=== PATIENT | male | born 1950 | race Caucasian/White ===

== ENCOUNTER → 2017-05-24 15:28 | Outpatient (CLI) | payer MEDICARE, SELFPAY ==
[2017-05-24 17:54] LABS: Hematocrit 35.4 % (40-54); Hemoglobin 11.9 g/dl (13.0-16.5); Red Blood Count 3.72 M/mm3 (4.6-6.2); White Blood Count 4.5 K/mm3 (4.4-11.0)
[2017-05-24 17:55] LABS: Basophil% 0.7 % (0-1); Eosinophils% 3.5 % (0-5); Lymphocyte % 28.7 % (19-41); Mean Corp Hgb Conc 33.6 g/gl (32-36); Mean Corpuscular Volume 95.2 fL (80-94); Monocyte% 12.4 % (0-10); Neutrophil % 54.5 % (47-70); POSITIVE COUNT NO; POSITIVE DIFFERENTIAL NO; POSITIVE MORPHOLOGY NO; Platelet Count 279 K/mm3 (150-450); RBC Distribution Width CV 12.7 % (11.6-14.6); RBC Distribution Width SD 42.6 fl (35.1-43.9)
[2017-05-24 17:56] LABS: Absolute Neutrophil Count 2.5 X10^3/uL (2.0-7.7); Basophil# 0.03 X10^3/uL; Eosinophil# 0.16 X10^3/uL; Monocyte# 0.56 X10^3/uL; Neutrophil # 2.47 X10^3/uL (2.7-7.7)
[2017-05-24 18:42] LABS: ALB/GLOB Ratio 0.9 RATIO (0.9-2.4); AST(SGOT) 16 U/L (15-37); Alanine Aminotransfer ALT/SGPT 24 U/L (16-61); Albumin, Serum 3.6 g/dL (3.2-5.0); Alkaline Phosphatase 107 U/L (45-117); Anion Gap 9 (5-15); BUN 34 mg/dL (7-18); BUN/Creat Ratio 23.4 RATIO (10-20); Calcium,Total 8.5 mg/dL (8.5-10.1); Chloride 106 mmol/L (98-107); Creatinine, Serum 1.45 mg/dL (0.70-1.30); EST Glomerular Filtration Rate 51 mL/min (>60); Est Glom Filt Rate - Afr Amer 62 mL/min (>60); Globulin 3.8 g/dL (2.2-4.2); Glucose 91 mg/dL (74-106); Magnesium 2.5 mg/dL (1.6-2.6); Potassium 4.4 mmol/L (3.5-5.1); Protein, Total 7.4 g/dL (6.4-8.2); Sodium Level 140 mmol/L (136-145); T4 Free Direct 1.12 ng/dL (0.76-1.46)
[2017-05-25 09:35] LABS: Vitamin B12 351 pg/mL (211-911)
[2017-05-29 14:07] LABS: Testosterone, Free 5.44 (5.00-21.00)
[2017-05-29 15:32] LABS: Testosterone, % Free 2.03 % (1.50-4.20); Testosterone, Total 268 ng/dL (264-916)
== END ==
PROVIDERS: Family Medicine; Family Provider Family Medicine; PCP Family Medicine; Visit Provider Family Medicine
DX: D64.9 Anemia, unspecified (principal); I48.91 Unspecified atrial fibrillation; E03.9 Hypothyroidism, unspecified; E34.9 Endocrine disorder, unspecified; E55.9 Vitamin D deficiency, unspecified
CPT/HCPCS: 36415; 80053; 82306; 82607; 83735; 84402; 84403; 84439; 84443; 85025

== ENCOUNTER → 2017-06-01 10:36 | Outpatient (CLI) | payer MEDICARE, SELFPAY ==
[2017-06-01 12:50] LABS: Anion Gap 8 (5-15); BUN 30 mg/dL (7-18); Calcium,Total 8.9 mg/dL (8.5-10.1); Chloride 104 mmol/L (98-107); Creatinine, Serum 1.25 mg/dL (0.70-1.30); EST Glomerular Filtration Rate 61 mL/min (>60); Est Glom Filt Rate - Afr Amer 74 mL/min (>60); Glucose 93 mg/dL (74-106); Potassium 4.6 mmol/L (3.5-5.1); Sodium Level 138 mmol/L (136-145)
== END ==
PROVIDERS: Family Provider Family Medicine; PCP Family Medicine; Visit Provider Family Medicine
DX: N17.9 Acute kidney failure, unspecified (principal)
CPT/HCPCS: 36415; 80048

== ENCOUNTER 2017-10-03 05:47 | Day surgery (SDC) | payer MEDICARE, SELFPAY ==
[2017-10-03] VITALS (7 sets, daily range): BP systolic 107–118; BP diastolic 64–70; PULSE 50–56; RESP 14–16; TEMP 35.9–36.4; O2SAT 97–99; BMI 25.8
--- NOTE | 2017-10-03 06:22 | SUR.PREOP ---
500c ns enema given. pt. states results clear.
--- NOTE | 2017-10-03 06:48 | PCM.OPRPT ---
Problem List (1) Personal history of colonic polyps Status: Acute Report of Operation Date of Procedure: 10/03/17 Pre-Operative Diagnosis: Personal history of colon polyps Post-Operative Diagnosis: Extensive sigmoid and descending diverticulosis Surgery/Procedure Performed:: Colonoscopy Description of Surgical Findings:: Timeout and informed consent was obtained. 67-year-old gent was taken to the endoscopy suite. He was placed in the left lateral decubitus position. He received 100 mg Demerol and 3 mg of Versed is intravenous sedation. Digital rectal exam demonstrated mild hemorrhoidal changes. 3+ enlarged smooth prostate. Flexible colonoscope inserted in the rectum advanced with tortuous sigmoid colon. The scope was then readily advanced to the transverse colon and nicely to the cecum. Bowel prep was good there was still some liquidy stool but he could be aspirated. The cecum and ileocecal valve was nicely inspected. The scope was carefully withdrawn from the ascending and transverse descending and sigmoid colon. The descending and sigmoid colon had extensive severe diverticulosis. I did not see any changes of acute inflammatory change. Rectal vault was rather small. Some moderate grade 2 internal hemorrhoidal changes noted. No active bleeding. Excess fluid and air was aspirated free the procedure was completed with the patient tolerating it well. Impression Extensive descending and sigmoid diverticulosis. No evidence for recurrent polyps Recommendations will be for next colonoscopy in 5 years. Previous colonoscopy was 2012. Cc: Dr. Gutierrez Butler Medications were given at 0632. Scope was inserted 0636. Cecum was reached at 0640.31. The procedure was completed at [address] M.D., F.A.C.S. Type of Anesthesia:: IV Sedation
== END 2017-10-03 07:45 | disposition home or self-care (01) ==
LOC: EN 05:48 → AC 05:49
PROVIDERS: Family Provider Family Medicine; PCP Family Medicine; Visit Provider Surgery
PROC: 0DJD8ZZ Inspection of Lower Intestinal Tract, Via Natural or Artificial Opening Endoscopic (ICD-10-PCS; CPT 45378; principal; 2017-10-03 06:25)
DX: Z12.11 Encounter for screening for malignant neoplasm of colon (principal); K57.30 Diverticulosis of large intestine without perforation or abscess without bleeding; Z86.010 Personal history of colon polyps
CPT/HCPCS: 99152; G0121; 99153; J7120

== ENCOUNTER → 2017-12-20 15:03 | Outpatient (CLI) | payer MEDICARE, SELFPAY ==
[2017-12-20 17:47] LABS: Absolute Lymphocyte Count 1.26 X10^3/ul (0.83-4.51); Absolute Neutrophil Count 3.3 X10^3/uL (2.0-7.7); Basophil# 0.02 X10^3/uL; Basophil% 0.4 % (0-1); Eosinophil# 0.15 X10^3/uL; Eosinophils% 2.9 % (0-5); Hematocrit 34.2 % (40-54); Hemoglobin 11.3 g/dl (13.0-16.5); Lymphocyte # 1.26 X10^3/ul (4.0); Mean Corpuscular Hgb 31.5 pg (27.0-32.0); Mean Corpuscular Volume 95.3 fL (80-94); Mean Platelet Vol. 9.7 fl (6.2-12.0); Monocyte# 0.56 X10^3/uL; Monocyte% 10.7 % (0-10); Neutrophil # 3.25 X10^3/uL (2.7-7.7); Platelet Count 275 K/mm3 (150-450); RBC Distribution Width CV 12.6 % (11.6-14.6); RBC Distribution Width SD 43.3 fl (35.1-43.9); Red Blood Count 3.59 M/mm3 (4.6-6.2); White Blood Count 5.2 K/mm3 (4.4-11.0)
[2017-12-20 17:50] LABS: POSITIVE COUNT NO; POSITIVE DIFFERENTIAL NO; POSITIVE MORPHOLOGY NO
[2017-12-20 18:17] LABS: AST(SGOT) 14 U/L (15-37); Alanine Aminotransfer ALT/SGPT 24 U/L (16-61); Albumin, Serum 3.6 g/dL (3.2-5.0); Alkaline Phosphatase 89 U/L (45-117); Anion Gap 6 (5-15); BUN 30 mg/dL (7-18); BUN/Creat Ratio 18.4 RATIO (10-20); Calcium,Total 8.8 mg/dL (8.5-10.1); Chloride 108 mmol/L (98-107); Creatinine, Serum 1.63 mg/dL (0.70-1.30); EST Glomerular Filtration Rate 45 mL/min (>60); Est Glom Filt Rate - Afr Amer 54 mL/min (>60); Ferritin 119 ng/mL (26-388); Globulin 3.7 g/dL (2.2-4.2); Glucose 85 mg/dL (74-106); Iron 68 ug/dL (65-175); Iron Binding Capacity,Total 270 ug/dL (250-450); Magnesium 2.3 mg/dL (1.6-2.6); PERCENT IRON SATURATION 25.2 % (15.0-55.0); Potassium 4.5 mmol/L (3.5-5.1); Protein, Total 7.3 g/dL (6.4-8.2); Sodium Level 143 mmol/L (136-145); T4 Free Direct 1.14 ng/dL (0.76-1.46); Thyroid Stim Hormone (TSH) 1.09 uIU/mL (0.358-3.74)
[2017-12-21 08:29] LABS: Vitamin B12 691 pg/mL (211-911); Vitamin D,25 Hydroxy 29.3 ng/mL (29.95-100.01)
[2017-12-25 12:55] LABS: Anti-Thyroglobulin AB < 1.0 IU/mL (0.0-0.9); Thyroid Peroxidase AB 31 IU/mL (0-34)
== END ==
PROVIDERS: Family Provider Family Medicine; PCP Family Medicine; Visit Provider Family Medicine
DX: E55.9 Vitamin D deficiency, unspecified (principal); E03.9 Hypothyroidism, unspecified; D64.9 Anemia, unspecified; R53.83 Other fatigue; I48.91 Unspecified atrial fibrillation
CPT/HCPCS: 36415; 80053; 82306; 82607; 82728; 82746; 83540; 83550; 83735; 84432; 84439; 84443; 85025; 86376; 86800

== ENCOUNTER 2018-04-01 13:14 | Emergency (ER) | payer MEDICARE, SELFPAY ==
[2018-04-01 13:14] VITALS: BP 118/67; PULSE 83; RESP 16; TEMP 36.2; O2SAT 98; BMI 26.6
[2018-04-01] MEDS: 0.9% Normal Saline 1,000 ML 1000 ML IV ×2 (13:56→14:54)
[2018-04-01] MEDS: Ondansetron 4 MG/2 ML Vial IV (13:57)
[2018-04-01 14:04] LABS: Absolute Neutrophil Count 7.5 X10^3/uL (2.0-7.7); Basophil# 0.01 X10^3/uL; Basophil% 0.1 % (0-1); Eosinophil# 0.25 X10^3/uL; Eosinophils% 2.7 % (0-5); Hemoglobin 13.5 g/dl (13.0-16.5); Lymphocyte % 8.8 % (19-41); Mean Corp Hgb Conc 33.8 g/gl (32-36); Mean Corpuscular Hgb 31.5 pg (27.0-32.0); Mean Corpuscular Volume 93.5 fL (80-94); Mean Platelet Vol. 9.4 fl (6.2-12.0); Monocyte# 0.58 X10^3/uL; Monocyte% 6.4 % (0-10); Neutrophil # 7.48 X10^3/uL (2.7-7.7); Neutrophil % 81.9 % (47-70); POSITIVE COUNT NO; POSITIVE DIFFERENTIAL NO; POSITIVE MORPHOLOGY NO; Platelet Count 255 K/mm3 (150-450); RBC Distribution Width CV 12.4 % (11.6-14.6); RBC Distribution Width SD 42.4 fl (35.1-43.9); Red Blood Count 4.28 M/mm3 (4.6-6.2); White Blood Count 9.1 K/mm3 (4.4-11.0)
[2018-04-01 14:08] LABS: Anion Gap 10 (5-15); BUN 30 mg/dL (7-18); Calcium,Total 8.3 mg/dL (8.5-10.1); Chloride 103 mmol/L (98-107); Creatinine, Serum 1.11 mg/dL (0.70-1.30); EST Glomerular Filtration Rate 70 mL/min (>60); Est Glom Filt Rate - Afr Amer 84 mL/min (>60); Estimated Creatinine Clearance 56.68 ml/min; Glucose 111 mg/dL (74-106); Potassium 4.2 mmol/L (3.5-5.1); Sodium Level 137 mmol/L (136-145)
--- NOTE | 2018-04-01 14:50 | ED.VISSUMM ---
- ER Visit Summary Date of Service: 04/01/18 Chief Complaint: Nausea vomiting diarrhea History of Present Illness: The patient is a 67 M presenting for evaluation secondary nausea vomiting diarrhea. Patient reports that at about 3 AM he woke up with a very sudden onset of nausea vomiting diarrhea. Patient reports that he has had multiple episodes of nonbloody nonbilious emesis as well as loose watery nonmucous nonbloody diarrhea. Patient states that it is associated with generalized feelings of weakness and some myalgias. He denies any presence of abdominal pain. Review of systems otherwise negative. Physical Examination: Vital signs are within normal limits, patient is afebrile. General: Patient is well-nourished well-developed and in no acute distress. Head: Normocephalic, atraumatic Eyes: Pupils equal round and reactive bilaterally, extra occular motion intact bialterally, no evidence of conjunctival pallor ENT: Moist mucous membranes Neck: Supple, no lymphadenopathy, no JVD, no meningismus CVS: Heart regular rate and rhythm, no murmurs, rubs or gallops, radial pulses 2+ bilaterally Resp: Respirations nondistressed, lung sounds clear bilaterally Abdomen: Soft, nontender, nondistended, no palpable masses, normal bowel sounds Back: Nontender Extremities: Nontender, atraumatic, active full range of motion, no peripheral edema Skin: warm, no rashes, no petechia, mildly pale Neuro: Alert and oriented x 4, CN 2-12 intact, no lateralizing neurological defecits Psyc: Normal affect Test Results: CBC and chemistry unremarkable Emergency Department Course and Treatment: Patient presented for evaluation secondary to vomiting and diarrhea. He has benign abdominal exam I do not see any indication for imaging. Lab work was unremarkable, patient was given 2 L normal saline and Zofran repeat evaluation demonstrates benign abdomen, improvement of patient's coloration, and improvement of his symptoms. I believe that he is safe for discharge with symptomatic treatment. He will be sent home with a course of Zofran. Disposition: Discharge Impression: 1. Gastroenteritis This note was generated with [employer] dictation software. It may contain incorrect words, spelling, and punctuation that were not noted in review of the chart prior to signing ED Disposition - Plan for ED Patient: Disposition: Home or Assisted Living Chief Complaint: Cold Sx Diagnosis: Gastroenteritis Instructions: ED Gastroenteritis Viral Prescriptions: Ondansetron [Zofran Odt] 4 mg PO Q8H PRN PRN #10 tab PRN Reason: Nausea Referrals: Raffi Vaca MD [Primary Care Provider] - 1-2 Days if not improving
[2018-04-01 15:35] VITALS: BP 115/78; PULSE 82; RESP 16; O2SAT 98
== END 2018-04-01 15:36 | disposition home or self-care (01) ==
PROVIDERS: Emergency Provider Emergency Medicine; Family Provider Family Medicine; PCP Family Medicine
DX: K52.9 Noninfective gastroenteritis and colitis, unspecified (principal); G47.33 Obstructive sleep apnea (adult) (pediatric); I48.91 Unspecified atrial fibrillation
CPT/HCPCS: 80048; 85025; 96361; 96374; 99283; J7030; J2405

== ENCOUNTER → 2018-06-06 08:29 | Outpatient (CLI) | payer MEDICARE, SELFPAY ==
[2018-06-06 10:07] LABS: Absolute Lymphocyte Count 1.24 X10^3/ul (0.83-4.51); Absolute Neutrophil Count 2.9 X10^3/uL (2.0-7.7); Basophil# 0.02 X10^3/uL; Basophil% 0.4 % (0-1); Eosinophil# 0.16 X10^3/uL; Eosinophils% 3.4 % (0-5); Hematocrit 34.3 % (40-54); Hemoglobin 11.3 g/dl (13.0-16.5); Lymphocyte # 1.24 X10^3/ul (4.0); Lymphocyte % 26.1 % (19-41); Mean Corp Hgb Conc 32.9 g/gl (32-36); Mean Corpuscular Hgb 31.5 pg (27.0-32.0); Mean Corpuscular Volume 95.5 fL (80-94); Mean Platelet Vol. 9.9 fl (6.2-12.0); Monocyte# 0.42 X10^3/uL; Monocyte% 8.8 % (0-10); Neutrophil % 61.1 % (47-70); Platelet Count 236 K/mm3 (150-450); RBC Distribution Width CV 12.7 % (11.6-14.6); RBC Distribution Width SD 44.4 fl (35.1-43.9); Red Blood Count 3.59 M/mm3 (4.6-6.2); White Blood Count 4.8 K/mm3 (4.4-11.0)
[2018-06-06 10:10] LABS: POSITIVE COUNT NO; POSITIVE DIFFERENTIAL NO; POSITIVE MORPHOLOGY NO
[2018-06-06 10:31] LABS: ALB/GLOB Ratio 1.2 RATIO (0.9-2.4); AST(SGOT) 17 U/L (15-37); Alanine Aminotransfer ALT/SGPT 24 U/L (16-61); Albumin, Serum 3.8 g/dL (3.2-5.0); Alkaline Phosphatase 102 U/L (45-117); Anion Gap 8 (5-15); BUN 30 mg/dL (7-18); BUN/Creat Ratio 26.3 RATIO (10-20); Calcium,Total 8.7 mg/dL (8.5-10.1); Chloride 108 mmol/L (98-107); Cholesterol 163 mg/dL (200); Creatinine, Serum 1.14 mg/dL (0.70-1.30); EST Glomerular Filtration Rate 68 mL/min (>60); Est Glom Filt Rate - Afr Amer 82 mL/min (>60); Globulin 3.1 g/dL (2.2-4.2); Glucose 94 mg/dL (74-106); High Density Lipoprotein 59 mg/dL; Magnesium 2.3 mg/dL (1.6-2.6); Potassium 4.7 mmol/L (3.5-5.1); Protein, Total 6.9 g/dL (6.4-8.2); Sodium Level 142 mmol/L (136-145); Thyroid Stim Hormone (TSH) 0.96 uIU/mL (0.358-3.74); Triglycerides 57 mg/dL; Very Low Density Lipoprotein 11 mg/dL (5-40)
[2018-06-06 11:58] LABS: Vitamin D,25 Hydroxy 28.8 ng/mL (29.95-100.01)
== END ==
PROVIDERS: Family Provider Family Medicine; PCP Family Medicine; Referring Provider Family Medicine; Visit Provider Family Medicine
DX: E55.9 Vitamin D deficiency, unspecified (principal); E03.9 Hypothyroidism, unspecified; I48.91 Unspecified atrial fibrillation
CPT/HCPCS: 36415; 80053; 80061; 82306; 83735; 84443; 85025

== ENCOUNTER → 2018-06-12 10:11 | Outpatient (CLI) | payer MEDICARE, SELFPAY ==
[2018-06-12 12:22] LABS: Absolute Lymphocyte Count 1.19 X10^3/ul (0.83-4.51); Absolute Neutrophil Count 2.6 X10^3/uL (2.0-7.7); Basophil# 0.01 X10^3/uL; Basophil% 0.2 % (0-1); Eosinophils% 6.4 % (0-5); Hematocrit 36.6 % (40-54); Lymphocyte # 1.19 X10^3/ul (4.0); Lymphocyte % 25.2 % (19-41); Mean Corp Hgb Conc 32.8 g/gl (32-36); Mean Corpuscular Hgb 31.7 pg (27.0-32.0); Mean Corpuscular Volume 96.8 fL (80-94); Mean Platelet Vol. 9.7 fl (6.2-12.0); Monocyte# 0.61 X10^3/uL; Monocyte% 12.9 % (0-10); Neutrophil # 2.61 X10^3/uL (2.7-7.7); Neutrophil % 55.3 % (47-70); Platelet Count 257 K/mm3 (150-450); RBC Distribution Width CV 12.8 % (11.6-14.6); RBC Distribution Width SD 44.4 fl (35.1-43.9); Red Blood Count 3.78 M/mm3 (4.6-6.2); White Blood Count 4.7 K/mm3 (4.4-11.0)
[2018-06-12 12:30] LABS: POSITIVE COUNT NO; POSITIVE DIFFERENTIAL NO; POSITIVE MORPHOLOGY NO
[2018-06-12 12:47] LABS: Ferritin 88 ng/mL (26-388); Iron 69 ug/dL (65-175); Iron Binding Capacity,Total 274 ug/dL (250-450); Vitamin B12 620 pg/mL (211-911)
== END ==
PROVIDERS: Family Provider Family Medicine; PCP Family Medicine; Referring Provider Family Medicine; Visit Provider Family Medicine
DX: D64.9 Anemia, unspecified (principal)
CPT/HCPCS: 36415; 82607; 82728; 82746; 83540; 83550; 85025

== ENCOUNTER → 2018-07-01 08:22 | Outpatient (CLI) | payer MEDICARE, SELFPAY ==
[2018-07-01 10:43] LABS: Hematocrit 36.1 % (40-54); Hemoglobin 11.7 g/dl (13.0-16.5); Mean Corp Hgb Conc 32.4 g/gl (32-36); Mean Corpuscular Hgb 31.5 pg (27.0-32.0); Mean Corpuscular Volume 97.3 fL (80-94); Mean Platelet Vol. 9.9 fl (6.2-12.0); Platelet Count 247 K/mm3 (150-450); RBC Distribution Width CV 12.2 % (11.6-14.6); RBC Distribution Width SD 42.2 fl (35.1-43.9); Red Blood Count 3.71 M/mm3 (4.6-6.2); White Blood Count 5.7 K/mm3 (4.4-11.0)
[2018-07-01 10:54] LABS: Scan Indicated on CBC? Y/N NO
== END ==
PROVIDERS: Family Provider Family Medicine; PCP Family Medicine; Referring Provider Family Medicine; Visit Provider Family Medicine
DX: D64.9 Anemia, unspecified (principal)
CPT/HCPCS: 36415; 85027

== ENCOUNTER → 2018-07-18 07:37 | Outpatient (CLI) | payer MEDICARE, SELFPAY ==
--- NOTE | 2018-07-18 07:44 | CT_ITS ---
STUDY: CT CHEST WITHOUT CONTRAST REASON FOR EXAM: Male, 68 years old. Follow-up lung nodule RADIATION DOSAGE (If Supplied By Facility): CTDIvol = ( 14.12 ) mGy, DLP = ( 481.14 ) mGycm TECHNIQUE: Transaxial imaging was performed without the administration of intravenous contrast material. Individualized dose optimization techniques were used for this CT. COMPARISON: CT chest 06/28/2016. FINDINGS: There are stable, scattered 3-4 mm bilateral perifissural nodules, for example 3 mm nodule along the right major fissure on series 2 image 128 and 4 mm nodule on the left on image 122 139. There is a stable region of focal thickening along the right minor fissure on series 2 image 116 which appears groundglass on axial imaging. Stable 4 mm right middle lobe subpleural nodular density anteriorly on image 142. Stable 4 mm right lower lobe nodule on image 158. No new or enlarging pulmonary nodule. No focal pulmonary consolidation. There is no demonstrated pleural abnormality. Normal heart and pericardium. There mild aortic arch and valve calcifications. Normal mediastinum. Normal hilar regions. Normal unenhanced pulmonary arteries. Normal aorta arch and descending thoracic aorta. There are mild degenerative changes of the spine. There are nonobstructing stones in the visualized left renal upper pole. CT/Chest without Contrast IMPRESSION: Stable 3-4 mm pulmonary nodules. No new or enlarging pulmonary nodule. Continued annual chest CT is recommended if high risk for developing pulmonary malignancy. Electronically Signed: Mouna Hensley, at 9:33 EDT Tel , Service support ,
== END ==
PROVIDERS: Family Provider Family Medicine; PCP Family Medicine; Referring Provider Internal Medicine Pulmonary Disease; Visit Provider Internal Medicine Pulmonary Disease
DX: R91.1 Solitary pulmonary nodule (principal)
CPT/HCPCS: 71250

== ENCOUNTER → 2018-10-18 11:00 | Outpatient (CLI) | payer MEDICARE, SELFPAY ==
[2018-10-18 12:50] LABS: Absolute Lymphocyte Count 1.33 X10^3/ul (0.83-4.51); Absolute Neutrophil Count 3.8 X10^3/uL (2.0-7.7); Basophil# 0.02 X10^3/uL; Basophil% 0.4 % (0-1); Eosinophil# 0.09 X10^3/uL; Eosinophils% 1.6 % (0-5); Hematocrit 34.5 % (40-54); Hemoglobin 11.5 g/dl (13.0-16.5); Lymphocyte # 1.33 X10^3/ul (4.0); Lymphocyte % 23.6 % (19-41); Mean Corp Hgb Conc 33.3 g/gl (32-36); Mean Corpuscular Hgb 31.3 pg (27.0-32.0); Mean Platelet Vol. 10.1 fl (6.2-12.0); Monocyte# 0.42 X10^3/uL; Monocyte% 7.4 % (0-10); Neutrophil # 3.77 X10^3/uL (2.7-7.7); Neutrophil % 66.8 % (47-70); Platelet Count 255 K/mm3 (150-450); RBC Distribution Width CV 12.6 % (11.6-14.6); RBC Distribution Width SD 41.6 fl (35.1-43.9); Red Blood Count 3.67 M/mm3 (4.6-6.2); White Blood Count 5.6 K/mm3 (4.4-11.0)
[2018-10-18 12:53] LABS: POSITIVE COUNT NO; POSITIVE DIFFERENTIAL NO; POSITIVE MORPHOLOGY NO
[2018-10-18 13:04] LABS: Vitamin D,25 Hydroxy 38.8 ng/mL (29.95-100.01)
[2018-10-18 13:31] LABS: ALB/GLOB Ratio 1.1 RATIO (0.9-2.4); AST(SGOT) 18 U/L (15-37); Alanine Aminotransfer ALT/SGPT 22 U/L (16-61); Albumin, Serum 3.7 g/dL (3.2-5.0); Alkaline Phosphatase 88 U/L (45-117); Anion Gap 8 (5-15); BUN 28 mg/dL (7-18); BUN/Creat Ratio 21.4 RATIO (10-20); Calcium,Total 8.7 mg/dL (8.5-10.1); Chloride 108 mmol/L (98-107); Creatinine, Serum 1.31 mg/dL (0.70-1.30); EST Glomerular Filtration Rate 57 mL/min (>60); Est Glom Filt Rate - Afr Amer 70 mL/min (>60); Globulin 3.5 g/dL (2.2-4.2); Glucose 81 mg/dL (74-106); Magnesium 2.2 mg/dL (1.6-2.6); PSA,Total - Annual Screen 4.05 ng/mL (0.00-4.00); Potassium 4.2 mmol/L (3.5-5.1); Protein, Total 7.2 g/dL (6.4-8.2); Sodium Level 139 mmol/L (136-145); Thyroid Stim Hormone (TSH) 2.52 uIU/mL (0.358-3.74)
== END ==
PROVIDERS: Family Provider Family Medicine; PCP Family Medicine; Visit Provider Family Medicine
DX: I48.91 Unspecified atrial fibrillation (principal); E55.9 Vitamin D deficiency, unspecified; E03.9 Hypothyroidism, unspecified; Z12.5 Encounter for screening for malignant neoplasm of prostate
CPT/HCPCS: 36415; 80053; 82306; 83735; 84153; 84443; 85025; G0103

== ENCOUNTER → 2018-11-01 14:16 | Outpatient (CLI) | payer MEDICARE, SELFPAY ==
[2018-11-01 16:14] LABS: Vitamin B12 663 pg/mL (211-911)
[2018-11-01 16:38] LABS: Anion Gap 8 (5-15); BUN 29 mg/dL (7-18); BUN/Creat Ratio 26.1 RATIO (10-20); Calcium,Total 8.9 mg/dL (8.5-10.1); Chloride 109 mmol/L (98-107); Creatinine, Serum 1.11 mg/dL (0.70-1.30); EST Glomerular Filtration Rate 70 mL/min (>60); Est Glom Filt Rate - Afr Amer 84 mL/min (>60); Ferritin 76 ng/mL (26-388); Glucose 85 mg/dL (74-106); Iron 65 ug/dL (65-175); Iron Binding Capacity,Total 257 ug/dL (250-450); LDH 179 U/L (87-241); Potassium 4.1 mmol/L (3.5-5.1); Sodium Level 142 mmol/L (136-145)
[2018-11-03 17:16] LABS: Haptoglobin 174 mg/dL (34-200); PSA, Free % 28.6 % (.); PSA, Total Ultrasensitive 3.5 ng/mL (0.0-4.0)
== END ==
PROVIDERS: Family Provider Family Medicine; PCP Family Medicine; Referring Provider Family Medicine; Visit Provider Family Medicine
DX: D64.9 Anemia, unspecified (principal); R97.20 Elevated prostate specific antigen [PSA]; R94.4 Abnormal results of kidney function studies
CPT/HCPCS: 36415; 80048; 82607; 82728; 82746; 83010; 83540; 83550; 83615; 84153; 84154

== ENCOUNTER → 2018-11-22 12:49 | Outpatient (CLI) | payer MEDICARE, SELFPAY ==
[2018-11-22 15:44] LABS: AST(SGOT) 20 U/L (15-37); Alanine Aminotransfer ALT/SGPT 25 U/L (16-61); Albumin, Serum 3.6 g/dL (3.2-5.0); Alkaline Phosphatase 92 U/L (45-117); Anion Gap 4 (5-15); BUN 29 mg/dL (7-18); BUN/Creat Ratio 22.8 RATIO (10-20); Calcium,Total 8.7 mg/dL (8.5-10.1); Chloride 109 mmol/L (98-107); Creatinine, Serum 1.27 mg/dL (0.70-1.30); EST Glomerular Filtration Rate 60 mL/min (>60); Est Glom Filt Rate - Afr Amer 72 mL/min (>60); Globulin 3.5 g/dL (2.2-4.2); Glucose 85 mg/dL (74-106); Potassium 4.2 mmol/L (3.5-5.1); Protein, Total 7.1 g/dL (6.4-8.2); Sodium Level 141 mmol/L (136-145)
== END ==
PROVIDERS: Family Provider Family Medicine; PCP Family Medicine; Referring Provider Family Medicine; Visit Provider Family Medicine
DX: B35.1 Tinea unguium (principal)
CPT/HCPCS: 36415; 80053

== ENCOUNTER → 2019-04-29 08:07 | Outpatient (CLI) | payer MEDICARE, SELFPAY ==
[2019-04-28 17:42] VITALS: BMI 27.4
[2019-04-29 08:46] LABS: Absolute Lymphocyte Count 1.39 X10^3/uL (0.83-4.51); Absolute Neutrophil Count 3.5 X10^3/uL (2.0-7.7); Basophil# 0.03 X10^3/uL; Basophil% 0.5 % (0-1); Eosinophil# 0.12 X10^3/uL; Eosinophils% 2.1 % (0-5); Hematocrit 36.2 % (40-54); Hemoglobin 11.9 g/dL (13.0-16.5); Lymphocyte # 1.39 X10^3/ul (4.0); Lymphocyte % 24.4 % (19-41); Mean Corp Hgb Conc 32.9 g/dL (32-36); Mean Corpuscular Hgb 31.6 pg (27.0-32.0); Mean Platelet Vol. 9.6 fl (6.2-12.0); Monocyte# 0.62 X10^3/uL; Monocyte% 10.9 % (0-10); NRBC Flagged by Analyzer 0 % (0-5); Neutrophil # 3.52 X10^3/uL (2.7-7.7); Neutrophil % 61.7 % (47-70); Platelet Count 256 K/mm3 (150-450); RBC Distribution Width CV 12.1 % (11.6-14.6); RBC Distribution Width SD 42.2 fl (35.1-43.9); Red Blood Count 3.77 M/mm3 (4.6-6.2); White Blood Count 5.7 K/mm3 (4.4-11.0)
[2019-04-29 09:55] LABS: ALB/GLOB Ratio 0.9 RATIO (0.9-2.4); AST(SGOT) 16 U/L (15-37); Alanine Aminotransfer ALT/SGPT 28 U/L (16-61); Albumin, Serum 3.6 g/dL (3.2-5.0); Alkaline Phosphatase 99 U/L (45-117); Anion Gap 4 (5-15); BUN 31 mg/dL (7-18); Calcium,Total 8.9 mg/dL (8.5-10.1); Chloride 106 mmol/L (98-107); Creatinine, Serum 1.29 mg/dL (0.70-1.30); EST Glomerular Filtration Rate 58 mL/min (>60); Est Glom Filt Rate - Afr Amer 71 mL/min (>60); Globulin 3.8 g/dL (2.2-4.2); Glucose 98 mg/dL (74-106); Magnesium 2.1 mg/dL (1.6-2.6); Potassium 4.2 mmol/L (3.5-5.1); Protein, Total 7.4 g/dL (6.4-8.2); Sodium Level 138 mmol/L (136-145); Thyroid Stim Hormone (TSH) 5.15 uIU/mL (0.358-3.74)
[2019-04-29 10:00] LABS: Vitamin B12 665 pg/mL (211-911); Vitamin D,25 Hydroxy 29.8 ng/mL (29.95-100.01)
[2019-04-30 20:24] LABS: PSA, Total Ultrasensitive 4.4 ng/mL (0.0-4.0)
== END ==
PROVIDERS: PCP Family Medicine; Referring Provider Family Medicine; Visit Provider Family Medicine
DX: E55.9 Vitamin D deficiency, unspecified (principal); E03.9 Hypothyroidism, unspecified; R97.20 Elevated prostate specific antigen [PSA]; I48.91 Unspecified atrial fibrillation; E53.8 Deficiency of other specified B group vitamins
CPT/HCPCS: 36415; 80053; 82306; 82607; 82746; 83735; 84153; 84154; 84443; 85025

== ENCOUNTER → 2019-08-29 09:29 | Outpatient (CLI) | payer MEDICARE, SELFPAY ==
[2019-05-05 09:41] VITALS: BMI 27.4
[2019-08-29 12:54] LABS: Vitamin B12 699 pg/mL (211-911)
[2019-08-29 12:59] LABS: Magnesium 2.1 mg/dL (1.6-2.6); T4 Free Direct 1.01 ng/dL (0.76-1.46)
[2019-08-29 13:06] LABS: Hemoglobin A1c 5.3 % (3.8-5.6)
== END ==
PROVIDERS: PCP Family Medicine; Referring Provider Family Medicine; Visit Provider Family Medicine
DX: E03.9 Hypothyroidism, unspecified (principal); E53.8 Deficiency of other specified B group vitamins; N18.3 Chronic kidney disease, stage 3 (moderate)
CPT/HCPCS: 36415; 82607; 83036; 83735; 84439; 84443

== ENCOUNTER → 2019-11-03 09:49 | Outpatient (CLI) | payer MEDICARE, SELFPAY ==
[2019-05-05 09:41] VITALS: BMI 27.4
--- NOTE | 2019-11-03 09:50 | ECHOD_ITS ---
Reason For Study: MURMUR Procedure This was a 2D Doppler, Color Flow transthoracic echocardiogram. The exam was of adequate technical quality. Exam performed in department. Left Ventricle Normal LV size. Left ventricular systolic function is normal. The estimated ejection fraction is 60 %. No regional wall motion abnormalities noted. Right Ventricle Normal RV size. Normal systolic function. Atria The left atrium is mildly enlarged. Normal right atrium. No doppler evidence for ASD. Mitral Valve There is no mitral annular calcification. Mild diffuse mitral valve thickening. Trivial mitral valve insufficiency. Tricuspid Valve Normal tricuspid valve. Trivial tricuspid valve insufficiency. Right ventricular systolic pressure estimated to be 32 mmHg. Aortic Valve Trisinus/trileaflet aortic valve. Mild diffuse aortic valve thickening. Moderate focal aortic valve calcification. Mild aortic stenosis. Trivial aortic valve insufficiency. Pulmonic Valve Normal pulmonic valve. Trivial pulmonic valve insufficiency. Great Vessels Normal sized aortic root. Calcified aortic root. Pericardium/Pleural No pericardial effusion. MMode/2D Measurements & Calculations LVIDd: 4.1 cm IVSd: 0.89 cm LVOT diam: 2.0 cm LVIDs: 2.6 cm LVPWd: 0.95 cm LVOT area: 3.1 cm2 RVDd: 5.3 cm FS: 36.2 % Ao root diam: 3.4 cm LAV(MOD-bp): 75.8 ml LA A4 area: 23.5 cm2 LAV(MOD-bp) Indexed: 40.6 ml/m2 LAV(MOD-sp2): 69.0 ml LAV(MOD-sp4): 73.3 ml LA dimension(2D): 4.6 cm RA A4 area: 14.7 cm2 Time Measurements MV dec time: 0.18 sec Doppler Measurements & Calculations MV E max arley: 96.7 cm/sec Lat Peak E' Arley: 10.6 cm/sec Med Peak E' Arley: 6.3 cm/sec MV A max arley: 74.4 cm/sec E/E' lat: 9.1 E/E' med: 15.4 MV E/A: 1.3 Ao V2 max: 216.9 cm/sec AI max arley: 371.3 cm/sec LV V1 max: 118.7 cm/sec Ao max P.8 mmHg AI max P.2 mmHg LV V1 max P.6 mmHg Ao V2 mean: 149.1 cm/sec AI dec slope: 182.5 cm/sec2 LV V1 mean P.9 mmHg Ao mean P.1 mmHg AI P1/2t: 595.8 msec LV V1 mean: 79.9 cm/sec Ao V2 VTI: 49.2 cm LV V1 VTI: 26.7 cm KELVIN(I,D): 1.7 cm2 KELVIN(V,D): 1.7 cm2 SV(LVOT): 82.5 ml PA V2 max: 105.8 cm/sec PI end-d arley: 80.1 cm/sec TR max arley: 269.5 cm/sec TR max P.2 mmHg Interpretation Summary Left ventricular systolic function is normal. The estimated ejection fraction is 60 %. The left atrium is mildly enlarged. Mild diffuse mitral valve thickening. Trivial mitral valve insufficiency. Trivial tricuspid valve insufficiency. Mild aortic stenosis. Trivial aortic valve insufficiency. Trivial pulmonic valve insufficiency. Calcified aortic root. Right ventricular systolic pressure estimated to be 32 mmHg. Transmitral diastolic flow velocities suggest diastolic dysfunction (pseudonormal pattern). Ordering Physician: Frankie Chang Referring Physician: MANUEL HARDY Performed By: Polly Hewitt, RDCS, RVT
== END ==
PROVIDERS: PCP Family Medicine; Referring Provider Internal Medicine Cardiovascular Disease; Visit Provider Internal Medicine Cardiovascular Disease
DX: G47.33 Obstructive sleep apnea (adult) (pediatric) (principal); I38 Endocarditis, valve unspecified; Z99.89 Dependence on other enabling machines and devices
CPT/HCPCS: 93306

== ENCOUNTER → 2019-12-09 10:04 | Outpatient (CLI) | payer MEDICARE, SELFPAY ==
[2019-11-10 11:16] VITALS: BMI 28.3
== END ==
PROVIDERS: PCP Family Medicine; Referring Provider Internal Medicine Cardiovascular Disease; Visit Provider Internal Medicine Cardiovascular Disease
DX: R06.00 Dyspnea, unspecified (principal); R06.02 Shortness of breath; I48.0 Paroxysmal atrial fibrillation
CPT/HCPCS: 93017; 93350; Q9957; A4216; C8928

== ENCOUNTER → 2020-03-09 08:15 | Outpatient (CLI) | payer MEDICARE, SELFPAY ==
[2019-11-10 11:16] VITALS: BMI 28.3
[2020-03-09 10:00] LABS: Hematocrit 36.6 % (40-54); Hemoglobin 12.2 g/dL (13.0-16.5); Mean Corp Hgb Conc 33.3 g/dL (32-36); Mean Corpuscular Hgb 32.4 pg (27.0-32.0); Mean Corpuscular Volume 97.3 fL (80-94); Mean Platelet Vol. 9.9 fl (6.2-12.0); Platelet Count 243 K/mm3 (150-450); RBC Distribution Width CV 11.9 % (11.6-14.6); RBC Distribution Width SD 42.9 fl (35.1-43.9); Red Blood Count 3.76 M/mm3 (4.6-6.2); White Blood Count 5.7 K/mm3 (4.4-11.0)
[2020-03-09 10:21] LABS: Thyroid Stim Hormone (TSH) 3.09 uIU/mL (0.358-3.74)
[2020-03-09 11:18] LABS: Vitamin B12 669 pg/mL (211-911); Vitamin D,25 Hydroxy 48.7 ng/mL
[2020-03-09 14:04] LABS: Bacteria 0 SEEN /hpf (None Seen); Mucous, Urine 0 SEEN /hpf (<or=2+); Red Blood Cells-Urine 0 SEEN /hpf (0-5); Squamous Epithelial Cells - UA 0 SEEN /hpf (0-5); White Blood Cells 0 SEEN /hpf (0-5)
[2020-03-09 15:28] LABS: Color, Urine Yellow (Yellow); Glucose, Dipstick Normal (Normal); Ketone-Dipstick Negative (Negative); Leukocyte Esterase-Dipstick Negative /ul (Negative); Nitrite-Dipstick Negative (Negative); Occult Blood-Urine Negative /ul (Negative); Protein-Dipstick Negative (Negative); Specific Gravity, Urine 1.015 (1.002-1.030); Urine Bilirubin Dipstick Negative (Negative); Urine Clarity Clear (Clear); Urine Urobilinogen Normal (Normal)
[2020-03-09 15:40] LABS: Protein, Urine (Random) 11.4 mg/dL (<11.9); Protein:Creat Ratio 97 mg/g CRE (0-200)
== END ==
PROVIDERS: PCP Family Medicine; Visit Provider Family Medicine
DX: E53.8 Deficiency of other specified B group vitamins (principal); E03.9 Hypothyroidism, unspecified; E55.9 Vitamin D deficiency, unspecified; N18.30 Chronic kidney disease, stage 3 unspecified
CPT/HCPCS: 36415; 81001; 82306; 82570; 82607; 84156; 84443; 85027

== ENCOUNTER → 2020-03-17 08:43 | Outpatient (CLI) | payer MEDICARE, SELFPAY ==
[2019-11-10 11:16] VITALS: BMI 28.3
[2020-03-17 10:22] LABS: PTHIN 41.1 pg/mL (18.4-80.1)
[2020-03-17 10:28] LABS: ALB/GLOB Ratio 0.9 RATIO (0.9-2.4); AST(SGOT) 15 U/L (15-37); Alanine Aminotransfer ALT/SGPT 24 U/L (16-61); Albumin, Serum 3.3 g/dL (3.2-5.0); Alkaline Phosphatase 134 U/L (45-117); Anion Gap 4 (5-15); BUN 30 mg/dL (7-18); BUN/Creat Ratio 25.9 RATIO (10-20); Calcium,Total 8.7 mg/dL (8.5-10.1); Chloride 107 mmol/L (98-107); Creatinine, Serum 1.16 mg/dL (0.70-1.30); EST Glomerular Filtration Rate 66 mL/min (>60); Est Glom Filt Rate - Afr Amer 80 mL/min (>60); Ferritin 138 ng/mL (26-388); Globulin 3.6 g/dL (2.2-4.2); Glucose 109 mg/dL (74-106); Iron 52 ug/dL (65-175); Iron Binding Capacity,Total 279 ug/dL (250-450); Potassium 4.2 mmol/L (3.5-5.1); Protein, Total 6.9 g/dL (6.4-8.2); Sodium Level 138 mmol/L (136-145)
[2020-03-18 15:44] LABS: PSA, Free 0.99 ng/mL; PSA, Free % 24.1 % (.); PSA, Total Ultrasensitive 4.1 ng/mL (0.0-4.0)
== END ==
PROVIDERS: PCP Family Medicine; Referring Provider Family Medicine; Visit Provider Family Medicine
DX: N18.30 Chronic kidney disease, stage 3 unspecified (principal); R97.20 Elevated prostate specific antigen [PSA]; D64.9 Anemia, unspecified
CPT/HCPCS: 36415; 80053; 82728; 82746; 83540; 83550; 83970; 84100; 84153; 84154

== ENCOUNTER → 2020-03-25 15:16 | Outpatient (CLI) | payer MEDICARE, SELFPAY ==
[2019-11-10 11:16] VITALS: BMI 28.3
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
== END ==
PROVIDERS: PCP Family Medicine; Referring Provider Family Medicine; Visit Provider Family Medicine
DX: M79.674 Pain in right toe(s) (principal); V89.2XXA Person injured in unspecified motor-vehicle accident, traffic, initial encounter
CPT/HCPCS: 73564; 73620

== ENCOUNTER → 2020-04-07 15:29 | Outpatient (CLI) | payer MEDICARE, SELFPAY ==
[2020-03-29 13:11] VITALS: BMI 27.4
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
== END ==
PROVIDERS: PCP Family Medicine; Referring Provider Family Medicine; Visit Provider Family Medicine
DX: M54.9 Dorsalgia, unspecified (principal)
CPT/HCPCS: 72110; 72202

== ENCOUNTER → 2020-04-12 15:22 | Outpatient (CLI) | payer MEDICARE, SELFPAY ==
[2020-04-12 13:48] VITALS: BMI 27.4
[2020-04-12 17:18] LABS: Hemoglobin 10.7 g/dL (13.0-16.5); Mean Corp Hgb Conc 33.4 g/dL (32-36); Mean Corpuscular Hgb 33.2 pg (27.0-32.0); Mean Corpuscular Volume 99.4 fL (80-94); Platelet Count 249 K/mm3 (150-450); RBC Distribution Width CV 12.8 % (11.6-14.6); RBC Distribution Width SD 45.4 fl (35.1-43.9); Red Blood Count 3.22 M/mm3 (4.6-6.2); White Blood Count 5.9 K/mm3 (4.4-11.0)
== END ==
PROVIDERS: PCP Family Medicine; Referring Provider Surgery; Visit Provider Surgery
DX: D64.9 Anemia, unspecified (principal)
CPT/HCPCS: 36415; 85027

== ENCOUNTER → 2020-04-14 15:29 | Outpatient (CLI) | payer MEDICARE, SELFPAY ==
[2020-03-29 13:11] VITALS: BMI 27.4
[2020-04-12 13:48] VITALS: BMI 27.4
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
== END ==
PROVIDERS: PCP Family Medicine; Referring Provider Family Medicine; Visit Provider Family Medicine
DX: M48.50XA Collapsed vertebra, not elsewhere classified, site unspecified, initial encounter for fracture (principal)
CPT/HCPCS: 72148

== ENCOUNTER 2020-04-16 05:19 | Day surgery (SDC) | payer MEDICARE, SELFPAY ==
[2020-04-12 13:48] VITALS: BMI 27.4
[2020-04-16 05:52] VITALS: BP 133/61; PULSE 57; RESP 16; TEMP 36.3; O2SAT 100; BMI 27.8
--- NOTE | 2020-04-16 06:01 | PCM.HP.STD ---
Problem List (1) Iron deficiency anemia Status: Acute Qualifiers: History of Present Illness Date of Admission: 04/16/20 The patient is a 69 year old M who presents for planned upper and lower endoscopy secondary to a diagnosis of iron deficiency anemia Intake Vital Signs 04/12/20 Height 5 ft 6 in 04/12/20 Weight: 170 lb 04/12/20 BMI 27.4 Intake Visit Reasons: Telephone Call/Upper/Lower Scope anemia Chief Complaint: discuss scopes It Service Delivery Manager Required: No Is patient in pain?: No Allergies No Known Allergies Allergy (Verified 04/12/20 13:49) Medications Aspirin [Aspirin, Baby] 81 mg PO DAILY@0800 04/21/15 [History Confirmed 04/12/20] Multivitamin [Daily Multiple Vitamin] 1 tab PO DAILY 04/21/15 [History Confirmed 04/12/20] tamsulosin 0.4 mg capsule 0.4 mg PO DAILY #90 cap 08/07/17 [Rx Confirmed 04/12/20] apixaban 5 mg tablet 5 mg PO BID #180 tab 05/13/19 [Rx Confirmed 04/12/20] flecainide 100 mg tablet 100 mg PO Q12H #180 tab 12/17/19 [Rx Confirmed 04/12/20] ferrous sulfate 324 mg (65 mg iron) tablet,delayed release mg PO 03/29/20 [History Confirmed 04/12/20] ascorbate calcium (vitamin C) 500 mg tablet 500 mg PO DAILY 04/12/20 [History Confirmed 04/12/20] calcium carbonate 500 mg calcium (1,250 mg) tablet 500 mg PO DAILY 04/12/20 [History Confirmed 04/12/20] cholecalciferol (vitamin D3) 50 mcg (2,000 unit) capsule 50 mcg PO BID cap 04/12/20 [History Confirmed 04/12/20] diltiazem HCl 120 mg capsule,extended release 24 hr 120 mg PO DAILY #90 cap 04/12/20 [Rx Confirmed 04/12/20] levothyroxine 125 mcg tablet 137 mcg PO QDAY tab 04/12/20 [History] COUNTS INCLUDE 234 BEDS AT THE [facility] Medical History Encounter for monitoring anti-arrhythmic therapy (Resolved) Vitamin D deficiency (Chronic) BPH (benign prostatic hyperplasia) (Chronic) Anemia (Chronic) Hypothyroidism (Acute) Laceration of right eyebrow without complication (Acute) JOSE on CPAP (Chronic) Valvular heart disease (Chronic) Peripheral vascular disease (Chronic) Cardiac murmur (Chronic) Paroxysmal atrial fibrillation (Chronic) Personal history of colonic polyps (Chronic) Surgical History History of carpal tunnel release (Resolved) History of cardiac cath (Resolved) History of colonoscopy (Acute ~09/2017) Family History Mother Thyroid disorder Father Thyroid disorder Social History (Updated 04/12/20 @ 14:[address] Washington Liang MD) Smoking Status: Never smoker alcohol intake: never substance use type: does not use caffeine: No what type of physical activity do you participate in: weight training frequency: 3-4 times per week HPI HPI Chief Complaint: discuss scopes Details: Patient was informed that this visit will be billed to patient. This visit was conducted during - pandemic. KARL ODOM, is a 69 M who was contacted with a telephone call interview. He was at home on his phone and noticed that the office on my phone. The patient is referred by his primary care physician Dr Raffi Vaca. Patient is noted to be mildly anemic with a hemoglobin by report of 12. As of March 17, 2020 BUN is 30 and creatinine 1.16 with an estimated GFR of 66. Albumin was 3.3. Alkaline phosphatase slightly elevated 134. Folate was 19.8 which was within normal range. He is being referred for consideration of an upper and lower endoscopy. His iron level was 52 with normal being 65-1 75. He has not noticed any bright red blood per rectum or melena. I did assist him on October 03 with a colonoscopy. He had extensive sigmoid and descending colon diverticulosis. He also had had a personal previous history of colon polyps. He has not had an upper endoscopy by my record. For 5 years at least he has had atrial fibrillation. He is on aspirin and Eliquis therapy. He is cared for by Dr. Washington Choudhury for COPD and he is on CPAP. He does take supplemental iron as well. He denies any abdominal pain. No bright red blood per rectum or melena. No unexpected weight loss. No history of DVT. As of March 09, 2020 white blood cell count was 5.7 with a hemoglobin 12.2 and hematocrit 36.6 platelet count 243,000. Iron was 52 with a ferritin of 138 and a folate of 19.8. TIBC was 279 ROS Const Constitutional: No anorexia, body ache, chills, excessive sweating, fatigue, fever(s), frequent falls, headache(s), decreased energy, malaise, night sweats, snoring, weakness, weight change, sleep problems, abnormal sleep pattern, change in appetite or other Eyes Eyes: No blurry vision, change in vision, double vision, discharge, dry eyes, bulging eyes, floaters, visual disturbances, eye pain, light sensitivity, spots in vision, tunnel vision or other ENT ENT: No abnormal hearing, ear pain, ear discharge, ear pressure, hearing loss, tinnitus, dizziness/vertigo, balance problems, nosebleed/epistaxis, nasal congestion, nasal obstruction, nose pain, sinus pressure, sinus pain, nasal discharge, post nasal drip, headache(s), facial pain, dental pain, dry mouth, difficulty swallowing, bad breath, hoarseness, lip swelling, mouth lesions, mouth pain, neck pain, sore throat, tongue swelling, throat swelling or other Resp Respiratory: No cough, change in phlegm color, chest congestion, excessive phlegm production, hemoptysis, pain on inspiration, shortness of breath, pain with cough, snoring, stridor, wheezing or other Cardio Cardiology: Positive for palpitations; no chest pain at rest, chest pain with exertion, leg pain with exertion, excessive sweating, shortness of breath, dyspnea on exertion, generalized swelling, irregular heart rhythm, lightheadedness, orthopnea, radiating jaw, neck or arm pain, fast heart rate, slow heart rate or other Gastro GI: No abdominal pain, belching, bloating, change in bowel habits, change in stool character, coffee ground emesis, constipation, cramping, diarrhea, heartburn, difficulty swallowing, feeling full early, excessive flatus, incontinent of stools, Vomiting blood/hematemesis, blood in stool, loose stools, Black,tarry stools, nausea/dyspepsia, pain with swallowing, vomiting or other Genitourinary Male: Positive for difficulty urinating; no burning urination, painful urination, urinary incontinence, urinary frequency, urinary urgency, urinary hesitancy, urinary retention, blood in urine, Frequent nighttime urination/ nocturia, post void dribbling, suprapubic fullness, side pain, sexual problems, genital lesions, genital itching, erectile dysfunction, penile discharge, difficulty with ejaculations, blood in semen, scrotal swelling, testicle lump, testicle pain or other Musc Musculoskeletal: No abnormal walking, joint pain, back pain, deformity, joint swelling, limited range of motion, loss of height, muscle cramps, muscle weakness, decreased muscle mass, body aches, neck pain, numbness, radiating pain into limb, stiffness, tingling or other Skin Skin: No acne, hair loss, change in hair, nail changes, boil, change in skin color, dry skin, redness, excessive hair growth, yellowing of the skin, lesions, itching, rash, skin pain, skin ulcer, sores, skin swelling, wounds or other Breast Breast: No change in breast shape, breast lump, breast pain, breast skin changes, breast swelling, nipple discharge or other Neuro Neurology: No abnormal walking, abnormal hearing, abnormal movements, abnormal speech, behavioral changes, confusion, unsteady gait/balance, dizziness, weakness, frequent falls, headache(s), lack of coordination, loss of vision, memory loss, numbness, tingling, visual disturbances, restless legs, fainting, tremor(s) or other Psych Psychiatric: No abnormal sleep pattern, No lack of enjoyment, No anxiety, No behavioral changes, No change in appetite, No confusion, No depression, No difficulty concentrating, No hopelessness, No irritability, No memory loss, No mood swings, No panic attacks, No paranoia, No Thoughts of harming yourself/Others, No hallucinations, No other Endo Endocrine: No change in body appearance, cold intolerance, excessive sweating, fatigue, flushing, heat intolerance, increased thirst/drinking, increased hunger, increased urination or other Aller/Imm Allergy/Immunologic: No food intolerance, itchy eyes, lip swelling, seasonal allergy symptoms, throat swelling, tongue swelling, hives, wheezing or other Edwin/Lymp Hematologic/Lymphatic: Positive for easy bleeding; no easy bruising, enlarged lymph nodes or other Exam Musc Musculoskeletal: No muscle weakness Details: Details:: Exam was limited due to phone visit with no video. Quality Reporting Medication Reconciliation ([facility] 68) apixaban 5 mg PO BID ascorbate calcium (vitamin C) 500 mg PO DAILY aspirin 81 mg PO DAILY@0800 calcium carbonate (Calcium 500) 500 mg PO DAILY cholecalciferol (vitamin D3) 50 mcg PO BID diltiazem HCl 120 mg PO DAILY ferrous sulfate PO flecainide 100 mg PO Q12H levothyroxine 137 mcg PO QDAY multivitamin 1 tab PO DAILY tamsulosin 0.4 mg PO DAILY Tobacco Screening ([facility] 138) Smoking Status: Never smoker Assessment & Plan Problems 1. Iron deficiency anemia, unspecified iron deficiency anemia type D50.9 Plan Iron deficiency anemia of undetermined etiology. I recommended the patient a combined esophagogastroduodenoscopy with possible biopsy or polypectomy and colonoscopy with possible biopsy or polypectomy as indicated. Very careful inspection for potential source of blood loss would be pursued. He has had an opportunity to ask and have questions answered. We will schedule procedure at his discretion. We will have him hold his Eliquis for 24 hours preintervention. Because of the combined approach I anticipate using monitored anesthesia care. I very much appreciate the kind opportunity of assisting with her surgical care Recent hemoglobin 10.7. Copy: Dr Raffi Liang M.D., F.A.C.S. Orders Orders: Colonoscopy Today EGD Today CBC-Complete Blood Cnt No Diff Today D64.9 Coding Level of Care Code Level 2 Telephone Diagnoses Iron deficiency anemia, unspecified iron deficiency anemia type D50.9 ??Iron deficiency anemia type: unspecified iron deficiency Past Medical History Past Medical History (Chronic Problems): Chronic Problems (Last Reviewed 04/12/20 @ 13:48 by Claudette Patterson) Vitamin D deficiency (Chronic) BPH (benign prostatic hyperplasia) (Chronic) Anemia (Chronic) JOSE on CPAP (Chronic) Valvular heart disease (Chronic) Peripheral vascular disease (Chronic) Cardiac murmur (Chronic) Paroxysmal atrial fibrillation (Chronic) Personal history of colonic polyps (Chronic) Medical History: Medical History (Last Reviewed 04/12/20 @ 13:48 by Claudette Patterson) Iron deficiency anemia (Acute) D50.9 Encounter for monitoring anti-arrhythmic therapy (Resolved) Z51.81, Z79.899 Vitamin D deficiency (Chronic) E55.9 BPH (benign prostatic hyperplasia) (Chronic) N40.0 Anemia (Chronic) D64.9 Hypothyroidism (Acute) E03.9 Laceration of right eyebrow without complication (Acute) S01.111A JOSE on CPAP (Chronic) G47.33, Z99.89 Valvular heart disease (Chronic) I38 Peripheral vascular disease (Chronic) I73.9 Cardiac murmur (Chronic) R01.1 Paroxysmal atrial fibrillation (Chronic) I48.0 Personal history of colonic polyps (Chronic) Z86.010 Allergies No Known Allergies Allergy (Verified 04/16/20 05:51) Home Medications: Ambulatory Orders Medication Instructions Recorded Aspirin [Aspirin, Baby] 81 mg PO DAILY@0800 04/21/15 Multivitamin [Daily Multiple 1 tab PO DAILY 04/21/15 Vitamin] tamsulosin 0.4 mg capsule 0.4 mg PO DAILY #90 cap 08/07/17 apixaban 5 mg tablet 5 mg PO BID #180 tab 05/13/19 flecainide 100 mg tablet 100 mg PO Q12H #180 tab 12/17/19 ferrous sulfate 324 mg (65 mg 1 tab PO DAILY 03/29/20 iron) tablet,delayed release ascorbate calcium (vitamin C) 500 500 mg PO DAILY 04/12/20 mg tablet calcium carbonate 500 mg calcium 500 mg PO DAILY 04/12/20 (1,250 mg) tablet cholecalciferol (vitamin D3) 50 50 mcg PO BID cap 04/12/20 mcg (2,000 unit) capsule diltiazem HCl 120 mg 120 mg PO DAILY #90 cap 04/12/20 capsule,extended release 24 hr levothyroxine 125 mcg tablet 137 mcg PO QDAY tab 04/12/20 Surgical History: Surgical History (Last Reviewed 04/12/20 @ 13:48 by Claudette Patterson) History of carpal tunnel release (Resolved) Z98.890 History of cardiac cath (Resolved) Z98.890 History of colonoscopy Onset Date: ~09/2017 Z98.890 Smoking Status: Never smoker Tobacco Use: Non-smoker Review of Systems Constitutional: Denies: Chills, Fever HEENT: Denies: Dysphasia Cardiovascular: Denies: Chest Pain Respiratory: Denies: Cough Gastrointestinal: Denies: Abdominal Pain Endocrine: Denies: Change in Body Habitus VTE Information - Inpt Only VTE Present on Admission: No Patient Problems: Active and Suspected Problems (Last Reviewed 04/12/20 @ 13:48 by Claudette Patterson) Iron deficiency anemia (Acute) - Physical Exam Vitals/I&O's: Vital Signs Temp Pulse Resp BP Pulse Ox 97.3 F L 57 L 16 133/61 H 100 04/16/20 05:52 04/16/20 05:52 04/16/20 05:52 04/16/20 05:52 04/16/20 05:52 Oxygen Delivery Method Room Air Weight: 172 lb 2.896 oz Body Mass Index (BMI) 27.8 General: Alert, Oriented x3, Cooperative, No apparent distress HEENT: Atraumatic Oral: Moist Mucosa Neck: Supple Lungs: Clear to auscultation, Normal air movement Cardiovascular: Regular rate, Regular Rhythm Abdomen: Soft, Non Tender Extremities: No Calf Tenderness Psych/Mental Status: Normal Affect Microbiology Past 72 Hours 04/15/20 10:00 Interface Orders SARS-CoV-2 Antigen (Rapid) - Final Assessment/Plan All Active Problems (Last Reviewed 04/12/20 @ 13:48 by Claudette Patterson) Iron deficiency anemia (Acute) Encounter for monitoring anti-arrhythmic therapy (Resolved) History of carpal tunnel release (Resolved) History of cardiac cath (Resolved) BPH (benign prostatic hyperplasia) (Acute) Hypothyroidism (Acute) Laceration of right eyebrow without complication (Acute) In evaluation of this iron deficiency anemia I plan to proceed with a esophagogastroduodenoscopy with possible biopsy and colonoscopy with possible biopsy or polypectomy is indicated. He is aware of the technique, benefit, risk, alternatives. He has had an opportunity to ask and have questions answered. We discussed issues via a virtual appointment and have reevaluated findings today. Washington Liang M.D., F.A.C.S. Procedure Criteria Procedure Type: Elective COVID Risk Discussion: The surgeon/proceduralist and patient have discussed in detail the risk of exposure to and/or potential harm posed by the COVID-19 virus with having a surgery/procedure at this time versus the risk of delaying the surgery/procedure. It is not possible to know either the risk of delaying the surgery or procedure or chance of getting an infection with perfect accuracy, but a joint decision was made between the patient and the surgeon/proceduralist to proceed at this time with the scheduled surgery/procedure as indicated on the consent form.
[2020-04-16] MEDS: Lactated Ringers 1,000 ML 100 ML IV (06:13)
--- NOTE | 2020-04-16 06:30 | EGD_PTH ---
PATIENT: KARL ODOM LOC: EN U#:[id number] AGE/SX: 69/M ROOM: RE04/16/[address]: Dr. Washington Liang MD : 1950 BED: DIS: 04/16/2020 SPEC #: [id number] RECD: 04/16/20 11:34 STATUS: NIURKA BETINA #: [id number] FLAVIA: 04/16/20 06:[address]: Washington Liang DEPT: SURGICAL PATHOLOGY RECD BY: Libia Whipple ENTERED: 04/16/20 12:24 SP TYPE: EGD BIOPSY OT DR: Dr. Raffi Vaca MD Tissues: A - Duodenum, NOS B - Gastric mucous membrane C - Gastric mucous membrane Procedures: Special Stain Group II Surgery Specimen Level IV Alcian Blue/PAS (control) HEADER OPERATION: Colonoscopy, EGD ([facility]) PRE-OP DIAGNOSIS: Iron deficiency anemia TISSUE SUBMITTED: A - Duodenal biopsy, B - Antral biopsy for H. pylori and pathology, C - GE junction biopsy MICROSCOPIC DIAGNOSIS A. Duodenal biopsy: A fragment of duodenal mucosa, no pathologic diagnosis. B. Antral biopsy: Mild gastritis. See microscopic description and comment. C. GE junction, biopsy: Fragments of gastroesophageal mucosa with mild chronic inflammation. Intestinal metaplasia (goblet cell metaplasia) is not identified. See comment. SJ:rg 04/19/2020 COMMENT B. The results of immunohistochemistry for Helicobacter pylori will be reported separately ([id number]). C. The specimen predominantly consists of squamous epithelium. Alcian blue/PAS stain with matched control is used in the evaluation of the specimen. MICROSCOPIC DESCRIPTION Slides are reviewed. B. The specimen shows fragments of gastric mucosa with chronic inflammatory cell infiltrates in the lamina propria consisting of lymphocytes and plasma cells, consistent with mild chronic gastritis. GROSS DESCRIPTION A - Received in fixative is one container labeled with the patient's name and designated duodenum biopsy. The specimen consists of one irregular fragment of light harden soft tissue that measures 0.3 x 0.2 x 0.1 cm. The specimen is totally submitted in one cassette. B - Received in fixative is one container labeled with the patient's name and designated antral biopsy. The specimen consists of one irregular fragment of light harden soft tissue that measures 0.6 x 0.5 x 0.1 cm. The specimen is totally submitted in one cassette. C - Received in fixative is one container labeled with the patient's name and designated GE junction biopsy. The specimen consists of multiple irregular fragments of light harden soft tissue that in aggregate measure 0.8 x 0.7 x 0.1 cm. The specimen is totally submitted in one cassette. / AM:marlo 04/16/2020 TC:3 CPT: 27352 x3, 85439
--- NOTE | 2020-04-16 06:30 | IMM_PTH ---
PATIENT: KARL ODOM LOC: EN U#:[id number] AGE/SX: 69/M ROOM: RE04/16/[address]: Dr. Washington Liang MD : 1950 BED: DIS: 04/16/2020 SPEC #: [id number] RECD: 04/16/20 12:43 STATUS: NIURKA REQ #: [id number] FLAVIA: 04/16/20 06:[address]: Washington Liang DEPT: IMMUNOHISTOCHEMISTRY RECD BY: Mari Dyer ENTERED: 04/16/20 12:44 SP TYPE: IMMUNO OTHR DR: Dr. Raffi Vaca MD Tissues: B - Stomach, NOS Procedures: H Pylori (initial) PHYSICIAN & INSTITUTION [place] [id number] SPECIMEN INFORMATION: Tissue Source: B - Antral biopsy Clinical Info: Iron deficiency anemia Specimen Number: [id number] CPT code: 23765 METHODOLOGY: Deparaffinized sections of prefer/formalin-fixed tissue or PAP/DQ stained slides are incubated with monoclonal/polyclonal antibodies/oligonucleotide probes. Localization is made via biotin free immunoperoxidase method. Appropriate controls are performed and reacted as expected. Results on target cell population are indicated in the following table: RESULTS: ANTIBODY / CLONE RESULT Block B H Pylori (polyclonal) negative These tests were developed and their performance characteristics determined by [facility]. They may not have been cleared or approved by the U.S. Food and Drug Administration. The FDA has determined that such clearance or approval is not necessary. INTERPRETATION: B. Antral biopsy: Negative for Helicobacter pylori organisms. SJ:marlo 04/19/2020
[2020-04-16 07:00] VITALS: BP 133/61; BP 99/67; PULSE 66; RESP 16; TEMP 36; O2SAT 100
--- NOTE | 2020-04-16 07:04 | OP.CCLET_ITS ---
04/16/2020 Raffi Vaca [address] [place] [address] Re : Upper GI endoscopy procedure for Lexx Rivera Dear Dr. Vaca This procedure was performed on Thursday, April 16, 2020. My impressions and recommendations are as follows: Impressions : - LA Grade A reflux esophagitis. Biopsied. - Small hiatal hernia. - Erythematous mucosa in the antrum. Biopsied. - Hematin (altered blood/ceadou-phazuj-pffo material) in the greater curvature of the stomach. Very minimal but suggestive of a possible UGI source for blood loss, possibly from hiatal hernia/minimal esophagitis - Normal examined duodenum. Biopsied. Recommendations : - Discharge patient to home. - Resume previous diet. - Continue present medications. - Use Prilosec (omeprazole) 40 mg PO daily. My findings are described in the full procedure note, which is enclosed. If I can be of further assistance, please feel free to contact me at Doctor phone number(s): Work: . Sincerely, Washington Liang MD 04/16/2020 7:03:55 AM This report has been signed electronically.
--- NOTE | 2020-04-16 07:04 | OP.EGD_ITS ---
Patient Name: Lexx Rivera Procedure Date: 04/16/2020 6:14 AM Date of : 1950 Age: 69 Procedure: Upper GI endoscopy Indications: Iron deficiency anemia Providers: Washington Liang MD Referring MD: Raffi Vaca Medicines: See the Anesthesia note for documentation of the administered medications Complications: No immediate complications. Procedure: Pre-Anesthesia Assessment: - Prior to the procedure, a History and Physical was performed, and patient medications and allergies were reviewed. The patient's tolerance of previous anesthesia was also reviewed. The risks and benefits of the procedure and the sedation options and risks were discussed with the patient. All questions were answered, and informed consent was obtained. Prior Anticoagulants: The patient has taken Eliquis (apixaban), last dose was 2 days prior to procedure. ASA Grade Assessment: III - A patient with severe systemic disease. After reviewing the risks and benefits, the patient was deemed in satisfactory condition to undergo the procedure. After obtaining informed consent, the endoscope was passed under direct vision. Throughout the procedure, the patient's blood pressure, pulse, and oxygen saturations were monitored continuously. The gastroscope was introduced through the mouth, and advanced to the second part of duodenum. The upper GI endoscopy was accomplished without difficulty. The patient tolerated the procedure well. Scope In: 6:36:33 AM Scope Out: 6:41:55 AM Total Procedure Duration Time 0 hours 5 minutes 22 seconds Findings: LA Grade A (one or more mucosal breaks less than 5 mm, not extending between tops of 2 mucosal folds) esophagitis with no bleeding was found 39 cm from the incisors. Biopsies were taken with a cold forceps for histology. A small hiatal hernia was present. Diffuse mildly erythematous mucosa without bleeding was found in the gastric antrum. Biopsies were taken with a cold forceps for histology. Hematin (altered blood/gzzxxl-kxujdb-oklz material) was found on the greater curvature of the stomach. The examined duodenum was normal. Biopsies were taken with a cold forceps for histology. Impression: - LA Grade A reflux esophagitis. Biopsied. - Small hiatal hernia. - Erythematous mucosa in the antrum. Biopsied. - Hematin (altered blood/hgfsoc-qoxypi-tvvz material) in the greater curvature of the stomach. Very minimal but suggestive of a possible UGI source for blood loss, possibly from hiatal hernia/minimal esophagitis - Normal examined duodenum. Biopsied. Recommendation: - Discharge patient to home. - Resume previous diet. - Continue present medications. - Use Prilosec (omeprazole) 40 mg PO daily. Procedure Code(s): --- Professional --- 72592, LT, Esophagogastroduodenoscopy, flexible, transoral; with biopsy, single or multiple Diagnosis Code(s): --- Professional --- K21.0, Gastro-esophageal reflux disease with esophagitis K44.9, Diaphragmatic hernia without obstruction or gangrene K31.89, Other diseases of stomach and duodenum K92.2, Gastrointestinal hemorrhage, unspecified D50.9, Iron deficiency anemia, unspecified CPT copyright 2017 [employer]. All rights reserved. The codes documented in this report are preliminary and upon balancing machine set up worker review may be revised to meet current compliance requirements. Washington Liang MD 04/16/2020 7:03:55 AM This report has been signed electronically. Number of Addenda: 0 Note Initiated On: 04/16/2020 6:14 AM
[2020-04-16 07:05] VITALS: BP 114/68; BP 133/61; PULSE 65; RESP 16; O2SAT 100
--- NOTE | 2020-04-16 07:08 | OP.CCLET_ITS ---
04/16/2020 Raffi Vaca [address] [place] [address] Re : Colonoscopy procedure for Lexx Rivera Dear Dr. Vaca This procedure was performed on Thursday, April 16, 2020. My impressions and recommendations are as follows: Impressions : - Hemorrhoids found on perianal exam. - Diverticulosis in the sigmoid colon and in the descending colon. - Mucosa vascular pattern in the distal transverse colon. - The examination was otherwise normal. - No specimens collected. No obvious colonic source of blood loss Recommendations : - Discharge patient to home. - Resume previous diet. - Continue present medications. - Repeat colonoscopy in 10 years for screening purposes. My findings are described in the full procedure note, which is enclosed. If I can be of further assistance, please feel free to contact me at Doctor phone number(s): Work: . Sincerely, Washington Liang MD 04/16/2020 7:07:45 AM This report has been signed electronically.
--- NOTE | 2020-04-16 07:08 | OP.COLON_ITS ---
Patient Name: Lexx Rivera Procedure Date: 04/16/2020 6:42 AM Date of : 1950 Age: 69 Procedure: Colonoscopy Indications: Iron deficiency anemia Providers: Washington Liang MD Referring MD: Raffi Vaca Medicines: See the Anesthesia note for documentation of the administered medications Patient Profile: Last Colonoscopy: 2017. Complications: No immediate complications. Procedure: Pre-Anesthesia Assessment: - Prior to the procedure, a History and Physical was performed, and patient medications and allergies were reviewed. The patient's tolerance of previous anesthesia was also reviewed. The risks and benefits of the procedure and the sedation options and risks were discussed with the patient. All questions were answered, and informed consent was obtained. Prior Anticoagulants: The patient has taken Eliquis (apixaban), last dose was 2 days prior to procedure. ASA Grade Assessment: III - A patient with severe systemic disease. After reviewing the risks and benefits, the patient was deemed in satisfactory condition to undergo the procedure. After I obtained informed consent, the scope was passed under direct vision. Throughout the procedure, the patient's blood pressure, pulse, and oxygen saturations were monitored continuously. The colonoscope was introduced through the anus and advanced to the cecum, identified by appendiceal orifice and ileocecal valve. The colonoscopy was performed without difficulty. The patient tolerated the procedure well. The quality of the bowel preparation was good. The ileocecal valve and the appendiceal orifice were photographed. Scope In: 6:44:09 AM Scope Withdrawal Time 0 hours 6 minutes 23 seconds Scope Out: 6:54:22 AM Total Procedure Duration Time 0 hours 10 minutes 13 seconds Findings: Hemorrhoids were found on perianal exam. Very lax anal tone. Multiple diverticula were found in the sigmoid colon and descending colon. The mucosa vascular pattern in the distal transverse colon was notable for slight venous ectasia, non-bleeding The exam was otherwise without abnormality. Impression: - Hemorrhoids found on perianal exam. - Diverticulosis in the sigmoid colon and in the descending colon. - Mucosa vascular pattern in the distal transverse colon. - The examination was otherwise normal. - No specimens collected. No obvious colonic source of blood loss Recommendation: - Discharge patient to home. - Resume previous diet. - Continue present medications. - Repeat colonoscopy in 10 years for screening purposes. Procedure Code(s): --- Professional --- 95648, Colonoscopy, flexible; diagnostic, including collection of specimen(s) by brushing or washing, when performed (separate procedure) Diagnosis Code(s): --- Professional --- K64.9, Unspecified hemorrhoids D50.9, Iron deficiency anemia, unspecified K57.30, Diverticulosis of large intestine without perforation or abscess without bleeding CPT copyright 2017 [employer]. All rights reserved. The codes documented in this report are preliminary and upon real estate agent review may be revised to meet current compliance requirements. Washington Liang MD 04/16/2020 7:07:45 AM This report has been signed electronically. Number of Addenda: 0 Note Initiated On: 04/16/2020 6:42 AM
[2020-04-16 07:10] VITALS: BP 118/73; BP 133/61; PULSE 64; RESP 16; O2SAT 100
[2020-04-16 07:15] VITALS: BP 121/70; BP 133/61; PULSE 64; RESP 16; TEMP 36; O2SAT 100
[2020-04-16 07:38] VITALS: BP 133/61
== END 2020-04-16 07:39 | disposition home or self-care (01) ==
LOC: EN 05:19 → AC 05:20
PROVIDERS: PCP Family Medicine; Referring Provider Family Medicine; Visit Provider Surgery
PROC: 0DJD8ZZ Inspection of Lower Intestinal Tract, Via Natural or Artificial Opening Endoscopic (ICD-10-PCS; CPT 45378; principal; 2020-04-16 06:25)
DX: D50.9 Iron deficiency anemia, unspecified (principal); K29.50 Unspecified chronic gastritis without bleeding; K21.00 Gastro-esophageal reflux disease with esophagitis, without bleeding; K44.9 Diaphragmatic hernia without obstruction or gangrene; K31.89 Other diseases of stomach and duodenum; K64.9 Unspecified hemorrhoids; K57.30 Diverticulosis of large intestine without perforation or abscess without bleeding; E55.9 Vitamin D deficiency, unspecified; N40.0 Benign prostatic hyperplasia without lower urinary tract symptoms; E03.9 Hypothyroidism, unspecified; I73.9 Peripheral vascular disease, unspecified; J44.9 Chronic obstructive pulmonary disease, unspecified; G47.33 Obstructive sleep apnea (adult) (pediatric); I48.0 Paroxysmal atrial fibrillation; Z79.01 Long term (current) use of anticoagulants; Z87.19 Personal history of other diseases of the digestive system; Z79.82 Long term (current) use of aspirin
CPT/HCPCS: 43239; 45378; 87426; 88305; 88313; 88342; C9803; J7120; J2405

== ENCOUNTER → 2020-04-29 09:31 | Outpatient (CLI) | payer MEDICARE, SELFPAY ==
[2020-04-19 15:24] VITALS: BMI 27.8
[2020-04-29 10:05] LABS: Hematocrit 35.8 % (40-54); Hemoglobin 11.6 g/dL (13.0-16.5); Mean Corp Hgb Conc 32.4 g/dL (32-36); Mean Corpuscular Hgb 31.3 pg (27.0-32.0); Mean Corpuscular Volume 96.5 fL (80-94); Mean Platelet Vol. 9.4 fl (6.2-12.0); Platelet Count 257 K/mm3 (150-450); RBC Distribution Width CV 12.5 % (11.6-14.6); RBC Distribution Width SD 44.5 fl (35.1-43.9); Red Blood Count 3.71 M/mm3 (4.6-6.2)
== END ==
PROVIDERS: PCP Family Medicine; Visit Provider Surgery
DX: D64.9 Anemia, unspecified (principal)
CPT/HCPCS: 36415; 85027

== ENCOUNTER → 2020-06-17 11:46 | Outpatient (CLI) | payer MEDICARE, SELFPAY ==
[2020-06-17 11:46] VITALS: BMI 27.8
[2020-06-17 15:12] LABS: Absolute Lymphocyte Count 1.16 X10^3/uL (0.83-4.51); Absolute Neutrophil Count 3.4 X10^3/uL (2.0-7.7); Basophil# 0.03 X10^3/uL; Basophil% 0.6 % (0-1); Eosinophil# 0.15 X10^3/uL; Eosinophils% 2.8 % (0-5); Hematocrit 35.9 % (40-54); Hemoglobin 11.8 g/dL (13.0-16.5); Lymphocyte # 1.16 X10^3/ul (4.0); Mean Corp Hgb Conc 32.9 g/dL (32-36); Mean Corpuscular Hgb 31.1 pg (27.0-32.0); Mean Corpuscular Volume 94.7 fL (80-94); Mean Platelet Vol. 9.8 fl (6.2-12.0); Monocyte# 0.57 X10^3/uL; Monocyte% 10.8 % (0-10); NRBC Flagged by Analyzer 0 % (0-5); Neutrophil # 3.35 X10^3/uL (2.7-7.7); Neutrophil % 63.4 % (47-70); Platelet Count 295 K/mm3 (150-450); RBC Distribution Width CV 12.2 % (11.6-14.6); RBC Distribution Width SD 42.4 fl (35.1-43.9); Red Blood Count 3.79 M/mm3 (4.6-6.2); White Blood Count 5.3 K/mm3 (4.4-11.0)
[2020-06-17 15:34] LABS: Vitamin B12 730 pg/mL (211-911); Vitamin D,25 Hydroxy 51.3 ng/mL
[2020-06-17 16:02] LABS: ALB/GLOB Ratio 1.1 RATIO (0.9-2.4); AST(SGOT) 17 U/L (15-37); Alanine Aminotransfer ALT/SGPT 25 U/L (16-61); Albumin, Serum 3.7 g/dL (3.2-5.0); Alkaline Phosphatase 105 U/L (45-117); Anion Gap 9 (5-15); BUN 26 mg/dL (7-18); BUN/Creat Ratio 21.8 RATIO (10-20); Calcium,Total 9.2 mg/dL (8.5-10.1); Chloride 106 mmol/L (98-107); Creatinine, Serum 1.19 mg/dL (0.70-1.30); EST Glomerular Filtration Rate 64 mL/min (>60); Est Glom Filt Rate - Afr Amer 77 mL/min (>60); Ferritin 125 ng/mL (26-388); Globulin 3.5 g/dL (2.2-4.2); Glucose 87 mg/dL (74-106); Iron 81 ug/dL (65-175); Iron Binding Capacity,Total 258 ug/dL (250-450); Potassium 4.2 mmol/L (3.5-5.1); Protein, Total 7.2 g/dL (6.4-8.2); Sodium Level 140 mmol/L (136-145); T4 Free Direct 1.18 ng/dL (0.76-1.46); Thyroid Stim Hormone (TSH) 2.05 uIU/mL (0.358-3.74)
[2020-06-17 19:15] LABS: Erythrocyte Sedimentation Rate 23 mm/hr (0-20)
[2020-06-21 07:31] LABS: ANTINUCLEAR ANTIBODIES DIRECT Negative (Negative)
== END ==
PROVIDERS: PCP Family Medicine; Referring Provider Family Medicine; Visit Provider Family Medicine
DX: R53.83 Other fatigue (principal); D64.9 Anemia, unspecified; E55.9 Vitamin D deficiency, unspecified
CPT/HCPCS: 36415; 80053; 82306; 82607; 82728; 83540; 83550; 84439; 84443; 85025; 85652; 86038

== ENCOUNTER → 2020-08-04 15:02 | Outpatient (CLI) | payer MEDICARE, SELFPAY ==
--- NOTE | 2020-08-04 12:00 | CYST_PTH ---
PATIENT: KARL ODOM LOC: [facility] U#:[id number] AGE/SX: 74/M ROOM: RE08/04/[address]: Dr. Raffi Vaca MD : 1950 BED: DIS: SPEC #: [id number] RECD: 08/04/20 14:59 STATUS: NIURKA BETINA #: [id number] FLAVIA: 08/04/20 12:[address]: Raffi Vaca DEPT: SURGICAL PATHOLOGY RECD BY: Libia Whipple Tissues: CYST Procedures: Surgery Specimen Level IV HEADER OPERATION: Excision inclusion cyst PRE-OP DIAGNOSIS: Right upper back subcutaneous mass TISSUE SUBMITTED: Inclusion cyst/subcutaneous mass MICROSCOPIC DIAGNOSIS Subcutaneous skin excision: Fibrous walled cyst with acute and chronic inflammation and benign histiocytic reaction. See comment. AM:marlo 08/06/2020 COMMENT The lesion may represent a ruptured cyst with associated inflammation and reactive change. Clinical correlation is suggested. MICROSCOPIC DESCRIPTION Slides are reviewed. GROSS DESCRIPTION Received is one container labeled with the patient's name and not further designated. The specimen consists of a piece of harden soft tissue measuring 2 x 1 x 0.6 cm. A piece of skin is noted at one edge measuring 1 x 0.3 cm. The specimen is bisected and submitted entirely in one cassette. / SJ:rg 08/05/20 TC:2 [facility]: [id number]
== END ==
PROVIDERS: PCP Family Medicine; Referring Provider Family Medicine; Visit Provider Family Medicine
DX: R22.2 Localized swelling, mass and lump, trunk (principal)
CPT/HCPCS: 88304; 88305

== ENCOUNTER → 2020-08-13 12:05 | Outpatient (CLI) | payer MEDICARE, SELFPAY ==
--- NOTE | 2020-08-13 12:08 | CT_ITS ---
STUDY: CT BRAIN WITHOUT CONTRAST REASON FOR EXAM: Male, 70 years old. VERTIGO RADIATION DOSAGE (If Supplied By Facility): CTDIvol = ( 44.99 ) mGy, DLP = ( 779.24 ) mGycm TECHNIQUE: Transaxial CT imaging of the brain was performed without administration of intravenous contrast material. Individualized dose optimization techniques were used for this CT. COMPARISON: No relevant priors. FINDINGS: Normal soft tissue structures. Normal calvarium. There is mild cerebral atrophy with widening of the extra-axial spaces and ventricular dilatation. Normal white matter tracts of the cerebral hemispheres. Questionable 5.4 mm hypodensity in the right basal ganglion suggestive of a small lacunar Normal brainstem. Normal cerebellum. There is no intracranial hemorrhage. There are no findings of an acute ischemic infarction. Atherosclerotic calcification of the cavernous portions of the internal carotid arteries bilaterally. There is a 7.4 mm well-defined nodule in the anterior aspect of the right maxillary sinus. This may represent either a polyp or retention cyst. CT/Brain/Head without Contrast IMPRESSION: Chronic involutional changes of the brain. Questionable small lacuna in the right basal ganglion. Age is indeterminate. Electronically Signed: Kana Azevedo MD at 12:37 EDT , Service support ,
== END ==
PROVIDERS: PCP Family Medicine; Visit Provider Family Medicine
DX: R42 Dizziness and giddiness (principal)
CPT/HCPCS: 70450

== ENCOUNTER 2020-08-13 14:00 | Observation (INO) | payer MEDICARE, SELFPAY ==
[2020-08-13] VITALS (12 sets, daily range): BP systolic 93–138; BP diastolic 40–66; PULSE 50–63; RESP 15–20; TEMP 36.1–36.9; O2SAT 97–98; BMI 27.6; BMI 25.7
--- NOTE | 2020-08-13 14:03 | ED.RN ---
PT STARTED FEELING OFF BALANCE YESTERDAY
--- NOTE | 2020-08-13 14:11 | CT_ITS ---
STUDY: CTA HEAD AND NECK WITH CONTRAST REASON FOR EXAM: Male, 70 years old. Neuro deficit, acute, stroke suspected RADIATION DOSAGE (If Supplied By Facility): CTDIvol = ( 21.95 ) mGy, DLP = ( 779.55 ) mGycm TECHNIQUE: CT angiography was performed with a multi-detector CT scanner. Data acquisition was obtained from the skull base through the vertex following intravenous administration of IV 100mL Isovue-370. MIP images were reconstructed from the axial data set. Post-processing of the angiographic images was performed, with multiplanar reformation and 3D reconstruction. Individualized dose optimization techniques were used for this CT. COMPARISON: No relevant priors. FINDINGS: Normal bilateral petrous carotid arteries. There is calcified plaque formation of the right cavernous carotid artery, without a cross-sectional luminal stenosis. There is calcified plaque formation of the left cavernous carotid artery, without a cross-sectional luminal stenosis. There is hypoplastic development of the right A1 segment of the anterior cerebral arteries with an atretic but intact artery. Normal left A1 segments of the anterior cerebral artery. Normal intact anterior communicating artery (ACOM). Normal bilateral A2 segments of the anterior cerebral arteries. Normal right M1 and M2 segments of the middle cerebral arteries, with a normal M1 bifurcation. Normal left M1 and M2 segments of the middle cerebral arteries, with a normal M1 bifurcation. Normal right posterior communicating artery (PCOM). Normal left posterior communicating artery (PCOM). Normal bilateral vertebral arteries. Normal basilar artery with a normal basilar bifurcation. The visualized bilateral superior cerebellar (SCA) arteries are normal. Normal bilateral P1, P2 and visualized P3 segments of the posterior cerebral arteries. There is no demonstrated aneurysm of the pok[place] of [place]. There is no demonstrated abnormality of the visualized brain. AORTIC ARCH: Normal visualized aortic arch. Normal origins of the brachiocephalic, left common carotid, and left subclavian arteries. RIGHT CAROTID ARTERIES: Normal right common carotid artery (CCA). Normal right common carotid bulb. Normal origin of the right internal carotid (ICA) artery without a hemodynamically significant stenosis. Normal visualized cervical portion of the right internal carotid artery. Normal origin of the right external carotid artery (ECA). LEFT CAROTID ARTERIES: Normal left common carotid artery (CCA). Normal left common carotid bulb. Normal origin of the left internal carotid (ICA) artery without a hemodynamically significant stenosis. Normal visualized cervical portion of the left internal carotid artery. Normal origin of the left external carotid artery (ECA). VERTEBRAL ARTERIES: Normal bilateral vertebral arteries. CT/STROKE CTA Head AND Neck W/Con IMPRESSION: There is decreased caliber of the right A1 segment of the anterior cerebral artery. 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 N.B. : The above information has been verbally conveyed by Kana Azevedo MD to Iglesia Weinerne on 08/13/2020 14:29:42 (ET). Electronically Signed: Kana Azevedo MD at 14:30 EDT , Service support ,
--- NOTE | 2020-08-13 14:11 | EKG12_ITS ---
Test Reason : STROKE TEAM Blood Pressure : / mmHG Vent. Rate : 056 BPM Atrial Rate : 056 BPM P-R Int : 206 ms QRS Dur : 092 ms QT Int : 442 ms P-R-T Axes : 062 000 016 degrees QTc Int : 426 ms Sinus bradycardia Otherwise normal ECG Confirmed by KELY BOOKER, JEREMIAH ([id number]), editor publications JOHNNY KEEN ([id number]) on 08/16/2020 12:54:05 PM Referred By: NEIL Confirmed By:JEREMIAH EDGE MD
--- NOTE | 2020-08-13 14:15 | CM.ED ---
SOCIAL WORK Responded to Stroke Alert. present in department. Support provided. Will remain available for needs. Tiffanie Manrique, CONSULTING IT ARCHITECT, BACK UP WORKER
--- NOTE | 2020-08-13 14:17 | NURSING ---
STROKE ALERT [id number]
[2020-08-13 14:30] LABS: Absolute Neutrophil Count 5.1 X10^3/uL (2.0-7.7); Basophil# 0.02 X10^3/uL; Basophil% 0.3 % (0-1); Eosinophil# 0.05 X10^3/uL; Eosinophils% 0.7 % (0-5); Hematocrit 35.7 % (40-54); Hemoglobin 11.9 g/dL (13.0-16.5); Lymphocyte % 16.1 % (19-41); Mean Corp Hgb Conc 33.3 g/dL (32-36); Mean Corpuscular Hgb 31.8 pg (27.0-32.0); Mean Corpuscular Volume 95.5 fL (80-94); Mean Platelet Vol. 9.5 fl (6.2-12.0); Monocyte# 0.49 X10^3/uL; Monocyte% 7.2 % (0-10); NRBC Flagged by Analyzer 0 % (0-5); Neutrophil # 5.14 X10^3/uL (2.7-7.7); Neutrophil % 75.4 % (47-70); Platelet Count 268 K/mm3 (150-450); RBC Distribution Width CV 12.2 % (11.6-14.6); RBC Distribution Width SD 42.2 fl (35.1-43.9); Red Blood Count 3.74 M/mm3 (4.6-6.2); White Blood Count 6.8 K/mm3 (4.4-11.0)
[2020-08-13 14:39] LABS: International Normalized Ratio 1.3
[2020-08-13 14:40] LABS: Partial Thromboplast Time 32.5 Seconds (24.1-36.2)
[2020-08-13 14:47] LABS: Anion Gap 4 (5-15); BUN 26 mg/dL (7-18); BUN/Creat Ratio 23.6 RATIO (10-20); Calcium,Total 8.7 mg/dL (8.5-10.1); Chloride 106 mmol/L (98-107); EST Glomerular Filtration Rate 70 mL/min (>60); Est Glom Filt Rate - Afr Amer 85 mL/min (>60); Estimated Creatinine Clearance 54.78 ml/min; Glucose 120 mg/dL (74-106); Potassium 3.8 mmol/L (3.5-5.1); Sodium Level 137 mmol/L (136-145)
--- NOTE | 2020-08-13 14:50 | RAD_ITS ---
STUDY: X-RAY CHEST REASON FOR EXAM: Male, 70 years old. Neuro deficit, acute, stroke suspected TECHNIQUE: Single AP portable view of the chest. COMPARISON: Comparison is made with prior study dated 06/22/2016. FINDINGS: EKG electrodes are seen. The lungs are clear and expanded. There is no demonstrated pleural abnormality. Normal size heart. Normal mediastinum and jesus manuel. Normal visualized pulmonary arteries. Normal visualized aortic arch and descending thoracic aorta. Normal visualized thoracic spine. Normal visualized ribs, clavicles, and shoulders. There is no demonstrated abnormality of the visualized soft tissue structures of the upper abdomen. RAD/Chest 1 View IMPRESSION: No acute abnormality is seen. Electronically Signed: Kana Azevedo MD at 15:02 EDT , Service support ,
--- NOTE | 2020-08-13 14:51 | EDS_ITS ---
HPI History of Present Illness Chief Complaint: Neuro S/Sx Informant: patient Narrative Narrative: 70-year-old male states he went to bed last night at 2130 hrs. He woke this morning admittedly felt dizzy. When asked what he means by dizzy he means unable to move without feeling off balance. No sensation of the room is spinning. Tells me yesterday had a couple brief episodes but felt that it was more related to his age. He states that he went to see his primary care doctor today and they did an outpatient head CT that was concerning for hypodensity in the right basal ganglion. Upon arrival here he was a stroke team as this is a wake-up stroke. Patient notes he is anticoagulated with apixaban for paroxysmal atrial fibrillation. He does note that he may have missed a dose of his Eliquis last week. [facility] Medical History (Updated 08/13/20 @ 15:[address] Iglesia Ocampo, DO) Anemia BPH (benign prostatic hyperplasia) Cardiac murmur Encounter for monitoring anti-arrhythmic therapy Hypothyroidism Iron deficiency anemia Laceration of right eyebrow without complication JSOE on CPAP Paroxysmal atrial fibrillation Peripheral vascular disease Personal history of colonic polyps Valvular heart disease Vitamin D deficiency Home Medications aspirin 81 mg PO DAILY@0800 04/21/15 [History Last Taken 10/01/17] multivitamin 1 tab PO DAILY 04/21/15 [History Last Taken 11/03/16] tamsulosin 0.4 mg capsule 0.4 mg PO DAILY #90 cap 08/07/17 [Rx Last Taken Unknown] flecainide 100 mg tablet 100 mg PO Q12H #180 tab 12/17/19 [Rx Last Taken 04/16/20 03:00 100 MG] ferrous sulfate 324 mg (65 mg iron) tablet,delayed release 1 tab PO DAILY 03/29/20 [History Last Taken Unknown] ascorbate calcium (vitamin C) 500 mg tablet 500 mg PO DAILY 04/12/20 [History Last Taken Unknown] calcium carbonate 500 mg calcium (1,250 mg) tablet 500 mg PO DAILY 04/12/20 [History Last Taken Unknown] cholecalciferol (vitamin D3) 50 mcg (2,000 unit) capsule 50 mcg PO BID cap 04/12/20 [History Last Taken Unknown] levothyroxine 125 mcg tablet 137 mcg PO QDAY tab 04/12/20 [History Last Taken 04/16/20 03:00 137 MCG] diltiazem HCl 120 mg capsule,extended release 24 hr 120 mg PO DAILY #90 cap 04/26/20 [Rx Last Taken Unknown] apixaban 5 mg tablet 5 mg PO BID #180 tab 06/16/20 [Rx Last Taken Unknown] omeprazole 40 mg capsule,delayed release 40 mg PO DAILY #90 capsule. 07/21/20 [Rx Last Taken Unknown] Allergy/AdvReac Type Severity Reaction Status Date / Time No Known Allergies Allergy Verified 06/30/20 09:03 Family History Mother Thyroid disorder Father Thyroid disorder Surgical History History of cardiac cath History of carpal tunnel release History of colonoscopy (~09/2017) Social History Smoking Status: Never smoker alcohol intake: never substance use type: does not use caffeine: No what type of physical activity do you participate in: weight training frequency: 3-4 times per week ROS ROS ED Constitutional Constitutional ED: Denies chills or weight loss Eyes Eyes: Denies change in vision or diplopia ENT ENT ED: Denies ear pain, rhinorrhea or sore throat Cardiovascular Cardiovascular: Denies chest pain, orthopnea, palpitations or racing heartbeat Respiratory/Chest Respiratory/Chest: Denies cough, dyspnea or orthopnea Gastrointestinal Gastrointestinal: Denies abdominal pain, diarrhea, nausea or vomiting Genitourinary Genitourinary ED: Denies dysuria, hematuria or urinary frequency Musculoskeletal Musculoskeletal: Denies arthralgias or myalgias Integumentary Denies abscess or rash Neurologic Neurologic: Reports other Details: Ataxia ; Denies headache(s) or weakness Psychiatric Psychiatric: Denies anxiety, depression, suicidal ideation or suicidal thoughts Endocrine Endocrinology: Denies polydipsia, polyphagia or polyuria Allergic/Immunologic Allergic/Immunologic ED: Denies mouth swelling, tongue swelling or urticaria EXAM Physical Exam Const Vital Signs: 08/13/20 14:01 08/13/20 14:04 08/13/20 14:21 Temperature 97.7 F L 97.7 F L Temperature Source Oral Oral Pulse Rate 56 L 56 L Respiratory Rate 20 H 20 H Blood Pressure 138/66 H 131/62 H Blood Pressure Mean 90 85 Pulse Ox 98 98 Oxygen Delivery Method Room Air Room Air Room Air 08/13/20 14:34 Temperature Temperature Source Pulse Rate 54 L Respiratory Rate 15 Blood Pressure 93/40 L Blood Pressure Mean 57 Pulse Ox 98 Oxygen Delivery Method Room Air Positive well nourished and well developed General Appearance ED: well developed HEENT Reports normocephalic, head/scalp atraumatic and moist mucous membranes Eyes PERRL and EOMs intact bilaterally Neck no lymphadenopathy, supple and no JVD Resp normal respiratory effort and clear to auscultation bilaterally Cardio regular rate, regular rhythm and no murmurs GI normal to inspection, nondistended, normoactive bowel sounds and non-tender Palpation: soft Back/Spine no CVA tenderness and normal ROM Extremity normal to inspection General Extremety ED: Negative for edema General Extremity: Negative for edema Neuro oriented x3 and CN's II-XII intact bilaterally Neuro Narrative: NIH 0 Sensorium / Orientation: alert Motor Exam: strength 5/5 throughout Psych mental status grossly normal Mood & Affect: Negative for depressed or tearful Skin no rashes or lesions noted and no wounds MDM MDM MDM Narrative Medical decision making narrative: My impression of the single view portable chest x-ray is no acute process. Patient was discussed with [facility] teleneurology. They recommend admission. 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 Patient's NIH is still 0 at 1512 hrs. I will speak with our hospitalist. Lab Data Attestation: I reviewed the patient's lab results. Labs: Laboratory Results - last 24 hr 08/13/20 08/13/20 08/13/20 14:12 14:12 14:12 WBC 6.8 RBC 3.74 L Hgb 11.9 L Hct 35.7 L MCV 95.5 H MCH 31.8 MCHC 33.3 RDW Std Deviation 42.2 RDW Coeff of Carmita 12.2 Plt Count 268 MPV 9.5 Immature Gran % (Auto) 0.300 Neut % (Auto) 75.4 H Lymph % (Auto) 16.1 L [place] % (Auto) 7.2 Eos % (Auto) 0.7 Baso % (Auto) 0.3 Absolute Neuts (auto) 5.1 Absolute Lymphs (auto) 1.10 Nucleated RBC % 0 PT 15.0 H INR 1.3 APTT 32.5 Sodium 137 Potassium 3.8 Chloride 106 Carbon Dioxide 27.0 Anion Gap 4 L BUN 26 H Creatinine 1.10 Estim Creat Clear Calc 54.78 Est GFR (MDRD) Af Amer 85 Est GFR (MDRD) Non-Af 70 BUN/Creatinine Ratio 23.6 H Glucose 120 H Calcium 8.7 Troponin I < 0.015 Radiography Diagnostic Testing: Radiology Impression Head/Neck CTA 08/13/20 14:11 IMPRESSION: There is decreased caliber of the right A1 segment of the anterior cerebral artery. 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 N.B. : The above information has been verbally conveyed by Kana Azevedo MD to Iglesia Ocampo on 08/13/2020 14:29:42 (ET). Electronically Signed: Kana Azevedo MD at 14:30 EDT , Service support , ADDENDUM: 08/13/20 1437 IMPRESSION: There is decreased caliber of the right A1 segment of the anterior cerebral artery. 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 N.B. : The above information has been verbally conveyed by Kana Azevedo MD to Iglesia Ocampo on 08/13/2020 14:29:42 (ET). Electronically Signed: Kana Azevedo MD at 14:30 EDT , Service support , Chest X-Ray 08/13/20 14:50 IMPRESSION: No acute abnormality is seen. Electronically Signed: Kana Azevedo MD at 15:02 EDT , Service support , EKG Initial EKG: Attestation: I personally reviewed and interpreted this EKG as follows: Comments: EKG demonstrates a sinus bradycardia at a rate of 56. Discharge Plan Dx/Rx/DC Orders Clinical Impression: Ataxia, Paroxysmal atrial fibrillation Disposition Disposition: Acute Care Hospital [facility]
--- NOTE | 2020-08-13 15:29 | NURSING ---
DR TRIVEDI FOR DR TREJO
[2020-08-13 15:55] LABS: Bedside Glucose 134 mg/dL (70-110)
--- NOTE | 2020-08-13 15:59 | NURSING ---
126 DOCS OBS ATAXIA
--- NOTE | 2020-08-13 16:07 | MRI_ITS ---
HISTORY: CVA EXAMINATION: MR Brain W/O Contrast TECHNIQUE: Multiplanar and multisequence MR images of the brain were obtained without gadolinium. IV Contrast dosage and agent: COMPARISON: Noncontrast head CT 08/23/20 FINDINGS: BRAIN PARENCHYMA: No MRI evidence of hemorrhage. No evidence of acute infarct. Central and cortical involutional changes are noted. There is mild increased T2 and FLAIR signal abnormality in the periventricular white matter. No intracranial mass or mass effect. There is preservation of the norris/white matter interface. Normal sella turcica, pituitary gland, infundibular stalk, optic chiasm and hypothalamus. The internal auditory canals are patent. Posterior fossa structures are unremarkable. CSF SPACES: Appropriate for age. No hydrocephalus. Basal cisterns are patent. VASCULAR SYSTEM: Normal flow voids in the major intracranial circulation. CALVARIUM, SKULL BASE, PARANASAL SINUSES AND MASTOID AIR CELLS: Small mucous retention cyst right maxillary sinus. No discrete lytic or blastic abnormalities. ORBITS: Both globes, extraocular muscles, optic nerves and retrobulbar fat appear unremarkable. MRI/Brain without Contrast IMPRESSION: Chronic involutional and white matter changes. No acute intracranial process. at 1940 Reported and signed by: Joe Rausch MD Electronically Signed: Joe Rausch MD at 19:39 EDT Tel , Service support ,
--- NOTE | 2020-08-13 16:20 | HP.PCM.HOS_ITS ---
Documented by User: Irma Benitez NP, PHYSICIAN ASSISTANT PRIMARY CARE-C 08/13/20 16:29 HPI - General General Date of Admission: 08/13/20 HPI Narrative KARL ODOM, is a 70 M who presents to the emergency room due to ataxia. Patient states he woke up this morning feeling dizzy. Denies room spinning sensation. Does report nausea earlier today which has resolved. He was seen by his primary care provider and referred to the emergency room for further evaluation. Patient states he felt like he needed to hold onto something when walking due to unsteadiness. He denies vision or speech changes. Denies unilateral weakness or focal deficits. PCP did perform brain CT as outpatient state which showed hypodensity in the right basal ganglion. He has a past medical history of paroxysmal atrial fibrillation, JOSE on CPAP, hypothyroidism, BPH. [facility] Medical History Anemia BPH (benign prostatic hyperplasia) Cardiac murmur Encounter for monitoring anti-arrhythmic therapy Hypothyroidism Iron deficiency anemia Laceration of right eyebrow without complication JOSE on CPAP Paroxysmal atrial fibrillation Peripheral vascular disease Personal history of colonic polyps Valvular heart disease Vitamin D deficiency Home Medications aspirin 81 mg PO DAILY@0800 04/21/15 [History Last Taken 08/12/20] multivitamin 1 tab PO DAILY 04/21/15 [History Last Taken 08/12/20] tamsulosin 0.4 mg capsule 0.4 mg PO DAILY #90 cap 08/07/17 [Rx Last Taken 08/12/20] flecainide 100 mg tablet 100 mg PO Q12H #180 tab 12/17/19 [Rx Last Taken 08/13/20] ferrous sulfate 324 mg (65 mg iron) tablet,delayed release 1 tab PO DAILY 03/29/20 [History Last Taken 08/12/20] ascorbate calcium (vitamin C) 500 mg tablet 500 mg PO DAILY 04/12/20 [History Last Taken 08/12/20] calcium carbonate 500 mg calcium (1,250 mg) tablet 500 mg PO DAILY 04/12/20 [History Last Taken 08/12/20] cholecalciferol (vitamin D3) 50 mcg (2,000 unit) capsule 50 mcg PO BID cap 04/12/20 [History Last Taken 08/12/20] diltiazem HCl 120 mg capsule,extended release 24 hr 120 mg PO DAILY #90 cap 04/26/20 [Rx Last Taken 08/12/20] apixaban 5 mg tablet 5 mg PO BID #180 tab 06/16/20 [Rx Last Taken 08/13/20] omeprazole 40 mg capsule,delayed release 40 mg PO DAILY #90 capsule. 07/21/20 [Rx Last Taken 08/12/20] levothyroxine 137 mcg PO DAILY 08/13/20 [History Last Taken 08/13/20] Allergy/AdvReac Type Severity Reaction Status Date / Time No Known Allergies Allergy Verified 06/30/20 09:03 Family History Mother Thyroid disorder Father Thyroid disorder Surgical History History of cardiac cath History of carpal tunnel release History of colonoscopy (~09/2017) Social History Smoking Status: Never smoker alcohol intake: never substance use type: does not use caffeine: No what type of physical activity do you participate in: weight training frequency: 3-4 times per week ROS Constitutional Constitutional: Reports fatigue; Denies change in weight, chills, fever(s) or weakness Cardiovascular Cardiovascular: Denies chest pain, edema, lightheadedness, palpitations or syncope Respiratory/Chest Respiratory/Chest: Denies cough, dyspnea, productive cough, shortness of breath at rest, shortness of breath with exertion or wheezing Gastrointestinal Gastrointestinal: Denies abdominal pain, constipation, diarrhea, nausea or vomiting Genitourinary Genitourinary: Denies burning urination, difficulty urinating, dysuria, hematuria, urinary frequency, urinary incontinence or urinary urgency Musculoskeletal Musculoskeletal: Denies back pain or joint pain Neurologic Neurologic: Reports dizziness; Denies abnormal speech, confusion, focal weakness, numbness, paresthesias, seizure-like activity or syncope Psychiatric Psychiatric: Denies anxiety or depression Hematologic/Lymphatic Hematologic/Lymphatic: Denies anemia, easy bleeding or easy bruising Allergic/Immunologic Allergic/Immunologic: Denies hives or asthma Vital Signs Vital Signs Vital Signs: 08/13/20 14:01 08/13/20 14:04 08/13/20 14:21 Temperature 97.7 F L 97.7 F L Temperature Source Oral Oral Pulse Rate 56 L 56 L Respiratory Rate 20 H 20 H Blood Pressure 138/66 H 131/62 H Blood Pressure Mean 90 85 Pulse Ox 98 98 Oxygen Delivery Method Room Air Room Air Room Air 08/13/20 14:34 08/13/20 15:03 08/13/20 15:30 Temperature Temperature Source Pulse Rate 54 L 56 L 56 L Respiratory Rate 15 16 Blood Pressure 93/40 L 100/47 L 104/47 L Blood Pressure Mean 57 64 66 Pulse Ox 98 98 98 Oxygen Delivery Method Room Air Room Air Room Air 08/13/20 15:40 08/13/20 16:00 Temperature 97 F L Temperature Source Temporal Pulse Rate 57 L 50 L Respiratory Rate 16 18 Blood Pressure 104/47 L 137/63 H Blood Pressure Mean 66 87 Pulse Ox 98 98 Oxygen Delivery Method Room Air Room Air Physical Exam Const alert, oriented x3 and no apparent distress Orientation / Consciousness: awake, oriented to person, oriented to place and oriented to time HEENT normocephalic and moist oral mucous membranes Eyes PERRL, EOMs intact bilaterally and conjunctivae normal Neck no lymphadenopathy Resp normal respiratory effort and clear to auscultation bilaterally Cardio regular rate, regular rhythm and no murmurs Peripheral Pulses: pulses 2+ throughout GI normal to inspection, nondistended, normoactive bowel sounds, non-tender and non-distended Extremity normal to inspection Skin no rashes or lesions noted Lesions: no lesions Rashes: no rashes Trauma: no lacerations or abrasions Neuro oriented x3 Sensorium / Orientation: awake and alert Psych affect normal Lab / Micro Data Result Diagrams: 08/13/20 14:12 08/13/20 14:12 Labs: Laboratory Results - last 24 hr 08/13/20 08/13/20 08/13/20 14:07 14:12 14:12 WBC 6.8 RBC 3.74 L Hgb 11.9 L Hct 35.7 L MCV 95.5 H MCH 31.8 MCHC 33.3 RDW Std Deviation 42.2 RDW Coeff of Carmita 12.2 Plt Count 268 MPV 9.5 Immature Gran % (Auto) 0.300 Neut % (Auto) 75.4 H Lymph % (Auto) 16.1 L [place] % (Auto) 7.2 Eos % (Auto) 0.7 Baso % (Auto) 0.3 Absolute Neuts (auto) 5.1 Absolute Lymphs (auto) 1.10 Nucleated RBC % 0 PT 15.0 H INR 1.3 APTT 32.5 Sodium Potassium Chloride Carbon Dioxide Anion Gap BUN Creatinine Estim Creat Clear Calc Est GFR (MDRD) Af Amer Est GFR (MDRD) Non-Af BUN/Creatinine Ratio Glucose Calcium Troponin I POC Glucose 134 H 08/13/20 14:12 WBC RBC Hgb Hct MCV MCH MCHC RDW Std Deviation RDW Coeff of Carmita Plt Count MPV Immature Gran % (Auto) Neut % (Auto) Lymph % (Auto) [place] % (Auto) Eos % (Auto) Baso % (Auto) Absolute Neuts (auto) Absolute Lymphs (auto) Nucleated RBC % PT INR APTT Sodium 137 Potassium 3.8 Chloride 106 Carbon Dioxide 27.0 Anion Gap 4 L BUN 26 H Creatinine 1.10 Estim Creat Clear Calc 54.78 Est GFR (MDRD) Af Amer 85 Est GFR (MDRD) Non-Af 70 BUN/Creatinine Ratio 23.6 H Glucose 120 H Calcium 8.7 Troponin I < 0.015 POC Glucose Radiology Impression Head/Neck CTA 08/13/20 14:11 IMPRESSION: There is decreased caliber of the right A1 segment of the anterior cerebral artery. 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 N.B. : The above information has been verbally conveyed by Kana Azevedo MD to Iglesia Ocampo on 08/13/2020 14:29:42 (ET). Electronically Signed: Kana Azevedo MD at 14:30 EDT , Service support , ADDENDUM: 08/13/20 1437 IMPRESSION: There is decreased caliber of the right A1 segment of the anterior cerebral artery. 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 N.B. : The above information has been verbally conveyed by Kana Azevedo MD to Iglesia Ocampo on 08/13/2020 14:29:42 (ET). Electronically Signed: Kana Azevedo MD at 14:30 EDT , Service support , Chest X-Ray 08/13/20 14:50 IMPRESSION: No acute abnormality is seen. Electronically Signed: Kana Azevedo MD at 15:02 EDT , Service support , Assessment & Plan Assessment/Plan (1) Ataxia: PLAN: 1. Ataxia- rule out TIA/CVA. Obtain MRI of brain. MRA of head and neck. Obtain echocardiogram. PT/OT/ST. Lipid panel in the a.m. Aspirin, statin. 2. Paroxysmal atrial fibrillation-on Eliquis, flecainide, Cardizem. 3. JOSE on CPAP 4. Hypothyroidism-continue Synthroid. Check TSH. 5. BPH-continue Flomax. DVT prophylaxis-on Eliquis CODE STATUS: Discussed with patient in length including differences between full code, DNR CCA DNR CC. Patient elects full code. This patient was seen by EVARISTO Viera under the supervision of Dr. Garner. Documented by User: Dr. Michael Garner MD 08/13/20 18:36 HPI - General General Date of Admission: 08/13/20 [facility] Medical History Anemia BPH (benign prostatic hyperplasia) Cardiac murmur Encounter for monitoring anti-arrhythmic therapy Hypothyroidism Iron deficiency anemia Laceration of right eyebrow without complication JOSE on CPAP Paroxysmal atrial fibrillation Peripheral vascular disease Personal history of colonic polyps Valvular heart disease Vitamin D deficiency Home Medications aspirin 81 mg PO DAILY@0800 04/21/15 [History Last Taken 08/12/20] multivitamin 1 tab PO DAILY 04/21/15 [History Last Taken 08/12/20] tamsulosin 0.4 mg capsule 0.4 mg PO DAILY #90 cap 05/01/18 [Rx Last Taken 08/12/20] flecainide 100 mg tablet 100 mg PO Q12H #180 tab 12/17/19 [Rx Last Taken 08/13/20] ferrous sulfate 324 mg (65 mg iron) tablet,delayed release 1 tab PO DAILY 03/29/20 [History Last Taken 08/12/20] ascorbate calcium (vitamin C) 500 mg tablet 500 mg PO DAILY 04/12/20 [History Last Taken 08/12/20] calcium carbonate 500 mg calcium (1,250 mg) tablet 500 mg PO DAILY 04/12/20 [History Last Taken 08/12/20] cholecalciferol (vitamin D3) 50 mcg (2,000 unit) capsule 50 mcg PO BID cap 04/12/20 [History Last Taken 08/12/20] diltiazem HCl 120 mg capsule,extended release 24 hr 120 mg PO DAILY #90 cap 04/26/20 [Rx Last Taken 08/12/20] apixaban 5 mg tablet 5 mg PO BID #180 tab 06/16/20 [Rx Last Taken 08/13/20] omeprazole 40 mg capsule,delayed release 40 mg PO DAILY #90 capsule. 07/21/20 [Rx Last Taken 08/12/20] levothyroxine 137 mcg PO DAILY 08/13/20 [History Last Taken 08/13/20] Allergy/AdvReac Type Severity Reaction Status Date / Time No Known Allergies Allergy Verified 06/30/20 09:03 Family History Mother Thyroid disorder Father Thyroid disorder Surgical History History of cardiac cath History of carpal tunnel release History of colonoscopy (~09/2017) Social History Smoking Status: Never smoker alcohol intake: never substance use type: does not use caffeine: No what type of physical activity do you participate in: weight training frequency: 3-4 times per week Lab / Micro Data Result Diagrams: 08/13/20 14:12 08/13/20 14:12 Addendum Addendum: Dr. Garner: I personally reviewed the chart and examined the patient, and agree with the above findings. 70-year-old male with a history of iron deficiency anemia, A. fib, hypertension, hyperlipidemia presents to the hospital with dizziness and ataxia. Symptoms started when he woke up this morning and was a stroke alert here in the hospital. He did have a CT scan as an outpatient and there is some question as to a small hypodensity in the right basal ganglion CTA of the head and neck was unremarkable for large vessel occlusion. We will proceed with an MRI as well as an echo. His most recent echo was in October 2019. He states that his symptoms have essentially resolved at this point and he is able to walk without falling and does not have any significant ataxia on exam. Continue with aspirin and Eliquis which she states he takes religiously as well as the addition of a statin. Visit Charges Inpatient E&M: 36954 Init Hosp L3
--- NOTE | 2020-08-13 16:33 | ECHOD_ITS ---
Reason For Study: TIA/CVA Procedure This was a 2D Doppler, Color Flow transthoracic echocardiogram. Exam performed portable in patient room. Left Ventricle Normal LV size. Mild concentric left ventricular hypertrophy. Left ventricular systolic function is normal. The estimated ejection fraction is 65 %. Stage 1 diastolic dysfunction. No regional wall motion abnormalities noted. Right Ventricle Normal RV size. Normal systolic function. Atria Normal left atrium. Normal right atrium. Bubble contrast study negative for right to left interatrial shunt. Mitral Valve Normal mitral valve. Tricuspid Valve Normal tricuspid valve. Mild (1+) tricuspid valve insufficiency. Pulmonary artery systolic pressure is 24 mmHg. Aortic Valve Trisinus/trileaflet aortic valve. Mild focal aortic valve calcification. Pulmonic Valve Normal pulmonic valve. Great Vessels Normal aortic root. The pulmonary artery is normal size. Normal inferior vena cava. Pericardium/Pleural No pericardial effusion. Medication Performed a rapid injection of agitated mix of 9 cc saline and 1cc air to assess for atrial septal defect. MMode/2D Measurements & Calculations LVIDd: 4.2 cm IVSd: 1.3 cm LVOT diam: 2.1 cm LVIDs: 2.1 cm LVPWd: 1.4 cm RVDd: 4.3 cm FS: 49.6 % LVOT area: 3.5 cm2 Ao root diam: 3.4 cm LAV(MOD-bp): 52.0 ml LVAd ap4: 30.0 cm2 LAV(MOD-bp) Indexed: 28.8 ml/m2 LVLd ap4: 7.7 cm LAV(MOD-sp2): 55.3 ml EDV(MOD-sp4): 95.4 ml LAV(MOD-sp4): 47.6 ml EDV(sp4-el): 99.5 ml LVAs ap4: 16.2 cm2 LVLs ap4: 6.4 cm ESV(MOD-sp4): 35.9 ml ESV(sp4-el): 35.0 ml EF(MOD-sp4): 62.3 % EF(sp4-el): 64.9 % SV(MOD-sp4): 59.5 ml SV(sp4-el): 64.6 ml LA A4 area: 17.0 cm2 LA dimension(2D): 4.3 cm RA A4 area: 14.3 cm2 Doppler Measurements & Calculations MV E max arley: 55.3 cm/sec Lat Peak E' Arley: 8.3 cm/sec Med Peak E' Arley: 5.9 cm/sec MV A max arley: 62.6 cm/sec E/E' lat: 6.6 E/E' med: 9.4 MV E/A: 0.88 Ao V2 max: 219.7 cm/sec LV V1 max: 116.2 cm/sec SV(LVOT): 96.2 ml Ao max P.3 mmHg LV V1 max P.4 mmHg Ao V2 mean: 149.9 cm/sec LV V1 mean P.4 mmHg Ao mean P.0 mmHg LV V1 mean: 89.8 cm/sec Ao V2 VTI: 40.4 cm LV V1 VTI: 27.5 cm KELVIN(I,D): 2.4 cm2 KELVIN(V,D): 1.9 cm2 PA V2 max: 122.3 cm/sec TR max arley: 229.0 cm/sec TR max P.0 mmHg ECHO/Echo Complete Interpretation Summary Normal LV size. Left ventricular systolic function is normal. The estimated ejection fraction is 65 %. Stage 1 diastolic dysfunction. Mild concentric left ventricular hypertrophy. Structurally normal valves. Ordering Physician: Irma Benitez Referring Physician: Raffi Vaca Performed By: Penelope Weiss RDCS, RVT
[2020-08-13 17:24] LABS: Thyroid Stim Hormone (TSH) 0.95 uIU/mL (0.358-3.74)
[2020-08-13] MEDS: Atorvastatin Calcium 80 MG Tablet PO (20:45)
[2020-08-13] MEDS: Flecainide 100 MG Tablet PO (20:45)
[2020-08-13] MEDS: APIXABAN 5 MG TABLET PO (20:45)
[2020-08-13] MEDS: Aspirin 81 MG TAB.CHEW PO (20:45)
[2020-08-14 02:30] VITALS: BP 126/55; PULSE 56; RESP 12; TEMP 36.6; O2SAT 98
[2020-08-14 02:59] VITALS: PULSE 51
[2020-08-14] MEDS: Levothyroxine 137 MCG Tablet PO (06:31)
[2020-08-14 06:54] VITALS: PULSE 50
[2020-08-14 07:34] VITALS: O2SAT 96
[2020-08-14 08:03] LABS: Absolute Lymphocyte Count 1.38 X10^3/uL (0.83-4.51); Absolute Neutrophil Count 4.7 X10^3/uL (2.0-7.7); Basophil# 0.03 X10^3/uL; Basophil% 0.4 % (0-1); Eosinophil# 0.14 X10^3/uL; Hematocrit 37.4 % (40-54); Hemoglobin 12.4 g/dL (13.0-16.5); Lymphocyte # 1.38 X10^3/ul (0.83-4.51); Lymphocyte % 19.9 % (19-41); Mean Corp Hgb Conc 33.2 g/dL (32-36); Mean Corpuscular Hgb 31.8 pg (27.0-32.0); Mean Corpuscular Volume 95.9 fL (80-94); Mean Platelet Vol. 9.7 fl (6.2-12.0); Monocyte# 0.72 X10^3/uL; Monocyte% 10.4 % (0-10); NRBC Flagged by Analyzer 0 % (0-5); Neutrophil # 4.65 X10^3/uL (2.7-7.7); Neutrophil % 66.9 % (47-70); Platelet Count 283 K/mm3 (150-450); RBC Distribution Width CV 12.3 % (11.6-14.6); RBC Distribution Width SD 42.5 fl (35.1-43.9)
[2020-08-14 08:04] VITALS: BP 108/70; PULSE 56; RESP 16; TEMP 36.7; O2SAT 98
[2020-08-14] MEDS: Aspirin 81 MG TAB.CHEW PO (08:14)
[2020-08-14] MEDS: dilTIAZem CD 120 MG Capsule PO (08:14)
[2020-08-14] MEDS: Flecainide 100 MG Tablet PO (08:15)
[2020-08-14] MEDS: Pantoprazole Sodium 40 MG Tablet PO (08:15)
[2020-08-14] MEDS: Tamsulosin HCl 0.4 MG Capsule PO (08:15)
[2020-08-14] MEDS: APIXABAN 5 MG TABLET PO (08:15)
[2020-08-14] MEDS: Ascorbic Acid 500 MG Tablet PO (08:16)
[2020-08-14] MEDS: Cholecalciferol (VIT D3) 25 MCG TABLET (1,000 UNITS) 50 MCG PO (08:16)
[2020-08-14 08:26] LABS: Anion Gap 6 (5-15); BUN 20 mg/dL (7-18); BUN/Creat Ratio 16.9 RATIO (10-20); Calcium,Total 8.9 mg/dL (8.5-10.1); Chloride 107 mmol/L (98-107); Cholesterol 161 mg/dL (200); Creatinine, Serum 1.18 mg/dL (0.70-1.30); EST Glomerular Filtration Rate 64 mL/min (>60); Est Glom Filt Rate - Afr Amer 78 mL/min (>60); Estimated Creatinine Clearance 51.06 ml/min; Glucose 114 mg/dL (74-106); High Density Lipoprotein 56 mg/dL; Potassium 4.1 mmol/L (3.5-5.1); Sodium Level 140 mmol/L (136-145); Triglycerides 87 mg/dL; Very Low Density Lipoprotein 17 mg/dL (5-40)
--- NOTE | 2020-08-14 09:08 | TELEMED_ITS ---
[facility] has confirmed receipt of a request for visit. This document confirms receipt of the order initiating the consult. To find the results of the consultation, please view the patient's reports for the scanned Telemed Consult.
--- NOTE | 2020-08-14 11:36 | PCM.DC ---
Discharge Instructions Diet Discharge Diet: No restrictions Activity Discharge Activity: Return to Normal Activity Dressing / Incision Call your doctor if you observe: Numbness or Tingling and Shortness of breath Follow Up Care Test Results: Test results from this visit will be discussed in further detail at your follow-up appointment, if applicable. Discharge Plan Admission Admit Date/Time: 08/13/20 15:46 Attending Provider: Louie Araya Primary Care Provider: Raffi Vaca Discharge Orders/Prescriptions Prescriptions: New atorvastatin 10 mg tablet 10 mg PO QHS Qty: 30 RF: 0 Continued cholecalciferol (vitamin D3) 50 mcg (2,000 unit) capsule 50 mcg PO BID RF: 0 ascorbate calcium (vitamin C) 500 mg tablet 500 mg PO DAILY RF: 0 calcium carbonate [Calcium 500] 500 mg calcium (1,250 mg) tablet 500 mg PO DAILY RF: 0 ferrous sulfate 324 mg (65 mg iron) tablet,delayed release (DR/EC) 1 tab PO DAILY RF: 0 multivitamin 1 EACH tablet 1 tab PO DAILY RF: 0 aspirin 81 MG tablet,chewable 81 mg PO DAILY@0800 RF: 0 levothyroxine 137 mcg tablet 137 mcg PO DAILY RF: 0 tamsulosin 0.4 mg capsule,extended release 24hr 0.4 mg PO DAILY Qty: 90 RF: 3 flecainide 100 mg tablet 100 mg PO Q12H Qty: 180 RF: 3 diltiazem HCl 120 mg capsule,extended release 24hr 120 mg PO DAILY Qty: 90 RF: 3 apixaban 5 mg tablet 5 mg PO BID Qty: 180 RF: 4 omeprazole 40 mg capsule,delayed release(DR/EC) 40 mg PO DAILY Qty: 90 RF: 0 Referrals / Follow Up: Raffi Vaca MD [Primary Care Provider] - In 1 Week Disposition Disposition (needs filled in before D/C Order can be placed): Home, self care
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
[2020-08-14 13:30] VITALS: BP 138/64; PULSE 68; RESP 15; TEMP 36.8; O2SAT 98
== END 2020-08-14 11:39 | disposition home or self-care (01) ==
LOC: ED 15:12 → PCU 08-14 07:30
PROVIDERS: Nurse Practitioner Family; Admitting Provider Family Medicine; Emergency Provider Emergency Medicine; PCP Family Medicine; Visit Provider Internal Medicine
DX: R27.0 Ataxia, unspecified (principal); I48.0 Paroxysmal atrial fibrillation; N40.0 Benign prostatic hyperplasia without lower urinary tract symptoms; D50.9 Iron deficiency anemia, unspecified; E03.9 Hypothyroidism, unspecified; G47.33 Obstructive sleep apnea (adult) (pediatric); I73.9 Peripheral vascular disease, unspecified; E55.9 Vitamin D deficiency, unspecified; Z79.01 Long term (current) use of anticoagulants; Z79.899 Other long term (current) drug therapy; Z79.82 Long term (current) use of aspirin; R29.700 NIHSS score 0; E78.5 Hyperlipidemia, unspecified; I10 Essential (primary) hypertension
CPT/HCPCS: 36415; 70450; 70496; 70498; 70551; 71045; 80048; 80061; 82962; 84443; 84484; 85025; 85610; 85730; 93005; 93306; 99218; 99283; Q9967; A4216; G0378

== ENCOUNTER → 2020-09-15 10:45 | Outpatient (CLI) | payer MEDICARE, SELFPAY ==
[2020-08-13 16:27] VITALS: BMI 25.7
[2020-09-15 12:16] LABS: Absolute Lymphocyte Count 1.13 X10^3/uL (0.83-4.51); Basophil# 0.02 X10^3/uL; Basophil% 0.5 % (0-1); Eosinophil# 0.12 X10^3/uL; Eosinophils% 3.2 % (0-5); Hemoglobin 11.4 g/dL (13.0-16.5); Lymphocyte # 1.13 X10^3/ul (0.83-4.51); Lymphocyte % 29.8 % (19-41); Mean Corp Hgb Conc 33.5 g/dL (32-36); Mean Corpuscular Hgb 31.8 pg (27.0-32.0); Mean Corpuscular Volume 94.7 fL (80-94); Mean Platelet Vol. 9.9 fl (6.2-12.0); Monocyte# 0.54 X10^3/uL; Monocyte% 14.2 % (0-10); NRBC Flagged by Analyzer 0 % (0-5); Neutrophil # 1.97 X10^3/uL (2.7-7.7); Platelet Count 252 K/mm3 (150-450); RBC Distribution Width CV 12.1 % (11.6-14.6); RBC Distribution Width SD 42.1 fl (35.1-43.9); Red Blood Count 3.59 M/mm3 (4.6-6.2); White Blood Count 3.8 K/mm3 (4.4-11.0)
[2020-09-15 12:49] LABS: Ferritin 112 ng/mL (26-388); Iron 51 ug/dL (65-175); Iron Binding Capacity,Total 290 ug/dL (250-450)
[2020-09-16 12:15] LABS: PSA, Free 0.93 ng/mL; PSA, Free % 23.8 % (.); PSA, Total Ultrasensitive 3.9 ng/mL (0.0-4.0)
== END ==
PROVIDERS: PCP Family Medicine; Referring Provider Family Medicine; Visit Provider Family Medicine
DX: D64.9 Anemia, unspecified (principal); R97.20 Elevated prostate specific antigen [PSA]
CPT/HCPCS: 36415; 82728; 83540; 83550; 84153; 84154; 85025

== ENCOUNTER 2020-11-24 16:26 | Emergency (ER) | payer MEDICARE, SELFPAY ==
[2020-11-24 16:27] VITALS: BP 141/78; PULSE 63; RESP 18; TEMP 36.4; O2SAT 99; BMI 27.4
--- NOTE | 2020-11-24 16:40 | CT_ITS ---
HISTORY: trauma, hematuria EXAMINATION: CT Abdomen And Pelvis W/ Contrast Injection TECHNIQUE: Helically acquired images were obtained of the abdomen and pelvis following IV contrast. A radiation dose optimization technique was used for this scan. IV Contrast dosage and agent: 100mL [id number]-370 Oral contrast: None. COMPARISON: Chest CT 07/18/18, CT abdomen and pelvis 06/28/16 FINDINGS: LOWER CHEST: Lung bases are clear. No cardiomegaly or pericardial effusion. LIVER: Homogeneous. No focal mass. GALLBLADDER AND BILIARY TREE: No calcified gallstones. Gallbladder contracted. No intra- or extrahepatic biliary ductal dilation. PANCREAS: No focal cystic or solid mass. SPLEEN: Normal size without focal cystic or solid mass. ADRENAL GLANDS: No nodules. KIDNEYS AND URETERS: Nonobstructing left renal calculi. No hydronephrosis. PERITONEUM: No ascites or free air. BOWEL: Normal appendix. No stomach or bowel distension. No focal inflammatory bowel wall changes. LYMPH NODES: No enlarged mesenteric or retroperitoneal lymph nodes. VESSELS: Aorta is non-dilated. URINARY BLADDER: Unremarkable. REPRODUCTIVE ORGANS: Prostatic hypertrophy. ABDOMINAL WALL: No discrete abdominal or pelvic wall hernia. BONES: Mild L1 compression fracture, new from prior studies, but of uncertain acuity. CT/Abdomen/Pelvis W IV Cont ONLY IMPRESSION: No acute findings in the abdomen or pelvis. L1 compression fracture of uncertain chronicity, new from the most recent comparison study. Individualized dose optimization techniques were used for this CT. at 1835 Reported and signed by: Joe Rausch MD Electronically Signed: Joe Rausch MD at 18:34 EDT Tel , Service support ,
--- NOTE | 2020-11-24 16:41 | EX.ED.DYSGE1 ---
HPI History of Present Illness Chief Complaint: Complaint Informant: patient Onset/Context/Timing Onset: Yesterday Context: - (accidentally fell off ladder; only couple feet up) Timing: Continuous Quality: sore Location: R flank/low back Current Severity: Mild Maximum Severity: Mild Worsened by: nothing Relieved by: nothing Associated Symptoms Associated Symptoms: hematuria today Narrative Narrative: Patient was in his garage on a ladder a few feet up, he fell when the bottom of the ladder accidentally kicked out, falling against a metal lathe below, injuring his right flank and his right forearm mildly. He had no issues other than some soreness yesterday, urinating without any difficulty. Today a couple hours ago he urinated and it was blood. He is in no significant discomfort or pain. At one point during urination it briefly stopped, and then he urinated some more with a small clot coming out. He is on Eliquis for atrial fibrillation and his last dose was around 4 hours ago. He denies any other injuries. He has a history of a lacerated right kidney for which he did not require surgery. [facility] Medical History (Updated 11/24/20 @ 23:[address] Alvino Sawyer MD) BPH (benign prostatic hyperplasia) Cardiac murmur Encounter for monitoring anti-arrhythmic therapy Hypothyroidism Iron deficiency anemia Laceration of right eyebrow without complication JOSE on CPAP Paroxysmal atrial fibrillation Peripheral vascular disease Personal history of colonic polyps Valvular heart disease Vitamin D deficiency Home Medications aspirin 81 mg PO DAILY@0800 04/21/15 [History Last Taken 08/12/20] multivitamin 1 tab PO DAILY 04/21/15 [History Last Taken 08/12/20] flecainide 100 mg tablet 100 mg PO Q12H #180 tab 12/17/19 [Rx Last Taken 08/13/20] ferrous sulfate 324 mg (65 mg iron) tablet,delayed release 1 tab PO DAILY 03/29/20 [History Last Taken 08/12/20] ascorbate calcium (vitamin C) 500 mg tablet 500 mg PO DAILY 04/12/20 [History Last Taken 08/12/20] calcium carbonate 500 mg calcium (1,250 mg) tablet 500 mg PO DAILY 04/12/20 [History Last Taken 08/12/20] cholecalciferol (vitamin D3) 50 mcg (2,000 unit) capsule 50 mcg PO BID cap 04/12/20 [History Last Taken 08/12/20] apixaban 5 mg tablet 5 mg PO BID #180 tab 06/16/20 [Rx Last Taken 08/13/20] levothyroxine 137 mcg PO DAILY 08/13/20 [History Last Taken 08/13/20] omeprazole 40 mg capsule,delayed release See Rx Instructions .ROUTE .COMPLEX #90 capsule 09/20/20 [Rx Last Taken Unknown] diltiazem HCl 120 mg PO DAILY #90 cap 11/24/20 [Rx Last Taken 08/12/20] Allergy/AdvReac Type Severity Reaction Status Date / Time No Known Allergies Allergy Verified 11/24/20 16:31 Family History Mother Thyroid disorder Father Thyroid disorder Surgical History History of cardiac cath History of carpal tunnel release History of colonoscopy (~09/2017) Social History Smoking Status: Never smoker alcohol intake: never substance use type: does not use caffeine: No what type of physical activity do you participate in: weight training frequency: 3-4 times per week ROS ROS ED Constitutional Constitutional ED: Denies chills or fever(s) Eyes Eyes: Denies change in vision or diplopia ENT ENT ED: Denies rhinorrhea or sore throat Cardiovascular Cardiovascular: Denies chest pain or palpitations Respiratory/Chest Respiratory/Chest: Denies cough or dyspnea Gastrointestinal Gastrointestinal: Denies abdominal pain, diarrhea, nausea or vomiting Genitourinary Genitourinary ED: Reports as per HPI and hematuria; Denies dysuria Musculoskeletal Musculoskeletal: Reports as per HPI and back pain; Denies neck pain Integumentary Denies abscess or rash Neurologic Neurologic: Denies headache(s), paresthesias or weakness Psychiatric Psychiatric: Denies anxiety or suicidal thoughts EXAM Physical Exam Const Vital Signs: 11/24/20 16:27 11/24/20 16:51 11/24/20 20:09 Temperature 97.6 F L Temperature Source Temporal Pulse Rate 63 61 54 L Respiratory Rate 18 15 16 Blood Pressure 141/78 H 130/68 H 142/69 H Blood Pressure Mean 99 88 93 Pulse Ox 99 97 98 Oxygen Delivery Method Room Air Room Air 11/24/20 22:36 Temperature Temperature Source Pulse Rate Respiratory Rate 16 Blood Pressure Blood Pressure Mean Pulse Ox Oxygen Delivery Method Positive well nourished and well developed General Appearance ED: well developed and NAD HEENT Reports moist mucous membranes normocephalic and atraumatic Eyes PERRL and EOMs intact bilaterally Neck full ROM and supple Resp normal respiratory effort and clear to auscultation bilaterally Cardio regular rate and regular rhythm Heart Sounds: murmur systolic III/ decrescendo GI non-tender and non-distended Auscultation: normoactive bowel sounds Palpation: soft no CVA tenderness, external exam normal and testes normal Narrative: No genitourinary trauma or tenderness including testicles and penis. Blood at the urethral meatus without active bleeding or tenderness; patient had just urinated prior to exam. Back/Spine no CVA tenderness Back/Spine Narrative: No signs of trauma externally, no [place] sign or [place] sign, no reproducible tenderness in the paraspinal musculature, spine, ribs. General Back: other FROM Extremity normal to inspection General Extremety ED: Negative for edema, pulses abnormal or tenderness General Extremity: Negative for edema or pulses abnormal Neuro oriented x3, CN's II-XII intact bilaterally, no focal motor deficits, no sensory deficits noted and gait normal Sensorium / Orientation: awake and alert Motor Exam: strength 5/5 throughout Skin no rashes or lesions noted and no wounds MDM MDM MDM Narrative Medical decision making narrative: CT with IV contrast shows no acute injury to the kidneys or other parts of the abdomen/pelvis. But does show an L1 compression fracture, this must not be new he is not having pain with it. He continued to have hematuria in the ER although was improved. Given that he is on twice daily Eliquis, I thought it would be vitale to place a catheter and irrigate which I recommended and the patient was amenable to that. He was pretreated with Urojet, and we did this with a 24 [place] triple-lumen catheter. He irrigated to clear we remove the catheter after he continued to make urine without hematuria. I discussed with Dr. Garcia, he agrees with having the patient follow-up as an outpatient next 1 to 2 weeks, stopping the Eliquis for 1 week. Discussed with patient he is comfortable with that plan we discussed reasons to return. Lab Data Attestation: I reviewed the patient's lab results. Labs: Laboratory Results - last 24 hr 11/24/20 11/24/20 16:40 16:40 WBC 7.5 RBC 3.71 L Hgb 11.8 L Hct 34.4 L MCV 92.7 MCH 31.8 MCHC 34.3 RDW Std Deviation 41.7 RDW Coeff of Carmita 12.3 Plt Count 294 MPV 9.6 Immature Gran % (Auto) 0.300 Neut % (Auto) 60.5 Lymph % (Auto) 26.1 Foster % (Auto) 10.3 H Eos % (Auto) 2.4 Baso % (Auto) 0.4 Absolute Neuts (auto) 4.5 Absolute Lymphs (auto) 1.96 Nucleated RBC % 0 Sodium 141 Potassium 4.2 Chloride 107 Carbon Dioxide 32.0 Anion Gap 2 L BUN 30 H Creatinine 1.20 Estim Creat Clear Calc 50.21 Est GFR (MDRD) Af Amer 76 Est GFR (MDRD) Non-Af 63 BUN/Creatinine Ratio 25.0 H Glucose 92 Calcium 9.5 Radiography Diagnostic Testing: Radiology Impression Abdomen/Pelvis CT 11/24/20 16:40 IMPRESSION: No acute findings in the abdomen or pelvis. L1 compression fracture of uncertain chronicity, new from the most recent comparison study. Individualized dose optimization techniques were used for this CT. at 1835 Reported and signed by: Joe Rausch MD Electronically Signed: Joe Rausch MD at 18:34 EDT Tel , Service support , Discharge Plan Triage Chief Complaint: Complaint ED Provider: Alvino Sawyer Dx/Rx/DC Orders Clinical Impression: Contusion of right side of back, Hematuria, Fall from ladder Instructions: ED Hematuria Prescriptions: Continued cholecalciferol (vitamin D3) 50 mcg (2,000 unit) capsule 50 mcg PO BID RF: 0 ascorbate calcium (vitamin C) 500 mg tablet 500 mg PO DAILY RF: 0 calcium carbonate [Calcium 500] 500 mg calcium (1,250 mg) tablet 500 mg PO DAILY RF: 0 ferrous sulfate 324 mg (65 mg iron) tablet,delayed release (DR/EC) 1 tab PO DAILY RF: 0 multivitamin 1 EACH tablet 1 tab PO DAILY RF: 0 aspirin 81 MG tablet,chewable 81 mg PO DAILY@0800 RF: 0 levothyroxine 137 mcg tablet 137 mcg PO DAILY RF: 0 diltiazem HCl 120 mg capsule,extended release 24hr 120 mg PO DAILY Qty: 90 RF: 3 flecainide 100 mg tablet 100 mg PO Q12H Qty: 180 RF: 3 omeprazole 40 mg capsule,delayed release(DR/EC) See Rx Instructions .ROUTE .COMPLEX Qty: 90 RF: 0 Held apixaban 5 mg tablet 5 mg PO BID Qty: 180 RF: 4 Hold Instructions: Resume on 12/01/20. Primary Care Provider: Raffi Vaca Referrals: Chris Garcia MD [STAFF PHYSICIAN] - 1-2 Weeks Raffi Vaca MD [Primary Care Provider] - Disposition Disposition: Home, Self Care
[2020-11-24 16:51] VITALS: BP 130/68; PULSE 61; RESP 15; O2SAT 97
[2020-11-24 17:27] LABS: Absolute Lymphocyte Count 1.96 X10^3/uL (0.83-4.51); Absolute Neutrophil Count 4.5 X10^3/uL (2.0-7.7); Basophil# 0.03 X10^3/uL; Basophil% 0.4 % (0-1); Eosinophil# 0.18 X10^3/uL; Eosinophils% 2.4 % (0-5); Hematocrit 34.4 % (40-54); Hemoglobin 11.8 g/dL (13.0-16.5); Lymphocyte # 1.96 X10^3/ul (0.83-4.51); Lymphocyte % 26.1 % (19-41); Mean Corp Hgb Conc 34.3 g/dL (32-36); Mean Corpuscular Hgb 31.8 pg (27.0-32.0); Mean Corpuscular Volume 92.7 fL (80-94); Mean Platelet Vol. 9.6 fl (6.2-12.0); Monocyte# 0.77 X10^3/uL; Monocyte% 10.3 % (0-10); NRBC Flagged by Analyzer 0 % (0-5); Neutrophil # 4.54 X10^3/uL (2.7-7.7); Neutrophil % 60.5 % (47-70); Platelet Count 294 K/mm3 (150-450); RBC Distribution Width CV 12.3 % (11.6-14.6); RBC Distribution Width SD 41.7 fl (35.1-43.9); Red Blood Count 3.71 M/mm3 (4.6-6.2); White Blood Count 7.5 K/mm3 (4.4-11.0)
[2020-11-24 17:35] LABS: Anion Gap 2 (5-15); BUN 30 mg/dL (7-18); Calcium,Total 9.5 mg/dL (8.5-10.1); Chloride 107 mmol/L (98-107); EST Glomerular Filtration Rate 63 mL/min (>60); Est Glom Filt Rate - Afr Amer 76 mL/min (>60); Estimated Creatinine Clearance 50.21 ml/min; Glucose 92 mg/dL (74-106); Potassium 4.2 mmol/L (3.5-5.1); Sodium Level 141 mmol/L (136-145)
[2020-11-24 20:09] VITALS: BP 142/69; PULSE 54; RESP 16; O2SAT 98
[2020-11-24] MEDS: Lidocaine Jelly 2% 20 ML Syringe (URO-JET) 20 APPLIC TOPICAL (20:20)
[2020-11-24 22:36] VITALS: RESP 16
[2020-11-24 23:33] VITALS: BP 138/81; PULSE 78; RESP 16; O2SAT 97
== END 2020-11-24 23:34 | disposition home or self-care (01) ==
PROVIDERS: Emergency Provider Emergency Medicine; PCP Family Medicine
DX: R31.9 Hematuria, unspecified (principal); S01.111A Laceration without foreign body of right eyelid and periocular area, initial encounter; S20.221A Contusion of right back wall of thorax, initial encounter; W11.XXXA Fall on and from ladder, initial encounter; D50.9 Iron deficiency anemia, unspecified; E03.9 Hypothyroidism, unspecified; E55.9 Vitamin D deficiency, unspecified; G47.33 Obstructive sleep apnea (adult) (pediatric); I48.0 Paroxysmal atrial fibrillation; N40.0 Benign prostatic hyperplasia without lower urinary tract symptoms; Z79.01 Long term (current) use of anticoagulants; Z79.82 Long term (current) use of aspirin; Z87.19 Personal history of other diseases of the digestive system
CPT/HCPCS: 51702; 74177; 80048; 85025; 99284; J7040; Q9967; A4216

== ENCOUNTER 2020-12-27 04:28 | Emergency (ER) | payer MEDICARE, SELFPAY ==
[2020-12-27 04:28] VITALS: BP 160/64; PULSE 54; RESP 16; TEMP 36.7; O2SAT 98; BMI 27.3
--- NOTE | 2020-12-27 04:34 | CT_ITS ---
STUDY: CT ABDOMEN AND PELVIS WITHOUT CONTRAST REASON FOR EXAM: Male, 70 years old. left flank pain. History of kidney stone, atrial fibrillation, renal disease. RADIATION DOSAGE (If Supplied By Facility): CTDIvol = ( 7.39 ) mGy, DLP = ( 476.45 ) mGycm TECHNIQUE: Transaxial images were obtained from the dome of the diaphragm to the symphysis pubis without oral contrast, and without intravenous contrast. Sagittal and coronal images were reconstructed. This examination is limited for the evaluation of gastrointestinal, solid organs and vascular structures due to the lack of intravenous and oral contrast. Individualized dose optimization techniques were used for this CT. COMPARISON: CT abdomen pelvis 11/24/2020. 06/28/2016. . FINDINGS: Small area of hazy airspace disease in the lingula, not seen on previous examination. There is cardiac enlargement. Normal liver. Contracted gallbladder and normal extrahepatic biliary system. Normal spleen. Normal pancreas. Normal bilateral adrenal glands. Significant bilateral perirenal stranding and perirenal fluid. Punctate superior and inferior right renal calculi 2 small to measure. Mild left hydronephrosis with an obstructing calculus at the just inferior to the left UPJ measuring 0.56 x 0.68 x 0.56 Centimeters. The remainder of the left ureter is decompressed. This calculus was previously noted in the left upper pole. Stable left upper pole 0.38 cm calculus, additional numerous 1 to 2 mm nonobstructing calculi. Stable left inferior pole exophytic cyst. Normal visualized stomach. Normal small intestine. There are predominantly sigmoid and descending colonic diverticula consistent with diverticulosis. Proximal sigmoid wall is thickened. Minimal fat stranding along the adjacent pelvic wall. The appendix is visualized and appears normal. There is stable mild atherosclerotic calcification of the abdominal aorta and pelvic arteries, without a demonstrated aneurysm. Normal inferior vena cava. Normal retroperitoneum. Decompressed thick-walled minimally indistinct urinary bladder. There is enlargement of the prostate gland. Prostate measures approximately 5.3 x 6 x 4 cm. There are small calculi CT medications. Normal abdominal wall. There are diffuse degenerative changes of the visualized lumbar spine, hip, sacroiliac and facet joints, osteopenia, stable compression deformity superior endplate L1 without retropulsion of cortex. CT/Abdomen/Pelvis without Cont IMPRESSION: Obstructing left UPJ calculus. Bilateral nonobstructing calculi. Significant bilateral perirenal stranding and perirenal fluid. This may be due to kidney disease or previous pathology. Colonic diverticulosis. Mild acute focal diverticulitis on the proximal sigmoid colon not excluded. Small hazy airspace disease in the lingula, this could be due to an inflammatory/infectious process. Stable prostate enlargement, compression injury involving L1, contraction of gallbladder and mild inferior sclerosis. Electronically Signed: Liz Saleem MD at 5:30 EDT , Service support ,
--- NOTE | 2020-12-27 04:35 | EX.ED.DYSGE1 ---
HPI History of Present Illness Chief Complaint: Flank Pain Detail of Chief Complaint: Left flank pain that started around 2:30 AM Informant: patient Onset/Context/Timing Current Severity: 09/16 Narrative Narrative: Patient presents to the emergency department complaint of left flank pain that started suddenly around 2:30 AM. Patient states that he thinks he is passing a kidney stone. Patient states that he has had 3 kidney stones in the last 30 years. Patient is always been able to pass them on his own. He denies any fevers. He denies urinary symptoms. He is got some mild nausea but no vomiting. Patient currently rates his pain a 6 out [address] [facility] Medical History (Updated 12/27/20 @ 05:[address] Logan Lee, DO) BPH (benign prostatic hyperplasia) Cardiac murmur Encounter for monitoring anti-arrhythmic therapy Hypothyroidism Iron deficiency anemia Laceration of right eyebrow without complication JOSE on CPAP Paroxysmal atrial fibrillation Peripheral vascular disease Personal history of colonic polyps Valvular heart disease Vitamin D deficiency Home Medications aspirin 81 mg PO DAILY@0800 04/21/15 [History Last Taken 08/12/20] multivitamin 1 tab PO DAILY 04/21/15 [History Last Taken 08/12/20] ferrous sulfate 324 mg (65 mg iron) tablet,delayed release 1 tab PO DAILY 03/29/20 [History Last Taken 08/12/20] ascorbate calcium (vitamin C) 500 mg tablet 500 mg PO DAILY 04/12/20 [History Last Taken 08/12/20] calcium carbonate 500 mg calcium (1,250 mg) tablet 500 mg PO DAILY 04/12/20 [History Last Taken 08/12/20] cholecalciferol (vitamin D3) 50 mcg (2,000 unit) capsule 50 mcg PO BID cap 04/12/20 [History Last Taken 08/12/20] apixaban 5 mg tablet 5 mg PO BID #180 tab 06/16/20 [Rx Last Taken 08/13/20] levothyroxine 137 mcg PO DAILY 08/13/20 [History Last Taken 08/13/20] omeprazole 40 mg capsule,delayed release See Rx Instructions .ROUTE .COMPLEX #90 capsule 09/20/20 [Rx Last Taken Unknown] diltiazem HCl 120 mg PO DAILY #90 cap 11/24/20 [Rx Last Taken 08/12/20] flecainide 100 mg tablet 100 mg PO Q12H #180 tab 11/25/20 [Rx Last Taken Unknown] hydrocodone-acetaminophen 1 tab PO Q4H PRN PRN 2 Days #15 tablet 12/27/20 [Rx Last Taken Unknown] ondansetron 4 mg PO Q8H PRN PRN #10 tab 12/27/20 [Rx Last Taken Unknown] Allergy/AdvReac Type Severity Reaction Status Date / Time No Known Allergies Allergy Verified 12/27/20 04:30 Family History Mother Thyroid disorder Father Thyroid disorder Surgical History History of cardiac cath History of carpal tunnel release History of colonoscopy (~09/2017) Social History Smoking Status: Never smoker alcohol intake: never substance use type: does not use caffeine: No what type of physical activity do you participate in: weight training frequency: 3-4 times per week ROS ROS ED Constitutional Constitutional ED: Reports systems reviewed and no addt'l complaints, except as documented; Denies body ache(s), change in weight or chills Eyes Eyes: Denies acute decrease in peripheral vision, change in vision, double vision or loss of vision ENT ENT ED: Reports none; Denies ear pain, lip swelling, loss taste/smell, neck pain, otalgia or sore throat Cardiovascular Cardiovascular: Reports none; Denies abdominal pain, chest pain with activity, leg edema, lightheadedness, palpitations, rapid heart rate or syncope Respiratory/Chest Respiratory/Chest: Reports none; Denies change in mental status, dry cough, dyspnea, hemoptysis, shortness of breath at rest or shortness of breath with exertion Gastrointestinal Gastrointestinal: Reports none and nausea; Denies abdominal pain, change in stool character, diarrhea, hematemesis, hematochezia, melena, rectal bleeding or vomiting Genitourinary Genitourinary ED: Reports none; Denies abdominal discomfort, anuria, dysuria, genital pain or polyuria Musculoskeletal Musculoskeletal: Reports none and other Details: Left flank pain ; Denies arthralgias, back pain, difficulty walking, extremity pain, muscle weakness or myalgias Integumentary Reports none; Denies abscess or rash Neurologic Neurologic: Reports none; Denies abnormal gait, confusion, focal weakness, frequent falls, headache(s), loss of vision, numbness, paresthesias, radicular pain, vertigo or weakness Psychiatric Psychiatric: Reports systems reviewed and no addt'l complaints, except as documented and none; Denies behavioral changes, confusion, difficulty concentrating, hallucinations, suicidal ideation, tactile hallucinations or visual hallucinations Endocrine Endocrinology: Denies none, cold intolerance, excessive sweating, fatigue or heat intolerance Hematologic/Lymphatic Hematologic/Lymphatic: Reports none; Denies anemia, easy bleeding or easy bruising Allergic/Immunologic Allergic/Immunologic ED: Denies as per HPI, none, lip swelling, mouth swelling, throat swelling, tongue swelling or hives EXAM Physical Exam Const Vital Signs: 12/27/20 04:28 Temperature 98.1 F Temperature Source Temporal Pulse Rate 54 L Respiratory Rate 16 Blood Pressure 160/64 H Blood Pressure Mean 96 Pulse Ox 98 Oxygen Delivery Method Room Air Positive well nourished and well developed General Appearance ED: well developed and NAD HEENT Reports TM's clear and moist mucous membranes normocephalic and atraumatic; Negative for trauma or tenderness Tympanic Membrane ED: Yes TM's clear Eyes PERRL and EOMs intact bilaterally General Eye ED: Negative for pale conjunctiva or scleral icterus Neck no lymphadenopathy, supple and no JVD General: Negative for tenderness Chest Wall inspection of chest normal and palpation of chest normal Chest: Negative for tenderness Resp normal respiratory effort and clear to auscultation bilaterally Effort and Inspection: Negative for respiratory distress or pain with movement Auscultation: Negative for rhonchi, wheezes or diminished lung sounds Cardio regular rate, regular rhythm, S1 normal heart sound, S2 normal heart sound and no murmurs Peripheral Pulses: pulses 2+ throughout GI normal to inspection, nondistended, normoactive bowel sounds, soft to palpation, non-tender, non-distended and no masses Back/Spine no thoracic nor lumbar tenderness Back/Spine Narrative: Patient has CVA tenderness on the left. General Back: CVA tenderness Extremity normal to inspection General Extremety ED: Negative for edema General Extremity: Negative for edema Neuro oriented x3, CN's II-XII intact bilaterally, no sensory deficits noted and gait normal Sensorium / Orientation: awake, alert, oriented to person, oriented to place and oriented to time Motor Exam: strength 5/5 throughout and strength abnormal Psych mental status grossly normal Skin no rashes or lesions noted and no wounds MDM MDM MDM Narrative Medical decision making narrative: Patient was medicated with morphine and Toradol as well as Zofran on arrival and had good pain relief with that. CT shows a almost 7 mm left UPJ stone. Case discussed with urologist who recommended discharge to home and follow-up with our office. Patient advised to return if worsening pain, fever, vomiting, or condition worsen anyway. There was some haziness on CT that radiology thought could be inflammatory or infectious process however patient has had no respiratory infectious symptoms. Lab Data Attestation: I reviewed the patient's lab results. Labs: Laboratory Results - last 24 hr 12/27/20 12/27/20 12/27/20 04:34 04:34 04:44 WBC 3.6 L RBC 3.87 L Hgb 12.4 L Hct 37.0 L MCV 95.6 H MCH 32.0 MCHC 33.5 RDW Std Deviation 42.4 RDW Coeff of Carmita 12.2 Plt Count 189 MPV 9.1 Immature Gran % (Auto) 0.300 Neut % (Auto) 51.8 Lymph % (Auto) 36.0 [place] % (Auto) 9.6 Eos % (Auto) 2.0 Baso % (Auto) 0.3 Absolute Neuts (auto) 1.9 L Absolute Lymphs (auto) 1.28 Nucleated RBC % 0 Sodium 136 Potassium 4.2 Chloride 104 Carbon Dioxide 29.0 Anion Gap 3 L BUN 28 H Creatinine 1.44 H Estim Creat Clear Calc 41.84 Est GFR (MDRD) Af Amer 62 Est GFR (MDRD) Non-Af 51 L BUN/Creatinine Ratio 19.4 Glucose 126 H Calcium 8.6 Urine Color Yellow Urine Clarity Clear Urine pH 6.0 Ur Specific [place] 1.020 Urine Protein 15 H Urine Glucose (UA) Normal Urine Ketones Negative Urine Occult Blood 50 H Urine Nitrite Negative Urine Bilirubin Negative Urine Urobilinogen Normal Ur Leukocyte Esterase Negative Urine RBC 0-5 SEEN Urine WBC 0-5 SEEN Ur Squamous Epith Cells 0 SEEN Urine Bacteria 1+ Urine Mucus 1+ Radiography Diagnostic Testing: Radiology Impression Abdomen/Pelvis CT 12/27/20 04:34 IMPRESSION: Obstructing left UPJ calculus. Bilateral nonobstructing calculi. Significant bilateral perirenal stranding and perirenal fluid. This may be due to kidney disease or previous pathology. Colonic diverticulosis. Mild acute focal diverticulitis on the proximal sigmoid colon not excluded. Small hazy airspace disease in the lingula, this could be due to an inflammatory/infectious process. Stable prostate enlargement, compression injury involving L1, contraction of gallbladder and mild inferior sclerosis. Electronically Signed: Liz Saleem MD at 5:30 EDT , Service support , Discharge Plan Triage Chief Complaint: Flank Pain ED Provider: Logan Lee Dx/Rx/DC Orders Clinical Impression: Urolithiasis Instructions: ED Kidney Stone w/ Colic Prescriptions: New hydrocodone-acetaminophen [hydrocodone-acetaminophen] 1 TABLET tablet 1 tab PO Q4H PRN PRN (Reason: Pain) 2 Days Qty: 15 RF: 0 ondansetron [ondansetron] 4 MG tablet 4 mg PO Q8H PRN PRN (Reason: Nausea) Qty: 10 RF: 0 No Action cholecalciferol (vitamin D3) 50 mcg (2,000 unit) capsule 50 mcg PO BID RF: 0 ascorbate calcium (vitamin C) 500 mg tablet 500 mg PO DAILY RF: 0 calcium carbonate [Calcium 500] 500 mg calcium (1,250 mg) tablet 500 mg PO DAILY RF: 0 ferrous sulfate 324 mg (65 mg iron) tablet,delayed release (DR/EC) 1 tab PO DAILY RF: 0 multivitamin 1 EACH tablet 1 tab PO DAILY RF: 0 aspirin 81 MG tablet,chewable 81 mg PO DAILY@0800 RF: 0 levothyroxine 137 mcg tablet 137 mcg PO DAILY RF: 0 diltiazem HCl 120 mg capsule,extended release 24hr 120 mg PO DAILY Qty: 90 RF: 3 apixaban 5 mg tablet 5 mg PO BID Qty: 180 RF: 4 Hold Instructions: Resume on 12/01/20. omeprazole 40 mg capsule,delayed release(DR/EC) See Rx Instructions .ROUTE .COMPLEX Qty: 90 RF: 0 flecainide 100 mg tablet 100 mg PO Q12H Qty: 180 RF: 3 Primary Care Provider: Raffi Vaca Referrals: Chris Garcia MD [STAFF PHYSICIAN] - 3-5 Days Raffi Vaca MD [Primary Care Provider] - Disposition Disposition: Home, Self Care
[2020-12-27] MEDS: Ondansetron 4 MG/2 ML Vial IV (04:40)
[2020-12-27] MEDS: 0.9% Normal Saline 1,000 ML 150 ML IV (04:40)
[2020-12-27 04:42] LABS: Absolute Lymphocyte Count 1.28 X10^3/uL (0.83-4.51); Absolute Neutrophil Count 1.9 X10^3/uL (2.0-7.7); Basophil# 0.01 X10^3/uL; Basophil% 0.3 % (0-1); Eosinophil# 0.07 X10^3/uL; Hemoglobin 12.4 g/dL (13.0-16.5); Lymphocyte # 1.28 X10^3/ul (0.83-4.51); Mean Corp Hgb Conc 33.5 g/dL (32-36); Mean Corpuscular Volume 95.6 fL (80-94); Mean Platelet Vol. 9.1 fl (6.2-12.0); Monocyte# 0.34 X10^3/uL; Monocyte% 9.6 % (0-10); NRBC Flagged by Analyzer 0 % (0-5); Neutrophil # 1.85 X10^3/uL (2.7-7.7); Neutrophil % 51.8 % (47-70); Platelet Count 189 K/mm3 (150-450); RBC Distribution Width CV 12.2 % (11.6-14.6); RBC Distribution Width SD 42.4 fl (35.1-43.9); Red Blood Count 3.87 M/mm3 (4.6-6.2); White Blood Count 3.6 K/mm3 (4.4-11.0)
[2020-12-27] MEDS: Ketorolac 15 MG/ML Vial IV (04:42)
[2020-12-27 04:49] LABS: Squamous Epithelial Cells - UA 0 SEEN /hpf (0-5)
[2020-12-27 04:57] LABS: Color, Urine Yellow (Yellow); Glucose, Dipstick Normal (Normal); Ketone-Dipstick Negative (Negative); Leukocyte Esterase-Dipstick Negative /ul (Negative); Nitrite-Dipstick Negative (Negative); Occult Blood-Urine 50 /ul (Negative); Protein-Dipstick 15 mg/dl (Negative); Urine Bilirubin Dipstick Negative (Negative); Urine Clarity Clear (Clear); Urine Urobilinogen Normal (Normal)
[2020-12-27 05:02] LABS: Anion Gap 3 (5-15); BUN 28 mg/dL (7-18); BUN/Creat Ratio 19.4 RATIO (10-20); Calcium,Total 8.6 mg/dL (8.5-10.1); Chloride 104 mmol/L (98-107); Creatinine, Serum 1.44 mg/dL (0.70-1.30); EST Glomerular Filtration Rate 51 mL/min (>60); Est Glom Filt Rate - Afr Amer 62 mL/min (>60); Estimated Creatinine Clearance 41.84 ml/min; Glucose 126 mg/dL (74-106); Potassium 4.2 mmol/L (3.5-5.1); Sodium Level 136 mmol/L (136-145)
[2020-12-27 05:27] LABS: Bacteria 1+ /hpf (None Seen); Mucous, Urine 1+ /hpf (<or=2+); Red Blood Cells-Urine 0-5 SEEN /hpf (0-5); White Blood Cells 0-5 SEEN /hpf (0-5)
[2020-12-27 06:07] VITALS: BP 154/63; PULSE 56; RESP 16; O2SAT 97
== END 2020-12-27 06:09 | disposition home or self-care (01) ==
PROVIDERS: Emergency Provider Emergency Medicine; PCP Family Medicine
DX: N20.1 Calculus of ureter (principal); D50.9 Iron deficiency anemia, unspecified; E03.9 Hypothyroidism, unspecified; G47.33 Obstructive sleep apnea (adult) (pediatric); I48.0 Paroxysmal atrial fibrillation; K57.30 Diverticulosis of large intestine without perforation or abscess without bleeding; N40.0 Benign prostatic hyperplasia without lower urinary tract symptoms; Z79.01 Long term (current) use of anticoagulants; Z79.82 Long term (current) use of aspirin; Z87.19 Personal history of other diseases of the digestive system; Z87.442 Personal history of urinary calculi
CPT/HCPCS: 74176; 80048; 81001; 85025; 96361; 96374; 96375; 99283; J7030; A4216; J2405

== ENCOUNTER 2020-12-29 08:19 | Day surgery (SDC) | payer MEDICARE, SELFPAY ==
[2020-12-29 08:20] VITALS: BP 135/68; PULSE 60; RESP 6; TEMP 36; O2SAT 100; BMI 27.4
--- NOTE | 2020-12-29 08:32 | EX.ED.DYSGE1 ---
HPI History of Present Illness Chief Complaint: Flank Pain Informant: patient and spouse/S.O. Narrative Narrative: 70-year-old male presents to the emergency room with nausea vomiting and flank pain. Patient states that on Sunday he was diagnosed with a left-sided 7 mm ureteral stone. He sent off urology that day and is scheduled for surgery today at 1400 hrs. He reports that the hydrocodone that he has been taking for pain makes him nauseated and he vomits. It is also been constipating for him. He states that he is not having a lot of pain and cannot get his symptoms under control. No reported fevers. He held his Eliquis last night in preparation for surgery [facility] Medical History BPH (benign prostatic hyperplasia) Cardiac murmur Cardiology follow-up encounter CPAP (continuous positive airway pressure) dependence Encounter for monitoring anti-arrhythmic therapy Gastric reflux History of atrial fibrillation History of echocardiogram History of stress test Hx of transesophageal echocardiography (KUMAR) for monitoring Hypothyroidism Iron deficiency anemia Kidney stones Laceration of right eyebrow without complication Non-smoker JOSE on CPAP Paroxysmal atrial fibrillation Peripheral vascular disease Personal history of colonic polyps Sleep apnea Thyroid disease Valvular heart disease Vitamin D deficiency Wears glasses Home Medications aspirin 81 mg PO DAILY@0800 04/21/15 [History Last Taken 12/27/20] multivitamin 1 tab PO DAILY 04/21/15 [History Last Taken 08/12/20] ferrous sulfate 324 mg (65 mg iron) tablet,delayed release 1 tab PO DAILY 03/29/20 [History Last Taken 08/12/20] ascorbate calcium (vitamin C) 500 mg tablet 500 mg PO DAILY 04/12/20 [History Last Taken 08/12/20] calcium carbonate 500 mg calcium (1,250 mg) tablet 1,000 mg PO DAILY 04/12/20 [History Last Taken 08/12/20] cholecalciferol (vitamin D3) 50 mcg (2,000 unit) capsule 50 mcg PO BID cap 04/12/20 [History Last Taken 08/12/20] apixaban 5 mg tablet 5 mg PO BID #180 tab 06/16/20 [Rx Last Taken 12/27/20] levothyroxine 137 mcg PO DAILY 08/13/20 [History Last Taken 08/13/20] diltiazem HCl 120 mg PO DAILY #90 cap 11/24/20 [Rx Last Taken 08/12/20] hydrocodone-acetaminophen 1 tab PO Q4H PRN PRN 2 Days #15 tablet 12/27/20 [Rx Last Taken Unknown] ondansetron 4 mg PO Q8H PRN PRN #10 tab 12/27/20 [Rx Last Taken Unknown] flecainide 100 mg PO BID 12/28/20 [History Last Taken Unknown] omeprazole 40 mg PO DAILY 12/29/20 [History Last Taken Unknown] Allergy/AdvReac Type Severity Reaction Status Date / Time No Known Allergies Allergy Verified 12/29/20 08:22 Family History Mother Thyroid disorder Father Thyroid disorder Surgical History History of cardiac cath History of carpal tunnel release History of colonoscopy (~09/2017) Social History Smoking Status: Never smoker alcohol intake: never substance use type: does not use caffeine: No what type of physical activity do you participate in: weight training frequency: 3-4 times per week ROS ROS ED Constitutional Constitutional ED: Denies chills or weight loss Eyes Eyes: Denies change in vision or diplopia ENT ENT ED: Denies ear pain, rhinorrhea or sore throat Cardiovascular Cardiovascular: Denies chest pain, orthopnea, palpitations or racing heartbeat Respiratory/Chest Respiratory/Chest: Denies cough, dyspnea or orthopnea Gastrointestinal Gastrointestinal: Reports abdominal pain, nausea and vomiting; Denies diarrhea Genitourinary Genitourinary ED: Denies dysuria, hematuria or urinary frequency Musculoskeletal Musculoskeletal: Denies arthralgias or myalgias Integumentary Denies abscess or rash Neurologic Neurologic: Denies headache(s) or weakness Psychiatric Psychiatric: Denies anxiety, depression, suicidal ideation or suicidal thoughts Endocrine Endocrinology: Denies polydipsia, polyphagia or polyuria Allergic/Immunologic Allergic/Immunologic ED: Denies mouth swelling, tongue swelling or urticaria EXAM Physical Exam Narrative Exam Narrative: Patient appears uncomfortable and is vomiting. Const Vital Signs: 12/29/20 08:20 Temperature 96.8 F L Temperature Source Temporal Pulse Rate 60 Respiratory Rate 6 L Blood Pressure 135/68 H Blood Pressure Mean 90 Pulse Ox 100 Oxygen Delivery Method Room Air Positive well nourished and well developed General Appearance ED: well developed HEENT Reports normocephalic, head/scalp atraumatic and moist mucous membranes Eyes PERRL and EOMs intact bilaterally Neck no lymphadenopathy, supple and no JVD Resp normal respiratory effort and clear to auscultation bilaterally Cardio regular rate, regular rhythm and no murmurs GI normal to inspection, nondistended, normoactive bowel sounds and non-tender Palpation: soft Back/Spine no CVA tenderness and normal ROM Extremity normal to inspection General Extremety ED: Negative for edema General Extremity: Negative for edema Neuro oriented x3 and CN's II-XII intact bilaterally Sensorium / Orientation: alert Motor Exam: strength 5/5 throughout Psych mental status grossly normal Mood & Affect: Negative for depressed or tearful Skin no rashes or lesions noted and no wounds MDM MDM MDM Narrative Medical decision making narrative: Patient's white count is 9.2. Creatinine is now elevated 2.25. Urinalysis is negative. Patient received IV fluids Zofran Toradol and morphine. I spoke with Dr. Garcia will keep him here and treat his symptoms until they are ready for him in surgery. Surgery requested the patient have a Covid swab. This was obtained and is surprisingly positive. He has required additional morphine Zofran and Dilaudid. Lab Data Attestation: I reviewed the patient's lab results. Labs: Laboratory Results - last 24 hr 12/29/20 12/29/20 12/29/20 08:40 08:40 09:25 WBC 9.2 RBC 3.79 L Hgb 12.0 L Hct 35.9 L MCV 94.7 H MCH 31.7 MCHC 33.4 RDW Std Deviation 42.9 RDW Coeff of [place]ita 12.3 Plt Count 214 MPV 9.4 Immature Gran % (Auto) 0.800 Neut % (Auto) 81.1 H Lymph % (Auto) 10.3 L [place] % (Auto) 7.5 Eos % (Auto) 0.2 Baso % (Auto) 0.1 Absolute Neuts (auto) 7.5 Absolute Lymphs (auto) 0.95 Nucleated RBC % 0 Sodium 135 L Potassium 4.6 Chloride 105 Carbon Dioxide 25.0 Anion Gap 5 BUN 39 H Creatinine 2.25 H Estim Creat Clear Calc 26.78 Est GFR (MDRD) Af Amer 37 L Est GFR (MDRD) Non-Af 31 L BUN/Creatinine Ratio 17.3 Glucose 144 H Calcium 8.8 Urine Color Yellow Urine Clarity Clear Urine pH 5.0 Ur Specific [place] 1.020 Urine Protein 15 H Urine Glucose (UA) Normal Urine Ketones Negative Urine Occult Blood 10 H Urine Nitrite Negative Urine Bilirubin Negative Urine Urobilinogen Normal Ur Leukocyte Esterase 25 H Urine RBC 0-5 SEEN Urine WBC 0-5 SEEN Ur Squamous Epith Cells 0-5 SEEN Urine Bacteria 0 SEEN Urine Mucus 0 SEEN Discharge Plan Triage Chief Complaint: Flank Pain ED Provider: Iglesia Ocampo Dx/Rx/DC Orders Clinical Impression: Urolithiasis, TABATHA (acute kidney injury), Abdominal pain, Vomiting, COVID-19 Prescriptions: No Action cholecalciferol (vitamin D3) 50 mcg (2,000 unit) capsule 50 mcg PO BID RF: 0 ascorbate calcium (vitamin C) 500 mg tablet 500 mg PO DAILY RF: 0 calcium carbonate [Calcium 500] 500 mg calcium (1,250 mg) tablet 1,000 mg PO DAILY RF: 0 ferrous sulfate 324 mg (65 mg iron) tablet,delayed release (DR/EC) 1 tab PO DAILY RF: 0 multivitamin 1 EACH tablet 1 tab PO DAILY RF: 0 aspirin 81 MG tablet,chewable 81 mg PO DAILY@0800 RF: 0 levothyroxine 137 mcg tablet 137 mcg PO DAILY RF: 0 diltiazem HCl 120 mg capsule,extended release 24hr 120 mg PO DAILY Qty: 90 RF: 3 hydrocodone-acetaminophen [hydrocodone-acetaminophen] 1 TABLET tablet 1 tab PO Q4H PRN PRN (Reason: Pain) 2 Days Qty: 15 RF: 0 ondansetron [ondansetron] 4 MG tablet 4 mg PO Q8H PRN PRN (Reason: Nausea) Qty: 10 RF: 0 flecainide 100 mg tablet 100 mg PO BID RF: 0 omeprazole 40 mg capsule,delayed release(DR/EC) 40 mg PO DAILY RF: 0 apixaban 5 mg tablet 5 mg PO BID Qty: 180 RF: 4 Hold Instructions: Resume on 12/01/20. Primary Care Provider: Raffi Vaca Referrals: Chris Garcia MD [STAFF PHYSICIAN] - Keep Shelia appointment Raffi Vaca MD [Primary Care Provider] - Disposition Disposition: Home, Self Care
[2020-12-29 08:52] LABS: Absolute Lymphocyte Count 0.95 X10^3/uL (0.83-4.51); Absolute Neutrophil Count 7.5 X10^3/uL (2.0-7.7); Basophil# 0.01 X10^3/uL; Basophil% 0.1 % (0-1); Eosinophil# 0.02 X10^3/uL; Eosinophils% 0.2 % (0-5); Hematocrit 35.9 % (40-54); Lymphocyte # 0.95 X10^3/ul (0.83-4.51); Lymphocyte % 10.3 % (19-41); Mean Corp Hgb Conc 33.4 g/dL (32-36); Mean Corpuscular Hgb 31.7 pg (27.0-32.0); Mean Corpuscular Volume 94.7 fL (80-94); Mean Platelet Vol. 9.4 fl (6.2-12.0); Monocyte# 0.69 X10^3/uL; Monocyte% 7.5 % (0-10); NRBC Flagged by Analyzer 0 % (0-5); Neutrophil # 7.47 X10^3/uL (2.7-7.7); Neutrophil % 81.1 % (47-70); Platelet Count 214 K/mm3 (150-450); RBC Distribution Width CV 12.3 % (11.6-14.6); RBC Distribution Width SD 42.9 fl (35.1-43.9); Red Blood Count 3.79 M/mm3 (4.6-6.2); White Blood Count 9.2 K/mm3 (4.4-11.0)
[2020-12-29] MEDS: Morphine 4 MG/ML Syringe IV (08:55)
[2020-12-29] MEDS: Ketorolac 15 MG/ML Vial IV (08:55)
[2020-12-29] MEDS: Ondansetron 4 MG/2 ML Vial IV ×2 (08:55→11:54)
[2020-12-29 09:03] LABS: Anion Gap 5 (5-15); BUN 39 mg/dL (7-18); BUN/Creat Ratio 17.3 RATIO (10-20); Calcium,Total 8.8 mg/dL (8.5-10.1); Chloride 105 mmol/L (98-107); Creatinine, Serum 2.25 mg/dL (0.70-1.30); EST Glomerular Filtration Rate 31 mL/min (>60); Est Glom Filt Rate - Afr Amer 37 mL/min (>60); Estimated Creatinine Clearance 26.78 ml/min; Glucose 144 mg/dL (74-106); Potassium 4.6 mmol/L (3.5-5.1); Sodium Level 135 mmol/L (136-145)
[2020-12-29] MEDS: 0.9% Normal Saline 1,000 ML 250 ML IV (09:07)
[2020-12-29 09:31] LABS: Bacteria 0 SEEN /hpf (None Seen); Mucous, Urine 0 SEEN /hpf (<or=2+)
[2020-12-29 09:34] LABS: Color, Urine Yellow (Yellow); Glucose, Dipstick Normal (Normal); Ketone-Dipstick Negative (Negative); Leukocyte Esterase-Dipstick 25 /ul (Negative); Nitrite-Dipstick Negative (Negative); Occult Blood-Urine 10 /ul (Negative); Protein-Dipstick 15 mg/dl (Negative); Urine Bilirubin Dipstick Negative (Negative); Urine Clarity Clear (Clear); Urine Urobilinogen Normal (Normal)
[2020-12-29 09:48] LABS: Red Blood Cells-Urine 0-5 SEEN /hpf (0-5); Squamous Epithelial Cells - UA 0-5 SEEN /hpf (0-5); White Blood Cells 0-5 SEEN /hpf (0-5)
[2020-12-29] MEDS: HYDROmorphone 1 MG/ML Syringe IV (10:05)
--- NOTE | 2020-12-29 10:43 | NURSING ---
MED SURG OBS ANKUR INTRACCTABLE PAIN, KIDNEY STONE
[2020-12-29] MEDS: LORazepam 2 MG/ML Syringe 0.5 MG IV (11:54)
[2020-12-29 12:13] VITALS: BP 130/65; PULSE 59; RESP 17; TEMP 36.7; O2SAT 93
--- NOTE | 2020-12-29 15:54 | PCM.DC ---
Discharge Instructions Diet Discharge Diet: No restrictions Activity Discharge Activity: Return to Normal Activity and May Not Drive (while taking narcotic pain medications.) Dressing / Incision Call your doctor if you observe: Fever of 101 or Higher Follow Up Care Please Follow Up With: Chris Garcia MD When: Call [phone] for an appointment Test Results: Test results from this visit will be discussed in further detail at your follow-up appointment, if applicable. Discharge Plan Admission Admit Date/Time: 12/29/20 13:35 Primary Reason for Your Visit: left stent for obstructing stone Attending Provider: Chris Garcia Primary Care Provider: Raffi Vaca Discharge Orders/Prescriptions Prescriptions: New ciprofloxacin HCl [Cipro] 500 mg tablet 500 mg PO BID Qty: 10 RF: 0 oxycodone-acetaminophen 5-325 mg tablet 1 tab PO Q6H PRN (Reason: pain) 7 Days Qty: 14 RF: 0 Continued cholecalciferol (vitamin D3) 50 mcg (2,000 unit) capsule 50 mcg PO BID RF: 0 ascorbate calcium (vitamin C) 500 mg tablet 500 mg PO DAILY RF: 0 calcium carbonate [Calcium 500] 500 mg calcium (1,250 mg) tablet 1,000 mg PO DAILY RF: 0 ferrous sulfate 324 mg (65 mg iron) tablet,delayed release (DR/EC) 1 tab PO DAILY RF: 0 multivitamin 1 EACH tablet 1 tab PO DAILY RF: 0 aspirin 81 MG tablet,chewable 81 mg PO DAILY@0800 RF: 0 levothyroxine 137 mcg tablet 137 mcg PO DAILY RF: 0 diltiazem HCl 120 mg capsule,extended release 24hr 120 mg PO DAILY Qty: 90 RF: 3 hydrocodone-acetaminophen 1 TABLET tablet 1 tab PO Q4H PRN PRN (Reason: Pain) 2 Days Qty: 15 RF: 0 ondansetron 4 MG tablet 4 mg PO Q8H PRN PRN (Reason: Nausea) Qty: 10 RF: 0 flecainide 100 mg tablet 100 mg PO BID RF: 0 omeprazole 40 mg capsule,delayed release(DR/EC) 40 mg PO DAILY RF: 0 apixaban 5 mg tablet 5 mg PO BID Qty: 180 RF: 4 Hold Instructions: Resume on 12/01/20. Referrals / Follow Up: Chris Garcia MD [STAFF PHYSICIAN] - Keep Shelia appointment Schinner,Raffi E, MD [Primary Care Provider] - Disposition Discharge Orders: Discharge Patient (Routine); Ordered 12/29/20 Ordered By: Dr. Chris Garcia
--- NOTE | 2020-12-29 15:55 | OP.PCM_ITS ---
Problems Associated Problem List Diagnoses (1) Urolithiasis: Report of Operation Date of Procedure: 12/29/20 Pre-Operative Diagnosis: left obstruction kidney stone. Post-Operative Diagnosis: same Surgery/Procedure Performed:: cystoscopy, left retrograde pyelogram and left stent Description of Surgical Findings:: Patient was taken back to the operating room after induction of general anesthesia, the patient was placed in dorsolithotomy position. The urethra and genitals were prepped and draped in usual sterile fashion. Using a 21 Portuguese rigid cystourethroscope the entire length of the urethra was normal then went into the bladder. Identified the trigone the left and right ureteral orifice. I then cannulated the left orifice and advanced a wire up into the kidney. I then backloaded a 5 Portuguese open ended catheter over the wire and injected contrast to delineate the anatomy. After the retrograde was performed I then used fluoroscopic images and guidance to advanced a wire up into the kidney and over the 0.038 glidewire I advanced a 6 Portuguese by 26 cm double pigtail stent. I then pulled the 0.038 Glidewire off and the stent coiled in the kidney bladder good position. The bladder was then drained. We confirmed the position of the stent by fluoroscopy. Patient anesthetic was reversed and was taken back to the PACU in good condition. Surgeon: nika Type of Anesthesia: General Drains: stent left side Admit VTE Documentation VTE Present on Admission: No VTE Mechan Device Prophylaxis: SCD's VTE Pharm Prophylaxis ordered?: No
== END 2020-12-29 15:54 | disposition home or self-care (01) ==
LOC: ED 09:12 → SDC 12-30 08:56 → ACINP 12-30 08:57
PROVIDERS: Emergency Provider Emergency Medicine; PCP Family Medicine; Visit Provider Urology
DX: N20.1 Calculus of ureter (principal); E03.9 Hypothyroidism, unspecified; I48.91 Unspecified atrial fibrillation; G47.33 Obstructive sleep apnea (adult) (pediatric); I73.9 Peripheral vascular disease, unspecified; I48.0 Paroxysmal atrial fibrillation; D50.9 Iron deficiency anemia, unspecified; Z87.442 Personal history of urinary calculi; Z86.010 Personal history of colon polyps
CPT/HCPCS: 52005; 52332; 76000; 80048; 81001; 85025; 87426; 99283; J7030; J7120; A4216; C1769; C2617; J2405

== ENCOUNTER → 2020-12-29 09:14 | Day surgery (SDC) | payer MEDICARE, SELFPAY ==
[2020-12-29] VITALS (7 sets, daily range): BP systolic 118–146; BP diastolic 56–69; PULSE 55–64; RESP 16; TEMP 36.6–37.3; O2SAT 96–100; BMI 27.4
[2020-12-29] MEDS: Lactated Ringers 1,000 ML 100 ML IV ×2 (14:39→17:36)
[2020-12-29] MEDS: Cefazolin 2 GM in 0.9% Normal Saline 100 ML IV (16:03)
== END | disposition home or self-care (01) ==
PROVIDERS: PCP Family Medicine; Visit Provider Urology
DX: Z00.00 Encounter for general adult medical examination without abnormal findings (principal); Z53.9 Procedure and treatment not carried out, unspecified reason
CPT/HCPCS: 76000; C1769; C2617

== ENCOUNTER 2021-01-13 16:43 | Inpatient (IN) | payer MEDICARE, SELFPAY ==
[2021-01-12] VITALS (11 sets, daily range): BP systolic 102–143; BP diastolic 57–74; PULSE 57–87; RESP 14–18; TEMP 35.6–37.1; O2SAT 94–100; BMI 26.1; BMI 26.2; BMI 25.9
--- NOTE | 2021-01-12 11:31 | RAD_ITS ---
STUDY: X-RAY - ABDOMEN/PELVIS REASON FOR EXAM: Male, 70 years old. Flank pain TECHNIQUE: Single AP view of the abdomen / pelvis. COMPARISON: None. FINDINGS: Left-sided JJ stent noted. There are punctate calcifications overlying the left renal shadow and a 5.7 mm stone overlying the lower pole. There is a moderate amount of colonic fecal material. There is no demonstrated free abdominal air. The visualized liver, spleen and kidneys are grossly normal in size and morphology. Normal soft tissue structures. There are diffuse degenerative changes of the visualized lumbar spine. RAD/Abdomen Single View IMPRESSION: Satisfactory appearance of a left-sided JJ stent Left nephrolithiasis Degenerative bony changes Electronically Signed: Erwin Beck MD at 12:07 EDT , Service support ,
[2021-01-12] MEDS: Lactated Ringers 1,000 ML 100 ML IV ×3 (11:50→17:02)
--- NOTE | 2021-01-12 11:59 | PCM.DC ---
Discharge Instructions Diet Discharge Diet: No restrictions Activity Discharge Activity: Return to Normal Activity and May Not Drive (while taking narcotic pain medications.) Dressing / Incision Call your doctor if you observe: Fever of 101 or Higher Follow Up Care Please Follow Up With: Chris Garcia MD When: Call [phone] for an appointment Test Results: Test results from this visit will be discussed in further detail at your follow-up appointment, if applicable. Discharge Plan Admission Primary Reason for Your Visit: left ESWL and stent removal Attending Provider: Chris Garcia Primary Care Provider: Raffi Vaca Discharge Orders/Prescriptions Prescriptions: Continued cholecalciferol (vitamin D3) 50 mcg (2,000 unit) capsule 50 mcg PO BID RF: 0 ascorbate calcium (vitamin C) 500 mg tablet 500 mg PO DAILY RF: 0 calcium carbonate [Calcium 500] 500 mg calcium (1,250 mg) tablet 1,000 mg PO DAILY RF: 0 ferrous sulfate 324 mg (65 mg iron) tablet,delayed release (DR/EC) 1 tab PO DAILY RF: 0 multivitamin 1 EACH tablet 1 tab PO DAILY RF: 0 levothyroxine 137 mcg tablet 137 mcg PO DAILY RF: 0 diltiazem HCl 120 mg capsule,extended release 24hr 120 mg PO DAILY Qty: 90 RF: 3 hydrocodone-acetaminophen 1 TABLET tablet 1 tab PO Q4H PRN PRN (Reason: Pain) 2 Days Qty: 15 RF: 0 flecainide 100 mg tablet 100 mg PO BID RF: 0 omeprazole 40 mg capsule,delayed release(DR/EC) 40 mg PO DAILY RF: 0 Held aspirin 81 MG tablet,chewable 81 mg PO DAILY@0800 RF: 0 Hold Instructions: Resume on 01/15/21. apixaban 5 mg tablet 5 mg PO BID Qty: 180 RF: 4 Hold Instructions: Resume on 01/15/21. Other Ambulatory Orders: Abdomen Single View (Routine) Timeframe: 20210112 Facility: [facility] - Location: [facility] Ordered By: Dr. Chris Garcia Referrals / Follow Up: Chris Garcia MD [STAFF PHYSICIAN] - Raffi Vaca MD [Primary Care Provider] - Disposition Disposition (needs filled in before D/C Order can be placed): Home, Self Care
--- NOTE | 2021-01-12 12:00 | PCM.OPRPT ---
Report of Operation Date of Procedure: 01/12/21 Pre-Operative Diagnosis: left kidney stone Post-Operative Diagnosis: same Surgery/Procedure Performed:: cystoscopy and stent removal and left ESWL Description of Surgical Findings:: Patient presents to the hospital for treatment of a kidney stone with shockwave lithotripsy. In the preoperative area and x-ray was done to confirm the location of the stone. The x-ray was reviewed and the stone location was reviewed. In the preoperative setting I spoke with the patient regarding the treatment of the stone how the treatment would be conducted and the expectations after surgery. The patient understands there is a risk of bleeding and infection. Also discussed the very rare risk of hematoma or damage to the kidney. We also discussed the risk that the shockwave machine will fail to break the stone adequately and that the patient may need other surgical procedures. We also discussed the possibility that the patient may need a stent after the procedure. After reviewing the procedure with the patient, the patient is signed the consent form all the patient's questions were addressed and was taken back to the operating room for treatment of a kidney stone. Patient was taken back to the operating room, patient was identified by the nursing staff, we identified the side of the treatment and the patient side of treatment had been marked by my initials. The patient underwent general anesthetic and was placed supine on the lithotripter table. We then used fluoroscopy to identify the stone on the Left side. We then positioned the patient under the lithotripter and we used triangulation technique to identify the location of the stone and then we made sure that the stone was engaged in the F2 focal point of F2 Donier lithoprior machine. Once the patient was positioned appropriately and the stone was identified and placed in the F2 focal point of the lithotripter machine we then proceeded with shockwave lithotripsy. In the beginning the shockwave was delivered at a rate of 90 shocks per minute, we monitor the EKG for any ectopy. The power was slowly increased to 5 kV and subsequently at the 7 kV. We then proceeded with the treatment we move the therapy had around during the treatment to make sure the stone stayed in the F2 focal point during the entire treatment and after 3000 shockwaves were delivered to the stone under fluoroscopic guidance the treatment was completed. The patient's urethra and genitals were prepped and draped in usual sterile fashion. I went into the bladder with a 21 Jamaican rigid cystourethroscope. I grabbed the stent emanating from the left ureteral orifice and then gently remove the stent from the bladder. I then drained the patient's bladder. The patient was given instructions to call the office to make an a follow-up appointment with an xray to evaluate the success of the treatment, pateint understands that its possible the stones may need another procedure.At this point the patient's anesthetic was reversed patient was extubated and taken back to the PACU in stable condition. Surgeon: nika Type of Anesthesia: General Admit VTE Documentation VTE Present on Admission: No VTE Mechan Device Prophylaxis: SCD's
[2021-01-12] MEDS: Cefazolin 2 GM in 0.9% Normal Saline 100 ML IV (12:10)
[2021-01-12] MEDS: Ketorolac 15 MG/ML Vial IV ×2 (13:35→19:28)
[2021-01-12] MEDS: oxyCODONE 5 MG Tablet PO (14:05)
--- NOTE | 2021-01-12 15:12 | PN_ITS ---
Progress Note Patient having severe pain in the postoperative setting after shockwave lithotripsy by passing some stone fragments we did remove the stent per his r equest this point I did admit the patient to the hospital for pain control I think he will be able to pass a fragment small fragments overnight and probably discharge in the morning.
[2021-01-12] MEDS: Ondansetron 4 MG/2 ML Vial IV (16:19)
[2021-01-12] MEDS: Acetaminophen 325 MG Tablet 650 MG PO (17:02)
[2021-01-12] MEDS: Metoclopramide 10 MG/2 ML Vial IV (17:47)
--- NOTE | 2021-01-12 17:48 | SUR.PHASEII ---
pt painful , informed dr maher around 1600, dr maher spoke to him and decided to admit him overnight for pain control and fluid. pt aware, have been waiting on an avail bed.
--- NOTE | 2021-01-12 19:00 | PCS.PANDOC ---
PANDEMIC DOCUMENTATION INITIATED: Date: 11/22/2020 Time: 1899 Emergency documentation initiated 01/12/211899
[2021-01-12] MEDS: Morphine 2 MG/ML Syringe IV (19:28)
[2021-01-12] MEDS: 0.9% Normal Saline 1,000 ML 150 ML IV (23:42)
[2021-01-13] VITALS (10 sets, daily range): BP systolic 86–126; BP diastolic 47–70; PULSE 73–104; RESP 16–18; TEMP 36.6–36.8; O2SAT 94–97; BMI 26.2
--- NOTE | 2021-01-13 09:31 | NURSING ---
Patient was getting up to get into wheelchair to be discharged and he fell dizzy and about fell backwards. He was assisted to lay in bed. Ortho VS taken and were positive (see intervention). Dr. Garcia paged and will be notified of same.
--- NOTE | 2021-01-13 12:15 | CASEMGMT ---
OLIVIA STANTON NOTE: Pt met w/pt @ bedside. Introduced self and role of OLIVIA STANTON. Pt states he lives w/his , Jennifer, who just recently got home from the hospital and is recovering from COVID. Pt states he is independent and denies having any discharge planning needs. He states his neighbor will be taking him home. Edmund KWON RN, CM
[2021-01-13 15:26] LABS: Hematocrit 20.5 % (40-54); Hemoglobin 6.9 g/dL (13.0-16.5); Mean Corp Hgb Conc 33.7 g/dL (32-36); Mean Corpuscular Hgb 31.9 pg (27.0-32.0); Mean Corpuscular Volume 94.9 fL (80-94); Mean Platelet Vol. 8.9 fl (6.2-12.0); Platelet Count 285 K/mm3 (150-450); RBC Distribution Width CV 12.4 % (11.6-14.6); RBC Distribution Width SD 42.9 fl (35.1-43.9); Red Blood Count 2.16 M/mm3 (4.6-6.2)
[2021-01-13 15:49] LABS: Anion Gap 8 (5-15); BUN 46 mg/dL (7-18); BUN/Creat Ratio 18.9 RATIO (10-20); Calcium,Total 8.2 mg/dL (8.5-10.1); Chloride 105 mmol/L (98-107); Creatinine, Serum 2.44 mg/dL (0.70-1.30); EST Glomerular Filtration Rate 28 mL/min (>60); Est Glom Filt Rate - Afr Amer 34 mL/min (>60); Estimated Creatinine Clearance 24.69 ml/min; Glucose 127 mg/dL (74-106); Potassium 4.5 mmol/L (3.5-5.1); Sodium Level 137 mmol/L (136-145)
--- NOTE | 2021-01-13 16:41 | US_ITS ---
INDICATION: elevated bun/creat. poss hematoma EXAMINATION: Ultrasound US Kidney(s) complete (eg, kidneys and bladder) TECHNIQUE: Parmar scale and color doppler images were obtained of the kidneys. COMPARISON: Abdominal x-ray dated 01/12/[address] abdomen and pelvis 12/27/2020 and 11/24/2020. FINDINGS: Left kidney measures 10.8 x 5.7 x 5.0 cm. Along the posterior, lateral periphery of the kidney there is a heterogeneous hypoechoic structure measuring roughly 2.7 cm in thickness and roughly 8 cm in length. Hypoechoic areas suggesting fat between a portion of the lesion and the normal appearing kidney suggesting perirenal hematoma. This is only seen on a couple of images and subcapsular hematoma could also have this appearance. Given normal contrast-enhanced appearance of the kidney on recent CT, hematomas favored over mass which cannot be completely excluded. Some color flow seen in the left renal hilum. No hydronephrosis. No visible stone. Right kidney measures 11.3 x 5.5 x 4.9 cm. There is no cortical thinning. No solid or cystic mass lesion. No hydronephrosis or visible stone. Some color flow visible in the right renal hilum. No perinephric fluid. Urinary bladder volume of 127.5 mL is notable for mass effect on the bladder from the prostate gland. No bladder wall mass lesion suggest. The bladder wall thickening. No internal debris. US/Kidney and Bladder IMPRESSION: Heterogeneous hypoechoic mass lateral periphery of the left kidney most likely representing perirenal or subcapsular hematoma. No appreciable mass effect on the kidney and perirenal hematoma is favored with one image suggesting perirenal fat between hematoma in the kidney. Short-term follow-up is recommended. Electronically Signed: Lexx Martínez DO at 20:22 EDT Tel , Service support ,
[2021-01-13] MEDS: 0.9% Normal Saline 1,000 ML 75 ML IV (18:57)
--- NOTE | 2021-01-13 22:05 | PCM.PN.GU ---
Subjective Subjective pt admitted for pain after eswl today was hypotensive snd cbc had low hct us of kidney with subcapsular hematoma after treatment of kidney stone pt needed trsnfusion of blood if bp stable then home with bedrest in am Objective Data Objective Data Vital Signs: Vital Signs Temp Pulse Resp BP Pulse Ox 98.3 F 83 18 119/65 97 01/13/21 21:25 01/13/21 21:25 01/13/21 21:25 01/13/21 21:25 01/13/21 21:25 Oxygen Delivery Method Room Air Weight: 73.1 kg Body Mass Index (BMI) 25.9 Intake & Output: Intake and Output for Last 24 Hours 01/11/21 01/12/21 01/13/21 23:59 23:59 23:59 Intake Total 2756.67 / 2956.67 3500 / 3500 Output Total 200 / 200 Balance 2756.67 / 2956.67 3300 / 3300 Lab / Micro Data Result Diagrams: 01/13/21 15:13 01/13/21 15:13 Labs: Laboratory Results - last 24 hr 01/13/21 15:13: WBC 11.0, RBC 2.16 L, Hgb 6.9 L, Hct 20.5 L, MCV 94.9 H, MCH 31.9, MCHC 33.7, RDW Std Deviation 42.9, RDW Coeff of Carmita 12.4, Plt Count 285, MPV 8.9 01/13/21 15:13: Sodium 137, Potassium 4.5, Chloride 105, Carbon Dioxide 24.0, Anion Gap 8, BUN 46 H, Creatinine 2.44 H, Estim Creat Clear Calc 24.69, Est GFR (MDRD) Af Amer 34 L, Est GFR (MDRD) Non-Af 28 L, BUN/Creatinine Ratio 18.9, Glucose 127 H, Calcium 8.2 L 01/13/21 17:30: Blood Type O POSITIVE, Antibody Screen NEGATIVE, Crossmatch See Detail Radiography Diagnostic Testing: Radiology Impression Renal Ultrasound 01/13/21 16:41 IMPRESSION: Heterogeneous hypoechoic mass lateral periphery of the left kidney most likely representing perirenal or subcapsular hematoma. No appreciable mass effect on the kidney and perirenal hematoma is favored with one image suggesting perirenal fat between hematoma in the kidney. Short-term follow-up is recommended. Electronically Signed: Lexx Martínez DO at 20:22 EDT Tel , Service support ,
[2021-01-14 00:29] VITALS: BP 113/64; PULSE 80; RESP 18; TEMP 36.7; O2SAT 96
[2021-01-14 01:27] VITALS: BP 114/62; PULSE 75; RESP 18; TEMP 36.6; O2SAT 94
[2021-01-14 01:45] VITALS: BP 120/69; PULSE 72; RESP 18; TEMP 36.6; O2SAT 95
[2021-01-14 02:44] VITALS: BP 121/70; PULSE 71; RESP 18; TEMP 36.7; O2SAT 96
[2021-01-14 03:51] VITALS: BP 127/73; PULSE 68; RESP 18; TEMP 36.5; O2SAT 93
[2021-01-14] MEDS: 0.9% Saline Lock 10 ML Syringe IV (03:58)
--- NOTE | 2021-01-14 08:01 | DS.PCM_ITS ---
Providers Primary Care Physician: Dr. Raffi Vaca MD Reason For Visit: ESWL LEFT Medications at Discharge Home Medications aspirin 81 mg PO DAILY@0800 04/21/15 multivitamin 1 tab PO DAILY 04/21/15 ferrous sulfate 324 mg (65 mg iron) tablet,delayed release 1 tab PO DAILY 03/29/20 ascorbate calcium (vitamin C) 500 mg tablet 500 mg PO DAILY 04/12/20 calcium carbonate 500 mg calcium (1,250 mg) tablet 1,000 mg PO DAILY 04/12/20 cholecalciferol (vitamin D3) 50 mcg (2,000 unit) capsule 50 mcg PO BID cap 04/12/20 apixaban 5 mg tablet 5 mg PO BID #180 tab 06/16/20 levothyroxine 137 mcg PO DAILY 08/13/20 diltiazem HCl 120 mg PO DAILY #90 cap 11/24/20 hydrocodone-acetaminophen 1 tab PO Q4H PRN PRN 2 Days #15 tablet 12/27/20 flecainide 100 mg PO BID 12/28/20 omeprazole 40 mg PO DAILY 12/29/20 Hospital Course Summary of Care Provided Hospital Course: Patient was treated with shockwave lithotripsy for stone in the left kidney afterwards had severe pain was admitted to the hospital he was then found to be hypotensive with orthostatic hypotension and blood count was low he was given 2 units of blood now his blood pressure stable he is feeling better tolerating regular diet today plan to send the patient home he had postop complication with bleeding in the kidney after shockwave lithotripsy. Told the patient this to be self-limited and should recover fully. Physical Exam Const alert and oriented x3 General Appearance: cooperative HEENT normocephalic, head/scalp atraumatic, EAC's normal and TM's normal bilaterally Eyes PERRL and EOMs intact bilaterally Pupil: sluggish Neck no lymphadenopathy, supple and no JVD General: trachea midline Lymph Lymphatic: no lymphadenopathy noted, lymphedema and lymphadenopathy Resp normal respiratory effort, normal air movement and clear to auscultation bilaterally Cardio regular rate, regular rhythm and peripheral pulses 2+ throughout GI soft to palpation, non-tender and non-distended Extremity normal capillary refill and no clubbing, cyanosis or edema General Extremity: no tenderness to palpation of joints or extremities Skin no rashes or lesions noted General Skin Exam: turgor normal Lesions: no lesions Rashes: no rashes Neuro CN's II-XII intact bilaterally Speech: speech normal Motor Exam: strength 5/5 throughout; Negative for general weakness Psych thought process normal, cooperative and affect normal Appearance: appropriate Weight / BMI Weight Weight: 73.1 kg Body Mass Index (BMI) 25.9 ABG / Lab / Microbiology Data Result Diagrams: 01/13/21 15:13 01/13/21 15:13 Laboratory: Laboratory Results - last 24 hr 01/13/21 15:13: WBC 11.0, RBC 2.16 L, Hgb 6.9 L, Hct 20.5 L, MCV 94.9 H, MCH 31.9, MCHC 33.7, RDW Std Deviation 42.9, RDW Coeff of Carmita 12.4, Plt Count 285, MPV 8.9 01/13/21 15:13: Sodium 137, Potassium 4.5, Chloride 105, Carbon Dioxide 24.0, Anion Gap 8, BUN 46 H, Creatinine 2.44 H, Estim Creat Clear Calc 24.69, Est GFR (MDRD) Af Amer 34 L, Est GFR (MDRD) Non-Af 28 L, BUN/Creatinine Ratio 18.9, Glucose 127 H, Calcium 8.2 L 01/13/21 17:30: Blood Type O POSITIVE, Antibody Screen NEGATIVE, Crossmatch See Detail Radiography Diagnostic Testing: Radiology Impression Renal Ultrasound 01/13/21 16:41 IMPRESSION: Heterogeneous hypoechoic mass lateral periphery of the left kidney most likely representing perirenal or subcapsular hematoma. No appreciable mass effect on the kidney and perirenal hematoma is favored with one image suggesting perirenal fat between hematoma in the kidney. Short-term follow-up is recommended. Electronically Signed: Lexx Martínez DO at 20:22 EDT Tel , Service support , D/C Instructions Discharge Diet: No restrictions Call your doctor if you observe: Fever of 101 or Higher Please Follow Up With: Chris Garcia MD When: Call [phone] for an appointment Meaningful Use Info Meaningful Use Diagnoses (Choose all that apply): None applicable Discharge Plan Admission Primary Reason for Your Visit: left ESWL and stent removal Attending Provider: Chris Garcia Primary Care Provider: Raffi Vaca Discharge Orders/Prescriptions Prescriptions: Continued cholecalciferol (vitamin D3) 50 mcg (2,000 unit) capsule 50 mcg PO BID RF: 0 ascorbate calcium (vitamin C) 500 mg tablet 500 mg PO DAILY RF: 0 calcium carbonate [Calcium 500] 500 mg calcium (1,250 mg) tablet 1,000 mg PO DAILY RF: 0 ferrous sulfate 324 mg (65 mg iron) tablet,delayed release (DR/EC) 1 tab PO DAILY RF: 0 multivitamin 1 EACH tablet 1 tab PO DAILY RF: 0 levothyroxine 137 mcg tablet 137 mcg PO DAILY RF: 0 diltiazem HCl 120 mg capsule,extended release 24hr 120 mg PO DAILY Qty: 90 RF: 3 hydrocodone-acetaminophen 1 TABLET tablet 1 tab PO Q4H PRN PRN (Reason: Pain) 2 Days Qty: 15 RF: 0 flecainide 100 mg tablet 100 mg PO BID RF: 0 omeprazole 40 mg capsule,delayed release(DR/EC) 40 mg PO DAILY RF: 0 Held aspirin 81 MG tablet,chewable 81 mg PO DAILY@0800 RF: 0 Hold Instructions: Resume on 01/15/21. apixaban 5 mg tablet 5 mg PO BID Qty: 180 RF: 4 Hold Instructions: Resume on 01/15/21. Other Ambulatory Orders: Abdomen Single View (Routine) Timeframe: 20210112 Facility: [facility] - Location: [facility] Ordered By: Dr. Chris Garcia Referrals / Follow Up: Chris Garcia MD [STAFF PHYSICIAN] - Raffi Vaca MD [Primary Care Provider] - Disposition Disposition (needs filled in before D/C Order can be placed): Home, Self Care
[2021-01-14 08:45] VITALS: BP 137/71; PULSE 81; RESP 16; TEMP 37.2; O2SAT 99
--- NOTE | 2021-01-14 10:10 | CASEMGMT ---
RN [facility] CM to room to meet with patient for initial transition planning/care coordination assessment. OLIVIA STANTON introduced self and role at [facility]. Pt voices understanding and consents to assessment at this time. Pt resting in bed in no distress at this time. Pt is A/O at this time and answers all questions appropriately. Care providers, pharmacy, and demographics verified/updated at this time. PCP: Dr Vaca Specialists: Dr Garcia, urology. [facility] hematology Preferred Pharmacy: [facility] Retail Insurance: [employer] Prescription Benefit: Yes Living Will/HPOA: Pt does not currently have LW/HCPOA LNOK: , Jennifer. 3 sons Living Arrangements: Lives w/. Independent. Transportation: Pt, . Neighbor will take pt home @ dc DME: Pt has a pulse ox. Uses no DME to ambulate. Denies any needs. HHC/SNF: No history of either and no needs identified. Pt wishes to return home and states has no concerns with going home at time of discharge. CM to follow for any discharge planning/needs. Pt voices no concerns/needs at this time. Advised pt to ask for CM if any questions/concerns/needs arise. Voices understanding. PLAN: Home w/discharge plans in place. Edmund KWON RN, CM
== END 2021-01-14 10:35 | disposition home or self-care (01) | DRG 948 ==
LOC: SDC 01-14 08:33 → MS2 01-14 08:33
PROVIDERS: Admitting Provider Urology; PCP Family Medicine; Referring Provider Urology; Visit Provider Urology
PROC: 0TJB8ZZ Inspection of Bladder, Via Natural or Artificial Opening Endoscopic (ICD-10-PCS; CPT 50590; principal; 2021-01-12 12:40)
DX: G89.18 Other acute postprocedural pain (principal); N99.821 Postprocedural hemorrhage of a genitourinary system organ or structure following other procedure; N20.0 Calculus of kidney; I95.1 Orthostatic hypotension; Y83.8 Other surgical procedures as the cause of abnormal reaction of the patient, or of later complication, without mention of misadventure at the time of the procedure
CPT/HCPCS: 36415; 74018; 76770; 80048; 85027; 86850; 86900; 86901; 86920; 86922; J7030; J7040; J7120; P9016; A4216; J2405

== ENCOUNTER 2021-01-21 02:20 | Emergency (ER) | payer MEDICARE, SELFPAY ==
[2021-01-21] VITALS (10 sets, daily range): BP systolic 138–164; BP diastolic 70–87; PULSE 70–94; RESP 15–26; TEMP 36.6–36.8; O2SAT 96–100; BMI 26.6
--- NOTE | 2021-01-21 02:36 | CT_ITS ---
STUDY: CT ABDOMEN AND PELVIS WITHOUT CONTRAST REASON FOR EXAM: Male, 70 years old. flank pain RADIATION DOSAGE (If Supplied By Facility): CTDIvol = ( 8.78 ) mGy, DLP = ( 489.00 ) mGycm TECHNIQUE: Transaxial images were obtained from the dome of the diaphragm to the symphysis pubis without oral contrast, and without intravenous contrast. Sagittal and coronal images were reconstructed. Individualized dose optimization techniques were used for this CT. COMPARISON: None. FINDINGS: Small amount of left lower lobe airspace disease. The visualized portions of the heart are within normal limits. Normal liver. Normal gallbladder and extrahepatic biliary system. Normal spleen. Normal pancreas. Normal bilateral adrenal glands. Normal right kidney. Marked abnormal appearance of the left kidney. Large area of ill-defined hemorrhage from the posterior medial cortex of the kidney measuring 8.6 x 9 cm. Large perinephric hematoma measuring 11.6 x 4 cm. Retroperitoneal hematoma as well. Normal visualized stomach. Normal small intestine. There are multiple colonic diverticula consistent with diverticulosis. The appendix is visualized and appears normal. Normal abdominal aorta. Normal inferior vena cava. Normal retroperitoneum. Normal urinary bladder. There is enlargement of the prostate gland. Normal abdominal wall. Normal osseous structures. CT/Abdomen/Pelvis without Cont IMPRESSION: Marked abnormal appearance of the left kidney. Large area of hemorrhage in the cortex of the left kidney as above with left perinephric hematoma and retroperitoneal hemorrhage. Recommend clinical correlation. Marked enlargement of the prostate. Electronically Signed: Dragan Bañuelos DO at 4:34 EDT Tel , Service support ,
--- NOTE | 2021-01-21 02:36 | EX.ED.DYSGE1 ---
HPI History of Present Illness Chief Complaint: Complaint Informant: patient and EMS Narrative Narrative: 70-year-old male presenting to the emergency department with left flank pain. Patient states that he was asleep and woke with a pain which he describes as an intense dullness just underneath his lower left anterior rib cage. Patient recently was admitted and had surgery for a kidney stone. Reportedly he had shockwave lithotripsy. Postoperatively was complicated by orthostatic hypotension and anemia and was transfused 2 units and was noted on ultrasound to have perirenal hematoma. Patient states he has not urinated since the pain began. He notes some constipation recently. He denies any fever. No nausea or vomiting. The patient notes he took some Tylenol and ibuprofen and it helped some but not enough to get him to sleep. [facility] Medical History BPH (benign prostatic hyperplasia) Cardiac murmur Cardiology follow-up encounter CPAP (continuous positive airway pressure) dependence Encounter for monitoring anti-arrhythmic therapy Gastric reflux History of atrial fibrillation History of echocardiogram History of stress test Hx of transesophageal echocardiography (KUMAR) for monitoring Hypothyroidism Iron deficiency anemia Kidney stones Laceration of right eyebrow without complication Non-smoker JOSE on CPAP Paroxysmal atrial fibrillation Peripheral vascular disease Personal history of colonic polyps Sleep apnea Thyroid disease Valvular heart disease Vitamin D deficiency Wears glasses Home Medications aspirin 81 mg PO DAILY@0800 04/21/15 [History Last Taken 12/29/20] multivitamin 1 tab PO DAILY 04/21/15 [History Last Taken 08/12/20] ferrous sulfate 324 mg (65 mg iron) tablet,delayed release 1 tab PO DAILY 03/29/20 [History Last Taken 08/12/20] ascorbate calcium (vitamin C) 500 mg tablet 500 mg PO DAILY 04/12/20 [History Last Taken 08/12/20] calcium carbonate 500 mg calcium (1,250 mg) tablet 1,000 mg PO DAILY 04/12/20 [History Last Taken 08/12/20] cholecalciferol (vitamin D3) 50 mcg (2,000 unit) capsule 50 mcg PO BID cap 04/12/20 [History Last Taken 08/12/20] apixaban 5 mg tablet 5 mg PO BID #180 tab 06/16/20 [Rx Last Taken 12/29/20] levothyroxine 137 mcg PO DAILY 08/13/20 [History Last Taken 01/12/21 07:30] diltiazem HCl 120 mg PO DAILY #90 cap 11/24/20 [Rx Last Taken 01/12/21 07:30] hydrocodone-acetaminophen 1 tab PO Q4H PRN PRN 2 Days #15 tablet 12/27/20 [Rx Last Taken Unknown] flecainide 100 mg PO BID 12/28/20 [History Last Taken 01/12/21 07:30] omeprazole 40 mg capsule,delayed release See Rx Instructions .ROUTE .COMPLEX #90 capsule 01/17/21 [Rx Last Taken Unknown] Allergy/AdvReac Type Severity Reaction Status Date / Time No Known Allergies Allergy Verified 01/21/21 02:21 Family History Mother Thyroid disorder Father Thyroid disorder Surgical History History of cardiac cath History of carpal tunnel release History of colonoscopy (~09/2017) Hx of cystoscopy Social History Smoking Status: Never smoker alcohol intake: never substance use type: does not use caffeine: No what type of physical activity do you participate in: weight training frequency: 3-4 times per week ROS ROS ED Constitutional Constitutional ED: Denies chills or weight loss Eyes Eyes: Denies change in vision or diplopia ENT ENT ED: Denies ear pain, rhinorrhea or sore throat Cardiovascular Cardiovascular: Denies chest pain, orthopnea, palpitations or racing heartbeat Respiratory/Chest Respiratory/Chest: Denies cough, dyspnea or orthopnea Gastrointestinal Gastrointestinal: Reports abdominal pain; Denies diarrhea, nausea or vomiting Genitourinary Genitourinary ED: Denies dysuria, hematuria or urinary frequency Musculoskeletal Musculoskeletal: Denies arthralgias or myalgias Integumentary Denies abscess or rash Neurologic Neurologic: Denies headache(s) or weakness Psychiatric Psychiatric: Denies anxiety, depression, suicidal ideation or suicidal thoughts Endocrine Endocrinology: Denies polydipsia, polyphagia or polyuria Allergic/Immunologic Allergic/Immunologic ED: Denies mouth swelling, tongue swelling or urticaria EXAM Physical Exam Const Vital Signs: 01/21/21 02:24 01/21/21 04:14 01/21/21 06:48 Temperature 98.3 F Temperature Source Oral Pulse Rate 70 86 86 Respiratory Rate 16 26 H 16 Blood Pressure 164/72 H 164/85 H Blood Pressure Mean 102 111 Pulse Ox 98 100 96 Oxygen Delivery Method Room Air Room Air Room Air Positive well nourished and well developed General Appearance ED: well developed HEENT Reports normocephalic, head/scalp atraumatic and moist mucous membranes Eyes PERRL and EOMs intact bilaterally Neck no lymphadenopathy, supple and no JVD Resp normal respiratory effort and clear to auscultation bilaterally Cardio regular rate, regular rhythm and no murmurs GI normal to inspection, nondistended, normoactive bowel sounds and non-tender Palpation: soft Back/Spine no CVA tenderness and normal ROM Extremity normal to inspection General Extremety ED: Negative for edema General Extremity: Negative for edema Neuro oriented x3 and CN's II-XII intact bilaterally Sensorium / Orientation: alert Motor Exam: strength 5/5 throughout Psych mental status grossly normal Mood & Affect: Negative for depressed or tearful Skin no rashes or lesions noted and no wounds MDM MDM MDM Narrative Medical decision making narrative: Labs returned with a white count of 13.9 hemoglobin is 7.9. His creatinine is improved from last week. Lipase 91. Received Dilaudid x2 for pain. CT of the abdomen pelvis demonstrated marked abnormal appearance of the left kidney. Large area of ill-defined hemorrhage from the posterior medial cortex of the kidney measuring 8.6 x 9 cm large perinephric hematoma measuring 11.6 x 4 cm. There is a retroperitoneal hematoma as well. He is now complaining of nausea and vomiting only when somebody speaks to him. I gave him Ativan and Zofran and he has been sleeping. I spoke with Dr. Garcia regarding the findings. When the patient is more awake we will discuss with him and see how he is feeling. Lab Data Attestation: I reviewed the patient's lab results. Labs: Laboratory Results - last 24 hr 01/21/21 01/21/21 02:50 02:50 WBC 13.9 H RBC 2.43 L Hgb 7.9 L Hct 23.2 L MCV 95.5 H MCH 32.5 H MCHC 34.1 RDW Std Deviation 43.8 RDW Coeff of Carmita 12.5 Plt Count 387 MPV 9.4 Immature Gran % (Auto) 1.800 H Neut % (Auto) 73.6 H Lymph % (Auto) 12.9 L [place] % (Auto) 9.1 Eos % (Auto) 2.4 Baso % (Auto) 0.2 Absolute Neuts (auto) 10.2 H Absolute Lymphs (auto) 1.79 Nucleated RBC % 0 Sodium 136 Potassium 4.2 Chloride 106 Carbon Dioxide 24.0 Anion Gap 6 BUN 45 H Creatinine 2.00 H Estim Creat Clear Calc 30.13 Est GFR (MDRD) Af Amer 42 L Est GFR (MDRD) Non-Af 35 L BUN/Creatinine Ratio 22.5 H Glucose 131 H Calcium 9.0 Total Bilirubin 0.70 AST 39 H ALT 52 Alkaline Phosphatase 106 Total Protein 7.3 Albumin 2.9 L Globulin 4.4 H Albumin/Globulin Ratio 0.7 L Lipase 91 Radiography Diagnostic Testing: Clinical Impression(s) from Imaging Studies Abdomen/Pelvis CT 01/21/21 02:36 IMPRESSION: Marked abnormal appearance of the left kidney. Large area of hemorrhage in the cortex of the left kidney as above with left perinephric hematoma and retroperitoneal hemorrhage. Recommend clinical correlation. Marked enlargement of the prostate. Electronically Signed: Dragan Bañuelos DO at 4:34 EDT Tel , Service support , Discharge Plan Triage Chief Complaint: Complaint ED Provider: Iglesia Ocampo Dx/Rx/DC Orders Clinical Impression: Abdominal pain, Anemia, Retroperitoneal hematoma, Kidney hematoma Prescriptions: No Action cholecalciferol (vitamin D3) 50 mcg (2,000 unit) capsule 50 mcg PO BID RF: 0 ascorbate calcium (vitamin C) 500 mg tablet 500 mg PO DAILY RF: 0 calcium carbonate [Calcium 500] 500 mg calcium (1,250 mg) tablet 1,000 mg PO DAILY RF: 0 ferrous sulfate 324 mg (65 mg iron) tablet,delayed release (DR/EC) 1 tab PO DAILY RF: 0 multivitamin 1 EACH tablet 1 tab PO DAILY RF: 0 aspirin 81 MG tablet,chewable 81 mg PO DAILY@0800 RF: 0 Hold Instructions: Resume on 01/15/21. levothyroxine 137 mcg tablet 137 mcg PO DAILY RF: 0 diltiazem HCl 120 mg capsule,extended release 24hr 120 mg PO DAILY Qty: 90 RF: 3 hydrocodone-acetaminophen 1 TABLET tablet 1 tab PO Q4H PRN PRN (Reason: Pain) 2 Days Qty: 15 RF: 0 flecainide 100 mg tablet 100 mg PO BID RF: 0 apixaban 5 mg tablet 5 mg PO BID Qty: 180 RF: 4 Hold Instructions: Resume on 01/15/21. omeprazole 40 mg capsule,delayed release(DR/EC) See Rx Instructions .ROUTE .COMPLEX Qty: 90 RF: 0 Primary Care Provider: Raffi Vaca Referrals: Chris Garcia MD [STAFF PHYSICIAN] - Keep Shelia appointment Raffi Vaca MD [Primary Care Provider] - 1 Week
[2021-01-21] MEDS: Ondansetron 4 MG/2 ML Vial IV ×3 (02:52→12:40)
[2021-01-21] MEDS: Ketorolac 15 MG/ML Vial IV (02:53)
[2021-01-21] MEDS: HYDROmorphone 1 MG/ML Syringe IV ×2 (02:55→04:12)
[2021-01-21 03:06] LABS: Absolute Lymphocyte Count 1.79 X10^3/uL (0.83-4.51); Absolute Neutrophil Count 10.2 X10^3/uL (2.0-7.7); Basophil# 0.03 X10^3/uL; Basophil% 0.2 % (0-1); Eosinophil# 0.33 X10^3/uL; Eosinophils% 2.4 % (0-5); Hematocrit 23.2 % (40-54); Hemoglobin 7.9 g/dL (13.0-16.5); Lymphocyte # 1.79 X10^3/ul (0.83-4.51); Lymphocyte % 12.9 % (19-41); Mean Corp Hgb Conc 34.1 g/dL (32-36); Mean Corpuscular Hgb 32.5 pg (27.0-32.0); Mean Corpuscular Volume 95.5 fL (80-94); Mean Platelet Vol. 9.4 fl (6.2-12.0); Monocyte# 1.26 X10^3/uL; Monocyte% 9.1 % (0-10); NRBC Flagged by Analyzer 0 % (0-5); Neutrophil # 10.24 X10^3/uL (2.7-7.7); Neutrophil % 73.6 % (47-70); Platelet Count 387 K/mm3 (150-450); RBC Distribution Width CV 12.5 % (11.6-14.6); RBC Distribution Width SD 43.8 fl (35.1-43.9); Red Blood Count 2.43 M/mm3 (4.6-6.2); White Blood Count 13.9 K/mm3 (4.4-11.0)
[2021-01-21 03:56] LABS: ALB/GLOB Ratio 0.7 RATIO (0.9-2.4); AST(SGOT) 39 U/L (15-37); Alanine Aminotransfer ALT/SGPT 52 U/L (16-61); Albumin, Serum 2.9 g/dL (3.2-5.0); Alkaline Phosphatase 106 U/L (45-117); Anion Gap 6 (5-15); BUN 45 mg/dL (7-18); BUN/Creat Ratio 22.5 RATIO (10-20); Chloride 106 mmol/L (98-107); EST Glomerular Filtration Rate 35 mL/min (>60); Est Glom Filt Rate - Afr Amer 42 mL/min (>60); Estimated Creatinine Clearance 30.13 ml/min; Globulin 4.4 g/dL (2.2-4.2); Glucose 131 mg/dL (74-106); Lipase 91 U/L (73-393); Potassium 4.2 mmol/L (3.5-5.1); Protein, Total 7.3 g/dL (6.4-8.2); Sodium Level 136 mmol/L (136-145)
[2021-01-21] MEDS: LORazepam 2 MG/ML Syringe 1 MG IV (05:40)
[2021-01-21 08:03] LABS: Color, Urine Red (Yellow); Glucose, Dipstick Normal (Normal); Ketone-Dipstick 5 mg/dl (Negative); Leukocyte Esterase-Dipstick 25 /ul (Negative); Nitrite-Dipstick Negative (Negative); Occult Blood-Urine 250 /ul (Negative); Protein-Dipstick 500 mg/dl (Negative); Urine Bilirubin Dipstick Negative (Negative); Urine Clarity Cloudy (Clear); Urine Urobilinogen Normal (Normal); Urine pH 6.5 (5.0 - 8.0)
[2021-01-21 08:11] LABS: Red Blood Cells-Urine > 100 SEEN /hpf (0-5); Squamous Epithelial Cells - UA 0-5 SEEN /hpf (0-5)
[2021-01-21 08:12] LABS: Bacteria 3+ /hpf (None Seen); Mucous, Urine 1+ /hpf (<or=2+); White Blood Cells 0-5 SEEN /hpf (0-5)
--- NOTE | 2021-01-21 09:26 | ED.RN ---
THIS NURSE IN THE ROOM TO ASSIST THE PT STANDING UP. PRIOR TO THE PT STANDING BP 156/79 HR 84. I CALLED FOR ADDITIONAL ASSISTANCE PRIOR TO STANDING PT UP. WITH 2 STAFF ASSIST, PT STOOD TO URINATE. PT STATES I'M NOT DOING VERY GOOD. PT URINATED SMALL AMOUNT OF DARK BLOODY URINE. PT BECAME MORE PALE AND STARTED DRY HEAVING. WE GOT THE PT BACK IN BED AND HE BECAME UNRESPONSIVE WITH AGONAL RESPIRATIONS. STAFF ASSIST CALLED. PT CAROTID PULSE WEAK AND NO RADIAL PULSE. PT BOOSTED IN THE BED. AFTER APPROX 45 SECONDS PT BREATHING ON HIS OWN. PT AGAIN STATES I DON'T FEEL WELL. PT CAROTID STRONGER. RADIAL PULSE PALPABLE. BP 134/[address] RUDD NOTIFIED. ADDITIONAL ORDERS OBTAINED
[2021-01-21 09:39] LABS: Hematocrit 20.7 % (40-54); Hemoglobin 6.9 g/dL (13.0-16.5)
[2021-01-21] MEDS: fentaNYL 100 MCG/2 ML Ampul 25 MCG IV (10:08)
[2021-01-21] MEDS: HUMAN PROTHROMBIN COMPLX(PCC) 3,500 UNIT in Viaflex Bag 1 BAG 8.4 UNIT IV (10:36)
--- NOTE | 2021-01-21 11:50 | NURSING ---
CALLED [facility] TO CHECK ON PATIENT STATUS. THEY ARE WAITING FOR THE ATTENDING TO CALL BACK
[2021-01-21] MEDS: fentaNYL 100 MCG/2 ML Ampul 50 MCG IV (11:59)
[2021-01-21] MEDS: 0.9% Normal Saline 1,000 ML 500 ML IV (12:40)
[2021-01-21] MEDS: fentaNYL 100 MCG/2 ML Ampul 75 MCG IV (13:03)
--- NOTE | 2021-01-21 14:01 | EKG12_ITS ---
Test Reason : POSTOP COMPLICATION Blood Pressure : / mmHG Vent. Rate : 100 BPM Atrial Rate : 100 BPM P-R Int : 178 ms QRS Dur : 096 ms QT Int : 348 ms P-R-T Axes : 046 005 062 degrees QTc Int : 448 ms Normal sinus rhythm Normal ECG Confirmed by KELY BOOKER, JEREMIAH ([id number]), city editor JOHNNY KEEN ([id number]) on 01/25/2021 7:52:32 AM Referred By: BB Confirmed By:JEREMIAH EDGE MD
== END 2021-01-21 14:10 | disposition short-term general hospital (02) ==
LOC: ED 02:36
PROVIDERS: Emergency Medicine; Emergency Provider Emergency Medicine; PCP Family Medicine
DX: N99.820 Postprocedural hemorrhage of a genitourinary system organ or structure following a genitourinary system procedure (principal); Y83.8 Other surgical procedures as the cause of abnormal reaction of the patient, or of later complication, without mention of misadventure at the time of the procedure; N28.89 Other specified disorders of kidney and ureter; S37.012A Minor contusion of left kidney, initial encounter; I48.0 Paroxysmal atrial fibrillation; N40.0 Benign prostatic hyperplasia without lower urinary tract symptoms; D50.9 Iron deficiency anemia, unspecified; G47.33 Obstructive sleep apnea (adult) (pediatric); E03.9 Hypothyroidism, unspecified; K21.9 Gastro-esophageal reflux disease without esophagitis; Z79.01 Long term (current) use of anticoagulants; Z79.82 Long term (current) use of aspirin; Z87.19 Personal history of other diseases of the digestive system
CPT/HCPCS: 36430; 74176; 80053; 81001; 83690; 85014; 85018; 85025; 86850; 86900; 86901; 86920; 87426; 93005; 99285; J7030; J7050; J7168; P9040; A4216; J2405; J3490

== ENCOUNTER → 2021-02-08 12:13 | Outpatient (CLI) | payer MEDICARE, SELFPAY ==
[2021-02-08 15:46] LABS: Absolute Lymphocyte Count 1.12 X10^3/uL (0.83-4.51); Absolute Neutrophil Count 4.3 X10^3/uL (2.0-7.7); Basophil# 0.03 X10^3/uL; Basophil% 0.5 % (0-1); Eosinophil# 0.27 X10^3/uL; Eosinophils% 4.2 % (0-5); Hematocrit 25.2 % (40-54); Hemoglobin 7.7 g/dL (13.0-16.5); Lymphocyte # 1.12 X10^3/ul (0.83-4.51); Lymphocyte % 17.5 % (19-41); Mean Corp Hgb Conc 30.6 g/dL (32-36); Mean Corpuscular Hgb 30.6 pg (27.0-32.0); Mean Platelet Vol. 9.1 fl (6.2-12.0); Monocyte# 0.53 X10^3/uL; Monocyte% 8.3 % (0-10); NRBC Flagged by Analyzer 0 % (0-5); Neutrophil # 4.33 X10^3/uL (2.7-7.7); Neutrophil % 67.6 % (47-70); Platelet Count 605 K/mm3 (150-450); RBC Distribution Width CV 13.4 % (11.6-14.6); Red Blood Count 2.52 M/mm3 (4.6-6.2); White Blood Count 6.4 K/mm3 (4.4-11.0)
== END ==
PROVIDERS: PCP Family Medicine; Referring Provider Family Medicine; Visit Provider Family Medicine
DX: D62 Acute posthemorrhagic anemia (principal)
CPT/HCPCS: 36415; 85025

== ENCOUNTER → 2021-02-10 09:22 | Outpatient (CLI) | payer MEDICARE, SELFPAY ==
--- NOTE | 2021-02-10 09:27 | RAD_ITS ---
STUDY: X-RAY - ABDOMEN/PELVIS REASON FOR EXAM: Male, 70 years old. Pre-op, left kidney stone. TECHNIQUE: Single AP view of the abdomen / pelvis. COMPARISON: CT of the abdomen and pelvis, 01/21/2021. FINDINGS: Normal visualized lung bases. There is an unremarkable bowel gas pattern. There is no demonstrated free abdominal air. The visualized liver, spleen and kidney are grossly normal in size and morphology. No visualized left renal calculus. There is lack of distinction of the left psoas muscle. Normal soft tissue structures. Normal visualized osseous structures. RAD/Abdomen Single View IMPRESSION: 1. No visualized left renal calculus. 2. Questionable increased density in the left upper abdomen with poor delineation of the left psoas muscle. This is thought to be secondary to the retroperitoneal and left renal hemorrhage seen on the prior CT. Electronically Signed: Wally Lackey DO at 16:55 EDT Tel [phone], Service support ,
== END ==
PROVIDERS: PCP Family Medicine; Referring Provider Urology; Visit Provider Urology
DX: N20.1 Calculus of ureter (principal)
CPT/HCPCS: 74018

== ENCOUNTER → 2021-03-28 09:35 | Outpatient (CLI) | payer MEDICARE, SELFPAY ==
--- NOTE | 2021-03-28 09:53 | RAD_ITS ---
STUDY: AIR CONTRAST UPPER GI SERIES and esophagram. REASON FOR EXAM: Male, 70 years old. K21.9 - Gastro-esophageal reflux disease without esophagitis FLUOROSCOPY TIME (if supplied): (49 seconds) minutes/seconds. 18 images were obtained. TECHNIQUE: SINGLE CONTRAST AND AIR CONTRAST FLUOROSCOPIC IMAGES. COMPARISON: None. FINDINGS: The cervical esophagus demonstrates normal motility without aspiration. There is no stricture or extrinsic mass effect. No intraluminal polypoid mass is identified. The thoracic esophagus distends well without stricture or mucosal fold thickening. No mucosal ulcerations are identified. There is no extrinsic mass effect. There are no diverticula. There is evidence of a small sliding hiatal hernia with gastroesophageal reflux. The patient ingested a 12 mm tablet of barium without any difficulty. The stomach distends well without mucosal fold thickening or mucosal ulceration. There is no intraluminal mass. The duodenal bulb is freely distensible without deformity or ulceration. The duodenal sweep is normal in position and caliber. RAD/Upper GI w/BA Swallow IMPRESSION: Small sliding hiatal hernia with gastroesophageal reflux. Electronically Signed: Kana Azevedo MD at 12:51 EST , Service support ,
== END ==
PROVIDERS: PCP Family Medicine; Referring Provider Surgery; Visit Provider Surgery
DX: K21.9 Gastro-esophageal reflux disease without esophagitis (principal)
CPT/HCPCS: 74246

== ENCOUNTER 2021-03-31 08:07 | Day surgery (SDC) | payer MEDICARE, SELFPAY ==
[2021-03-31 09:18] VITALS: BP 130/75; PULSE 58; RESP 16; TEMP 36.2; O2SAT 100
== END 2021-03-31 09:18 ==
LOC: EN 08:12
PROVIDERS: PCP Family Medicine; Referring Provider Surgery; Visit Provider Surgery
PROC: F00ZJWZ Instrumental Swallowing and Oral Function Assessment using Swallowing Equipment (ICD-10-PCS; CPT 43235; principal; 2021-03-31 08:25)
DX: Z20.828 Contact with and (suspected) exposure to other viral communicable diseases (principal)
CPT/HCPCS: 87426; C9803

== ENCOUNTER 2021-06-17 08:16 | Outpatient (CLI) | payer MEDICARE, SELFPAY ==
[2021-06-17 09:22] LABS: Absolute Neutrophil Count 3.4 X10^3/uL (2.0-7.7); Basophil# 0.04 X10^3/uL; Basophil% 0.7 % (0-1); Eosinophil# 0.15 X10^3/uL; Eosinophils% 2.7 % (0-5); Hematocrit 35.2 % (40-54); Hemoglobin 11.9 g/dL (13.0-16.5); Lymphocyte % 23.8 % (19-41); Mean Corp Hgb Conc 33.8 g/dL (32-36); Mean Corpuscular Hgb 31.9 pg (27.0-32.0); Mean Corpuscular Volume 94.4 fL (80-94); Monocyte# 0.58 X10^3/uL; Monocyte% 10.6 % (0-10); NRBC Flagged by Analyzer 0 % (0-5); Neutrophil # 3.37 X10^3/uL (2.7-7.7); Neutrophil % 61.8 % (47-70); Platelet Count 267 K/mm3 (150-450); RBC Distribution Width CV 12.8 % (11.6-14.6); RBC Distribution Width SD 43.9 fl (35.1-43.9); Red Blood Count 3.73 M/mm3 (4.6-6.2); White Blood Count 5.5 K/mm3 (4.4-11.0)
[2021-06-17 09:38] LABS: Protein, Urine (Random) 15.3 mg/dL (<11.9); Protein:Creat Ratio 166 mg/g CRE (0-200)
[2021-06-17 09:44] LABS: PTHIN 48.1 pg/mL (18.4-80.1)
[2021-06-17 09:49] LABS: Vitamin D,25 Hydroxy 67.4 ng/mL
[2021-06-17 10:05] LABS: AST(SGOT) 16 U/L (15-37); Alanine Aminotransfer ALT/SGPT 22 U/L (16-61); Albumin, Serum 3.7 g/dL (3.2-5.0); Alkaline Phosphatase 106 U/L (45-117); Anion Gap 3 (5-15); BUN 32 mg/dL (7-18); BUN/Creat Ratio 25.4 RATIO (10-20); Calcium,Total 8.8 mg/dL (8.5-10.1); Chloride 106 mmol/L (98-107); Cholesterol 141 mg/dL (200); Creatinine, Serum 1.26 mg/dL (0.70-1.30); EST Glomerular Filtration Rate 60 mL/min (>60); Est Glom Filt Rate - Afr Amer 72 mL/min (>60); Ferritin 334 ng/mL (26-388); Globulin 3.6 g/dL (2.2-4.2); Glucose 102 mg/dL (74-106); High Density Lipoprotein 56 mg/dL; Iron 87 ug/dL (65-175); Iron Binding Capacity,Total 238 ug/dL (250-450); Magnesium 2.1 mg/dL (1.6-2.6); Phosphorus 2.4 mg/dL (2.5-4.9); Protein, Total 7.3 g/dL (6.4-8.2); Sodium Level 138 mmol/L (136-145); Triglycerides 76 mg/dL; Very Low Density Lipoprotein 15 mg/dL (5-40)
== END 2021-06-17 23:59 | disposition home or self-care (01) ==
LOC: LAB 08:17
PROVIDERS: PCP Family Medicine; Visit Provider Family Medicine
DX: E55.9 Vitamin D deficiency, unspecified (principal); I48.91 Unspecified atrial fibrillation; N18.30 Chronic kidney disease, stage 3 unspecified; E03.9 Hypothyroidism, unspecified; D64.9 Anemia, unspecified
CPT/HCPCS: 36415; 80053; 80061; 82306; 82570; 82728; 83540; 83550; 83735; 83970; 84100; 84156; 84443; 85025

== ENCOUNTER → 2021-12-02 | Outpatient (CLI) | payer MEDICARE, SELFPAY ==
[2021-12-02 10:01] LABS: Bacteria 0 SEEN /hpf (None Seen); Mucous, Urine 0 SEEN /hpf (<or=2+); Squamous Epithelial Cells - UA 0 SEEN /hpf (0-5); White Blood Cells 0 SEEN /hpf (0-5)
[2021-12-02 12:11] LABS: Color, Urine Yellow (Yellow); Glucose, Dipstick Normal (Normal); Ketone-Dipstick Negative (Negative); Leukocyte Esterase-Dipstick 25 /ul (Negative); Nitrite-Dipstick Negative (Negative); Occult Blood-Urine 250 /ul (Negative); Protein-Dipstick Negative (Negative); Urine Bilirubin Dipstick Negative (Negative); Urine Clarity Clear (Clear); Urine Urobilinogen Normal (Normal)
[2021-12-02 12:18] LABS: Absolute Lymphocyte Count 1.32 X10^3/uL (0.83-4.51); Absolute Neutrophil Count 3.3 X10^3/uL (2.0-7.7); Basophil# 0.02 X10^3/uL; Basophil% 0.4 % (0-1); Eosinophil# 0.18 X10^3/uL; Eosinophils% 3.3 % (0-5); Hematocrit 33.1 % (40-54); Hemoglobin 11.2 g/dL (13.0-16.5); Lymphocyte # 1.32 X10^3/ul (0.83-4.51); Mean Corp Hgb Conc 33.8 g/dL (32-36); Mean Corpuscular Hgb 32.7 pg (27.0-32.0); Mean Corpuscular Volume 96.5 fL (80-94); Mean Platelet Vol. 9.8 fl (6.2-12.0); Monocyte# 0.64 X10^3/uL; Monocyte% 11.7 % (0-10); NRBC Flagged by Analyzer 0 % (0-5); Neutrophil # 3.31 X10^3/uL (2.7-7.7); Neutrophil % 60.2 % (47-70); Platelet Count 254 K/mm3 (150-450); RBC Distribution Width CV 12.1 % (11.6-14.6); RBC Distribution Width SD 42.5 fl (35.1-43.9); Red Blood Count 3.43 M/mm3 (4.6-6.2); White Blood Count 5.5 K/mm3 (4.4-11.0)
[2021-12-02 12:20] LABS: Protein, Urine (Random) 13.7 mg/dL (<11.9); Protein:Creat Ratio 139 mg/g CRE (0-200); Vitamin D,25 Hydroxy 64.4 ng/mL
[2021-12-02 12:24] LABS: PTHIN 49.6 pg/mL (18.4-80.1)
[2021-12-02 12:31] LABS: Red Blood Cells-Urine 10-25 SEEN /hpf (0-5)
[2021-12-02 12:35] LABS: AST(SGOT) 17 U/L (15-37); Alanine Aminotransfer ALT/SGPT 24 U/L (16-61); Albumin, Serum 3.5 g/dL (3.2-5.0); Alkaline Phosphatase 106 U/L (45-117); Anion Gap 5 (5-15); BUN 32 mg/dL (7-18); Calcium,Total 8.9 mg/dL (8.5-10.1); Chloride 107 mmol/L (98-107); Cholesterol 137 mg/dL (200); Creatinine, Serum 1.28 mg/dL (0.70-1.30); EST Glomerular Filtration Rate 59 mL/min (>60); Est Glom Filt Rate - Afr Amer 71 mL/min (>60); Globulin 3.5 g/dL (2.2-4.2); Glucose 91 mg/dL (74-106); High Density Lipoprotein 54 mg/dL; Magnesium 2.2 mg/dL (1.6-2.6); PSA,Total - Annual Screen 5.56 ng/mL (0.00-4.00); Potassium 4.3 mmol/L (3.5-5.1); Sodium Level 139 mmol/L (136-145); Thyroid Stim Hormone (TSH) 0.88 uIU/mL (0.358-3.74); Triglycerides 60 mg/dL; Very Low Density Lipoprotein 12 mg/dL (5-40)
--- NOTE | 2021-12-02 13:53 | CYSPIN_PTH ---
PATIENT: KARL ODOM LOC: [facility] U#:[id number] AGE/SX: 71/M ROOM: RE12/02/[address]: Dr. Raffi Vaca MD : [id number] BED: DIS: 12/02/2021 SPEC #: [id number] RECD: 12/06/21 08:03 STATUS: NIURKA MOFFETT #: [id number] FLAVIA: 12/02/21 13:[address]: Raffi Vaca DEPT: CYTOLOGY RECD BY: Libia Whipple Tissues: Urine Procedures: Pap Stain (control) Special Stain Group II Cytospin Fluid HEADER OPERATION: Not noted PRE-OP DIAGNOSIS: Hematuria TISSUE SUBMITTED: Urine for cytology DIAGNOSIS CYTOLOGY Urine for cytology (cytospin): Negative for high-grade urothelial carcinoma ([facility] Cytology Category II). KALEY:marlo 12/06/2021 COMMENT Red blood cells are noted. The [facility] System for urine cytology diagnostic categorization was used in the evaluation of this case. CYTOLOGY STUDY Slides are reviewed. CYTOLOGY GROSS Received is 1 ml of yellow cloudy fluid labeled with the patient's name and and designated per the requisition as urine. Submitted for cytology preparation. / marlo 12/05/2021 TC:5 CPT: 43319
[2021-12-05 13:55] LABS: Cytology, Body Fluid / CSF SEE PATHOLOGY REPORT
[2021-12-07 16:38] LABS: Zinc, Plasma or Serum 83 ug/dL (44-115)
== END | disposition home or self-care (01) ==
LOC: MFPLAB 10:00
PROVIDERS: PCP Family Medicine; Referring Provider Family Medicine; Visit Provider Family Medicine
DX: R31.9 Hematuria, unspecified (principal); N18.30 Chronic kidney disease, stage 3 unspecified; E55.9 Vitamin D deficiency, unspecified; E03.9 Hypothyroidism, unspecified; D64.9 Anemia, unspecified; R97.20 Elevated prostate specific antigen [PSA]
CPT/HCPCS: 36415; 80053; 80061; 81001; 82306; 82570; 83735; 83970; 84153; 84156; 84439; 84443; 84630; 85025; 88108; 88313; G0103

== ENCOUNTER → 2022-04-06 | Outpatient (CLI) | payer MEDICARE, SELFPAY ==
[2022-04-06 10:15] LABS: Bacteria 0 SEEN /hpf (None Seen); Mucous, Urine 0 SEEN /hpf (<or=2+); Squamous Epithelial Cells - UA 0 SEEN /hpf (0-5)
[2022-04-06 15:36] LABS: Absolute Lymphocyte Count 1.21 X10^3/uL (0.83-4.51); Absolute Neutrophil Count 3.4 X10^3/uL (2.0-7.7); Basophil# 0.02 X10^3/uL; Basophil% 0.4 % (0-1); Eosinophil# 0.19 X10^3/uL; Eosinophils% 3.4 % (0-5); Hematocrit 34.4 % (40-54); Hemoglobin 11.1 g/dL (13.0-16.5); Lymphocyte # 1.21 X10^3/ul (0.83-4.51); Mean Corp Hgb Conc 32.3 g/dL (32-36); Mean Corpuscular Hgb 31.9 pg (27.0-32.0); Mean Corpuscular Volume 98.9 fL (80-94); Mean Platelet Vol. 10.2 fl (6.2-12.0); Monocyte# 0.67 X10^3/uL; Monocyte% 12.2 % (0-10); NRBC Flagged by Analyzer 0 % (0-5); Neutrophil # 3.39 X10^3/uL (2.7-7.7); Neutrophil % 61.5 % (47-70); Platelet Count 243 K/mm3 (150-450); RBC Distribution Width CV 12.3 % (11.6-14.6); RBC Distribution Width SD 44.6 fl (35.1-43.9); Red Blood Count 3.48 M/mm3 (4.6-6.2); White Blood Count 5.5 K/mm3 (4.4-11.0)
[2022-04-06 15:48] LABS: Vitamin B12 665 pg/mL (211-911); Vitamin D,25 Hydroxy 80.4 ng/mL
[2022-04-06 15:54] LABS: Color, Urine Straw (Yellow); Glucose, Dipstick Normal (Normal); Ketone-Dipstick Negative (Negative); Leukocyte Esterase-Dipstick 25 /ul (Negative); Nitrite-Dipstick Negative (Negative); Occult Blood-Urine 25 /ul (Negative); Protein-Dipstick Negative (Negative); Specific Gravity, Urine 1.015 (1.002-1.030); Urine Bilirubin Dipstick Negative (Negative); Urine Clarity Clear (Clear); Urine Urobilinogen Normal (Normal)
[2022-04-06 16:21] LABS: Protein, Urine (Random) < 6.0 mg/dL (<11.9); Protein:Creat Ratio 103 mg/g CRE (0-200)
[2022-04-06 16:35] LABS: ALB/GLOB Ratio 1.2 RATIO (0.9-2.4); AST(SGOT) 13 U/L (15-37); Alanine Aminotransfer ALT/SGPT 18 U/L (16-61); Albumin, Serum 3.5 g/dL (3.2-5.0); Alkaline Phosphatase 101 U/L (45-117); Anion Gap 7 (5-15); BUN 35 mg/dL (7-18); BUN/Creat Ratio 25.4 RATIO (10-20); Calcium,Total 8.8 mg/dL (8.5-10.1); Chloride 106 mmol/L (98-107); Creatinine, Serum 1.38 mg/dL (0.70-1.30); EST Glomerular Filtration Rate 54 mL/min (>60); Est Glom Filt Rate - Afr Amer 65 mL/min (>60); Ferritin 248 ng/mL (26-388); Globulin 2.9 g/dL (2.2-4.2); Glucose 113 mg/dL (74-106); Iron 77 ug/dL (65-175); Magnesium 2.1 mg/dL (1.6-2.6); Potassium 4.4 mmol/L (3.5-5.1); Protein, Total 6.4 g/dL (6.4-8.2); Sodium Level 138 mmol/L (136-145); T4 Free Direct 1.17 ng/dL (0.76-1.46)
[2022-04-06 17:01] LABS: Red Blood Cells-Urine 0-5 SEEN /hpf (0-5); White Blood Cells 0-5 SEEN /hpf (0-5)
== END | disposition home or self-care (01) ==
LOC: MFPLAB 10:11
PROVIDERS: PCP Family Medicine; Referring Provider Family Medicine; Visit Provider Family Medicine
DX: N18.30 Chronic kidney disease, stage 3 unspecified (principal); I48.91 Unspecified atrial fibrillation; D64.9 Anemia, unspecified; E03.9 Hypothyroidism, unspecified; E53.8 Deficiency of other specified B group vitamins; E55.9 Vitamin D deficiency, unspecified
CPT/HCPCS: 36415; 80053; 81001; 82306; 82570; 82607; 82728; 82746; 83540; 83735; 83970; 84100; 84156; 84439; 84443; 85025

== ENCOUNTER → 2022-07-06 | Outpatient (CLI) | payer MEDICARE, SELFPAY ==
--- NOTE | 2022-07-06 07:39 | CT_ITS ---
STUDY: CT ABDOMEN AND PELVIS WITH AND WITHOUT CONTRAST REASON FOR EXAM: Male, 72 years old. GROSS HEMATURIA 2 weeks ago. RADIATION DOSAGE (If Supplied By Facility): CTDIvol = ( 17.02 ) mGy, DLP = ( 2289.58 ) mGycm TECHNIQUE: Transaxial images were obtained from the dome of the diaphragm to the symphysis pubis without oral contrast. IV 100mL Isovue-300 was administered. Sagittal and coronal images were reconstructed. Individualized dose optimization techniques were used for this CT. COMPARISON: Comparison is made with prior study dated January 21, 2021. FINDINGS: The visualized lung bases are unremarkable. The visualized portions of the heart are within normal limits. Normal liver. Normal gallbladder and extrahepatic biliary system. Normal spleen. Normal pancreas. Normal bilateral adrenal glands. Tiny nonobstructive calculus in the upper pole cancer of the right kidney. Scattered tiny nonobstructive calculi in the left kidney. The previously seen left perinephric hematoma has markedly improved. There is evidence of a residual 4.6 x 4.5 cm rounded soft tissue density with fat attenuation posteriorly. This may represent continued resorption of the left perinephric hematoma. Normal visualized stomach. Normal small intestine. Normal colon. The appendix is visualized and appears normal. There is diffuse atherosclerotic calcification of the abdominal aorta, without a demonstrated aneurysm. Normal inferior vena cava. Normal retroperitoneum. Normal urinary bladder. There is enlargement of the prostate gland. The prostate measures 5.4 cm x 5.4 cm. There is evidence of prostatic calcification. There is indentation at the bladder base. Normal abdominal wall. There are degenerative changes of the visualized lumbar spine. Loss of height of the superior endplate of the L1 vertebrae. CT/CT Abd/Pelvis W/WO Contrast IMPRESSION: Stable small bilateral nonobstructive intrarenal calculi. Persistent heterogeneous appearance in the posterior aspect of the left kidney as compared to prior study. Prostatic enlargement with indentation at the bladder base. Electronically Signed: Kana Azevedo MD at 15:48 EDT ,
[2022-07-06 08:10] LABS: EGFR FINGERSTICK > 60.0000 mL/min (>60)
== END | disposition home or self-care (01) ==
LOC: CT 07:37
PROVIDERS: PCP Family Medicine; Referring Provider Urology; Visit Provider Urology
DX: R31.0 Gross hematuria (principal); Z87.442 Personal history of urinary calculi
CPT/HCPCS: 74178; Q9967

== ENCOUNTER → 2022-07-31 | Outpatient (CLI) | payer MEDICARE, SELFPAY ==
[2022-07-31 09:09] LABS: Absolute Neutrophil Count 3.4 X10^3/uL (2.0-7.7); Basophil# 0.03 X10^3/uL; Basophil% 0.6 % (0-1); Eosinophils% 3.7 % (0-5); Hemoglobin 11.7 g/dL (13.0-16.5); Lymphocyte % 23.9 % (19-41); Mean Corp Hgb Conc 32.5 g/dL (32-36); Mean Corpuscular Hgb 32.1 pg (27.0-32.0); Mean Corpuscular Volume 98.9 fL (80-94); Monocyte# 0.51 X10^3/uL; Monocyte% 9.4 % (0-10); NRBC Flagged by Analyzer 0 % (0-5); Neutrophil # 3.37 X10^3/uL (2.7-7.7); Platelet Count 248 K/mm3 (150-450); RBC Distribution Width CV 12.3 % (11.6-14.6); RBC Distribution Width SD 45.1 fl (35.1-43.9); Red Blood Count 3.64 M/mm3 (4.6-6.2); White Blood Count 5.4 K/mm3 (4.4-11.0)
[2022-07-31 09:42] LABS: AST(SGOT) 17 U/L (15-37); Alanine Aminotransfer ALT/SGPT 21 U/L (16-61); Albumin, Serum 3.6 g/dL (3.2-5.0); Alkaline Phosphatase 108 U/L (45-117); Anion Gap 4 (5-15); BUN 33 mg/dL (7-18); BUN/Creat Ratio 29.2 RATIO (10-20); Calcium,Total 9.3 mg/dL (8.5-10.1); Chloride 108 mmol/L (98-107); Creatinine, Serum 1.13 mg/dL (0.70-1.30); EST Glomerular Filtration Rate 67 mL/min (>60); Est Glom Filt Rate - Afr Amer 82 mL/min (>60); Globulin 3.5 g/dL (2.2-4.2); Glucose 108 mg/dL (74-106); Magnesium 2.2 mg/dL (1.6-2.6); Potassium 4.2 mmol/L (3.5-5.1); Protein, Total 7.1 g/dL (6.4-8.2); Sodium Level 138 mmol/L (136-145); T4 Free Direct 1.31 ng/dL (0.76-1.46); Thyroid Stim Hormone (TSH) 0.54 uIU/mL (0.358-3.74)
[2022-07-31 09:51] LABS: Vitamin B12 558 pg/mL (211-911); Vitamin D,25 Hydroxy 86.5 ng/mL
[2022-07-31 10:01] LABS: Hemoglobin A1c 5.1 % (3.8-5.6)
== END | disposition home or self-care (01) ==
LOC: LAB 07:54
PROVIDERS: PCP Family Medicine; Referring Provider Family Medicine; Visit Provider Family Medicine
DX: E55.9 Vitamin D deficiency, unspecified (principal); I48.91 Unspecified atrial fibrillation; E53.8 Deficiency of other specified B group vitamins; E03.9 Hypothyroidism, unspecified; R73.09 Other abnormal glucose
CPT/HCPCS: 36415; 80053; 82306; 82607; 83036; 83735; 84439; 84443; 85025

== ENCOUNTER 2022-09-14 09:39 | Outpatient (RCR) | payer MEDICARE, SELFPAY ==
--- NOTE | 2022-09-14 11:12 | HP.PTEVAL_ITS ---
Patient's Visit Information KARL ODOM is a 72 year old M referred to Physical Therapy by Dr. Frankie Arellano MD with a diagnosis of Vertigo. Date of Evaluation: 09/14/22 Physical Therapist: JULIAN Sanchez - Visit Plan Frequency: 1-2x /Week Duration: 4 Weeks Plan: Re check L Hallpike and treat positional vertigo accordingly. HEP: Carreno Darneena if sx persist - Subjective Pt started with dizziness a few weeks ago and was working on her granddaughter car and was under the dash and had his head twisted. He noticed that he was dizzy. He noticed that a few night of that he went to lay down and the room was spinning for about a minute. He laid down on his L side. Normally he does not lay down on the L side. It is not there all the time. Since he had a cold he start to use his c-pap again. He took some meds last night (bendryl) and he took that last night before bed. He feels a little dizzy. He had some drainage last night and that is why he took it. He reports that he feels a little unsteadiness when he gets up. - Objective + L Hallpike for questionable horizontal ageotropic with non stop nystagmus with possible torsional component. Treated with L EPLY. Re test L Hallpike and had torsional nystagmus downbeating that stopped. Turned head to the R to start the L Eply and he had torsional nystagmus that subsided after 30 seconds and completed the L Eply. Re test L hallpike and had slowed nystamus downbeating that lasted about 20 seconds. Put head at 30 degrees flexion and pt had no dizziness and no nystagmus and then went to the R in 30 degrees flexion and had some slight nystagmus that subsided and back to the L in 30 degrees flexion and had no nystagmus. Sat pt up. Issued Wai Resendez Exercises to start tomm if sx start. - Balance/Special Test Scores Dizziness Score: 12 - Goals Goal 1:: I HEP Goal Time Frame: 4-6 Weeks Goal 2:: Abolish Positional Nystagmus Goal Time Frame: 4-6 Weeks Goal 3:: Be able to roll onto L side and look up under a car and not get dizzy - Rehabilitation Potential Rehabilitation Potential: Excellent - Anticipated Interventions Patient/Client Instruction: Educate patient on: Condition, Plan of Care For the Purpose of:: To improve ability to perform ADL's, To increase tolerance to activity/condition/position, To improve performance and independence with ADL's, To improve ability of physical actions for home/community/work/leisure Therapeutic Exercise to Include: Balance training, Coordination, Body mechanics, Postural training, Neuromotor development, Passive ROM For the Purpose of:: To improve muscle performance and motor function, To improve ability to perform ADL's, To increase tolerance to act ivity/condition/position, To improve performance and independence with ADL's, To decrease level of supervision to perform tasks, To improve gait and locomotor functions, To improve health of tissue, To increase flexibility/ROM, To improve balance, To improve safety with gait Manual Therapy Techniques to Include: Passive ROM, Other Comment: Eply and other repositioning manuvers For the Purpose of:: To increase tolerance to activity/condition/position, To improve performance and independence with ADL's, To improve ability of physical actions for home/community/work/leisure, To improve health of tissue, To increase flexibility/ROM Thank you for the opportunity to evaluate your patient. For Medicare and Medicare HMO plans, please review the plan of care and approve it. It will need to be FAXED BACK to us at [phone] for Medicare purposes. For Medicare only, by signing this I certify the plan of care. Please let me know if there are questions or concerns regarding this plan of care. Physician Signature: Date:
== END 2022-09-14 19:00 | disposition home or self-care (01) ==
LOC: PT 09:39
PROVIDERS: PCP Family Medicine; Referring Provider Family Medicine; Visit Provider Family Medicine
DX: R42 Dizziness and giddiness (principal)
CPT/HCPCS: 97161

== ENCOUNTER → 2022-11-24 | Outpatient (CLI) | payer MEDICARE, SELFPAY ==
[2022-11-24 11:43] LABS: Bacteria 0 SEEN /hpf (None Seen); Mucous, Urine 0 SEEN /hpf (<or=2+)
[2022-11-24 15:16] LABS: Absolute Lymphocyte Count 1.18 X10^3/uL (0.83-4.51); Absolute Neutrophil Count 2.7 X10^3/uL (2.0-7.7); Basophil# 0.02 X10^3/uL; Basophil% 0.4 % (0-1); Eosinophil# 0.11 X10^3/uL; Eosinophils% 2.4 % (0-5); Hematocrit 32.7 % (40-54); Hemoglobin 10.5 g/dL (13.0-16.5); Lymphocyte # 1.18 X10^3/ul (0.83-4.51); Lymphocyte % 26.3 % (19-41); Mean Corp Hgb Conc 32.1 g/dL (32-36); Mean Corpuscular Hgb 31.6 pg (27.0-32.0); Mean Corpuscular Volume 98.5 fL (80-94); Monocyte# 0.47 X10^3/uL; Monocyte% 10.5 % (0-10); NRBC Flagged by Analyzer 0 % (0-5); Neutrophil % 60.2 % (47-70); Platelet Count 254 K/mm3 (150-450); RBC Distribution Width CV 12.4 % (11.6-14.6); Red Blood Count 3.32 M/mm3 (4.6-6.2); White Blood Count 4.5 K/mm3 (4.4-11.0)
[2022-11-24 15:18] LABS: Color, Urine Yellow (Yellow); Glucose, Dipstick Normal (Normal); Ketone-Dipstick Negative (Negative); Leukocyte Esterase-Dipstick 25 /ul (Negative); Nitrite-Dipstick Negative (Negative); Occult Blood-Urine 10 /ul (Negative); Protein-Dipstick Negative (Negative); Urine Bilirubin Dipstick Negative (Negative); Urine Clarity Clear (Clear); Urine Urobilinogen Normal (Normal)
[2022-11-24 15:26] LABS: Red Blood Cells-Urine 0-5 SEEN /hpf (0-5); Squamous Epithelial Cells - UA 0-5 SEEN /hpf (0-5); White Blood Cells 0-5 SEEN /hpf (0-5)
[2022-11-24 15:44] LABS: PTHIN 73.1 pg/mL (18.4-80.1)
[2022-11-24 15:51] LABS: Protein, Urine (Random) 19.2 mg/dL (<11.9); Protein:Creat Ratio 90 mg/g CRE (0-200)
[2022-11-24 15:54] LABS: Vitamin B12 486 pg/mL (211-911); Vitamin D,25 Hydroxy 80.6 ng/mL
[2022-11-24 16:27] LABS: ALB/GLOB Ratio 1.1 RATIO (0.9-2.4); AST(SGOT) 15 U/L (15-37); Alanine Aminotransfer ALT/SGPT 25 U/L (16-61); Albumin, Serum 3.6 g/dL (3.2-5.0); Alkaline Phosphatase 90 U/L (45-117); Anion Gap 5 (5-15); BUN 31 mg/dL (7-18); BUN/Creat Ratio 19.7 RATIO (10-20); Chloride 107 mmol/L (98-107); Creatinine, Serum 1.57 mg/dL (0.70-1.30); EST Glomerular Filtration Rate 46 mL/min (>60); Est Glom Filt Rate - Afr Amer 56 mL/min (>60); Globulin 3.3 g/dL (2.2-4.2); Glucose 82 mg/dL (74-106); Magnesium 2.4 mg/dL (1.6-2.6); Phosphorus 2.9 mg/dL (2.5-4.9); Potassium 4.5 mmol/L (3.5-5.1); Protein, Total 6.9 g/dL (6.4-8.2); Sodium Level 138 mmol/L (136-145); T4 Free Direct 1.06 ng/dL (0.76-1.46); Thyroid Stim Hormone (TSH) 1.58 uIU/mL (0.358-3.74)
== END | disposition home or self-care (01) ==
LOC: MFPLAB 11:38
PROVIDERS: PCP Family Medicine; Visit Provider Family Medicine
DX: I48.91 Unspecified atrial fibrillation (principal); N18.30 Chronic kidney disease, stage 3 unspecified; E03.9 Hypothyroidism, unspecified; E55.9 Vitamin D deficiency, unspecified; E53.8 Deficiency of other specified B group vitamins
CPT/HCPCS: 36415; 80053; 81001; 82306; 82570; 82607; 82746; 83735; 83970; 84100; 84156; 84439; 84443; 85025

== ENCOUNTER → 2022-11-29 | Outpatient (CLI) | payer MEDICARE, SELFPAY ==
[2022-11-29 12:29] LABS: Anion Gap 4 (5-15); BUN 30 mg/dL (7-18); BUN/Creat Ratio 22.7 RATIO (10-20); Calcium,Total 9.3 mg/dL (8.5-10.1); Chloride 107 mmol/L (98-107); Creatinine, Serum 1.32 mg/dL (0.70-1.30); EST Glomerular Filtration Rate 56 mL/min (>60); Est Glom Filt Rate - Afr Amer 68 mL/min (>60); Glucose 94 mg/dL (74-106); Potassium 4.7 mmol/L (3.5-5.1); Sodium Level 138 mmol/L (136-145)
== END | disposition home or self-care (01) ==
LOC: MFPLAB 10:41
PROVIDERS: PCP Family Medicine; Visit Provider Family Medicine
DX: N18.30 Chronic kidney disease, stage 3 unspecified (principal)
CPT/HCPCS: 36415; 80048

== ENCOUNTER → 2023-02-01 | Outpatient (CLI) | payer MEDICARE, SELFPAY ==
[2023-02-01 13:49] LABS: Anion Gap 5 (5-15); BUN 26 mg/dL (7-18); Chloride 107 mmol/L (98-107); Creatinine, Serum 1.37 mg/dL (0.70-1.30); EST Glomerular Filtration Rate 54 mL/min (>60); Est Glom Filt Rate - Afr Amer 65 mL/min (>60); Glucose 103 mg/dL (74-106); PSA,Total - Annual Screen 6.45 ng/mL (0.00-4.00); Potassium 4.4 mmol/L (3.5-5.1); Sodium Level 139 mmol/L (136-145)
== END | disposition home or self-care (01) ==
LOC: MFPLAB 10:30
PROVIDERS: PCP Family Medicine; Visit Provider Family Medicine
DX: Z12.5 Encounter for screening for malignant neoplasm of prostate (principal); R94.4 Abnormal results of kidney function studies
CPT/HCPCS: 36415; 80048; 84153; G0103

== ENCOUNTER 2023-06-01 09:58 | Outpatient (CLI) | payer MEDICARE, SELFPAY ==
--- OUTSIDE RECORDS SUMMARY | 2023-06-01 10:39 | XMS RPT_ITS | CCD ---
Author Name Unknown Address [address] [address] [place] [address] Organization [facility] Care Team Providers Care Supervisor Waterproofing Name Role Phone PROVIDER, UNKNOWN Admitting Unavailable PROVIDER, UNKNOWN Attending Unavailable PROVIDER, UNKNOWN Admitting Unavailable PROVIDER, UNKNOWN Attending Unavailable MARIFER DAWN Admitting Unavailable REQUEST, IP PHYSICAL THERAPY SERVICE Consulting Unavailable ABDULKADIR VILLALBA Attending Unavailable REQUEST, IP OCCUPATIONAL THERAPY SERVICE Consult ing Unavailable CONSULT, IP SURGERY UROLOGY Consulting Unav ailable PROVIDER, UNKNOWN Admitting Unavailable PROVIDER, UNKNOWN Attending Unavailable Manuel Hardy Primary Care Provider Manuel Hardy Primary Care Provider FRANKIE BEDOYA Referring Unavailable MANUEL HARDY Primary Care Unavailabl e FRANKIE BEDOYA Referring Unavailable FRANKIE BEDOYA Attending Unavailable MANUEL HARDY Primary Care Unavailabl e Medications Completed/Discontinued Medications Medication Drug Class(es) Dates Sig (Normalized) Sig (Original) ALIVE MEN'S GUMMY VITAMIN ORAL (4 sources) take 3 doses by mout h once daily ALIVE MEN'S GUMMY VITAMIN ORAL Take 3 Each by mouth once daily. 0 Active Problems Active Problems Problem Classification Problem Date Documented Da te Episodic/Chronic Hyperplasia of prostate (4 sources) Benign prostatic hyperplasia; Translations: [Benign prostatic hyperplasia with lower urinary tract symptoms] Onset: 05-06-2015 05-06-2015 Chronic Past or Other Problems Problem Classification Problem Date Documented Da te Episodic/Chronic Calculus of urinary tract (4 sources) History of calculus of kidney; Translations: [Personal history of urinary calculi] Onset: 05-06-2015 05-06-2015 Episodic Crushing injury or internal injury (4 sources) Contusion of kidney; Translations: [Minor contusion of unspecified kidney, initial encounter] Onset: 05-06-2015 05-06-2015 Episodic Deficiency and other anemia (5 sources) Anemia; Translations: [Anemia, unspecified] Onset: 08-13-2019 08-13-2019 Episodic Deficiency and other anemia (1 source) Anemia, unspecified; Translations: [Anemia, unspecified type] Onset: 08-13-2019 Episodic Other fractures (4 sources) Compression fracture of L2; Translations: [Wedge compression fracture of second lumbar vertebra, sequela] Onset: 07-19-2020 07-19-2020 Episodic Other fractures (4 sources) Fracture of third lumbar vertebra; Translations: [Wedge compression fracture of third lumbar vertebra, sequela] Onset: 07-19-2020 07-19-2020 Episodic Other screening for suspected conditions (not mental disorders or infectious disease) (4 sources) Raised prostate specific antigen; Translations: [Elevated prostate specific antigen [PSA]] Onset: 12-16-2015 12-16-2015 Episodic Results Test Name Value Interpretation Reference Range Facil ity Encounters Encounter Date Encounter Type Care Provider Facility Start: 11-03-2021 Telephone encounter Frankie peñaloza DO Work Phone: Hematology/Oncology Procedures Date Procedure Procedure Detail Performing Clinician Start: 04-16-2020 Colonoscopy Frankie Bedoya DO Work Phone: Plan of Treatment Date Care Activity Detail Author Start: 10-31-2024 DIABETES SCREEN DIABETES SCREEN [facility] Start: 01-28-2024 DIABETES SCREEN DIABETES SCREEN [facility] Start: 04-09-2022 ADVANCE DIRECTIVE DISCUSSION ADVANCE DIRECTIVE DISCUSSION [facility] Start: 04-09-2022 DEPRESSION ASSESSMENT DEPRESSION ASS ESSMENT [facility] Start: 12-08-2021 Influenza vaccination INFLUENZA (#1) [facility] Start: 10-31-2021 End: 12-31-2021 Basic metabolic 2000 panel - Serum or Plasma BASIC METABOLIC PNL Lab Routine Anemia, unspecified type Expected: 10/31/2021, Expires: 12/31/2021 [facility] Work Phone: Payers Date Payer Category Payer Unknown [id number] 2013 Medicare HUMANA MEDICARE HUMANA MEDICARE PPO [id number] 2013-Present [phone] [address] [address] [place] [id number] PPO [id number] 2013 Medicare HUMANA MEDICARE HUMANA MEDICARE PPO [id number] 2013-Present [phone] [address] [address] [place] [address] PPO [id number] 2013 Private Health Insurance [id number] 1950 Unknown [id number] 1950 Unknown [id number] 1950 Unknown [id number] 1950 Unknown [id number] Social History Date Type Detail Facility Start: 05-06-2015 Tobacco smoking stat [facility] Never smoked tobacco [facility] Work Phone: Start: 05-06-2015 Tobacco use and exposure Smokeless tobacco non-user [facility] Work Phone: Start: 02-09-2021 End: 10-31-2021 Alcohol intake Current non-drinker of alcohol (finding) [facility] Start: 1950 Sex Assigned At Not on file [facility] Start: 10-21-2021 End: 10-31-2021 Exposure to SARS-CoV-2 (event) Not sure [facility] Clinical Notes 01-22-2021 to 11-03-2021 Telephone Encounter - Emily Rausch LPN - 11/03/2021 8:33 AM EDTTelephone Encounter - Frankie Bedoya DO - 11/03/2021 8:20 AM EDTTelephone Encounter - Peyton Agee LPN - 11/03/2021 8:04 AM EDT Note Date & Type Note Facility 11-03-2021 Miscellaneous Notes Discussed with who voices understanding. Emily Rausch LPN Iron levels doing well. He can follow-up with his PCP as we discussed at the office visit. He still has mild anemia from chronic kidney disease but no treatment indicated unless hemoglobin goes below 10 g/dL. Frankie Bedoya DO Pt. Requesting results for iron studies. Peyton Agee LPN documented in this encounter [facility] 10-31-2021 Note HNO ID: [id number] Author: Frankie Bedoya DO Service: ? Author Type: Physician Type: Progress Notes Filed: 10/31/2021 10:36 AM Note Text: Diagnosis: 1) Anemia. HPI: The patient is a 71 yo male with a PMH significant for hypothyroidism, sleep apnea (uses CPAP consistently), BPH, atrial fibrillation and CKD (attributed to kidney laceration sustained after a fall from a ladder 04/2015). Long h/o anemia. Was seen by Dr. Dejesus ~30 years ago for this. No clear etiology. CBC with differential done on 10/18/2018 showed white count 5600. Differential normal. Hemoglobin 11.5 g/dL. Red cell indexes normal. Platelet count 255,000. Chemistries significant for serum creatinine 1.31 mg/dL serum total protein and albumin normal. Haptoglobin 174 mg/dL. Iron studies normal. LDH 179. B-12 663. CBC and chemistries from April 2015 reviewed. Fell from ladder . Developed gross hematuria. Went to ED. CT scan abdomen pelvis identified L1 compression fracture of uncertain chronicity. Nonobstructing left renal calculus was noted. Saw Dr. Garcia. Had Covid, so lithotripsy delayed until 01/12. Was inpatient 4 days. Received 2 unit RBC transfusion. When home, had onset recurrent gross hematuria. Went to ED at [facility]. Received transfusion. Life cgtfoc39/[address] [facility]. Hgb 6.7 g/dL. No further gross hematuria. He was advised to restart apixaban when discharged from [facility]. He is on oral iron supplementation and also has been taking folic acid. Presents for ongoing oncologic management. Interim history: No further gross hematuria. No pain to suggest kidney stones. He has generalized fatigue but is capable of ADLs and IADLs. -No unusual bleeding or unexplained bruising. He remains on anticoagulation for history of atrial fibrillation. He also takes low-dose aspirin every day. PMH, medications and allergies personally reviewed by me today. Any changes documented in appropriate section. ROS: Constitutional: Denies episodes of fever and night sweats. Neuro: Denies PALMA, vertigo, dizziness and imbalance. HEENT: No recent change in voice, vision or hearing. Resp: Denies cough, wheeze and hemoptysis. Denies shortness of breath at rest. Denies WHITAKER. CVS: Denies exertional chest pain, PND, orthopnea and LE edema. GI: Denies dysgeusia. Denies symptoms of stomatitis. Denies dysphagia and odynophagia. Denies reflux, n/v, change in bowel habits and abdominal pain. : See above. Endo: Denies hot flashes. Denies polyuria and polydipsia. Denies heat and cold intolerance. Musculoskeletal: Denies bone, back, joint and muscular pain. Derm: Denies rash. Denies jaundice and diffuse pruritis. Heme: Denies unusual bleeding and unexplained bruising. Psych: Normal mood. PHYSICAL EXAM: Vitals: Blood pressure 126/59, pulse (!) 52, temperature 36.7 ?C (98.1 ?F), temperature source Temporal, weight 73 kg (161 lb). Well-appearing and in no acute distress. EYES: Sclerae are anicteric bilaterally. NECK: Supple. LYMPHATIC: There is no palpable cervical, supraclavicular or axillary adenopathy. RESPIRATORY: Inspiratory breath sounds are of normal intensity in all eng. No rales, wheezes or rhonchi. CARDIOVASCULAR: Rhythm is regular on today's exam. ABDOMEN: The abdomen is nondistended. Extremities: No swelling or edema. SKIN: No jaundice or rash. NEUROLOGIC: clammer II-XII are grossly intact. No focal motor weakness. LABS: Component Latest Ref Rng AND Units 10/31/2021 WBC 3.70 - 11.00 k/uL 7.13 RBC 4.20 - 6.00 m/uL 3.54 (L) Hemoglobin 13.0 - 17.0 g/dL 11.4 (L) Hematocrit 39.0 - 51.0 % 33.8 (L) MCV 80.0 - 100.0 fL 95.5 MCH 26.0 - 34.0 pg 32.2 MCHC 30.5 - 36.0 g/dL 33.7 RDW-CV 11.5 - 15.0 % 12.0 Platelet Count 150 - 400 k/uL 246 MPV 9.0 - 12.7 fL 9.4 Neut% % 70.8 Abs Neut (ANC) 1.45 - 7.50 k/uL 5.05 Lymph% % 18.0 Abs Lymph 1.00 - 4.00 k/uL 1.28 Loudoun% % 8.4 Abs [place] <0.87 k/uL 0.60 Eosin% % 1.8 Abs Eosin <0.46 k/uL 0.13 Baso% % 0.4 Abs Baso <0.11 k/uL 0.03 Immature Gran % % 0.6 IMMATURE GRANS (ABS) <0.10 k/uL 0.04 NRBC /100 WBC 0.0 Absolute nRBC <0.01 k/uL <0.01 DTYPE Auto Glucose 74 - 99 mg/dL 104 (H) BUN 9 - 24 mg/dL 35 (H) Creatinine 0.73 - 1.22 mg/dL 1.58 (H) Sodium 136 - 144 mmol/L 135 (L) Potassium 3.7 - 5.1 mmol/L 4.7 Chloride 97 - 105 mmol/L 103 CO2 22 - 30 mmol/L 23 Anion Gap 9 - 18 mmol/L 9 Calcium 8.5 - 10.2 mg/dL 9.2 eGFR >=60 mL/min/1.73m? 46 (L) ASSESSMENT/PLAN: (N18.3, D63.1) Anemia due to stage 3 chronic kidney disease (HCC) (primary encounter diagnosis) Assessment: -Chronic mild normochromic normocytic anemia. -Last exacerbated by perinephric and retroperitoneal hemorrhage. -Improved and now stable. Iron studies pending. -He has chronic kidney disease. Plan: -Parenteral iron if iron saturation less than 20% or ferritin indicates need. -May be a candidate for JOI in the future. -Discussed with him that if today's iron leve (more content not included)... [facility] 09-12-2021 Miscellaneous Notes Patient is rescheduled, aware of time and date. Nicol Luong Patient's misunderstood and cancelled appointment for 09/14/2021. Please call to reschedule CBC/BMP/IRON STUDIES/6MO OV. Allyssa Barone LPN Message left for to contact office. Allyssa Barone LPN Patient's Jennifer called requesting to speak to a nurse, has question about labs, can be reached at [phone]. Thank you Shruti Sharma documented in this encounter [facility] 06-27-2021 Miscellaneous Notes Spoke with pts. , informed that Dr. Bedoya looked at all pts. Lab results, and stated His blood counts have improved. will pass info on to pt. Peyton Agee LPN Blood counts have improved. Frankie Bedoya DO Lab results received and placed in Dr. Bedoya's mailbox for review. Allyssa Barone LPN Recent lab results requested from PCP. Allyssa Barone LPN Pt had labs done through PCP. Wanted to let you know his hemoglobin was 11.9 today. documented in this encounter [facility] 01-27-2021 Note DISCHARGE SUMMARY [address] [id number] Karl Odom Date of : 1950 70 year old male Attending Abdulkadir Villalba MD Date of Admission 01/21/2021 Date of Discharge 01/27/2021 [Principal Hospital Problem (Final Diagnosis)] Perinephric hematoma [Secondary Hospital Problems] Hematuria Discharge Procedure Orders UROLOGY SERVICE REQUEST Future Appointments Date Time Provider Department Center 02/15/2021 3:15 PM Ann Penaloza MD [facility] Condition at Discharge Improved Activity No restrictions Diet No restrictions Disposition Home Functional Status Ambulatory Reason for Hospitalization Syncopy Significant Findings CTA ABDOMEN + PELVIS W/ 01/21/2021 IMPRESSION: 1. Findings compatible with a large mixed acute and subacute left perirenal and retroperitoneal hematoma associated with hyperattenuating extraparenchymal foci on arterial and delayed phases, suspicious for small areas of active hemorrhage. 2. The large left perirenal and retroperitoneal hematoma slightly increased in size compared to the previous study of 01/21/2021 at 0310 hours. 3. No pneumoperitoneum. 4. Nonobstructing left renal calculi. 5. Small volume of perisplenic ascites. 6. Small to moderate left pleural effusion. Hospital Course 70 year old male with a PMHx of HLD, CKD and Afib (on Eliquis) who presented to the ED following a possible syncopal episode in the context of recent lithotripsy (01/12/21) and fall (01/19/21). CT abdomen showed perinephric hematoma and a Hgb of 6.9, treated with 1 unit of pRBCs, FFP and vitamin K. Repeat CBC with a hbg of 6.7, given an additional 2 units of pRBCs. CTA abdomen ordered with perinephric hematoma, possible active extravasation and perisplenic fluid. Urology consulted and did not appreciated active extravasation. IR consulted, stated that degree of extravasation if present at all, is minimal. Neither IR nor urology with any acute interventions planned. Patient admitted to SDU for symptomatic blood loss anemia in the setting of retroperitoneal hematoma with recent lithotripsy and fall. Patient with relatively stable Hgb, started onLovenox while monitoring for signs of bleeding and for changes in Hgb. Patient transferred to [facility].??? Patient is being discharged with tamsulosin and will follow up with urology outpatient. I provided the patient and/or family/surrogate with the following information: Explanation of the primary diagnosis, and secondary diagnoses where applicable, including test results, Discussion of any new medications and treatments, including expected benefits and potential major side effects, Explanation of previous treatments or medications that are discontinued, Discussion of post-hospital day-to-day care needs and Follow-up plans, and warning signs that should prompt more urgent follow-up Discharge Medication List as of 01/27/2021 2:56 PM START taking these medications Details hydrOXYzine (ATARAX) 25 MG tablet Take 1 Tablet by mouth 4 times daily as needed for Itching.25 mg * Normal * Disp-5 Tablet, R-0 - Until 04/27/2021 tamsulosin (FLOMAX) 0.4 MG capsule Take 1 Capsule by mouth daily.0.4 mg * Normal * Disp-60 Capsule, R-3 CONTINUE these medications which have NOT CHANGED Details levothyroxine (SYNTHROID) 137 MCG tablet Historical Med omeprazole (PRILOSEC) 40 MG capsule Historical Med ondansetron (ZOFRAN) 4 MG tablet Historical Med calcium carbonate (OS-JEANETH) 1250 (500 Ca) MG tablet Take by mouth.Historical Med Cholecalciferol 50 MCG (1999 UT) CAPS Take by mouth.Historical Med diltiazem (CARDIZEM CD) 120 MG ER capsule Historical Med Ferrous Sulfate 324 MG TBEC Take by mouth.Historical Med flecainide (TAMBOCOR) 100 MG tablet Historical Med hydrocodone-acetaminophen (NORCO) 5-325 mg per tablet Take by mouth.Historical Med Eliquis 5 MG tablet Historical Med * ORALIA atorvastatin (LIPITOR) 10 MG tablet Take by mouth.Historical Med Calcium Ascorbate 500 MG TABS Take by mouth.Historical Med Alfredo Ventura MD Internal Medicine, PGY-1 Pager: [phone] [facility] 01-27-2021 Note INTERNAL MEDICINE TEAM 2 DAILY PROGRESS NOTE Patient: Karl Odom : 1950 Sex: male Room: [place] [id number] Admit Date: 01/21/2021 Today's Date: 01/27/2021 Length of stay: 5 day(s) HOSPITAL COURSE: 70 year old male with a PMHx of HLD, CKD and Afib (on Eliquis) who presented to the ED following a possible syncopal episode in the context of recent lithotripsy (01/12/21) and fall (01/19/21). CT abdomen showed perinephric hematoma and a Hgb of 6.9, treated with 1 unit of pRBCs, FFP and vitamin K. Repeat CBC with a hbg of 6.7, given an additional 2 units of pRBCs. CTA abdomen ordered with perinephric hematoma, possible active extravasation and perisplenic fluid. Urology consulted and did not appreciated active extravasation. IR consulted, stated that degree of extravasation if present at all, is minimal. Neither IR nor urology with any acute interventions planned. Patient admitted to SDU for symptomatic blood loss anemia in the setting of retroperitoneal hematoma with recent lithotripsy and fall. Patient with relatively stable Hgb, started onLovenox while monitoring for signs of bleeding and for changes in Hgb. Patient transferred to [facility]. EVENTS IN PAST 24H: No acute events overnight SUBJECTIVE: Patient feeling fatigued and nauseous after walking around [place]. Also complaining of chronic constipation with straining. Denies dizziness or light headed feeling. No headache, chest pain, shortness of breath, or abdominal pain. Mild tenderness of suprapubic area. Otherwise feeling ready to go home but understands and agrees with the plan. OBJECTIVE: Patient Vitals for the past 24 hrs: BP Temp Temp src Pulse Resp SpO2 O2 Device 01/27/21 0022 132/59 98.1 ???F (36.7 ???C) Oral 79 18 99 % Room air 01/26/21 1442 131/64 98.5 ???F (36.9 ???C) Temporal 88 18 99 % Room air 01/26/21 1200 -- -- -- -- -- -- Room air 01/26/21 0826 142/70 98.4 ???F (36.9 ???C) Oral 72 18 100 % Room air 01/26/21 0810 -- -- -- -- -- -- Room air Is/Os Baseline Weight Admission Weight Weight: 167 lb 15.9 oz (76.2 kg) Today's Weight Weight: 174 lb 9.7 oz (79.2 kg) BMI 28.18 Change in Weight: Current value is 174.6 lb (79.199 kg) on 01/25/2021 at 0000 +2.2 lb (1.000 kg) (1.28 %) from 172.4 lb (78.199 kg) on 01/23/2021 at 0000 (previous value) +6.6 lb (3.000 kg) (3.94 %) from 168.0 lb (76.199 kg) on 01/22/2021 at 0242 (first value for this admission) Intake/Output Summary (Last 24 hours) at 01/27/2021 0648 Last data filed at 01/27/2021 0554 Gross per 24 hour Intake -- Output 2150 ml Net -2150 ml In: - (0 mL/kg) Out: 1650 (20.8 mL/kg) [Urine:1650 (0.9 mL/kg/hr)] Net: -1650 Weight: 79.2 kg Physical Exam: Physical Exam Vitals reviewed. Constitutional: General: He is not in acute distress. Appearance: Normal appearance. HENT: Head: Normocephalic and atraumatic. Mouth/Throat: Mouth: Mucous membranes are moist. Pharynx: Oropharynx is clear. Eyes: Extraocular Movements: Extraocular movements intact. Conjunctiva/sclera: Conjunctivae normal. Cardiovascular: Rate and Rhythm: Normal rate and regular rhythm. Heart sounds: Normal heart sounds. Pulmonary: Effort: Pulmonary effort is normal. Breath sounds: Normal breath sounds. Abdominal: General: Bowel sounds are normal. There is no distension. Palpations: Abdomen is soft. Tenderness: There is no abdominal tenderness. There is no guarding. Musculoskeletal: General: No swelling or signs of injury. Cervical back: No rigidity or tenderness. Right lower leg: No edema. Left lower leg: No edema. Skin: General: Skin is warm and dry. Neurological: General: No focal deficit present. Mental Status: He is alert and oriented to person, place, and time. Motor: No weakness. Lines/Drains Peripheral IV Access: 01/21/21 18 gauge Right Antecubital Present on Arrival to Hospital / Inserted by EMS (Active) Site Assessment WNL;Dressing intact 01/25/212235 Infusion Status Port #1 Capped;Patent 01/25/212235 Number of days: 5 Indwelling Urinary Catheter 01/21/212199 18 FR (Active) Site Assessment WNL 01/25/212235 Catheter Care Catheter tube secured 01/25/212235 Newman Procedure Assessment Maintain urologic, gynecological surgeries/procedures 01/25/212235 Urine (ml) 500 01/26/21 0406 Number of days: 5 CURRENT MEDICATIONS: Scheduled Meds * Apixaban 5 mg 2x Daily * ferrous sulfate 325 mg Q48H * melatonin 5 mg At Bedtime * polyethylene glycol 17 g Daily * senna 8.6 mg At Bedtime * Normal consistency 3x Daily with Meals * [MAR Hold] albuterol 2.5 mg Q4H RT * aspirin 81 mg Daily * atorvastatin 20 mg Daily * flecainide 100 mg 2x Daily * levothyroxine 137 mcg Before Breakfast * esomeprazole 20 mg Daily 30 min before breakfast * docusate sodium 100 mg 2x Daily IV Meds * lactated ringers 75 mL/hr at 01/24/21 1228 PRN Meds * ondansetron 4 mg Q6H PRN * albuterol 2.5 mg Q4H PRN * oxyCODONE (more content not included)... [facility] 01-26-2021 Note Physical Therapy Referral received. Chart reviewed. Patient admitted from OSH with L perinephric hematoma and Anemia concerning for L retroperitoneal bleed. Patient s/p L extracorporeal shockwave lithotripsy 1 week ago and had gross hematuria on POD#2. Patient observed ambulating independently with OT this AM. Patient also getting self in and out of bed. Met with patient at bedside who confirms he is mobilizing well. Patient denies concerns for home going. Patient reports 2-3 steps to enter and laundry in basement. Jessica has rails on the stairs. Patient declined further mobility with PT at this time or stairs secondary to discomfort in upper abdomen (nausea). Reported to RN. Patient denies concerns for stairs or any acute PT needs and states I could run around here if I didn't have this here. (pointing to upper abdomen). Will d/c PT referral. Encouraged patient to ambulate around room and unit independently but to notify staff if any change in function occurs. Please reconsult if there is any decline in mobility. Continue to encourage OOB. Erin Tyson, [facility] B#: [phone] [facility] 01-26-2021 Note OCCUPATIONAL THERAPY INITIAL EVALUATION Patient seen from 10:40AM to 11:03AM on 9C unit for 15 eval and 8 minutes of treatment. Reason for Admit: Patient is a is a 70 year old White male. He presents as a transfer from OSH with left perinephric hematoma and anemia concerning for left retroperitoneal bleed. The patient underwent left extracorporeal shockwave lithotripsy 1 week ago. Noticed gross hematuria POD#2. Presented to OSH ED for evaluation and was noted to have acute blood loss anemia with a Hgb 6.9. The patient was then transferred to [facility] for evaluation. Diagnosis: acute blood loss anemia in the setting of retroperitoneal hematoma with recent lithotripsy and fall PMHx is significant for HLD, CKD and Afib (on Eliquis) Precautions/Activity Order: Full Code, initiate progressive mobility, Strict I's and O's, falls. SUBJECTIVE: Patient Subjective: I'll be a lot better once this (catheter) comes out. Home Living Situation Prior Functional Status: independent with Activities of Daily Living Independent Driving Shared responsibilities with Instrumental Activities of Daily Living Assistance Available at Home: Lives with with medical issues due to recent COVID exposure. Patient lives in a 1 story home with 2 stairs to enter with railing at garage entrance. Full Bathroom on same level with tub shower. Bedroom on same level. Equipment available at home: Rolling walker and tub seat available OBJECTIVE: Patient Identification: patient verbalizing his/her name and date of . Risks and benefits of occupational therapy: Patient informed of risks and benefits of treatment Appearance: Newman Alertness: WFL Affect: WNL Cooperation/Behavior: Appropriate dialogue with therapist and Pleasant and cooperative Communication: WFL Pain: Pain ratin/10, Location: Catheter Pain Relief Interventions Implemented: None required; No pain at this time Self Care: Assistance Level Dep Max Mod Min CG CS DS AZ I Set-Up Comment Feeding X Grooming/Hygiene X Bathing:UB X Bathes in standing by the edge of bed Bathing:LB X Bathes in standing/sitting by the edge of bed Dressing:UB X Dons gowns to front and back Dressing: LB X Dons bilateral socks Toileting X External catheter at present. Patient reports to emptying bag without assistance. Demonstrates mobility and self care performance necessary for completing toileting without assistance. Transfers/Bed Mobility: Assistance Level Dep Max Mod Min CG DS AZ I Set-Up Comment Toilet Transfers X To/from commode Bed Transfers X Bed Mobility X Supine to/from sitting at the edge of bed Endurance for Self Care: Fair+. Completes self care and 5 minute ambulation activity with good pacing and minimal SOB Static Sitting Balance: Good Dynamic Sitting Balance: Good UE Motor: Bilateral UE AROM/Strength/Coordination WNLs Vision/Perception: WFLs. Corrective lenses available at the bedside. Cognition: Orientation: Oriented to person, place, date, recent events and situation Follows Commands: Able to follow three step commands Attention: able to attend to simple ADL without cues Memory: WFL Problem Solving: WFL Safety/Judgement: WFL Sequencing: Able to sequence simple ADLs without cues. Patient/Family Education: Instructed patient in roles of therapy Patient up in chair with call light in reach. ??? DME: No equipment needs required at this time. ??? 6 Clicks Daily Activity OT 01/26/2021 Help from another person Eating meals 4 Help from another person taking care of personal grooming 4 Help from another person bathing 4 Help from another person putting on and taking off regular upper body clothing 4 Help from another person putting on and taking off regular lower body clothing 4 Help from another person toileting 4 OT 6 Clicks Score 24 6 Click Score Guidelines: 1 - Unable = Total/Dependent Assist 2 - A lot = Max/Moderate Assist 3 - A little = Minimum/Contact Guard Assist/Supervision 4 - Non = Modified [place]/Independent ASSESSMENT: Patient performing self care and mobility activities at near baseline performance levels. Patient is functionally appropriate for discharge home once medically cleared. No further Occupational Therapy Services reccommended at this time. Rehabilitation Potential: N/A Problem List: Mild Deconditioning PLAN: Karl Odom will be discharged from occupational therapy at this time. I discussed the evaluation findings and treatment plan with the patient. The patient did verbalize understanding of the plan. Jose Carlos Gay, OT/L NA = Not Assessed, I = Independent, AZ = Modified Independent, Sup = Supervised, Set up = Physical Assistance for Set-up Only, Min = Minimal Assistance, Mod = Moderate Assistance, Max = Max assistance; Dep = Dependent; AROM = Active Range of Motion;PROM=Passive Range of Motion; MMT = Manual Muscle Test; UB = Upper Body; LB = Lower Body [facility] 01-25-2021 Note INTERNAL MEDICINE TEAM 2 DAILY PROGRESS NOTE Patient: Karl Odom : 1950 Sex: male Room: [place] [address] Admit Date: 01/21/2021 Today's Date: 01/25/2021 Length of stay: 3 day(s) HOSPITAL COURSE: 70 year old male with a PMHx of HLD, CKD and Afib (on Eliquis) who presented to the ED following a possible syncopal episode in the context of recent lithotripsy (01/19/21) and fall. CT abdomen showed perinephric hematoma and a Hgb of 6.9, treated with 1 unit ob PRBCs, FFP and vitamin K. Repeat CBC with a hbg of 6.7, given an additional 2 units of PRBCs. CTA abdomen ordered with perinephric hematoma, possible active extravasation and perisplenic fluid. Urology consulted and did not appreciated active extravasation. Ir consulted, tated that degree of extravasation if present at all, is minimal. Neither IR nor urology with any acute interventions planned. Patient admitted to SDU for symptomatic blood loss anemia in the setting of retroperitoneal hematoma with recent lithotripsy and fall. Patient stabilized with relatively stable Hbg, started on Lovenox while monitoring for signs of bleeding and for changes in Hbg. Patient transferred to [facility]. EVENTS IN PAST 24H: Patient transferred to [facility]. SUBJECTIVE: Patient seen this evening laying in bed. We discussed the hospital course thus far as well as the plan moving forward. Patient understood and agreed with the plan moving forward. All ROS negative. OBJECTIVE: Patient Vitals for the past 24 hrs: BP Temp Temp src Pulse Resp SpO2 O2 Device 01/25/21 1711 -- 98.2 ???F (36.8 ???C) Oral -- -- -- -- 01/25/21 1600 140/67 -- -- 70 13 98 % Room air 01/25/21 1400 143/64 -- -- 74 14 99 % Room air 01/25/21 1200 132/64 98.7 ???F (37.1 ???C) Oral 70 18 99 % Room air 01/25/21 1000 131/60 -- -- 75 17 99 % Room air 01/25/21 0800 137/66 98.9 ???F (37.2 ???C) Oral 75 15 99 % Room air 01/25/21 0600 114/55 -- -- 70 13 98 % Room air 01/25/21 0400 138/68 98.2 ???F (36.8 ???C) Oral 66 15 98 % Room air 01/25/21 0200 146/70 -- -- 75 12 96 % Room air 01/25/21 0000 134/65 98.7 ???F (37.1 ???C) Oral 69 12 95 % Room air 01/24/21 2200 135/65 -- -- 76 16 96 % -- 01/24/21 2000 143/67 98.2 ???F (36.8 ???C) Oral 84 16 100 % Room air 01/24/21 1800 129/65 -- -- 84 20 99 % Room air Is/Os Baseline Weight Admission Weight Weight: 76.2 kg (167 lb 15.9 oz) Today's Weight Weight: 79.2 kg (174 lb 9.7 oz) BMI 28.18 Change in Weight: Current value is 174.6 lb (79.199 kg) on 01/25/2021 at 0000 +2.2 lb (1.000 kg) (1.28 %) from 172.4 lb (78.199 kg) on 01/23/2021 at 0000 (previous value) +6.6 lb (3.000 kg) (3.94 %) from 168.0 lb (76.199 kg) on 01/22/2021 at 0242 (first value for this admission) Intake/Output Summary (Last 24 hours) at 01/25/2021 1721 Last data filed at 01/25/2021 1600 Gross per 24 hour Intake 2160 ml Output 2660 ml Net -500 ml In: 2400 (30.3 mL/kg) [P.O.:600; I.V.:1800 (0.9 mL/kg/hr)] Out: 2335 (29.5 mL/kg) [Urine:2335 (1.2 mL/kg/hr)] Net: 65 Weight: 79.2 kg Physical Exam: Physical Exam Vitals and nursing note reviewed. Constitutional: Appearance: Normal appearance. HENT: Head: Normocephalic and atraumatic. Eyes: General: No scleral icterus. Conjunctiva/sclera: Conjunctivae normal. Cardiovascular: Rate and Rhythm: Normal rate and regular rhythm. Heart sounds: Normal heart sounds. No murmur heard. No gallop. Pulmonary: Effort: Pulmonary effort is normal. No respiratory distress. Breath sounds: Normal breath sounds. No wheezing, rhonchi or rales. Abdominal: General: Bowel sounds are normal. There is distension. Palpations: Abdomen is soft. Tenderness: There is no abdominal tenderness. There is no guarding or rebound. Musculoskeletal: Right lower leg: No edema. Left lower leg: No edema. Skin: General: Skin is warm and dry. Neurological: Mental Status: He is alert. Lines/Drains Peripheral IV Access: 01/21/21 18 gauge Right Antecubital Present on Arrival to Hospital / Inserted by EMS (Active) Site Assessment WN 01/25/21 1600 Infusion Status Port #1 Infusing 01/25/21 1600 Number of days: 4 Peripheral IV Access: 01/21/21 20 gauge Left Antecubital Present on Arrival to Hospital / Inserted by EMS (Active) Site Assessment WN 01/25/21 1600 Infusion Status Port #1 Capped 01/25/21 1600 Number of days: 4 Indwelling Urinary Catheter 01/21/21 2200 18 FR (Active) Site Assessment WN 01/25/21 1600 Catheter Care Catheter tube secured 01/25/21 1600 Newman Procedure Assessment Maintain urologic, gynecological surgeries/procedures 01/25/21 1600 Urine (ml) 325 01/25/21 1600 Number of days: 4 CURRENT MEDICATIONS: Scheduled Meds * polyethylene glycol 17 g Daily * enoxaparin 1 mg/kg 2x Daily * senna 8.6 mg At Bedtime * Normal consistency 3x Daily with Meals * [JUN Hold] albuterol 2.5 mg Q4H RT * aspirin 81 mg Daily * [JUN Hold] atorvastatin 20 mg Daily * ferrous sulfate 325 mg (more content not included)... [facility] 01-25-2021 Note STEPDOWN UNIT DAILY PROGRESS NOTE Patient: Karl Odom : 1950 Sex: male Room: [place] [address] Admit Date: 01/21/2021 Today's Date: 01/25/2021 Length of stay: 3 day(s) HOSPITAL COURSE: 70 year old???male???with a history of HLD, CKD, and Afib (on Eliquis) who presented to Ed following syncopal episode. Had lithotripsy 01/19/21, syncopal event on 01/21/21, and went to outside hospital. Received CT abdomen at outside hospital, and this showed perinephric hematoma. Hemoglobin was 6.9, and patient received 1 unit blood, FFP, and vitamin K. Transferred to [facility]. ??? In ED CBC showing Hbg 6.7 despite blood at outside hospital, additional 2 units PRBCs ordered. CTA at [facility] showing perinephric hematoma, possible active extravasation and perisplenic fluid. Urology consulted, assessed and diagnosed urinary retention. Placed newman with continuous irrigation, abdominal pain resolved. Urology reportedly not appreciating active extravasation. IR consulted, also reportedly stating that the degree of extravasation, if present at all, is minimal. Neither IR nor urology planned for any acute interventions at that time. Given presenting signs/symptoms, stable vitals signs and hemoglobin, and no large increase in hematoma size between CT scans, patient admitted to SDU.??? In SDU, Hbg remains relatively stable. Blood through newman is clearing up. Lovenox started (easier to reverse when compared to DOAC, which patient was on at home for Afib - Eliquis) and Hbg has remained stable. Plan to transfer to floor today. EVENTS IN PAST 24H: NAEON. SUBJECTIVE: Denies abdominal pain, pain in the sides, and pain at the catheter site. States that he did have a BM this morning but had to strain. OBJECTIVE: Patient Vitals for the past 24 hrs: BP Temp Temp src Pulse Resp SpO2 O2 Device 01/25/21 1200 132/64 98.7 ???F (37.1 ???C) Oral 70 18 99 % Room air 01/25/21 1000 131/60 -- -- 75 17 99 % Room air 01/25/21 0800 137/66 98.9 ???F (37.2 ???C) Oral 75 15 99 % Room air 01/25/21 0600 114/55 -- -- 70 13 98 % Room air 01/25/21 0400 138/68 98.2 ???F (36.8 ???C) Oral 66 15 98 % Room air 01/25/21 0200 146/70 -- -- 75 12 96 % Room air 01/25/21 0000 134/65 98.7 ???F (37.1 ???C) Oral 69 12 95 % Room air 01/24/21 2200 135/65 -- -- 76 16 96 % -- 01/24/21 2000 143/67 98.2 ???F (36.8 ???C) Oral 84 16 100 % Room air 01/24/21 1800 129/65 -- -- 84 20 99 % Room air 01/24/21 1600 129/72 98 ???F (36.7 ???C) Axillary 84 14 100 % -- 01/24/21 1400 151/74 -- -- 96 16 98 % Room air Is/Os Admission Weight Weight: 167 lb 15.9 oz (76.2 kg) Today's Weight Weight: 174 lb 9.7 oz (79.2 kg) BMI 28.18 Change in Weight: Current value is 174.6 lb (79.199 kg) on 01/25/2021 at 0000 +2.2 lb (1.000 kg) (1.28 %) from 172.4 lb (78.199 kg) on 01/23/2021 at 0000 (previous value) +6.6 lb (3.000 kg) (3.94 %) from 168.0 lb (76.199 kg) on 01/22/2021 at 0242 (first value for this admission) Intake/Output Summary (Last 24 hours) at 01/25/2021 1317 Last data filed at 01/25/2021 1200 Gross per 24 hour Intake 2400 ml Output 2360 ml Net 40 ml In: 2405 (30.4 mL/kg) [P.O.:700; I.V.:1125 (0.6 mL/kg/hr)] Out: 2560 (32.3 mL/kg) [Urine:2460 (1.3 mL/kg/hr)] Net: -155 Weight: 79.2 kg Physical Exam: Physical Exam Vitals reviewed. Constitutional: General: He is not in acute distress. Appearance: Normal appearance. He is obese. He is not ill-appearing or toxic-appearing. Cardiovascular: Rate and Rhythm: Normal rate. Heart sounds: Murmur heard. No friction rub. No gallop. Comments: Grade 1-2 systolic murmur present. Pulmonary: Effort: Pulmonary effort is normal. No respiratory distress. Comments: Lungs clear to auscultation posteriorly without rhonchi, wheezing, or crackles Abdominal: Tenderness: There is no abdominal tenderness. Musculoskeletal: Comments: No pitting edema in the feet bilaterally Skin: Coloration: Skin is not jaundiced. Neurological: Mental Status: He is alert. Comments: Converses appropriately without dysarthria Psychiatric: Mood and Affect: Mood normal. Behavior: Behavior normal. Thought Content: Thought content normal. Judgment: Judgment normal. Lines/Drains Peripheral IV Access: 01/21/21 18 gauge Right Antecubital Present on Arrival to Hospital / Inserted by EMS (Active) Site Assessment WNL;Dressing intact 01/24/21 0400 Infusion Status Port #1 Infusing;Patent 01/24/21 0400 Number of days: 3 Peripheral IV Access: 01/21/21 20 gauge Left Antecubital Present on Arrival to Hospital / Inserted by EMS (Active) Site Assessment WNL;Dressing intact 01/24/21 0400 Infusion Status Port #1 Patent;Capped 01/24/21 0400 Number of days: 3 Indwelling Urinary Catheter 01/21/21 2200 18 FR (Active) Site Assessment WNL 01/24/21 0600 Catheter Care Catheter tube secured 01/24/21 0600 Newman Procedure Assessment Maintain urologic, gynecological surgeries/procedures (more content not included)... [facility] 01-24-2021 Note 01/24/21 1000 Assessment and Discharge Planning Evaluation READMISSION LESS THAN 30 DAYS No READMISSION RISK SCORE IS Rising Risk Reason for Readmisson Risk Score Current medication orders INTERVIEWED Patient;Chart Review COGNITIVE STATUS Oriented to person, place, time and location Functional Status Ambulatory LIVING SITUATION Home - Own;Family () Number of Steps 3 Bedroom floor level 1 Bathroom Floor Level 1 Home Concerns No Do you have animals or pets at home? No PCP VERIFIED No ADMISSION INSURANCE Medicare Medicare HMO (comment) (HU[employer]NA MEDICARE/HUMANA CHOICE PPO/HMO) IM Letter #1 01/22/21 IM Letter #1 Time Signed 1200 Transportation to and/or from Appointments Family/Friend Provides Ride;Drives Self HOME HEALTH CARE PRIOR TO ADMISSION No Dialysis No TENTATIVE DISCHARGE PLAN Home - Own READMISSION RISK SCORE SHOULD BE Remain Unchanged REASON READMISSION SCORE NEEDS ADJUSTED NA CM spoke to patient at bedside. Patient provided CM with collateral information pertinent to patient's assessment and discharge planning needs. Patient stated his Jennifer Odom at [phone] is his primary contact. Patient also stated a close friend of his, whom he will call, will transport him home after discharge. CM will remain available to assist with discharge planning and or needs as warranted. Faraz KWON, RN Inpatient [employer]: [phone] ([phone]) [facility] 01-24-2021 Note UROLOGY PROGRESS NOT E Interval History/Events: S: No blood yesterday Hgb somewhat labile but unclear if related to lab variation vs actual downtrend. Most recent hgb 8.8 Clinically appears well Denies pain, N/V Passing flatus O: Tmax (24 hours): 99.9 ???F (37.7 ???C) Pulse Av Min: 68 Max: 89 Systolic (24hrs), Av , Min:99 , Max:147 Diastolic (24hrs), Av, Min:57, Max:83 SpO2 Av.9 % Min: 93 % Max: 99 % Resp Av.7 Min: 14 Max: 24 Intake/Output Summary (Last 24 hours) at 01/24/2021 0940 Last data filed at 01/24/2021 0800 Gross per 24 hour Intake 2515 ml Output 2455 ml Net 60 ml Physical Exam: Gen: NAD, AAOx3 Skin: No bruises, rashes, or lesions HEENT: NCAT Lungs: Breathing comfortably on RA Heart: Regular rate Abd: Soft, ND, NT : Three-way Newman catheter draining pink clear urine off CBI Ext: ONEILL, WWP without edema Labs: CBC/PT/INR WBC RBC Hgb Hct MCV RDW Plt PT aPTT INR 01/24/21 0436 1.26 01/24/21 0436 8.7 2.35 7.6 21.6 92 14.1 362 01/23/21 1652 11.4 2.65 8.5 24.5 92 14.2 362 01/23/21 08 10.5 2.23 7.2 20.6 93 14.2 322 01/23/21 0821 1.32 01/22/21 0931 1.41 01/22/21 0931 11.3 2.68 8.4 24.5 92 14.0 315 01/22/21 0649 12.3 2.54 8.2 23.3 92 13.9 319 01/21/21 1908 12.7 1.98 6.4 18.4 93 13.8 347 01/21/21 1452 14.2 2.07 6.7 19.3 94 13.4 339 01/21/21 1452 39 01/21/21 1452 1.44 WBC/Diff Neutro% Segs% Bands% Lymphs% Monos% Eos% Basos% 01/24/21 0436 82.1 8.8 5.6 3.0 0.6 01/23/21 1652 84.4 7.7 5.3 2.2 0.5 01/23/21 0821 83.1 8.7 6.0 1.8 0.5 01/22/21 0931 83.9 6.8 9.0 0.1 0.2 01/21/21 1908 86.6 5.1 8.1 0.0 0.2 01/21/21 1452 90.1 3.4 6.3 0.0 0.1 Basic Metabolic Panel Na K Cl CO2 Gap Glu BUN Cr Ca Mg PO4 01/24/21 0436 135 4.2 104 21 14 104 36 1.48 8.5 01/23/21 0821 135 4.2 103 22 14 116 40 1.66 8.4 01/22/21 0649 2.0 01/22/21 0649 136 4.8 107 20 14 142 38 1.56 8.4 01/21/21 1502 136 5.1 105 15 21 182 42 1.75 8.0 01/21/21 1452 134 5.1 103 19 17 185 42 1.74 8.0 Fingerstick Glucose (last 72 hours) None Cultures: Blood Culture None Urine Culture None Studies/imaging: None new to review ----- Medications: Scheduled * Normal consistency 3x Daily with Meals * [JUN Hold] albuterol 2.5 mg Q4H RT * aspirin 81 mg Daily * atorvastatin 20 mg Daily * ferrous sulfate 325 mg Daily * flecainide 100 mg 2x Daily * levothyroxine 137 mcg Before Breakfast * esomeprazole 20 mg Daily 30 min before breakfast * docusate sodium 100 mg 2x Daily PRN * ondansetron 4 mg Q6H PRN * albuterol 2.5 mg Q4H PRN * oxyCODONE-acetaminophen 1 Tablet Q6H PRN IV * lactated ringers 75 mL/hr at 01/24/21 0008 A/P: Patient is a 70-year-old male with history of AFib on Eliquis and nephrolithiasis status post left extracorporeal shockwave lithotripsy complicated by perinephric hematoma. Patient presented to the emergency department yesterday with acute/subacute blood loss anemia 1 and half week following his procedure and left large 11 x 9 cm perinephric hematoma. Now admitted to MICU step-down. Recommendations: - Maintain Newman catheter until Eliquis has been restarted in order to monitor for worsening hematuria prior to attempting trial of void - Once hemoglobin stabilized and ready to restart anticoagulation, would start with a agent with a short half-life such as Lovenox prior to initiating Eliquis. - Please page with any questions Plan was discussed with attending, Dr. Doll --- Halle Wolf MD Urologic Surgery PGY5 Pager: [phone] [facility] 01-24-2021 Note STEPDOWN UNIT DAILY PROGRESS NOTE Patient: Karl Odom : 1950 Sex: male Room: [place] [address] Admit Date: 01/21/2021 Today's Date: 01/24/2021 Length of stay: 2 day(s) HOSPITAL COURSE: 70 year old???male???with a history of HLD, CKD, and Afib (on Eliquis) who presented to Ed following syncopal episode. Had lithotripsy 01/19/21, syncopal event on 01/21/21, and went to outside hospital. Received CT abdomen at outside hospital, and this showed perinephric hematoma. Hemoglobin was 6.9, and patient received 1 unit blood, FFP, and vitamin K. Transferred to [facility]. ??? In ED CBC showing Hbg 6.7 despite blood at outside hospital, additional 2 units PRBCs ordered. CTA at [facility] showing perinephric hematoma, possible active extravasation and perisplenic fluid. Urology consulted, assessed and diagnosed urinary retention. Placed newman with continuous irrigation, abdominal pain resolved. Urology reportedly not appreciating active extravasation. IR consulted, also reportedly stating that the degree of extravasation, if present at all, is minimal. Neither IR nor urology planned for any acute interventions at that time. Given presenting signs/symptoms, stable vitals signs and hemoglobin, and no large increase in hematoma size between CT scans, patient admitted to SDU.??? In SDU, Hbg remains relatively stable. Blood through newman is clearing up. EVENTS IN PAST 24H: NAEON. SUBJECTIVE: Denies abdominal pain, pain in the sides, and pain at the catheter site. Denies shortness of breath. OBJECTIVE: Patient Vitals for the past 24 hrs: BP Temp Temp src Pulse Resp SpO2 O2 Device 01/24/21 0800 134/65 98.9 ???F (37.2 ???C) Oral 75 14 98 % Room air 01/24/21 0600 133/57 -- -- 71 17 96 % -- 01/24/21 0400 143/64 99 ???F (37.2 ???C) Oral 72 15 98 % Room air 01/24/21 0200 129/62 -- -- 68 15 97 % -- 01/24/21 0000 123/68 98.6 ???F (37 ???C) Oral 71 18 97 % Room air 01/23/21 2200 127/61 -- -- 77 16 96 % -- 01/23/21 2000 139/75 99.9 ???F (37.7 ???C) Oral 87 24 99 % Room air 01/23/21 1800 99/83 -- -- 89 20 98 % Room air 01/23/21 1600 145/61 98.8 ???F (37.1 ???C) Oral 87 19 97 % Room air 01/23/21 1400 147/62 -- -- 82 17 93 % -- 01/23/21 1200 143/58 99 ???F (37.2 ???C) Oral 88 19 96 % -- 01/23/21 1000 131/69 -- -- 81 18 98 % -- Is/Os Admission Weight Weight: 167 lb 15.9 oz (76.2 kg) Today's Weight Weight: 172 lb 6.4 oz (78.2 kg) BMI 27.83 Change in Weight: Current value is 172.4 lb (78.199 kg) on 01/23/2021 at 0000 +4.4 lb (2.000 kg) (2.62 %) from 168.0 lb (76.199 kg) on 01/22/2021 at 0242 (previous value) +4.4 lb (2.000 kg) (2.62 %) from 168.0 lb (76.199 kg) on 01/22/2021 at 0242 (first value for this admission) Intake/Output Summary (Last 24 hours) at 01/24/2021 0809 Last data filed at 01/24/2021 0800 Gross per 24 hour Intake 1485 ml Output 2355 ml Net -870 ml In: 1705 (21.8 mL/kg) [P.O.:600; I.V.:1005 (0.5 mL/kg/hr)] Out: 2975 (38 mL/kg) [Urine:2875 (1.5 mL/kg/hr)] Net: -1270 Weight: 78.2 kg Physical Exam: Physical Exam Vitals reviewed. Constitutional: General: He is not in acute distress. Appearance: Normal appearance. He is obese. He is not ill-appearing or toxic-appearing. Cardiovascular: Rate and Rhythm: Normal rate. Heart sounds: Murmur heard. No friction rub. No gallop. Comments: Grade 1-2 systolic murmur present. Pulmonary: Effort: Pulmonary effort is normal. No respiratory distress. Abdominal: Tenderness: There is no abdominal tenderness. Musculoskeletal: Comments: No pretibial pitting edema. Skin: Coloration: Skin is not jaundiced. Neurological: Mental Status: He is alert. Comments: Converses appropriately without dysarthria Psychiatric: Mood and Affect: Mood normal. Behavior: Behavior normal. Thought Content: Thought content normal. Judgment: Judgment normal. Lines/Drains Peripheral IV Access: 01/21/21 18 gauge Right Antecubital Present on Arrival to Hospital / Inserted by EMS (Active) Site Assessment WNL;Dressing intact 01/24/21 0400 Infusion Status Port #1 Infusing;Patent 01/24/21 0400 Number of days: 3 Peripheral IV Access: 01/21/21 20 gauge Left Antecubital Present on Arrival to Hospital / Inserted by EMS (Active) Site Assessment WNL;Dressing intact 01/24/21 0400 Infusion Status Port #1 Patent;Capped 01/24/21 0400 Number of days: 3 Indwelling Urinary Catheter 01/21/21 2200 18 FR (Active) Site Assessment WNL 01/24/21 0600 Catheter Care Catheter tube secured 01/24/21 0600 Newman Procedure Assessment Maintain urologic, gynecological surgeries/procedures 01/24/21 0600 Urine (ml) 180 01/24/21 0800 Number of days: 3 CURRENT MEDICATIONS: Scheduled Meds * Normal consistency 3x Daily with Meals * [MAR Hold] albuterol 2.5 mg Q4H RT * aspirin 81 mg Daily * atorvastatin 20 mg Daily * ferrous sulfate 325 mg Daily * flecainide 100 mg 2x Daily * levothyroxine 137 mcg Before Breakfast * eso (more content not included)... [facility] 01-23-2021 Note UROLOGY PROGRESS NOT E Interval History/Events: S: Hgb down-trended overnight Clinically stable Denies pain. Tolerating diet. O: Tmax (24 hours): 99.4 ???F (37.4 ???C) Pulse Av.5 Min: 70 Max: 108 Systolic (24hrs), Av , Min:121 , Max:155 Diastolic (24hrs), Av, Min:58, Max:78 SpO2 Av.1 % Min: 92 % Max: 99 % Resp Av.8 Min: 14 Max: 23 Intake/Output Summary (Last 24 hours) at 01/23/2021 1402 Last data filed at 01/23/2021 1326 Gross per 24 hour Intake 775 ml Output 6250 ml Net -5475 ml Physical Exam: Gen: NAD, AAOx3 Skin: No bruises, rashes, or lesions HEENT: NCAT Lungs: Breathing comfortably on RA Heart: Regular rate Abd: Soft, ND, NT : Three-way Newman catheter draining pink clear urine on minimal continuous bladder irrigation. Irrigated without return of any clots. Ext: ONEILL, WWP without edema Labs: CBC/PT/INR WBC RBC Hgb Hct MCV RDW Plt PT aPTT INR 01/23/21 08 10.5 2.23 7.2 20.6 93 14.2 322 01/23/21 0821 1.32 01/22/21 0931 1.41 01/22/21 0931 11.3 2.68 8.4 24.5 92 14.0 315 01/22/21 0649 12.3 2.54 8.2 23.3 92 13.9 319 01/21/21 1908 12.7 1.98 6.4 18.4 93 13.8 347 01/21/21 1452 14.2 2.07 6.7 19.3 94 13.4 339 01/21/21 1452 39 01/21/21 1452 1.44 WBC/Diff Neutro% Segs% Bands% Lymphs% Monos% Eos% Basos% 01/23/21 0821 83.1 8.7 6.0 1.8 0.5 01/22/21 0931 83.9 6.8 9.0 0.1 0.2 01/21/21 1908 86.6 5.1 8.1 0.0 0.2 01/21/21 1452 90.1 3.4 6.3 0.0 0.1 Basic Metabolic Panel Na K Cl CO2 Gap Glu BUN Cr Ca Mg PO4 01/23/21 0821 135 4.2 103 22 14 116 40 1.66 8.4 01/22/21 0649 2.0 01/22/21 0649 136 4.8 107 20 14 142 38 1.56 8.4 01/21/21 1502 136 5.1 105 15 21 182 42 1.75 8.0 01/21/21 1452 134 5.1 103 19 17 185 42 1.74 8.0 Fingerstick Glucose (last 72 hours) None Cultures: Blood Culture None Urine Culture None Studies/imaging: None new to review ----- Medications: Scheduled * Normal consistency 3x Daily with Meals * [MAR Hold] albuterol 2.5 mg Q4H RT * aspirin 81 mg Daily * atorvastatin 20 mg Daily * ferrous sulfate 325 mg Daily * flecainide 100 mg 2x Daily * levothyroxine 137 mcg Before Breakfast * esomeprazole 20 mg Daily 30 min before breakfast * docusate sodium 100 mg 2x Daily PRN * albuterol 2.5 mg Q4H PRN * oxyCODONE-acetaminophen 1 Tablet Q6H PRN IV * lactated ringers 75 mL/hr at 01/23/21 1044 A/P: Patient is a 70-year-old male with history of AFib on Eliquis and nephrolithiasis status post left extracorporeal shockwave lithotripsy complicated by perinephric hematoma. Patient presented to the emergency department yesterday with acute/subacute blood loss anemia 1 and half week following his procedure and left large 11 x 9 cm perinephric hematoma. Now admitted to MICU step-down. Recommendations: - Continue to trend CBC - Will continue to follow closely - Maintain Newman catheter until Eliquis has been restarted in order to monitor for worsening hematuria prior to attempting trial of void - 1 hemoglobin stabilized and ready to restart anticoagulation, would start with a agent with a short half-life such as Lovenox prior to initiating Eliquis. - Please page with any questions Plan was discussed with attending, Dr. Doll --- Halle Wolf MD Urologic Surgery PGY5 Pager: [phone] [facility] Note INTERNAL MEDICINE STEPDOWN UNIT DAILY PROGRESS NOTE Patient: Karl Odom : 1950 Sex: male Room: [facility]/1 Admit Date: 01/21/2021 Today's Date: 01/23/2021 Length of stay: 1 day(s) HOSPITAL COURSE: 70 year old male with a history of HLD, CKD, and Afib (on Eliquis) who presented to Ed following syncopal episode. Had lithotripsy 01/19/21, syncopal event on 01/21/21, and went to outside hospital. Received CT abdomen at outside hospital, and this showed perinephric hematoma. Hemoglobin was 6.9, and patient received 1 unit blood, FFP, and vitamin K. Transferred to [facility]. In ED CBC showing Hbg 6.7 despite blood at outside hospital, additional 2 units PRBCs ordered. CTA at [facility] showing perinephric hematoma, possible active extravasation and perisplenic fluid. Urology consulted, assessed and diagnosed urinary retention. Placed newman with continuous irrigation, abdominal pain resolved. Urology reportedly not appreciating active extravasation. IR consulted, also reportedly stating that the degree of extravasation, if present at all, is minimal. Neither IR nor urology planned for any acute interventions at that time. Given presenting signs/symptoms, stable vitals signs and hemoglobin, and no large increase in hematoma size between CT scans, patient admitted to SDU. In SDU, patient receiving frequent newman irrigation, hgb stable. EVENTS IN PAST 24H: No overnight events, AM labs show stable hgb SUBJECTIVE: Patient seen at bedside, no new complaints today. Feels well, no flank pain, abdominal pain, or chest pain. He wants to have his catheter removed so he can get up and move around. OBJECTIVE: Patient Vitals for the past 24 hrs: BP Temp Temp src Pulse Resp SpO2 O2 Device 01/23/21 0600 135/71 -- -- 70 15 98 % -- 01/23/21 0400 145/66 -- -- 78 16 92 % -- 01/23/21 0342 -- 98.6 ???F (37 ???C) Oral -- -- -- -- 01/23/21 0300 129/63 -- -- 75 14 97 % -- 01/23/21 0200 121/61 -- -- 72 14 96 % -- 01/23/21 0000 155/78 98.3 ???F (36.8 ???C) Oral 90 16 94 % -- 01/22/21 2200 136/64 -- -- 90 18 94 % -- 01/22/21 2000 128/71 99.4 ???F (37.4 ???C) Oral 102 23 97 % -- 01/22/21 1939 -- -- -- -- -- -- Room air 01/22/21 1800 151/67 -- -- 89 20 99 % -- 01/22/21 1600 149/61 98.2 ???F (36.8 ???C) Oral 108 22 95 % Room air 01/22/21 1400 152/69 -- -- 96 20 95 % -- 01/22/21 1312 -- -- -- 94 18 95 % Room air 01/22/21 1200 148/71 99.4 ???F (37.4 ???C) Oral 91 19 95 % Room air 01/22/21 1000 159/74 -- -- 99 21 98 % -- 01/22/21 0800 145/98 98.6 ???F (37 ???C) Axillary 100 16 98 % Room air Is/Os Admission Weight Weight: 167 lb 15.9 oz (76.2 kg) Today's Weight Weight: 172 lb 6.4 oz (78.2 kg) BMI 27.83 Change in Weight: Current value is 172.4 lb (78.199 kg) on 01/23/2021 at 0000 +4.4 lb (2.000 kg) (2.62 %) from 168.0 lb (76.199 kg) on 01/22/2021 at 0242 (previous value) +4.4 lb (2.000 kg) (2.62 %) from 168.0 lb (76.199 kg) on 01/22/2021 at 0242 (first value for this admission) Intake/Output Summary (Last 24 hours) at 01/23/2021 0720 Last data filed at 01/23/2021 0548 Gross per 24 hour Intake 560 ml Output 6775 ml Net -6215 ml In: 560 (7.2 mL/kg) [P.O.:360] Out: 7575 (96.9 mL/kg) [Urine:7375 (3.9 mL/kg/hr)] Net: -7015 Weight: 78.2 kg Physical Exam: General: Awake, Alert, in no acute distress Skin: No rashes or lesions appreciated Head: Atraumatic, Normocephalic Eyes: PERRL, EOMI, no scleral icterus Neck: Supple, Normal ROM, no JVD, no thyromegaly CV: RRR, no gallops, murmurs, rubs, normal S1/S2 Resp: CTA bilaterally, no wheezes, rhonchi, rales Abdominal: Normal bowel sounds, no abdominal tenderness, no masses appreciated, no hepatomegaly, no CVA tenderness MSK: Strength 5/5 in UE/LE, Normal ROM in all extremities Neuro: Cranial nerves grossly intact, Reflexes +2/4 (Biceps/Patellar), AAOx3 Psych: Appropriate mood and affect Lines/Drains Peripheral IV Access: 01/21/21 18 gauge Right Antecubital Present on Arrival to Hospital / Inserted by EMS (Active) Site Assessment WNL;Dressing intact 01/22/21 1600 Infusion Status Port #1 Patent 01/22/21 1600 Number of days: 2 Peripheral IV Access: 01/21/21 20 gauge Left Antecubital Present on Arrival to Hospital / Inserted by EMS (Active) Site Assessment WNL;Dressing intact 01/22/21 1600 Infusion Status Port #1 Patent 01/22/21 1600 Number of days: 2 Indwelling Urinary Catheter 01/21/21 2200 18 FR (Active) Site Assessment WNL 01/23/21 0400 Catheter Care Catheter tube secured 01/23/21 0400 Newman Procedure Assessment Maintain critical need for accurate I AND Os 01/23/21 0400 Urine (ml) 600 01/23/21 0548 Number of days: 2 CURRENT MEDICATIONS: Scheduled Meds * [MAR Hold] albuterol 2.5 mg Q4H RT * aspirin 81 mg Daily * atorvastatin 20 mg Daily * ferrous sulfate 325 mg Daily * flecainide 100 mg 2x Daily * levothyroxine 137 mcg Before Breakfast * esomeprazole 20 mg Daily 30 min before danny (more content not included)... [facility] 01-22-2021 Note UROLOGY PROGRESS NOT E Interval History/Events: S: Admitted to MICU step-down overnight. Received 2 units PRBC an incremented appropriately. Catheter draining clear pink-tinged urine O: Tmax (24 hours): 99.9 ???F (37.7 ???C) Pulse Av.6 Min: 94 Max: 125 Systolic (24hrs), Av , Min:145 , Max:179 Diastolic (24hrs), Av, Min:62, Max:98 SpO2 Av.4 % Min: 96 % Max: 100 % Resp Av.6 Min: 12 Max: 23 Intake/Output Summary (Last 24 hours) at 01/22/2021 1141 Last data filed at 01/22/2021 1052 Gross per 24 hour Intake 420 ml Output 2850 ml Net -2430 ml Physical Exam: Gen: NAD, AAOx3 Skin: No bruises, rashes, or lesions HEENT: NCAT Lungs: Breathing comfortably on RA Heart: Regular rate Abd: Soft, ND, NT : Three-way Newman catheter draining pink clear urine on minimal continuous bladder irrigation. Irrigated without return of any clots. Ext: ONEILL, WWP without edema Labs: CBC/PT/INR WBC RBC Hgb Hct MCV RDW Plt PT aPTT INR 01/22/21 0931 1.41 01/22/21 0931 11.3 2.68 8.4 24.5 92 14.0 315 01/22/21 0649 12.3 2.54 8.2 23.3 92 13.9 319 01/21/21 1908 12.7 1.98 6.4 18.4 93 13.8 347 01/21/21 1452 14.2 2.07 6.7 19.3 94 13.4 339 01/21/21 1452 39 01/21/21 1452 1.44 WBC/Diff Neutro% Segs% Bands% Lymphs% Monos% Eos% Basos% 01/22/21 0931 83.9 6.8 9.0 0.1 0.2 01/21/21 1908 86.6 5.1 8.1 0.0 0.2 01/21/21 1452 90.1 3.4 6.3 0.0 0.1 Basic Metabolic Panel Na K Cl CO2 Gap Glu BUN Cr Ca Mg PO4 01/22/21 0649 2.0 01/22/21 0649 136 4.8 107 20 14 142 38 1.56 8.4 01/21/21 1452 134 5.1 103 19 17 185 42 1.74 8.0 Fingerstick Glucose (last 72 hours) None Cultures: Blood Culture None Urine Culture None Studies/imaging: None new to review ----- Medications: Scheduled * albuterol 2.5 mg Q4H RT * aspirin 81 mg Daily * atorvastatin 20 mg Daily * ferrous sulfate 325 mg Daily * flecainide 100 mg 2x Daily * levothyroxine 137 mcg Before Breakfast * esomeprazole 20 mg Daily 30 min before breakfast * docusate sodium 100 mg 2x Daily PRN * albuterol 2.5 mg Q4H PRN * oxyCODONE-acetaminophen 1 Tablet Q6H PRN IV A/P: Patient is a 70-year-old male with history of AFib on Eliquis and nephrolithiasis status post left extracorporeal shockwave lithotripsy complicated by perinephric hematoma. Patient presented to the emergency department yesterday with acute/subacute blood loss anemia 1 and half week following his procedure and left large 11 x 9 cm perinephric hematoma. Now admitted to MICU step-down. Recommendations: - Continue to trend CBC - Low suspicion for active bleeding as the patient in commended appropriately and has been doing well - Will continue to follow closely - Maintain Newman catheter until Eliquis has been restarted in order to monitor for worsening hematuria prior to attempting trial of void - Please page with any questions Plan was discussed with attending, Dr. Doll --- Halle Wolf MD Urologic Surgery PGY5 Pager: [phone] [facility] Note INTERNAL MEDICINE STEPDOWN UNIT HISTORY AND PHYSICAL Patient: Karl Odom : 1950 Sex: male Room: [place] [address] Admit Date: 01/21/2021 Today's Date: 01/22/2021 Length of stay: 1 day(s) CHIEF COMPLAINT: Perinephric hematoma following lithotripsy, drop in Hbg despite PRBCs (now stable Hbg) HPI: 70 year old male with a history of HLD, CKD, and Afib (on Eliquis) who presented to Ed following syncopal episode. Had lithotripsy on Sunday (01/19/21), syncopal event today (01/21/21), and went to outside hospital. Received CT abdomen at said outside hospital, and this showed perinephric hematoma. Hemoglobin was 6.9, and patient received 1 unit blood, FFP, and vitamin K. Transferred to [facility]. Poor historian. Had fall couple months ago. Then hematuria. Went to urology. Checked and was told large kidney stone. Went and had procedure for kidney stone. Went home next morning. Went into convulsions secondary to pain from passing kidney stone after stone was crushed, per patient. Denies episode of LOC/syncope, although does say so in chart. Endorses severe pain in newman catheter site. Blood notable in catheter bag. Stopped taking Eliquis because of bleeding, and started Eliquis again on Sunday or Sunday. Med list: Percocet Flecainide BID 100 Aspirin 81 Synthroid 137 Cardizem 120 Eliquis 5 Code: Full IN THE ED: Complained of nausea. Occasional abdominal pain but not at the time of evaluation in ED. Afebrile, HDS, tachycardia, soft nontender abdomen, but there was left CVA tenderness. Signs of flank ecchymosis, hematoma. CBC showing Hbg 6.7 despite blood at outside hospital. INR stable 1.4, additional 2 units PRBCs ordered. CTA abdomen ordered, as being transported to CT did have worsening abdominal pain with exam showing diffuse abdominal tenderness, peritonitic. CTA showing perinephric hematoma, possible active extravasation and perisplenic fluid. Urology consulted, assessed and diagnosed urinary retention. Placed newman with continuous irrigation, abdominal pain resolved. Urology reportedly not appreciating active extravasation. IR consulted, also reportedly stating that the degree of extravasation, if present at all, is minimal. Neither IR nor urology planned for any acute interventions at that time. Repeat CBC prior to 2units PRBCs showing Hbg stable at 6.4. Given presenting signs/symptoms, stable vitals signs and hemoglobin, and no large increase in hematoma size between CT scans, patient admitted to SDU. ED Triage Vitals BP Heart Rate Respiratory Rate Temperature Temperature Source 01/21/21 1515 01/21/21 1515 01/21/21 1515 01/21/21 1515 01/21/21 1515 167/80 (!) 104 12 99.1 ???F (37.3 ???C) Oral SpO2 Weight Height Head Circumference Peak Flow 01/21/21 1515 01/22/21 0242 01/22/21 024 -- -- 99 % 167 lb 15.9 oz (76.2 kg) 5' 6 (1.676 m) Pain Score Pain Loc Pain Edu? Excl. in GC? 01/21/21 1515 -- -- -- 5 ED Course as of Jan 22 255SunJan 21, 2021 1644 INR(!): 1.44 [RY] 1644 Protime(!): 16.2 [RY] 1644 aPTT(!): 39 [RY] 1752 Pt w/ worsening exam-- peritonitis on my exam. Dr. Noonan spoke to Dr. Mar who reports they will see pt next [JS] [address] Mar, after her view of the CTA, pt should primarily been seen by urology. Requests a call back if urology needs assistance [JS] 1820 Urology re-paged [RY] 182 Urology paged third time [RY] 184 Urology paged again [JS] 184 Urology resident reports they are on their way to see patient [JS] 1859 Per rads: 1. Findings compatible with a large left perirenal and perinephric hematoma with hyperattenuating extraparenchymal foci on arterial and delayed phases, suspicious for active extravasation. 2. Nonobstructing left renal calculi. 3. Small volume of perisplenic fluid. 4. Small left pleural effusion. CTA ABD AND PELV W/O AND W/CONTR [RY] 191 Abd exam re-assuring after newman placement by urology Urology at bedside, to review imaging w/ radiology and decide on plan [JS] 2152 Report called to Manfred CHAVEZ senior [JS] ED Course User Index [JS] George Castaneda MD [RY] Mohit Noonan DO Past Medical History: No past medical history on file. None. No past surgical history on file. Social History: Denies alcohol, tobacco, and drug use. Social History Tobacco Use * Smoking status: Not on file Substance Use Topics * Alcohol use: Not on file has no history on file for drug use. Family History: None. No family history on file. REVIEW OF SYSTEMS: Review of Systems Constitutional: Negative for chills and fever. HENT: Negative for congestion and sore throat. Eyes: Negative for double vision and pain. Respiratory: Positive for shortness of breath. Negative for cough. Cardiovascular: Positive for chest pain. Negative for palpitations. Says he has muscle pain in chest. Gastrointestinal: Positive for abdominal pain and nausea. L side abd pain Genito (more content not included)... [facility] documented in this encounter [facility] Summary Purpose Family History No Family History Records FoundNo Family History Records Found Advance Directives No Advanced Directives Records FoundNo Advanced Directives Records Found Additional Source Comments (unrecognized sect ion and content) No Status Records FoundNo Status Records Found INFORMATION SOURCE (unrecogn ized section and content) DATE CREATED AUTHOR AUTHOR'S ORGANIZ ATION 06/03/2022 [facility] Source Comments (unrecognize d section and content) In the event this informatio n is protected by the Federal Confidentiality of Alcohol and Drug Abuse Patient Records regulations: The Federal rules restrict any use of the information to criminally investigate or prosecute any alcohol or drug abuse patient.[facility] Hospital[facility] the event this information is protected by the Federal Confidentiality of Alcohol and Drug Abuse Patient Records regulations: The Federal rules restrict any use of the information to criminally investigate or prosecute any alcohol or drug abuse patient.[facility] Hospital[facility] the event this information is protected by the Federal Confidentiality of Alcohol and Drug Abuse Patient Records regulations: The Federal rules restrict any use of the information to criminally investigate or prosecute any alcohol or drug abuse patient.[facility] Hospital[facility] the event this information is protected by the Federal Confidentiality of Alcohol and Drug Abuse Patient Records regulations: The Federal rules restrict any use of the information to criminally investigate or prosecute any alcohol or drug abuse patient.[facility] Reason for Visit (unrecogniz ed section and content) Reason Comments Results Reason Comments Patient Question Care Teams (unrecognized sec tion and content) Supervisor Waterproofing Relationship Specialty Start Date End Date Manuel Hardy [address] [facility] [address] [place] [address] PCP - General Family Practice 02/12/19 Supervisor Waterproofing Relationship Specialty Start Date End Date Manuel Hardy [address] [facility] [address] [place], [place] [address] PCP - General Family Practice 02/12/19 Supervisor Waterproofing Relationship Specialty Start Date End Date Manuel Hardy [address] [facility] [address] [place], [place] [id number] PCP - General Family Medicine 02/12/19 FOR RECORDS PERTAINING TO PATIENTS WHO ARE OR HAVE BEEN ENROLLED IN A CHEMICAL DEPENDENCY/SUBSTANCEABUSE PROGRAM, SOME INFORMATION MAY BE OMITTED. This clinical summary was aggregated from multiple sources. Caution should be exercised in using it in the provision of clinical care. This summary normalizes information from multiple sources, and as a consequence, information in this document may materially change the coding, format and clinical context of patient data. In addition, data may be omitted in some cases. CLINICAL DECISIONS SHOULD BE BASED ON THE PRIMARY CLINICAL RECORDS. [facility]. provides no warranty or guarantee of the accuracy or completeness of information in this document.
[2023-06-01 12:31] LABS: Hemoglobin 11.1 g/dL (13.0-16.5); Mean Corp Hgb Conc 32.6 g/dL (32-36); Mean Corpuscular Hgb 31.5 pg (27.0-32.0); Mean Corpuscular Volume 96.6 fL (80-94); Platelet Count 259 K/mm3 (150-450); RBC Distribution Width CV 12.2 % (11.6-14.6); RBC Distribution Width SD 43.3 fl (35.1-43.9); Red Blood Count 3.52 M/mm3 (4.6-6.2); White Blood Count 5.6 K/mm3 (4.4-11.0)
[2023-06-01 12:35] LABS: Protein:Creat Ratio 149 mg/g CRE (0-200); Vitamin D,25 Hydroxy 81.6 ng/mL
[2023-06-01 12:51] LABS: ALB/GLOB Ratio 1.1 RATIO (0.9-2.4); AST(SGOT) 16 U/L (15-37); Alanine Aminotransfer ALT/SGPT 24 U/L (16-61); Albumin, Serum 3.6 g/dL (3.2-5.0); Alkaline Phosphatase 107 U/L (45-117); Anion Gap 3 (5-15); BUN 34 mg/dL (7-18); BUN/Creat Ratio 25.6 RATIO (10-20); Calcium,Total 9.1 mg/dL (8.5-10.1); Chloride 108 mmol/L (98-107); Creatinine, Serum 1.33 mg/dL (0.70-1.30); EST Glomerular Filtration Rate 56 mL/min (>60); Est Glom Filt Rate - Afr Amer 67 mL/min (>60); Globulin 3.4 g/dL (2.2-4.2); Glucose 101 mg/dL (74-106); Magnesium 2.4 mg/dL (1.6-2.6); Potassium 4.4 mmol/L (3.5-5.1); Sodium Level 138 mmol/L (136-145); T4 Free Direct 1.35 ng/dL (0.76-1.46); Thyroid Stim Hormone (TSH) 0.71 uIU/mL (0.358-3.74)
[2023-06-07 13:14] LABS: Ferritin 256 ng/mL (26-388); Iron 73 ug/dL (65-175); Iron Binding Capacity,Total 236 ug/dL (250-450); Phosphorus 2.9 mg/dL (2.5-4.9)
== END 2023-06-01 23:59 | disposition home or self-care (01) ==
LOC: MFPLAB 10:06
PROVIDERS: PCP Family Medicine; Visit Provider Family Medicine
DX: E03.9 Hypothyroidism, unspecified (principal); I48.91 Unspecified atrial fibrillation; N18.30 Chronic kidney disease, stage 3 unspecified; D63.8 Anemia in other chronic diseases classified elsewhere
CPT/HCPCS: 36415; 80053; 82306; 82570; 82728; 83540; 83550; 83735; 84100; 84156; 84439; 84443; 85027

== ENCOUNTER → 2023-08-06 | Outpatient (CLI) | payer MEDICARE, SELFPAY ==
--- NOTE | 2023-08-06 | CYSPIN_PTH ---
PATIENT: KARL ODOM LOC: [facility] U#:[id number] AGE/SX: 73/M ROOM: RE08/06/[address]: Dr. Chris Garcia MD : 1950 BED: DIS: 08/06/2023 SPEC #: [id number] RECD: 08/07/23 07:37 STATUS: NIURKA REIsidro #: [id number] FLAVIA: 08/06/23 00:[address]: Chris Garcia DEPT: CYTOLOGY RECD BY: Libia Whipple ENTERED: 08/07/23 07:38 SP TYPE: CYSPIN FL OTHR DR: Dr. Raffi Vaca MD Tissues: Urine Procedures: Pap Stain (control) Special Stain Group II Cytospin Fluid HEADER OPERATION: Not noted PRE-OP DIAGNOSIS: Gross hematuria TISSUE SUBMITTED: Urine for cytology DIAGNOSIS CYTOLOGY Urine for cytology (cytospins): Negative for high grade urothelial carcinoma ([facility] Category II). See comment. AM/mr 08/07/23 COMMENT The [facility] for urine cytology diagnostic categorization was used in the evaluation of this case. CYTOLOGY STUDY Slides are reviewed. CYTOLOGY GROSS Received is 40 ml of dark-gold cloudy fluid labeled with the patient's name and and designated per the requisition as urine. Submitted for cytology preparation. Mr 08/07/2023 TC:5 CPT: 17797
[2023-08-06 16:39] LABS: Cytology, Body Fluid / CSF SEE PATHOLOGY REPORT
== END | disposition home or self-care (01) ==
LOC: LABSPEC 16:00
PROVIDERS: PCP Family Medicine; Referring Provider Urology; Visit Provider Urology
DX: R31.0 Gross hematuria (principal)
CPT/HCPCS: 88108; 88313

== ENCOUNTER → 2023-08-06 | Outpatient (CLI) | payer MEDICARE, SELFPAY ==
[2023-08-06 14:06] LABS: Absolute Neutrophil Count 4.7 X10^3/uL (2.0-7.7); Basophil# 0.04 X10^3/uL; Basophil% 0.6 % (0-1); Eosinophil# 0.27 X10^3/uL; Hemoglobin 10.4 g/dL (13.0-16.5); Lymphocyte % 16.1 % (19-41); Mean Corp Hgb Conc 33.5 g/dL (32-36); Mean Corpuscular Hgb 31.8 pg (27.0-32.0); Mean Corpuscular Volume 94.8 fL (80-94); Mean Platelet Vol. 9.5 fl (6.2-12.0); Monocyte# 0.66 X10^3/uL; Monocyte% 9.7 % (0-10); NRBC Flagged by Analyzer 0 % (0-5); Neutrophil # 4.71 X10^3/uL (2.7-7.7); Neutrophil % 68.9 % (47-70); Platelet Count 291 K/mm3 (150-450); RBC Distribution Width CV 12.1 % (11.6-14.6); RBC Distribution Width SD 41.8 fl (35.1-43.9); Red Blood Count 3.27 M/mm3 (4.6-6.2); White Blood Count 6.8 K/mm3 (4.4-11.0)
[2023-08-06 14:55] LABS: Vitamin B12 644 pg/mL (211-911); Vitamin D,25 Hydroxy 78.8 ng/mL
[2023-08-06 14:57] LABS: ALB/GLOB Ratio 0.9 RATIO (0.9-2.4); AST(SGOT) 15 U/L (15-37); Alanine Aminotransfer ALT/SGPT 21 U/L (16-61); Albumin, Serum 3.3 g/dL (3.2-5.0); Alkaline Phosphatase 112 U/L (45-117); Anion Gap 3 (5-15); BUN 37 mg/dL (7-18); Chloride 110 mmol/L (98-107); Cholesterol 159 mg/dL (200); Creatinine, Serum 1.54 mg/dL (0.70-1.30); EST Glomerular Filtration Rate 47 mL/min (>60); Est Glom Filt Rate - Afr Amer 57 mL/min (>60); Globulin 3.7 g/dL (2.2-4.2); Glucose 133 mg/dL (74-106); High Density Lipoprotein 48 mg/dL; Magnesium 2.3 mg/dL (1.6-2.6); Potassium 4.4 mmol/L (3.5-5.1); Sodium Level 139 mmol/L (136-145); T4 Free Direct 1.12 ng/dL (0.76-1.46); Triglycerides 161 mg/dL; Very Low Density Lipoprotein 32 mg/dL (5-40)
[2023-08-08 13:08] LABS: PSA, Free 1.68 ng/mL; PSA, Free % 28.8 % (.)
== END | disposition home or self-care (01) ==
LOC: LAB 13:31
PROVIDERS: PCP Family Medicine; Referring Provider Urology; Visit Provider Urology
DX: R97.20 Elevated prostate specific antigen [PSA] (principal); I48.91 Unspecified atrial fibrillation; N18.30 Chronic kidney disease, stage 3 unspecified; E03.9 Hypothyroidism, unspecified; D63.8 Anemia in other chronic diseases classified elsewhere
CPT/HCPCS: 36415; 80053; 80061; 82306; 82607; 83735; 84153; 84154; 84439; 84443; 85025

== ENCOUNTER → 2023-12-26 | Outpatient (CLI) | payer MEDICARE, SELFPAY ==
--- NOTE | 2023-12-26 13:35 | NEURO ---
NCS and/or EMG Patient Report Ordering Doctor: David Aranda DATE OF SERVICE: 12/26/23 Lexx presents numbness and tingling in both hands. Electrodiagnostic findings: Left median motor response is not obtainable. Right median motor nerve demonstrates prolonged latency with normal amplitude and reduced conduction velocity. Ulnar motor response is within normal limits bilaterally. Prolonged left and right median sensory latency at the wrist with decreased conduction velocity. Prolonged right median F?wave. Left median F?wave was not obtainable. Needle EMG testing was performed upper limbs. All muscles tested showed no evidence of denervation with normal motor unit action potentials. Electrodiagnostic impression: This is an abnormal study upper limbs 1. Electrodiagnostic findings suggestive of bilateral median mononeuropathy. This is consistent with a moderate right carpal tunnel syndrome and a severe left carpal tunnel syndrome. 2. No electrodiagnostic evidence for cervical radiculopathy. Multi Select Codes Neurology Neurology Interp Codes: 80041-27 Musc test done w/n test comp (interp) (2) and 28317-74 Nrv cndj test 9-10 studies (interp)
== END | disposition home or self-care (01) ==
PROVIDERS: PCP Family Medicine; Referring Provider Orthopaedic Surgery Sports Medicine; Visit Provider Orthopaedic Surgery Sports Medicine
DX: R20.2 Paresthesia of skin (principal); R20.0 Anesthesia of skin
CPT/HCPCS: 95886; 95911

== ENCOUNTER → 2024-01-29 | Outpatient (CLI) | payer MEDICARE, SELFPAY ==
--- NOTE | 2024-01-29 07:18 | CDU_ITS ---
Reason For Study: Lightheadedness Rt. Velocities/BP Lt. Velocities/BP Prox CCA 86.3/12.6 cm/sec. Prox CCA 93.7/15.1 cm/sec. Mid CCA 99.2/14.6 cm/sec. Mid CCA 79/12.6 cm/sec. Dist CCA 79.5/12.4 cm/sec. Dist CCA 74/11.4 cm/sec. Prox ICA 57.5/11.3 cm/sec. Prox ICA 56.9/11.4 cm/sec. Mid ICA 72.7/16.2 cm/sec. Mid ICA 75.3/15.1 cm/sec. Dist ICA 76.3/19.2 cm/sec. Dist ICA 65.4/15.1 cm/sec. Rt. ICA/CCA = 0.77. Lt. ICA/CCA = 0.95. Prox ECA 63/6.9 cm/sec. Prox ECA 56.9/5.3 cm/sec. Rt. Vert. 53.5/10.7 cm/sec. Lt. Vert. 39/11.6 cm/sec. Right Extracranial There is intimal thickening but no significant atherosclerotic plaque noted in the right common carotid artery. There is heterogeneous, irregular atherosclerotic plaque noted in the right internal carotid artery. There is intimal thickening but no significant atherosclerotic plaque noted in the right external carotid artery. Antegrade flow is noted in the right vertebral artery. Left Extracranial There is intimal thickening but no significant atherosclerotic plaque noted in the left common carotid artery. There is intimal thickening but no significant atherosclerotic plaque noted in the left internal carotid artery. There is intimal thickening but no significant atherosclerotic plaque noted in the left external carotid artery. Antegrade flow is noted in the left vertebral artery. Procedure Carotid Duplex 99409. This is a Carotid Duplex examination using B-mode, color flow and specral Doppler. Exam performed in department. VL/Carotid Duplex Ultrasound Interpretation Summary Mild (<50%) stenosis right extracranial internal carotid. Normal left extracranial internal carotid. Patent and antegrade vertebrals bilaterally. Ordering Physician: Merlene Cornelius Referring Physician: Raffi Vaca Performed By: Rosalba Luke RVT
--- OUTSIDE RECORDS SUMMARY | 2024-01-29 07:19 | XMS RPT_ITS | CCD ---
Author Organization [facility] Care Team Providers Care Filler Mixer Name Role Phone PROVIDER, UNKNOWN Admitting Unavailable PROVIDER, UNKNOWN Attending Unavailable PROVIDER, UNKNOWN Admitting Unavailable PROVIDER, UNKNOWN Attending Unavailable MARIFER DAWN Admitting Unavailable REQUEST, IP PHYSICAL THERAPY SERVICE Consulting Unavailable ABDULKADIR VILLALBA Attending Unavailable REQUEST, IP OCCUPATIONAL THERAPY SERVICE Consult ing Unavailable CONSULT, IP SURGERY UROLOGY Consulting Unav ailable PROVIDER, UNKNOWN Admitting Unavailable PROVIDER, UNKNOWN Attending Unavailable Manuel Hardy Primary Care Provider [phone] Manuel Hardy Primary Care Provider [phone] FRANKIE BEDOYA Referring Unavailable MANUEL HARDY Primary Care Unavailabl e FRANKIE BEDOYA Referring Unavailable FRANKIE BEDOYA Attending Unavailable MANUEL HARDY Primary Care Unavailliz e Medications Completed/Discontinued Medications Medication Drug Class(es) Dates Sig (Normalized) Sig (Original) ALIVE MEN'S GUMMY VITAMIN ORAL (4 sources) take 3 doses by mouth once daily ALIVE MEN'S GUMMY VITAMIN ORAL Take 3 Each by mouth once daily. 0 Active Comment on above: Take 3 Each by mouth once daily. apixaban 5 mg oral tablet (4 sources) Factor Xa Inhibitor Start: 06-07-2017 take 1 tablet by mouth twice daily apixaban (ELIQUIS) 5 mg tab(s) Take 1 tablet by mouth twice daily. 0 06/07/2017 Active Comment on above: Take 1 tablet by melissa twice daily. ascorbic acid 500 mg oral tablet (4 sources) Vitamin C take 2 tablets by mouth once daily ascorbic acid, vitamin C, (VITAMIN C) 500 mg tablet Take two tablets by mouth once daily. 0 Active Comment on above: Take two tablets by mouth once daily. aspirin 81 mg delayed release oral tablet (4 sources) Platelet Aggregation Inhibitor, Nonsteroidal Anti-inflammatory Drug take 1 tablet by mouth once daily aspirin, enteric coated (ASPIRIN, ENTERIC COATED) 81 mg EC tablet Take 81 mg by mouth once daily. 0 Active Comment on above: Take 81 mg by mouth once daily. Calcium Carbonate / vitamin D3 (4 sources) take 1 tablet by mouth once daily calcium carbonate/vitami n D3 (CALCIUM 500 + D ORAL) Take 1 tablet by mouth once daily. 0 Active Comment on above: Take 1 tablet by melissa once daily. cholecalciferol 1.25 mg oral capsule (8 sources) Vitamin D Start: 06-07-2017 take 1 capsule by mouth every week cholecalciferol, Vitamin D3, (VITAMIN D3) 50,000 unit cap capsule Take 1 capsule by mouth once each week. 0 06/07/2017 Active take 2 tablets by mouth once [place] cholecalciferol (VITAMIN D-3) 50 mcg (2,000 unit) tablet Take two tablets by mouth once daily. 0 Active Comment on above: Take 1 capsule by [facility] once each week. Take two tablets by mouth once daily. 24 hr dilTIAZem hydrochloride 120 mg extended release oral capsule (4 sources) Calcium Channel Pk Start: 06-07-2017 take 1 capsule by mouth once daily diltiazem CD (CARDIZEM CD, CARTIA XT) 120 mg 24 hr capsule Take 1 capsule by mouth once daily. 0 06/07/2017 Active Comment on above: Take 1 capsule by [facility] once daily. ferrous sulfate 324 mg delayed release oral tablet (6 sources) take 324 mg by mouth once daily ferrous sulfate EC 324 mg (65 mg iron) TbEC Take 324 mg by mouth once daily. 0 Active take 45 mg by mouth once daily f errous sulfate (SLOW RELEASE IRON ORAL) Take 45 mg by mouth once daily. 0 Active Comment on above: Take 324 mg by mouth once daily. Take 45 mg by mouth once daily. flecainide acetate 100 mg oral tablet (4 sources) Antiarrhythmic Start: take 1 tablet by mouth twice daily flecainide (TAMBOCOR) 100 mg tablet Take 1 tablet by mouth twice daily. 0 06/07/2017 Active Comment on above: Take 1 tablet by melissa twice daily. levothyroxine sodium 0.125 mg oral tablet (6 sources) l-Thyroxine Start: take 1 tablet by mouth once daily before breakfast levothyroxine (SYNTHROID) 125 mcg tablet Take 1 tablet by mouth daily before breakfast. 0 06/07/2017 Active take 1 tablet by mouth once pooja y levothyroxine (SYNTHROID) 137 mcg tablet Take 137 mcg by mouth once daily. 0 Active Comment on above: Take 1 tablet by melissa th daily before breakfast. Take 137 mcg by mout h once daily. multivit with iron,hematinic (MULTIVITAMIN-IRON, HEMATINIC, ORAL) (4 sources) take 1 tablet by mouth once daily multivit with iron,hematinic (MULTIVITAMIN-IRON, HEMATINIC, ORAL) Take 1 tablet by mouth once daily. 0 Active Comment on above: Take 1 tablet by melissa th once daily. omeprazole 40 mg delayed release oral capsule (4 sources) Proton Pump Inhibitor take 1 capsule by mouth once daily omeprazole (PRILOSEC) 40 mg capsule Take 40 mg by mouth once daily. 0 Active Comment on above: Take 40 mg by mouth once daily. ondansetron 4 mg oral tablet (4 sources) Serotonin-3 Receptor Antagonist ondansetron (ZOFRAN) 4 mg tablet Take 4 mg by mouth as needed for nausea/vomiting. 0 Active Comment on above: Take 4 mg by mouth a s needed for nausea/vomiting. tamsulosin hydrochloride 0.4 mg oral capsule (4 sources) alpha-Adrenergic Pk Start: 06-08-19 18 take 1 capsule by mouth once daily tamsulosin ER (FLOMAX) 0.4 mg cp24 Take 1 capsule by mouth once daily. 0 06/07/2017 Active Comment on above: Take 1 capsule by mo uth once daily. vitamin b12 1 mg oral tablet (4 sources) Vitamin B12 Start: 06-08-19 18 take 1 tablet by mouth once daily cyanocobalamin (VITAMIN B-12) 1,000 mcg tab Take 1 tablet by mouth once daily. 0 06/07/2017 Active Comment on above: Take 1 tablet by melissa th once daily. Problems Active Problems Problem Classification Problem Date [...] Results Test Name Value Interpretation Reference Range Facility [facility] 11-17-2021 [facility] Telephone (ZHANG) KARL ODOM ([id number]) 1950 M Date Time Provider Department 11/17/21 FRANKIE BEDOYA During your visit today, we recorded the following information about you: Veronica Sharma 11/17/2021 8:25 AM Signed Patient's called requesting patients lab work to be faxed to Dr Manuel Gray's office at [facility] on Dec 07 Thank you Veronica Barone LPN 11/17/2021 8:46 AM Signed Patient last OV note and lab results from 10/31/2021, faxed to Dr. Hardy's office for patient's appointment later this month. Allyssa Lizabeth TOIBAS Allergies As of Date: 11/17/2021 (No Known Allergies) Date Reviewed: 10/31/2021 Reviewed by: Frankie Bedoya DO - Fully Assessed Reason for Visit: Results [95] Prescriptions as of 11/17/2021 - levothyroxine (SYNTHROID) 137 mcg tablet Take 137 mcg by mouth once daily. - omeprazole (PRILOSEC) 40 mg capsule Take 40 mg by mouth once daily. - ondansetron (ZOFRAN) 4 mg tablet Take 4 mg by mouth as needed for nausea/vomiting. - ALIVE MEN'S GUMMY VITAMIN ORAL Take 3 Each by mouth once daily. - ferrous sulfate EC 324 mg (65 mg iron) TbEC Take 324 mg by mouth once daily. - ascorbic acid, vitamin C, (VITAMIN C) 500 mg tablet Take two tablets by mouth once daily. - calcium carbonate/vitamin D3 (CALCIUM 500 + D ORAL) Take 1 tablet by mouth once daily. - cholecalciferol (VITAMIN D-3) 50 mcg (2,000 unit) tablet Take two tablets by mouth once daily. - multivit with iron,hematinic (MULTIVITAMIN-IRON, HEMATINIC, ORAL) Take 1 tablet by mouth once daily. - flecainide (TAMBOCOR) 100 mg tablet Take 1 tablet by mouth twice daily. - tamsulosin ER (FLOMAX) 0.4 mg cp24 Take 1 capsule by mouth once daily. - diltiazem CD (CARDIZEM CD, CARTIA XT) 120 mg 24 hr capsule Take 1 capsule by mouth once daily. - apixaban (ELIQUIS) 5 mg tab(s) Take 1 tablet by mouth twice daily. - cholecalciferol, Vitamin D3, (VITAMIN D3) 50,000 unit cap capsule Take 1 capsule by mouth once each week. - cyanocobalamin (VITAMIN B-12) 1,000 mcg tab Take 1 tablet by mouth once daily. - aspirin, enteric coated (ASPIRIN, ENTERIC COATED) 81 mg EC tablet Take 81 mg by mouth once daily. Problem List As Of Date 11/17/2021 Noted Resolved Renal contusion [S37.019A] 05/06/2015 Benign non-nodular prostatic hyperplasia with l*05/06/2015 History of kidney stones [Z87.442] 05/06/2015 Elevated prostate specific antigen (PSA) [R97.2*12/16/2015 Anemia [D64.9] 08/13/2019 Compression fracture of L2 lumbar vertebra, seq*07/19/2020 Compression fracture of L3 lumbar vertebra, seq*07/19/2020 Encounter Status:Closed by ALLYSSA BARONE LPN on 11/17/21 [facility] CNPNon 11-03-2021 [facility]NP[facility] Telephone (HEMAWS) KARL ODOM ([id number]) 1950 M Date Time Provider Department 11/03/21 FRANKIE BEDOYA During your visit today, we recorded the following information about you: Peyton Taylor LPN 11/03/2021 8:05 AM Signed Pt. Requesting results for iron studies. JATINDER Hernandez DO 11/03/2021 8:21 AM Signed Iron levels doing well. He can follow-up with his PCP as we discussed at the office visit. He still has mild anemia from chronic kidney disease but no treatment indicated unless hemoglobin goes below 10 g/dL. DO Emily Dallas LPN 11/03/2021 8:34 AM Signed Discussed with who voices understanding. Emily Rausch LPN Allergies As of Date: 11/03/2021 (No Known Allergies) Date Reviewed: 10/31/2021 Reviewed by: Frankie Bedoya DO - Fully Assessed Reason for Visit: Results [95] Prescriptions as of 11/03/2021 - levothyroxine (SYNTHROID) 137 mcg tablet Take 137 mcg by mouth once daily. - omeprazole (PRILOSEC) 40 mg capsule Take 40 mg by mouth once daily. - ondansetron (ZOFRAN) 4 mg tablet Take 4 mg by mouth as needed for nausea/vomiting. - ALIVE MEN'S GUMMY VITAMIN ORAL Take 3 Each by mouth once daily. - ferrous sulfate EC 324 mg (65 mg iron) TbEC Take 324 mg by mouth once daily. - ascorbic acid, vitamin C, (VITAMIN C) 500 mg tablet Take two tablets by mouth once daily. - calcium carbonate/vitamin D3 (CALCIUM 500 + D ORAL) Take 1 tablet by mouth once daily. - cholecalciferol (VITAMIN D-3) 50 mcg (2,000 unit) tablet Take two tablets by mouth once daily. - multivit with iron,hematinic (MULTIVITAMIN-IRON, HEMATINIC, ORAL) Take 1 tablet by mouth once daily. - flecainide (TAMBOCOR) 100 mg tablet Take 1 tablet by mouth twice daily. - tamsulosin ER (FLOMAX) 0.4 mg cp24 Take 1 capsule by mouth once daily. - diltiazem CD (CARDIZEM CD, CARTIA XT) 120 mg 24 hr capsule Take 1 capsule by mouth once daily. - apixaban (ELIQUIS) 5 mg tab(s) Take 1 tablet by mouth twice daily. - cholecalciferol, Vitamin D3, (VITAMIN D3) 50,000 unit cap capsule Take 1 capsule by mouth once each week. - cyanocobalamin (VITAMIN B-12) 1,000 mcg tab Take 1 tablet by mouth once daily. - aspirin, enteric coated (ASPIRIN, ENTERIC COATED) 81 mg EC tablet Take 81 mg by mouth once daily. Problem List As Of Date 11/03/2021 Noted Resolved Renal contusion [S37.019A] 05/06/2015 Benign non-nodular prostatic hyperplasia with l*05/06/2015 History of kidney stones [Z87.442] 05/06/2015 Elevated prostate specific antigen (PSA) [R97.2*12/16/2015 Anemia [D64.9] 08/13/2019 Compression fracture of L2 lumbar vertebra, seq*07/19/2020 Compression fracture of L3 lumbar vertebra, seq*07/19/2020 Encounter Status:Closed by EMILY RAUSCH LPN on 11/03/21 Normal [facility] Basic metabolic 2000 panelon 10-31-2021 Anion gap [Moles/Vol] 9 mmol/L Normal 9-18 [facility] Comment on above: Order Comment: Speci men Type: BLOOD SPECIMEN Ordering Facility: [facility] Address: [address] Performed By: #### 2 4321-2 #### [facility] CLIA [id number] [address] [place] [address] [place] Calcium [Mass/Vol] 9.2 mg/dL Normal 8.5-10.2 [facility] Comment on above: Order Comment: Speci men Type: BLOOD SPECIMEN Ordering Facility: [facility] Address: [address] [address] Performed By: #### 2 4321-2 #### [facility] CLIA [id number] [address] [place] [address] [place] Chloride [Moles/Vol] 103 mmol/L Normal 97-105 [facility] Comment on above: Order Comment: Speci men Type: BLOOD SPECIMEN Ordering Facility: [facility] Address: [address] [address] Performed By: #### 2 4321-2 #### [facility] CLIA [id number] [address] [place] [address] [place] CO2 [Moles/Vol] 23 mmol/L Normal 22-30 [facility] Comment on above: Order Comment: Speci men Type: BLOOD SPECIMEN Ordering Facility: [facility] Address: [address] Performed By: #### 2 4321-2 #### [facility] CLIA [id number] [address] [place] [address] [place] Creatinine [Mass/Vol] 1.58 mg/dL High 0.73-1.22 [facility] Comment on above: Order Comment: Speci men Type: BLOOD SPECIMEN Ordering Facility: [facility] Address: [address] Performed By: #### 2 4321-2 #### [facility] CLIA [id number] [address] [place] [address] [place] ESTIMATED GLOMERULAR FILTRATION RATE 46 mL/min/1.73m??? Low >=60 [facility] Comment on above: Order Comment: Andrew be Type: BLOOD SPECIMEN Ordering Facility: [facility] Address: [address] [place] [address] Result Comment: Catherine mated Glomerular Filtration Rate (eGFR) is calculated using the 2020 CKD-EPI creatinine equation. This equation utilizes serum creatinine, sex, and age as parameters. The creatinine assay has traceable calibration to isotope dilution-mass spectrometry. Refer to KDIGO guidelines for clinical interpretation. In patients with unstable renal function, e.g. those with acute kidney injury, the eGFR may not accurately reflect actual GFR. Performed By: #### 2 4321-2 #### [facility] [id number] [address] [place] [address] [place] Glucose [Mass/Vol] 104 mg/dL High 74-99 [facility] Comment on above: Order Comment: Andrew be Type: BLOOD SPECIMEN Ordering Facility: [facility] Address: [address] [place] [address] Result Comment: The [place] [employer] (ADA) provides guidance for cutoff values for fasting glucose and random glucose. The ADA defines fasting as no caloric intake for at least 8 hours. Fasting plasma glucose results between 100 to 125 mg/dL indicate increased risk for diabetes (prediabetes). Fasting plasma glucose results greater than or equal to 126 mg/dL meet the criteria for diagnosis of diabetes. In the absence of unequivocal hyperglycemia, results should be confirmed by repeat testing. In a patient with classic symptoms of hyperglycemia or hyperglycemic crisis, random plasma glucose results greater than or equal to 200 mg/dL meet the criteria for diagnosis of diabetes. Reference: Standards of Medical Care in Diabetes 2016, [place] [employer]. Diabetes Care. 2016.39(Suppl 1). Performed By: #### 2 4321-2 #### [facility] [id number] [address] [place] [address] [place] Potassium [Moles/Vol] 4.7 mmol/L Normal 3.7-5.1 [facility] Comment on above: Order Comment: Speci men Type: BLOOD SPECIMEN Ordering Facility: [facility] Address: [address] [place] [address] Performed By: #### 2 4321-2 #### [facility] CLIA [id number] [address] [place] [address] [place] Sodium [Moles/Vol] 135 mmol/L Low 136-144 [facility] Comment on above: Order Comment: Speci men Type: BLOOD SPECIMEN Ordering Facility: [facility] Address: [address] [place] [address] Performed By: #### 2 4321-2 #### [facility] [id number] [address] [place] [address] [place] Urea nitrogen [Mass/Vol] 35 mg/dL High 9-24 [facility] Comment on above: Order Comment: Speci men Type: BLOOD SPECIMEN Ordering Facility: [facility] Address: [address] [place] [address] Performed By: #### 2 4321-2 #### [facility] [id number] [address] [place] [address] [place] CBC W Auto Differential pane l (Bld)on 10-31-2021 Basophils (Bld) [#/Vol] 0.03 10*3/uL Normal <0.11 [facility] Comment on above: Order Comment: Speci men Type: BLOOD SPECIMEN Ordering Facility: [facility] Address: [address] [place] [address] Performed By: #### 5 7021-8 #### [facility] CLIA [id number] [address] [place] [address] [place] Basophils/100 WBC (Bld) 0.4 % Normal [facility] Comment on above: Order Comment: Speci men Type: BLOOD SPECIMEN Ordering Facility: [facility] Address: [address] Performed By: #### 5 7021-8 #### [facility] CLIA [id number] [address] [place] [address] [place] Differential cell count method Nom (Bld) Auto Normal [facility] Comment on above: Order Comment: Speci men Type: BLOOD SPECIMEN Ordering Facility: [facility] Address: [address] [place] [address] Performed By: #### 5 7021-8 #### [facility] CLIA [id number] [address] [place] [address] [place] Eosinophils (Bld) [#/Vol] 0.13 10*3/uL Normal <0.46 [facility] Comment on above: Order Comment: Speci men Type: BLOOD SPECIMEN Ordering Facility: [facility] Address: [address] [place] [address] Performed By: #### 5 7021-8 #### [facility] CLIA [id number] [address] [place] [address] [place] Eosinophils/100 WBC (Bld) 1.8 % Normal [facility] Comment on above: Order Comment: Speci men Type: BLOOD SPECIMEN Ordering Facility: [facility] Address: [address] [place], [place] [address] Performed By: #### 5 7021-8 #### [facility] CLIA [id number] [address] [place] [address] [place] Erythrocyte distribution width (RBC) [Ratio] 12.0 % Normal 11.5-15.0 [facility] Comment on above: Order Comment: Speci men Type: BLOOD SPECIMEN Ordering Facility: [facility] Address: [address] [place], [place] [address] Performed By: #### 5 7021-8 #### [facility] CLIA [id number] [address] [place] [address] [place] Hematocrit (Bld) [Volume fraction] 33.8 % Low 39.0-51.0 [facility] Comment on above: Order Comment: Speci men Type: BLOOD SPECIMEN Ordering Facility: [facility] Address: [address] [place] [address] Performed By: #### 5 7021-8 #### [facility] CLIA [id number] [address] [place] [address] [place] Hemoglobin (Bld) [Mass/Vol] 11.4 g/dL Low 13.0-17.0 [facility] Comment on above: Order Comment: Speci men Type: BLOOD SPECIMEN Ordering Facility: [facility] Address: [address] [place] [address] Performed By: #### 5 7021-8 #### [facility] [id number] [address] [place] [address] OF [facility] IMMATURE GRAN % 0.6 % Normal [facility] Comment on above: Order Comment: Speci men Type: BLOOD SPECIMEN Ordering Facility: [facility] Address: [address] [place] [address] Performed By: #### 5 7021-8 #### [facility] [id number] [address] [place] [address] [place] IMMATURE GRAN ABS 0.04 k/uL Normal <0.10 [facility] Comment on above: Order Comment: Speci men Type: BLOOD SPECIMEN Ordering Facility: [facility] Address: [address] [place] [address] Performed By: #### 5 7021-8 #### [facility] CLIA [id number] [address] [place] [address] [place] Lymphocytes (Bld) [#/Vol] 1.28 10*3/uL Normal 1.00-4.00 [facility] Comment on above: Order Comment: Speci men Type: BLOOD SPECIMEN Ordering Facility: [facility] Address: [address] [place], [place] [address] Performed By: #### 5 7021-8 #### [facility] CLIA [id number] [address] [place] [address] Lymphocytes/100 WBC (Bld) 18.0 % Normal [facility] Comment on above: Order Comment: Speci men Type: BLOOD SPECIMEN Ordering Facility: [facility] Address: [address] [place], [place] [address] Performed By: #### 5 7021-8 #### [facility] CLIA [id number] [address] [place] [address] [place] MCH (RBC) [Entitic mass] 32.2 pg Normal 26.0-34.0 [facility] Comment on above: Order Comment: Speci men Type: BLOOD SPECIMEN Ordering Facility: [facility] Address: [address] [place], [place] [address] Performed By: #### 5 7021-8 #### [facility] CLIA [id number] [address] [place] [address] [place] MCHC (RBC) [Mass/Vol] 33.7 g/dL Normal 30.5-36.0 [facility] Comment on above: Order Comment: Speci men Type: BLOOD SPECIMEN Ordering Facility: [facility] Address: [address] [place], [place] [address] Performed By: #### 5 7021-8 #### [facility] CLIA [id number] [address] [place] [address] [facility] [place] MCV (RBC) [Entitic vol] 95.5 fL Normal 80.0-100.0 [facility] Comment on above: Order Comment: Speci men Type: BLOOD SPECIMEN Ordering Facility: [facility] Address: [address] [place], [place] [address] Performed By: #### 5 7021-8 #### [facility] CLIA [id number] [address] [place] [address] [place] Monocytes (Bld) [#/Vol] 0.60 10*3/uL Normal <0.87 [facility] Comment on above: Order Comment: Speci men Type: BLOOD SPECIMEN Ordering Facility: [facility] Address: [address] [place] [address] Performed By: #### 5 7021-8 #### [facility] CLIA [id number] [address] [place] [address] [place] Monocytes/100 WBC (Bld) 8.4 % Normal [facility] Comment on above: Order Comment: Speci men Type: BLOOD SPECIMEN Ordering Facility: [facility] Address: [address] [place] [address] Performed By: #### 5 7021-8 #### [facility] CLIA [id number] [address] [place] [address] [place] Neutrophils (Bld) [#/Vol] 5.05 10*3/uL Normal 1.45-7.50 [facility] Comment on above: Order Comment: Speci men Type: BLOOD SPECIMEN Ordering Facility: [facility] Address: [address] [place] [address] Performed By: #### 5 7021-8 #### [facility] CLIA [id number] [address] [place] [address] [place] Neutrophils/100 WBC (Bld) 70.8 % Normal [facility] Comment on above: Order Comment: Speci men Type: BLOOD SPECIMEN Ordering Facility: [facility] Address: [address] [place] [address] Performed By: #### 5 7021-8 #### [facility] CLIA [id number] [address] [place] [address] [place] Nucleated RBC (Bld) [#/Vol] 10*3/uL Normal <0.01 [facility] Comment on above: Order Comment: Speci men Type: BLOOD SPECIMEN Ordering Facility: [facility] Address: [address] [place], [place] [address] Performed By: #### 5 7021-8 #### [facility] CLIA [id number] [address] [place] [place] [address] [place] Nucleated RBC/100 WBC (Bld) [Ratio] 0.0 /100 WBC Normal [facility] Comment on above: Order Comment: Speci men Type: BLOOD SPECIMEN Ordering Facility: [facility] Address: [address] [place], [place] [id number] Performed By: #### 5 7021-8 #### [facility] CLIA [id number] [address] [place] [address] [place] Platelet mean volume (Bld) [Entitic vol] 9.4 fL Normal 9.0-12.7 [facility] Comment on above: Order Comment: Speci men Type: BLOOD SPECIMEN Ordering Facility: [facility] Address: [address] [place], [place] [id number] Performed By: #### 5 7021-8 #### [facility] CLIA [id number] [address] [place] [address] [place] Platelets (Bld) [#/Vol] 246 10*3/uL Normal 150-400 [facility] Comment on above: Order Comment: Speci men Type: BLOOD SPECIMEN Ordering Facility: [facility] Address: [address] [place] [phone] Performed By: #### 5 7021-8 #### [facility] CLIA [id number] [address] [place] [address] [place] RBC (Bld) [#/Vol] 3.54 10*6/uL Low 4.20-6.00 [facility] Comment on above: Order Comment: Speci men Type: BLOOD SPECIMEN Ordering Facility: [facility] Address: [address] [place], [place] [phone] Performed By: #### 5 7021-8 #### [facility] CLIA [id number] [address] [place] [address] [facility] [place] WBC (Bld) [#/Vol] 7.13 10*3/uL Normal 3.70-11.00 [facility] Comment on above: Order Comment: Speci men Type: BLOOD SPECIMEN Ordering Facility: [facility] Address: [address] [place], [place] [phone] Performed By: #### 5 7021-8 #### [facility] CLIA [id number] [address] [place] [address] OF [facility] CNOVSPon 10-31-2021 CNOVSP Visit (SP) Office (HEMMARY) KARL ODOM ([id number]) 1950 M Date Time Provider Department 10/31/21 10:10 AM FRANKIE BEDOYA During your visit today, we recorded the following information about you: Temperature Pulse Blood pressure Weight 98.1 degrees 52/minute 126/59 73 kg Frankie Bedoya DO 10/31/2021 10:36 AM Signed Diagnosis: 1) Anemia. HPI: The patient is [...] from April 2015 reviewed. Fell from ladder 11/1719/. Developed gross hematuria. Went to ED. CT scan abdomen pelvis identified L1 compression fracture of uncertain chronicity. Nonobstructing left renal calculus was noted. Saw Dr. Garcia. Had Covid, so lithotripsy delayed until 01/12. Was inpatient 4 days. Received 2 unit RBC transfusion. When home, had onset recurrent gross hematuria. Went to ED at [facility]. Received transfusion. Life [id number]/14 to [facility]. Hgb 6.7 g/dL. No further gross hematuria. He was advised to restart apixaban when discharged from [facility]. He is on oral iron supplementation and [...] edema. SKIN: No jaundice or rash. NEUROLOGIC: vice president of news II-XII are grossly intact. No focal motor [...] Abs Lymph 1.00 - 4.00 k/uL 1.28 [place]% % 8.4 Abs [place] <0.87 k/uL 0.60 [place]% % 1.8 Abs [...] -Last exacerbated by perinephric and retroperitoneal hemorrhage. (more content not included)... Normal [facility] Ferritin SerPl-ncon 2021 Ferritin [Mass/Vol] 363.0 ng/mL Normal 30.3-565.7 [facility] Comment on above: Order Comment: Speci men Type: BLOOD SPECIMEN Ordering Facility: [facility] Address: [address] [place] [address] Performed By: #### 5 0190-8, 6-4 #### [facility] CLIA [id number] [address] [place] [address] [place] Iron and Iron binding capaci panel 10-31-2021 Iron [Mass/Vol] 66 ug/dL Normal 41-186 [facility] Comment on above: Order Comment: Speci men Type: BLOOD SPECIMEN Ordering Facility: [facility] Address: [address] [place] [address] Performed By: #### 5 0190-8, 6-4 #### [facility] CLIA [id number] [address] [place] [address] [place] Iron binding capacity [Mass/Vol] 244 ug/dL Normal 232-386 [facility] Comment on above: Order Comment: Speci men Type: BLOOD SPECIMEN Ordering Facility: [facility] Address: [address] [place] [address] Performed By: #### 5 0190-8, 6-4 #### [facility] CLIA [id number] [address] [place] [address] [place] Iron/TIBC [Molar ratio] 27.0 % Normal 15.0-57.0 [facility] Comment on above: Order Comment: Andrew be Type: BLOOD SPECIMEN Ordering Facility: [facility] Address: [address] [place], [place] [id number] Performed By: #### 5 0190-8, 2276-4 #### [facility] CLIA [id number] [address] [place] [address] [place] CNPNon 09-12-2021 CNPN Telephone (HEMAWS) KARL ODOM ([id number]) 1950 M Date Time Provider Department 09/12/21 FRANKIE BEDOYA During your visit today, we recorded the following information about you: Veronica Sharma 09/12/2021 9:10 AM Signed Patient's Jennifer called requesting to speak to a nurse, has question about labs, can be reached at [phone]. Thank you Veronica Baorne LPN 09/12/2021 9:27 AM Signed Message left for to contact office. Allyssa Barone LPN 09/12/2021 9:50 AM Signed Patient's misunderstood and cancelled appointment for 09/14/2021. Please call to reschedule CBC/BMP/IRON STUDIES/6MO OV. Allyssa Luong 09/12/2021 11:16 AM Signed Patient is rescheduled, aware of time and date. Nicol Luong Allergies As of Date: 09/12/2021 (No Known Allergies) Date Reviewed: 02/09/2021 Reviewed by: Veronica Carroll MA - Fully Assessed Reason for Visit: Patient Question [1947] Prescriptions as of 06/02/2022 - levothyroxine (SYNTHROID) 137 mcg tablet Take 137 mcg by mouth once daily. - omeprazole (PRILOSEC) 40 mg capsule Take 40 mg by mouth once daily. - ondansetron (ZOFRAN) 4 mg tablet Take 4 mg by mouth as needed for nausea/vomiting. - ALIVE MEN'S GUMMY VITAMIN ORAL Take 3 Each by mouth once daily. - ferrous sulfate EC 324 mg (65 mg iron) TbEC Take 324 mg by mouth once daily. - ascorbic acid, vitamin C, (VITAMIN C) 500 mg tablet Take two tablets by mouth once daily. - calcium carbonate/vitamin D3 (CALCIUM 500 + D ORAL) Take 1 tablet by mouth once daily. - cholecalciferol (VITAMIN D-3) 50 mcg (2,000 unit) tablet Take two tablets by mouth once daily. - multivit with iron,hematinic (MULTIVITAMIN-IRON, HEMATINIC, ORAL) Take 1 tablet by mouth once daily. - flecainide (TAMBOCOR) 100 mg tablet Take 1 tablet by mouth twice daily. - tamsulosin ER (FLOMAX) 0.4 mg cp24 Take 1 capsule by mouth once daily. - diltiazem CD (CARDIZEM CD, CARTIA XT) 120 mg 24 hr capsule Take 1 capsule by mouth once daily. - apixaban (ELIQUIS) 5 mg tab(s) Take 1 tablet by mouth twice daily. - cholecalciferol, Vitamin D3, (VITAMIN D3) 50,000 unit cap capsule Take 1 capsule by mouth once each week. - cyanocobalamin (VITAMIN B-12) 1,000 mcg tab Take 1 tablet by mouth once daily. - aspirin, enteric coated (ASPIRIN, ENTERIC COATED) 81 mg EC tablet Take 81 mg by mouth once daily. Problem List As Of Date 09/12/2021 Noted Resolved Renal contusion [S37.019A] 05/06/2015 Benign non-nodular prostatic hyperplasia with l*05/06/2015 History of kidney stones [Z87.442] 05/06/2015 Elevated prostate specific antigen (PSA) [R97.2*12/16/2015 Anemia [D64.9] 08/13/2019 Compression fracture of L2 lumbar vertebra, seq*07/19/2020 Compression fracture of L3 lumbar vertebra, seq*07/19/2020 Encounter Status:Closed by VERONICA CABRALES on 06/02/22 Normal [facility] 06-22-2021 CNPN Telephone (HEMAWS) KARL ODOM ([id number]) 1950 M Date Time Provider Department 06/22/21 FRANKIE BEDOYA During your visit today, we recorded the following information about you: Abigail Arellano Admin Sec 06/22/2021 12:25 PM Signed Pt had labs done through PCP. Wanted to let you know his hemoglobin was 11.9 today. Allyssa Barone LPN 06/22/2021 1:08 PM Signed Recent lab results requested from PCP. Allyssa Barone LPN 06/22/2021 4:16 PM Signed Lab results received and placed in Dr. Bedoya's mailbox for review. Allyssa Bedoya DO 06/27/2021 8:23 AM Signed Blood counts have improved. DO Peyton Dallas LPN 06/27/2021 8:36 AM Signed Spoke with pts. , informed that Dr. Bedoya looked at all pts. Lab results, and stated His blood counts have improved. will pass info on to pt. Peyton Taylor LPN Allergies As of Date: 06/22/2021 (No Known Allergies) Date Reviewed: 02/09/2021 Reviewed by: Veronica Carroll MA - Fully Assessed Reason for Visit: Patient Update [1234] Prescriptions as of 06/27/2021 - levothyroxine (SYNTHROID) 137 mcg tablet Take 137 mcg by mouth once daily. - omeprazole (PRILOSEC) 40 mg capsule Take 40 mg by mouth once daily. - ondansetron (ZOFRAN) 4 mg tablet Take 4 mg by mouth as needed for nausea/vomiting. - ferrous sulfate (SLOW RELEASE IRON ORAL) Take 45 mg by mouth once daily. - ALIVE MEN'S GUMMY VITAMIN ORAL Take 3 Each by mouth once daily. - ferrous sulfate EC 324 mg (65 mg iron) TbEC Take 324 mg by mouth once daily. - ascorbic acid, vitamin C, (VITAMIN C) 500 mg tablet Take two tablets by mouth once daily. - calcium carbonate/vitamin D3 (CALCIUM 500 + D ORAL) Take 1 tablet by mouth once daily. - cholecalciferol (VITAMIN D-3) 50 mcg (2,000 unit) tablet Take two tablets by mouth once daily. - multivit with iron,hematinic (MULTIVITAMIN-IRON, HEMATINIC, ORAL) Take 1 tablet by mouth once daily. - levothyroxine (SYNTHROID) 125 mcg tablet Take 1 tablet by mouth daily before breakfast. - flecainide (TAMBOCOR) 100 mg tablet Take 1 tablet by mouth twice daily. - tamsulosin ER (FLOMAX) 0.4 mg cp24 Take 1 capsule by mouth once daily. - diltiazem CD (CARDIZEM CD, CARTIA XT) 120 mg 24 hr capsule Take 1 capsule by mouth once daily. - apixaban (ELIQUIS) 5 mg tab(s) Take 1 tablet by mouth twice daily. - cholecalciferol, Vitamin D3, (VITAMIN D3) 50,000 unit cap capsule Take 1 capsule by mouth once each week. - cyanocobalamin (VITAMIN B-12) 1,000 mcg tab Take 1 tablet by mouth once daily. - aspirin, enteric coated (ASPIRIN, ENTERIC COATED) 81 mg EC tablet Take 81 mg by mouth once daily. Problem List As Of Date 06/22/2021 Noted Resolved Renal contusion [S37.019A] 05/06/2015 Benign non-nodular prostatic hyperplasia with l*05/06/2015 History of kidney stones [Z87.442] 05/06/2015 Elevated prostate specific antigen (PSA) [R97.2*12/16/2015 Anemia [D64.9] 08/13/2019 Compression fracture of L2 lumbar vertebra, seq*07/19/2020 Compression fracture of L3 lumbar vertebra, seq*07/19/2020 Encounter Status:Closed by PEYTON TAYLOR on 06/27/21 Normal [facility] BASIC METABOLIC PANELon 10-2 Anion gap [Moles/Vol] 15 mmol/L Normal 10-20 [facility] Comment on above: Performed By: #### C H8 #### [facility] [address] [place] [address], Calcium [Mass/Vol] 8.5 mg/dL Normal 8.4-10.4 [facility] Comment on above: Performed By: #### C H8 #### [facility] [address] [place] [address], Chloride [Moles/Vol] 106 mmol/L Normal 97-111 [facility] Comment on above: Performed By: #### C H8 #### [facility] [address] [place] [address], CO2 [Moles/Vol] 19 mmol/L Low 21-30 [facility] Comment on above: Performed By: #### C H8 #### [facility] [address] [place] [address], Creatinine [Mass/Vol] 1.36 mg/dL High 0.80-1.30 [facility] Comment on above: Performed By: #### C H8 #### [facility] [address] [place] [address], ESTIMATED GFR (CKD-EPI) 52 mL/min/1.73sqm Low >=60 [facility] Comment on above: Performed By: #### C H8 #### [facility] [address] [place] [address], Glucose [Mass/Vol] 97 mg/dL Normal 80-116 [facility] Comment on above: Performed By: #### C H8 #### [facility] [address] [place] [address], Potassium [Moles/Vol] 4.6 mmol/L Normal 3.3-5.3 [facility] Comment on above: Performed By: #### C H8 #### [facility] [address] [place] [address], Sodium [Moles/Vol] 135 mmol/L Normal 135-148 [facility] Comment on above: Performed By: #### C H8 #### [facility] [address] [place] [address], Urea nitrogen [Mass/Vol] 22 mg/dL Normal 8-22 [facility] Comment on above: Performed By: #### C H8 #### [facility] [address] [place] [address], CBC WITH DIFFERENTIALon 01-08 Erythrocyte distribution width (RBC) [Ratio] 13.8 % Normal 11.5-14.5 [facility] Comment on above: Performed By: #### C BCDSAT #### [facility] [address] [place] [address], Hematocrit (Bld) [Volume fraction] 21.4 % Low 41.0-53.0 [facility] Comment on above: Performed By: #### C BCDSAT #### [facility] [address] [place] [address], Hemoglobin (Bld) [Mass/Vol] 7.3 g/dL Low 13.9-16.3 [facility] Comment on above: Performed By: #### C BCDSAT #### [facility] [address] [place] [address], MCH (RBC) [Entitic mass] 32.0 pg Normal 26.0-34.0 [facility] Comment on above: Performed By: #### C BCDSAT #### [facility] [address] [place] [address], MCHC (RBC) [Mass/Vol] 34.2 g/dL Normal 32.0-35.9 [facility] Comment on above: Performed By: #### C BCDSAT #### [facility] [address] [place] [address], MCV (RBC) [Entitic vol] 93 fL Normal 80-100 [facility] Comment on above: Performed By: #### C BCDSAT #### [facility] [address] [place] [address], MONOCYTE DISTRIBUTION WIDTH Normal [facility] Comment on above: Performed By: #### C BCDSAT #### [facility] [address], [place], Platelet mean volume (Bld) [Entitic vol] 6.9 fL Low 7.5-11.2 [facility] Comment on above: Performed By: #### C BCDSAT #### [facility] [address], [place], Platelets (Bld) [#/Vol] 454 10*3/uL High 150-400 [facility] Comment on above: Performed By: #### C BCDSAT #### [facility] [address], [place], RBC (Bld) [#/Vol] 2.30 10*6/uL Low 4.50-5.90 [facility] Comment on above: Performed By: #### C BCDSAT #### [facility] [address], [place], WBC (Bld) [#/Vol] 7.5 10*3/uL Normal 4.5-11.5 [facility] Comment on above: Performed By: #### C BCDSAT #### [facility] [address], [place], Care Plan Noteon 01-27-2021 Cashier Greeter Authentication Interface Message Text Problem: Routine Care: Goal: Patient care will be managed and maintained throughout hospital stay per unit specific routine care procedure 01/27/2021 1504 by Isis Patel RN Outcome: Completed 01/27/2021 1209 by Isis Patel RN Outcome: Progressing Problem: Fluid and Electrolyte Imbalance: Goal: Adequate fluid and electrolyte balance will be achieved and maintained 01/27/2021 1504 by Isis Patel RN Outcome: Completed 01/27/2021 1209 by Isis Patel RN Outcome: Progressing Goal: Will show no signs and symptoms of excessive bleeding 01/27/2021 1504 by Isis Patel RN Outcome: Completed 01/27/2021 1209 by Isis Patel RN Outcome: Progressing Goal: Will remain free of signs and symptoms of fluid loss/inadequate intake 01/27/2021 1504 by Isis Patel RN Outcome: Completed 01/27/2021 1209 by Isis Patel RN Outcome: Progressing Problem: Hemodynamic Instability: Goal: Hemodynamic stability will be achieved and maintained 01/27/2021 1504 by Isis Patel RN Outcome: Completed 01/27/2021 1209 by Isis Patel RN Outcome: Progressing Problem: Acute Pain: Goal: Ability to identify pain intensity on a pain scale and rate it consistently will be achieved and maintained 01/27/2021 1504 by Isis Patel RN Outcome: Completed 01/27/2021 1209 by Isis Patel RN Outcome: Progressing Goal: Understanding of proper administration and use of medicines will be achieved 01/27/2021 1504 by Isis Patel RN Outcome: Completed 01/27/2021 1209 by Isis Patel RN Outcome: Progressing Goal: Ability to identify factors that manage or decrease pain will be achieved 01/27/2021 1504 by Isis Patel RN Outcome: Completed 01/27/2021 1209 by Isis Patel RN Outcome: Progressing Problem: Altered Nutrition: Goal: Achieve developmentally appropriate nutritional intake as clinically indicated 01/27/2021 1504 by Isis Patel RN Outcome: Completed 01/27/2021 1209 by Isis Patel RN Outcome: Progressing Goal: Demonstrates progression toward an optimal weight 01/27/2021 1504 by Isis Patel RN Outcome: Completed 01/27/2021 1209 by Isis Patel RN Outcome: Progressing Problem: Alteration in Tissue Perfusion: Cardiac: Goal: Promote adequate perfusion and limit complications resulting from myocardial oxygen supply, demand and imbalance 01/27/2021 1504 by Isis Patel RN Outcome: Completed 01/27/2021 1209 by sIis Patel RN Outcome: Progressing Problem: VTE Prophylaxis: Goal: Will be free of DVT 01/27/2021 1504 by Isis Patel RN Outcome: Completed 01/27/2021 1209 by Isis Patel RN Outcome: Progressing Problem: Safety: Goal: Patient will remain free of falls during hospital stay 01/27/2021 1504 by Isis Patel RN Outcome: Completed 01/27/2021 1209 by Isis Patel RN Outcome: Progressing Goal: Free from injury during hospitalization 01/27/2021 1504 by Isis Patel RN Outcome: Completed 01/27/2021 1209 by Isis Patel RN Outcome: Progressing Problem: Discharge Planning: Goal: Discharge needs of the adult patient will be met 01/27/2021 1504 by Isis Patel RN Outcome: Completed 01/27/2021 1209 by Isis Patel RN Outcome: Progressing Normal [facility] Cashier Greeter Authentication Interface Message Text Problem: Routine Care: Goal: Patient care will be managed and maintained throughout hospital stay per unit specific routine care procedure Outcome: Progressing Problem: Fluid and Electrolyte Imbalance: Goal: Adequate fluid and electrolyte balance will be achieved and maintained Outcome: Progressing Goal: Will show no signs and symptoms of excessive bleeding Outcome: Progressing Goal: Will remain free of signs and symptoms of fluid loss/inadequate intake Outcome: Progressing Problem: Hemodynamic Instability: Goal: Hemodynamic stability will be achieved and maintained Outcome: Progressing Problem: Acute Pain: Goal: Ability to identify pain intensity on a pain scale and rate it consistently will be achieved and maintained Outcome: Progressing Goal: Understanding of proper administration and use of medicines will be achieved Outcome: Progressing Goal: Ability to identify factors that manage or decrease pain will be achieved Outcome: Progressing Problem: Altered Nutrition: Goal: Achieve developmentally appropriate nutritional intake as clinically indicated Outcome: Progressing Goal: Demonstrates progression toward an optimal weight Outcome: Progressing Problem: Alteration in Tissue Perfusion: Cardiac: Goal: Promote adequate perfusion and limit complications resulting from myocardial oxygen supply, demand and imbalance Outcome: Progressing Problem: VTE Prophylaxis: Goal: Will be free of DVT Outcome: Progressing Problem: Safety: Goal: Patient will remain free of falls during hospital stay Outcome: Progressing Goal: Free from injury during hospitalization Outcome: Progressing Problem: Discharge Planning: Goal: Discharge needs of the adult patient will be met Outcome: Progressing Normal [facility] MANUAL DIFF AND MORPHon 01-08 CELLS COUNTED TOTAL # IN BLOOD 100 Normal [facility] Comment on above: Performed By: #### C BCDSAT #### [facility] [address] [place] [address], [id number] EOSINOPHILS % BY MANUAL COUNT 1.0 % Normal 0.1-4.0 [facility] Comment on above: Performed By: #### C BCDSAT #### [facility] [address], [place], EOSINOPHILS ABS BY MANUAL COUNT 0.08 K/uL Normal 0.00-0.70 [facility] Comment on above: Performed By: #### C BCDSAT #### [facility] [address], [place], LYMPHOCYTES % BY MANUAL COUNT 16.0 % Low 24.0-44.0 [facility] Comment on above: Performed By: #### C BCDSAT #### [facility] [address], [place], LYMPHOCYTES ABS BY MANUAL COUNT 1.20 K/uL Normal 1.00-4.80 [facility] Comment on above: Performed By: #### C BCDSAT #### [facility] [address] [place] [address], MONOCYTES % BY MANUAL COUNT 3.0 % Normal 2.0-11.0 [facility] Comment on above: Performed By: #### C BCDSAT #### [facility] [address] [place] [address], MONOCYTES ABS BY MANUAL COUNT 0.23 K/uL Normal 0.20-1.00 [facility] Comment on above: Performed By: #### C BCDSAT #### [facility] [address] [place] [address], MYELOCYTES % BY MANUAL COUNT 1 % High <0 [facility] Comment on above: Performed By: #### C BCDSAT #### [facility] [address] [place] [address], MYELOCYTES ABS BY MANUAL COUNT 0.08 K/uL High <0.01 [facility] Comment on above: Performed By: #### C BCDSAT #### [facility] [address] [place] [address], NEUTROPHILS % BY MANUAL COUNT 79.0 % High 31.0-76.0 [facility] Comment on above: Performed By: #### C BCDSAT #### [facility] [address] [place] [address], NEUTROPHILS ABS BY MANUAL COUNT 5.93 K/uL Normal 1.50-8.00 [facility] Comment on above: Performed By: #### C BCDSAT #### [facility] [address] [place] [address], OVALOCYTES Few Normal [facility] Comment on above: Performed By: #### C BCDSAT #### [facility] [address] [place] [address], Progress Noteson 01-27-2021 Cashier Greeter Authentication Interface Message Text 01/27/21 1640 Discharge Note Discharged to: Home Mode of Transport Wheelchair Normal [facility] BASIC METABOLIC PANELon 01-08 Anion gap [Moles/Vol] 14 mmol/L Normal - [facility] Comment on above: Performed By: #### Beth H8 #### [facility] [address] [place] [address], Calcium [Mass/Vol] 8.3 mg/dL Low 8.4-10.4 [facility] Comment on above: Performed By: #### Beth H8 #### [facility] [address] [place] [address], Chloride [Moles/Vol] 104 mmol/L Normal 97-111 [facility] Comment on above: Performed By: #### Beth H8 #### [facility] [address] [place] [address], CO2 [Moles/Vol] 22 mmol/L Normal 21-30 [facility] Comment on above: Performed By: #### Beth H8 #### [facility] [address] [place] [address], Creatinine [Mass/Vol] 1.35 mg/dL High 0.80-1.30 The [facility] Comment on above: Performed By: #### Beth H8 #### [facility] [address] [place] [address], ESTIMATED GFR (CKD-EPI) 52 mL/min/1.73sqm Low >=60 The [facility] Comment on above: Performed By: #### Beth H8 #### [facility] [address] [place] [address], Glucose [Mass/Vol] 97 mg/dL Normal 80-116 [facility] Comment on above: Performed By: #### C H8 #### [facility] [address] [place] [address], Potassium [Moles/Vol] 4.3 mmol/L Normal 3.3-5.3 The [facility] Comment on above: Performed By: #### C H8 #### [facility] [address] [place] [address], Sodium [Moles/Vol] 136 mmol/L Normal 135-148 [facility] Comment on above: Performed By: #### C H8 #### [facility] [address] [place] [address], Urea nitrogen [Mass/Vol] 22 mg/dL Normal 8-22 The [facility] Comment on above: Performed By: #### Beth H8 #### [facility] [address] [place] [address], CBC WITH DIFFERENTIALon 01-08-2020 Basophils (Bld) [#/Vol] 0.04 10*3/uL Normal 0.00-0.20 The [facility] Comment on above: Performed By: #### Beth BCDSAT #### [facility] [address] [place] [address], Basophils/100 WBC (Bld) 0.5 % Normal <=1.9 The [facility] Comment on above: Performed By: #### Beth BCDSAT #### [facility] [address] [place] [address], Eosinophils (Bld) [#/Vol] 0.26 10*3/uL Normal 0.00-0.70 [facility] Comment on above: Performed By: #### Beth BCDSAT #### [facility] [address] [place] [address], Eosinophils/100 WBC (Bld) 3.7 % Normal 0.1-4.0 The [facility] Comment on above: Performed By: #### Beth BCDSAT #### [facility] [address] [place] [address], Erythrocyte distribution width (RBC) [Ratio] 13.7 % Normal 11.5-14.5 [facility] Comment on above: Performed By: #### C BCDSAT #### [facility] [address] [place] [address], Hematocrit (Bld) [Volume fraction] 21.2 % Low 41.0-53.0 [facility] Comment on above: Performed By: #### C BCDSAT #### [facility] [address] [place] [address], Hemoglobin (Bld) [Mass/Vol] 7.3 g/dL Low 13.9-16.3 [facility] Comment on above: Performed By: #### C BCDSAT #### [facility] [address] [place] [address], Lymphocytes (Bld) [#/Vol] 0.96 10*3/uL Low 1.00-4.80 [facility] Comment on above: Performed By: #### C BCDSAT #### [facility] [address] [place] [address], Lymphocytes/100 WBC (Bld) 13.4 % Low 24.0-44.0 [facility] Comment on above: Performed By: #### C BCDSAT #### [facility] [address] [place] [address], MCH (RBC) [Entitic mass] 31.9 pg Normal 26.0-34.0 The [facility] Comment on above: Performed By: #### C BCDSAT #### [facility] [address] [place] [address], MCHC (RBC) [Mass/Vol] 34.7 g/dL Normal 32.0-35.9 The [facility] Comment on above: Performed By: #### C BCDSAT #### [facility] [address] [place] [address], MCV (RBC) [Entitic vol] 92 fL Normal 80-100 [facility] Comment on above: Performed By: #### C BCDSAT #### [facility] [address], [place], MONOCYTE DISTRIBUTION WIDTH Normal The [facility] Comment on above: Performed By: #### C BCDSAT #### [facility] [address], [place], Monocytes (Bld) [#/Vol] 0.56 10*3/uL Normal 0.20-1.00 The [facility] Comment on above: Performed By: #### C BCDSAT #### [facility] [address], [place], Monocytes/100 WBC (Bld) 7.8 % Normal 2.0-11.0 [facility] Comment on above: Performed By: #### C BCDSAT #### [facility] [address] [place] [address], Neutrophils (Bld) [#/Vol] 5.32 10*3/uL Normal 1.50-8.00 The [facility] Comment on above: Performed By: #### C BCDSAT #### [facility] [address], [place], Neutrophils/100 WBC (Bld) 74.6 % Normal 31.0-76.0 [facility] Comment on above: Performed By: #### Beth BCDSAT #### [facility] [address], [place], Platelet mean volume (Bld) [Entitic vol] 7.0 fL Low 7.5-11.2 [facility] Comment on above: Performed By: #### C BCDSAT #### [facility] [address], [place], Platelets (Bld) [#/Vol] 420 10*3/uL High 150-400 [facility] Comment on above: Performed By: #### C BCDSAT #### [facility] [address] [place] [address], RBC (Bld) [#/Vol] 2.30 10*6/uL Low 4.50-5.90 The [facility] Comment on above: Performed By: #### C BCDSAT #### [facility] [address], [place], WBC (Bld) [#/Vol] 7.1 10*3/uL Normal 4.5-11.5 The [facility] Comment on above: Performed By: #### C BCDSAT #### [facility] [address], [place], Care Plan Noteon 01-26-2021 [employer]ier [employer] Authentication Interface Message Text Problem: Routine Care: Goal: Patient care will be managed and maintained throughout hospital stay per unit specific routine care procedure Outcome: Progressing Problem: Fluid and Electrolyte Imbalance: Goal: Adequate fluid and electrolyte balance will be achieved and maintained Outcome: Progressing Goal: Will show no signs and symptoms of excessive bleeding Outcome: Progressing Goal: Will remain free of signs and symptoms of fluid loss/inadequate intake Outcome: Progressing Problem: Hemodynamic Instability: Goal: Hemodynamic stability will be achieved and maintained Outcome: Progressing Problem: Acute Pain: Goal: Ability to identify pain intensity on a pain scale and rate it consistently will be achieved and maintained Outcome: Progressing Goal: Understanding of proper administration and use of medicines will be achieved Outcome: Progressing Goal: Ability to identify factors that manage or decrease pain will be achieved Outcome: Progressing Problem: Altered Nutrition: Goal: Achieve developmentally appropriate nutritional intake as clinically indicated Outcome: Progressing Note: Encourage PO intake for patient with boost supplements Goal: Demonstrates progression toward an optimal weight Outcome: Progressing Problem: Alteration in Tissue Perfusion: Cardiac: Goal: Promote adequate perfusion and limit complications resulting from myocardial oxygen supply, demand and imbalance Outcome: Progressing Problem: VTE Prophylaxis: Goal: Will be free of DVT Outcome: Progressing Problem: Safety: Goal: Patient will remain free of falls during hospital stay Outcome: Progressing Goal: Free from injury during hospitalization Outcome: Progressing Problem: Discharge Planning: Goal: Discharge needs of the adult patient will be met Outcome: Progressing Normal [facility] Cashier Greeter Authentication Interface Message Text Problem: Routine Care: Goal: Patient care will be managed and maintained throughout hospital stay per unit specific routine care procedure Outcome: Progressing Problem: Fluid and Electrolyte Imbalance: Goal: Adequate fluid and electrolyte balance will be achieved and maintained Outcome: Progressing Goal: Will show no signs and symptoms of excessive bleeding Outcome: Progressing Goal: Will remain free of signs and symptoms of fluid loss/inadequate intake Outcome: Progressing Problem: Hemodynamic Instability: Goal: Hemodynamic stability will be achieved and maintained Outcome: Progressing Problem: Acute Pain: Goal: Ability to identify pain intensity on a pain scale and rate it consistently will be achieved and maintained Outcome: Progressing Goal: Understanding of proper administration and use of medicines will be achieved Outcome: Progressing Goal: Ability to identify factors that manage or decrease pain will be achieved Outcome: Progressing Problem: Altered Nutrition: Goal: Achieve developmentally appropriate nutritional intake as clinically indicated Outcome: Progressing Goal: Demonstrates progression toward an optimal weight Outcome: Progressing Problem: Alteration in Tissue Perfusion: Cardiac: Goal: Promote adequate perfusion and limit complications resulting from myocardial oxygen supply, demand and imbalance Outcome: Progressing Problem: VTE Prophylaxis: Goal: Will be free of DVT Outcome: Progressing Problem: Safety: Goal: Patient will remain free of falls during hospital stay Outcome: Progressing Goal: Free from injury during hospitalization Outcome: Progressing Problem: Discharge Planning: Goal: Discharge needs of the adult patient will be met Outcome: Progressing Normal [facility] [employer] 01-26-2021 Cashier Greeter Authentication Interface Message Text Diet Kennel Staff Member Nutrition Screening Reason for visit: LOS 5 or more days Assessment Admitting Diagnosis: Perinephric hematoma [S37.019A] High risk nutrition diagnosis: No - no points Past Medical History: No past medical history on file. Food Allergies: no Labs: LFT's (last 3 years, up to 5 values) T Prot Albumin D Bili T Bili Alk Phos ALT AST 01/21/21 1502 5.3 2.8 0.50 2.5 74 35 27 Albumin: Less than 3 - 1 point Skin Integrity: No pressure ulcers at this time - no points Fluid Accumulation: no Diet Order: Regular % PO Intake: 25-50-100% Intake Difficulties: None - 0 points Per pt 5' 6 [id number] lbs UBW: no wt h/o BMI: 28.18 BMI Screening value: 21 or greater - 0 points % Weight Loss: no Weight Loss Screening Value: Not significant - 0 points Education: No nutrition education indicated at this time. Comments: Pt tolerating current diet well without any issues Number of Points: 1 Nutritional Plan of Care: Less than or equal to 6 points: At this time, patient is at low nutrition risk. DTR to provide routine follow up. Will continue to follow, Maria Teresa Burnham, [employer] Pager#[phone] Normal [facility] Progress Noteson 01-26-2021 Cashier Greeter Authentication Interface Message Text Attestation signed by Abdulkadir Villalba MD at 01/26/2021 7:03 PM Teaching Physician Note: I saw and evaluated the patient. I personally obtained the hcambers and critical portions of the history and physical exam. I reviewed the resident's documentation and discussed the patient with the resident. I agree with the resident's medical decision making as documented in the resident's note. Mr Odom is a 70 year old M with PMH of atrial fibrillation (Eliquis, flecainide), hypothyroidism, BPH, reported JOSE, PAD who presented from OSH with anemia and concern for retroperitoneal and perinephric bleed in the setting of recent fall and recent stent removal and lithotripsy (01/12/21) for left nephrolithiasis. Postop was complicated by bleeding in the kidney and hypotension requiring 2u pRBCs per OSH records on Care Everywhere. Did have US kidney on 01/13 with suspicion for perirenal or subcapsular hematoma. Was discharged on 01/14. Patient presented to OSH ED on 01/21 with flank pain, presyncope and found to have hgb of 6.9. Had CT showing major intrarenal and perirenal hemorrhage . Patient transferred to [facility] for further w/u and eval. Hgb 6.7 and received 2 additional units. CTA ordered and patient with increasing pain when he was being transported. Urology felt likely related to urinary retention and newman placed. CTA showed perinephric hematoma with possible active extravasation. Neither IR nor urology were planning active invasive measures at that time. Admitted to SDU for closer monitoring. Patient stable on SDU. Restarted on AC. Transferred to [facility] on 01/25. Acute blood loss anemia Perirenal hematoma Postobstructive TABATHA Urinary retention Atrial fibrillation - Transition to DOAC - Monitor hgb and UOP - Defer to urology regarding timing of newman removal Mario Villalba MD Internal Medicine, Chief Resident Pager: [phone] INTERNAL MEDICINE TEAM 2 DAILY PROGRESS NOTE Patient: Kral Odom : 1950 Sex: male Room: [place] [id number] Admit Date: 01/21/2021 Today's Date: 01/26/2021 Length of stay: 4 day(s) HOSPITAL COURSE: 70 year old male [...] for changes in Hbg. Patient transferred to [facility]. EVENTS IN PAST 24H: No acute events overnight SUBJECTIVE: Patient seen this morning laying in bed. He stated that he still has a decreased appetite and some mild diffuse abdominal pain but all other ROS negative and he would like to go home as soon as possible. We discussed the plan and he understood and agreed. OBJECTIVE: Patient Vitals for the past 24 hrs: BP Temp Temp src Pulse Resp SpO2 O2 Device 01/26/21 0406 145/69 99.2 ???F (37.3 ???C) Temporal 80 18 96 % Room air 01/26/21 0021 125/60 99.8 ???F (37.7 ???C) Temporal 73 18 95 % Room air 01/25/21 2017 135/65 99.5 ???F (37.5 ???C) Temporal 79 17 98 % Room air 01/25/21 1750 139/80 99.7 ???F (37.6 ???C) Temporal 80 16 98 % Room air 01/25/21 1711 -- 98.2 ???F (36.8 ???C) [...] Oral 75 15 99 % Room air Is/Os Baseline Weight [...] admission) Intake/Output Summary (Last 24 hours) at 01/26/2021 0726 Last data filed at 01/26/2021 0406 Gross per 24 hour Intake 1710 ml Output 1425 ml Net 285 ml In: 1710 (21.6 mL/kg) [P.O.:360; I.V.:1350 (0.7 mL/kg/hr)] (more content not included)... Normal [facility] BASIC METABOLIC PANELon 10-1 9-2021 Anion gap [Moles/Vol] 17 mmol/L Normal 10-20 [facility] Comment on above: Performed By: #### C H8 #### [facility] [address] [place] [address], Calcium [Mass/Vol] 8.6 mg/dL Normal 8.4-10.4 The [facility] Comment on above: Performed By: #### C H8 #### [facility] [address] [place] [address], Chloride [Moles/Vol] 102 mmol/L Normal 97-111 [facility] Comment on above: Performed By: #### Beth H8 #### [facility] [address] [place] [address], CO2 [Moles/Vol] 20 mmol/L Low 21-30 [facility] Comment on above: Performed By: #### Beth H8 #### [facility] [address] [place] [address], Creatinine [Mass/Vol] 1.42 mg/dL High 0.80-1.30 [facility] Comment on above: Performed By: #### Beth H8 #### [facility] [address] [place] [address], ESTIMATED GFR (CKD-EPI) 49 mL/min/1.73sqm Low >=60 [facility] Comment on above: Performed By: #### Beth H8 #### [facility] [address] [place] [address], Glucose [Mass/Vol] 92 mg/dL Normal 80-116 [facility] Comment on above: Performed By: #### C H8 #### [facility] [address] [place] [address], Potassium [Moles/Vol] 4.2 mmol/L Normal 3.3-5.3 [facility] Comment on above: Performed By: #### C H8 #### [facility] [address] [place] [address], Sodium [Moles/Vol] 135 mmol/L Normal 135-148 [facility] Comment on above: Performed By: #### C H8 #### [facility] [address] [place] [address], Urea nitrogen [Mass/Vol] 31 mg/dL High 8-22 [facility] Comment on above: Performed By: #### C H8 #### [facility] [address] [place] [address], CBC WITH DIFFERENTIALon 01-07 Erythrocyte distribution width (RBC) [Ratio] 14.3 % Normal 11.5-14.5 [facility] Comment on above: Performed By: #### C BCDSAT #### [facility] [address] [place] [address], Hematocrit (Bld) [Volume fraction] 21.6 % Low 41.0-53.0 [facility] Comment on above: Performed By: #### C BCDSAT #### [facility] [address] [place] [address], Hemoglobin (Bld) [Mass/Vol] 7.6 g/dL Low 13.9-16.3 [facility] Comment on above: Performed By: #### C BCDSAT #### [facility] [address] [place] [address], MCH (RBC) [Entitic mass] 32.5 pg Normal 26.0-34.0 [facility] Comment on above: Performed By: #### C BCDSAT #### [facility] [address] [place] [address], MCHC (RBC) [Mass/Vol] 35.1 g/dL Normal 32.0-35.9 [facility] Comment on above: Performed By: #### C BCDSAT #### [facility] [address] [place] [address], MCV (RBC) [Entitic vol] 93 fL Normal 80-100 [facility] Comment on above: Performed By: #### C BCDSAT #### [facility] [address] [place] [address], MONOCYTE DISTRIBUTION WIDTH Normal [facility] Comment on above: Performed By: #### C BCDSAT #### [facility] [address], [place], Platelet mean volume (Bld) [Entitic vol] 6.9 fL Low 7.5-11.2 [facility] Comment on above: Performed By: #### C BCDSAT #### [facility] [address], [place], Platelets (Bld) [#/Vol] 376 10*3/uL Normal 150-400 [facility] Comment on above: Performed By: #### C BCDSAT #### [facility] [address], [place], RBC (Bld) [#/Vol] 2.33 10*6/uL Low 4.50-5.90 [facility] Comment on above: Performed By: #### C BCDSAT #### [facility] [address], [place], WBC (Bld) [#/Vol] 7.8 10*3/uL Normal 4.5-11.5 [facility] Comment on above: Performed By: #### C BCDSAT #### [facility] [address], [place], Care Plan Noteon 01-25-2021 Cashier Greeter Authentication Interface Message Text Problem: Routine Care: Goal: Patient care will be managed and maintained throughout hospital stay per unit specific routine care procedure Outcome: Progressing Note: Routine assessments and vitals per unit protocol Problem: Fluid and Electrolyte Imbalance: Goal: Adequate fluid and electrolyte balance will be achieved and maintained Outcome: Progressing Note: Draw and monitor labs as ordered Goal: Will show no signs and symptoms of excessive bleeding Outcome: Progressing Goal: Will remain free of signs and symptoms of fluid loss/inadequate intake Outcome: Progressing Problem: Hemodynamic Instability: Goal: Hemodynamic stability will be achieved and maintained Outcome: Progressing Problem: Acute Pain: Goal: Ability to identify pain intensity on a pain scale and rate it consistently will be achieved and maintained Outcome: Progressing Note: Educate patient on use of pain scale and routinely assess pain Goal: Understanding of proper administration and use of medicines will be achieved Outcome: Progressing Goal: Ability to identify factors that manage or decrease pain will be achieved Outcome: Progressing Problem: Altered Nutrition: Goal: Achieve developmentally appropriate nutritional intake as clinically indicated Outcome: Progressing Note: Advance diet as tolerated Goal: Demonstrates progression toward an optimal weight Outcome: Progressing Problem: Alteration in Tissue Perfusion: Cardiac: Goal: Promote adequate perfusion and limit complications resulting from myocardial oxygen supply, demand and imbalance Outcome: Progressing Note: Monitor SpO2 and administer oxygen as ordered Problem: VTE Prophylaxis: Goal: Will be free of DVT Outcome: Progressing Note: Apply SCDs and/or administer anticoagulation therapy as ordered Problem: Safety: Goal: Patient will remain free of falls during hospital stay Outcome: Progressing Note: Educate patient on falls risk and initiate falls safety plan Goal: Free from injury during hospitalization Outcome: Progressing Problem: Discharge Planning: Goal: Discharge needs of the adult patient will be met Outcome: Progressing Note: Anticipate discharge needs and communicate to case loader operator/medical team Normal [facility] Cashier Greeter Authentication Interface Message Text Problem: Routine Care: Goal: Patient care will be managed and maintained throughout hospital stay per unit specific routine care procedure Outcome: Progressing Note: Routine care and ADLs provided with minimum assistance Problem: Fluid and Electrolyte Imbalance: Goal: Adequate fluid and electrolyte balance will be achieved and maintained Outcome: Progressing Note: Pt is hemodynamically stable Goal: Will show no signs and symptoms of excessive bleeding Outcome: Progressing Goal: Will remain free of signs and symptoms of fluid loss/inadequate intake Outcome: Progressing Problem: Hemodynamic Instability: Goal: Hemodynamic stability will be achieved and maintained Outcome: Progressing Note: Pt is hemodynamically stable Problem: Acute Pain: Goal: Ability to identify pain intensity on a pain scale and rate it consistently will be achieved and maintained Outcome: Progressing Note: Pt is able to make pain levels known appropriately Goal: Understanding of proper administration and use of medicines will be achieved Outcome: Progressing Goal: Ability to identify factors that manage or decrease pain will be achieved Outcome: Progressing Problem: Altered Nutrition: Goal: Achieve developmentally appropriate nutritional intake as clinically indicated Outcome: Progressing Goal: Demonstrates progression toward an optimal weight Outcome: Progressing Problem: Alteration in Tissue Perfusion: Cardiac: Goal: Promote adequate perfusion and limit complications resulting from myocardial oxygen supply, demand and imbalance Outcome: Progressing Problem: Safety: Goal: Patient will remain free of falls during hospital stay Outcome: Progressing Note: Safety is being monitored by hospital staff Goal: Free from injury during hospitalization Outcome: Progressing Problem: Discharge Planning: Goal: Discharge needs of the adult patient will be met Outcome: Not Progressing Note: Pt is not medically cleared for discharge at this time Normal [facility] MANUAL DIFF AND MORPHon 10-1 BANDS % BY MANUAL COUNT 1 % Normal <=10 [facility] Comment on above: Performed By: #### C BCDSAT #### [facility] [address] [place] [address], BANDS ABS BY MANUAL COUNT 0.08 K/uL High <0.01 [facility] Comment on above: Performed By: #### C BCDSAT #### [facility] [address] [place] [address], CELLS COUNTED TOTAL # IN BLOOD 100 Normal The [facility] Comment on above: Performed By: #### C BCDSAT #### S [facility] [address] [place] [address], EOSINOPHILS % BY MANUAL COUNT 2.0 % Normal 0.1-4.0 [facility] Comment on above: Performed By: #### C BCDSAT #### S [facility] [address] [place] [address], EOSINOPHILS ABS BY MANUAL COUNT 0.16 K/uL Normal 0.00-0.70 The [facility] [facility] Comment on above: Performed By: #### C BCDSAT #### S PATHOLOG[facility] LABORATORY [address] [place] [address], FRAGMENTED RBC Few Normal The [facility] Comment on above: Performed By: #### C BCDSAT #### [facility] [address] [place] [address], LYMPHOCYTES % BY MANUAL COUNT 10.0 % Low 24.0-44.0 The [facility] Comment on above: Performed By: #### C BCDSAT #### [facility] [address], [place], LYMPHOCYTES ABS BY MANUAL COUNT 0.78 K/uL Low 1.00-4.80 The [facility] Comment on above: Performed By: #### C BCDSAT #### [facility] [address] [place] [address], MONOCYTES % BY MANUAL COUNT 3.0 % Normal 2.0-11.0 The [facility] Comment on above: Performed By: #### C BCDSAT #### [facility] [address], [place], MONOCYTES ABS BY MANUAL COUNT 0.23 K/uL Normal 0.20-1.00 [facility] Comment on above: Performed By: #### C BCDSAT #### [facility] [address] [place], [place], MYELOCYTES % BY MANUAL COUNT 2 % High <0 [facility] Comment on above: Performed By: #### C BCDSAT #### [facility] [address], [place], MYELOCYTES ABS BY MANUAL COUNT 0.16 K/uL High <0.01 [facility] Comment on above: Performed By: #### C BCDSAT #### [facility] [address], [place], NEUTROPHILS % BY MANUAL COUNT 82.0 % High 31.0-76.0 [facility] Comment on above: Performed By: #### C BCDSAT #### [facility] [address], [place], NEUTROPHILS ABS BY MANUAL COUNT 6.40 K/uL Normal 1.50-8.00 [facility] Comment on above: Performed By: #### C BCDSAT #### S [facility] [address], [place], POLYCHROMASIA Slight Normal The [facility] Comment on above: Performed By: #### C BCDSAT #### S [facility] [address], [place], Progress Noteson 01-25-2021 Cashier Greeter Authentication Interface Message Text ATTENDING NOTE (Critical Care): Karl Odom ([id number]) is a 70 year old male admitted on 01/21/2021 for acute blood loss anemia - Perinephric and retroperitoneal hemorrhage while on DOAC for atrial fibrillation, due to prior fallin addition to recent lithotripsy. Hb is in plateau after initial transfusion. Pain resolved. Urinary outlet obstruction overcome with Newman catheter, now urine is light pink in color. Cr decreasing. Tolerated Lovenox without bleeding noted or suspected. Advancing to DOAC. Xfer to [facility]. Care/Support limits: Full Code Allison Rivera MD Pulmonary, Critical Care, and Sleep Medicine Critical Care Time: None Teaching Supervision Satement: I personally saw and evaluated the patient, and obtained the chambers and critical portions of the history and physical examination. I reviewed the resident's documentation and discussed the plan with them. I agree with the medical decision making as documented in the resident's note. BP 143/64 (BP Location: left arm) Pulse 74 Temp 98.7 ???F (37.1 ???C) (Oral) Resp 14 Ht 5' 6 (1.676 m) Wt 174 lb 9.7 oz (79.2 kg) SpO2 99% BMI 28.18 kg/m??? Intake/Output Summary (Last 24 hours) at 01/25/2021 1524 Last data filed at 01/25/2021 1400 Gross per 24 hour Intake 2250 ml Output 2335 ml Net -85 ml Tmax (24 hours): 98.9 ???F (37.2 ???C) CBC/PT/INR WBC RBC Hgb Hct MCV RDW Plt PT aPTT INR 01/25/21 0417 7.8 2.33 7.6 21.6 93 14.3 376 01/24/21 1635 12.7 2.60 8.4 24.7 95 13.9 376 01/24/21 0436 1.26 01/24/21 0436 8.7 2.35 7.6 21.6 92 14.1 362 01/23/21 1652 11.4 2.65 8.5 24.5 92 14.2 362 01/23/21 0821 10.5 2.23 7.2 20.6 93 14.2 322 01/23/21 0821 1.32 WBC/Diff Neutro% Segs% Bands% Lymphs% Monos% Eos% Basos% 01/25/21 0417 82.0 1 10.0 3.0 2.0 01/24/21 1635 87.0 0 8.0 5.0 01/24/21 0436 82.1 8.8 5.6 3.0 0.6 01/23/21 1652 84.4 7.7 5.3 2.2 0.5 01/23/21820 83.1 8.7 6.0 1.8 0.5 Basic Metabolic Panel Na K Cl CO2 Gap Glu BUN Cr Ca Mg PO4 01/25/21 0332 135 4.2 102 20 17 92 31 1.42 8.6 01/24/21435 135 4.2 104 21 14 104 36 1.48 8.5 01/23/21820 135 4.2 103 22 14 116 40 1.66 8.4 Hepatic/Biliary/Pancr eas None Arterial Blood Gases None Current Facility-Administered Medications Medication Dose Route Frequency Last Rate Last Admin * polyethylene glycol (MIRALAX) 17 g packet 17 g Oral Daily 17 g at 01/25/21 0919 * enoxaparin (LOVENOX) 80 MG/0.8ML injection 80 mg 1 mg/kg Subcutaneous 2x Daily 80 mg at 01/25/21 0919 * senna (SENOKOT) tablet 8.6 mg Oral At Bedtime 8.6 mg at 01/24/21 2102 * ondansetron (ZOFRAN-ODT) 4 MG disintegrating tablet 4 mg Oral Q6H PRN 4 mg at 01/24/21 1532 * Normal consistency supplement Oral 3x Daily with Meals Given at 01/25/21 0800 * lactated ringers iv infusion Intravenous Continuous 75 mL/hr at 01/24/21 1228 New Bag at 01/24/21 1228 * [MAR Hold] albuterol (PROVENTIL) (2.5 MG/3ML) 0.083% nebulizer solution 2.5 mg Nebulization Q4H RT * albuterol (PROVENTIL) (2.5 MG/3ML) 0.083% nebulizer solution 2.5 mg Nebulization Q4H PRN * aspirin 81 MG chewable tablet 81 mg Oral Daily 81 mg at 01/25/21918 * oxyCODONE-acetaminoph en (PERCOCET) 5-325 mg per tablet 1 Tablet Oral Q6H PRN 1 Tablet at 01/24/212101 * atorvastatin (LIPITOR) tablet 20 mg Oral Daily 20 mg at 01/25/21918 * ferrous sulfate tablet TABS 325 mg Oral Daily 325 mg at 01/25/21918 * flecainide (TAMBOCOR) tablet 100 mg Oral 2x Daily 100 mg at 01/25/21918 * levothyroxine (SYNTHROID) tablet 137 mcg 137 mcg Oral Before Breakfast 137 mcg at 01/25/21 0531 * esomeprazole (NEXIUM) 20 MG capsule 20 mg Oral Daily 30 min before breakfast 20 mg at 01/25/21918 * docusate sodium (COLACE) capsule 100 mg Oral 2x Daily 100 mg at 01/25/21918 * polyethylene glycol 17 g Daily * [...] * docusate sodium 100 mg 2x Daily * lactated ringers 75 mL/hr at 01/24/21 1228 * ondansetron 4 mg Q6H PRN * albuterol 2.5 mg Q4H PRN * oxyCODONE-acetaminoph en 1 Tablet Q6H PRN Normal The [facility] Transfer Noteon 01-25-2021 Cashier Greeter Authentication Interface Message Text TRANSFER NOTE: Hospital Course: 70 year old male with a history of HLD, CKD, and Afib (on Eliquis) who presented to ED???following possible syncopal episode in context of recent lithotripsy (01/19/21) and fall. Went to OSH where CT abdomen showed perinephric hematoma and Hbg was 6.9. There he received 1 unit blood, FFP, and vitamin K. Transferred to [facility]. In ED here, CBC showing Hbg 6.7 despite blood at outside hospital, additional 2 units PRBCs ordered. CTA abdomen ordered, as being transported to [place] did have worsening abdominal pain with exam showing diffuse abdominal tenderness, peritonitic. Urology consulted, assessed and diagnosed urinary retention. Placed newman with continuous irrigation, abdominal pain resolved. CTA???at [facility]???showing perinephric hematoma, possible active extravasation and perisplenic fluid. Urology reportedly not appreciating active extravasation. IR consulted, also reportedly stating that the degree of extravasation, if present at all, is minimal. Neither IR nor urology planned for any acute interventions at that time. Given presenting signs/symptoms, stable vitals signs and hemoglobin, and no large increase in hematoma size between CT scans, patient admitted to SDU for symptomatic, blood loss anemia in setting of retroperitoneal hematoma with recent lithotripsy and fall.???Clinically stable with relatively reassuring hemoglobin over his hospital stay here. Started on lovenox while monitoring for signs of bleeding and for changes in Hbg. Plan to switch to DOAC tomorrow. Deemed safe for transfer to [facility]. To Do: [ ] Follow up q24hr CBC to see if Hbg remains stable [ ] Watch for signs of bleeding [ ] If no bleeding and Hbg remains stable, plan to switch from lovenox to DOAC (eliquis) tomorrow Normal The [facility] BASIC METABOLIC PANELon 10- Anion gap [Moles/Vol] 14 mmol/L Normal 10-20 [facility] Comment on above: Performed By: #### R AMY #### [facility] [address] [place] [address], Calcium [Mass/Vol] 8.5 mg/dL Normal 8.4-10.4 The [facility] Comment on above: Performed By: #### R AMY #### [facility] [address], [place], Chloride [Moles/Vol] 104 mmol/L Normal 97-111 The [facility] Comment on above: Performed By: #### R AMY #### [facility] [address] [place] [address], CO2 [Moles/Vol] 21 mmol/L Normal 21-30 [facility] Comment on above: Performed By: #### R AMY #### [facility] [address] [place] [address], Creatinine [Mass/Vol] 1.48 mg/dL High 0.80-1.30 [facility] Comment on above: Performed By: #### R AMY #### [facility] [address] [place] [address], ESTIMATED GFR (CKD-EPI) 47 mL/min/1.73sqm Low >=60 The [facility] Comment on above: Performed By: #### R AMY #### [facility] [address] [place] [address], Glucose [Mass/Vol] 104 mg/dL Normal 80-116 [facility] Comment on above: Performed By: #### R AMY #### [facility] [address] [place] [address], Potassium [Moles/Vol] 4.2 mmol/L Normal 3.3-5.3 [facility] Comment on above: Performed By: #### R AMY #### [facility] [address] [place] [address], Sodium [Moles/Vol] 135 mmol/L Normal 135-148 The [facility] Comment on above: Performed By: #### R AMY #### [facility] [address] [place] [address], Urea nitrogen [Mass/Vol] 36 mg/dL High 8-22 The [facility] Comment on above: Performed By: #### R AMY #### [facility] [address] [place] [address], CBC WITH DIFFERENTIALon 01-07 Erythrocyte distribution width (RBC) [Ratio] 13.9 % Normal 11.5-14.5 The [facility] Comment on above: Performed By: #### C BCDSAT #### [facility] [address] [place] [address], Hematocrit (Bld) [Volume fraction] 24.7 % Low 41.0-53.0 The [facility] Comment on above: Performed By: #### C BCDSAT #### [facility] [address] [place] [address], Hemoglobin (Bld) [Mass/Vol] 8.4 g/dL Low 13.9-16.3 The [facility] Comment on above: Performed By: #### C BCDSAT #### [facility] [address] [place] [address], MCH (RBC) [Entitic mass] 32.4 pg Normal 26.0-34.0 The [facility] Comment on above: Performed By: #### C BCDSAT #### [facility] [address] [place] [address], MCHC (RBC) [Mass/Vol] 34.1 g/dL Normal 32.0-35.9 The [facility] Comment on above: Performed By: #### C MINADSAT #### [facility] [address] [place] [address], MCV (RBC) [Entitic vol] 95 fL Normal 80-100 The [facility] Comment on above: Performed By: #### Beth BCDSAT #### [facility] [address] [place] [address], MONOCYTE DISTRIBUTION WIDTH Normal The [facility] Comment on above: Performed By: #### C BCDSAT #### [facility] [address] [place] [address], Platelet mean volume (Bld) [Entitic vol] 8.1 fL Normal 7.5-11.2 The [facility] Comment on above: Performed By: #### Beth BCDSAT #### [facility] [address] [place] [address], Platelets (Bld) [#/Vol] 376 10*3/uL Normal 150-400 The [facility] Comment on above: Performed By: #### C BCDSAT #### [facility] [address] [place] [address], RBC (Bld) [#/Vol] 2.60 10*6/uL Low 4.50-5.90 The [facility] Comment on above: Performed By: #### Beth BCDSAT #### [facility] [address] [place] [address], WBC (Bld) [#/Vol] 12.7 10*3/uL High 4.5-11.5 [facility] Comment on above: Performed By: #### C BCDSAT #### [facility] [address] [place] [address], Basophils (Bld) [#/Vol] 0.05 10*3/uL Normal 0.00-0.20 [facility] Comment on above: Performed By: #### C MINADSAT #### [facility] [address] [place] [address], Basophils/100 WBC (Bld) 0.6 % Normal <=1.9 [facility] Comment on above: Performed By: #### C MITESHAT #### [facility] [address] [place] [address], Eosinophils (Bld) [#/Vol] 0.26 10*3/uL Normal 0.00-0.70 [facility] Comment on above: Performed By: #### C MITESHAT #### [facility] [address] [place] [address], Eosinophils/100 WBC (Bld) 3.0 % Normal 0.1-4.0 [facility] Comment on above: Performed By: #### C MITESHAT #### [facility] [address] [place] [address], Erythrocyte distribution width (RBC) [Ratio] 14.1 % Normal 11.5-14.5 [facility] Comment on above: Performed By: #### C MITESHAT #### [facility] [address] [place] [address], Hematocrit (Bld) [Volume fraction] 21.6 % Low 41.0-53.0 [facility] Comment on above: Performed By: #### C MITESHAT #### S [facility] [address] [place] [address], Hemoglobin (Bld) [Mass/Vol] 7.6 g/dL Low 13.9-16.3 [facility] Comment on above: Performed By: #### C MITESHAT #### [facility] [address] [place] [address], Lymphocytes (Bld) [#/Vol] 0.77 10*3/uL Low 1.00-4.80 The [facility] Comment on above: Performed By: #### Beth BCDSAT #### [facility] [address] [place] [address], Lymphocytes/100 WBC (Bld) 8.8 % Low 24.0-44.0 The [facility] Comment on above: Performed By: #### C BCDSAT #### [facility] [address] [place] [address], MCH (RBC) [Entitic mass] 32.4 pg Normal 26.0-34.0 The [facility] Comment on above: Performed By: #### C BCDSAT #### [facility] [address] [place] [address], MCHC (RBC) [Mass/Vol] 35.1 g/dL Normal 32.0-35.9 The [facility] Comment on above: Performed By: #### C BCDSAT #### [facility] [address] [place] [address], MCV (RBC) [Entitic vol] 92 fL Normal 80-100 The [facility] Comment on above: Performed By: #### Beth BCDSAT #### [facility] [address] [place] [address], MONOCYTE DISTRIBUTION WIDTH Normal The [facility] Comment on above: Performed By: #### Beth BCDSAT #### [facility] [address] [place] [address], Monocytes (Bld) [#/Vol] 0.49 10*3/uL Normal 0.20-1.00 The [facility] Comment on above: Performed By: #### C BCDSAT #### [facility] [address] [place] [address], Monocytes/100 WBC (Bld) 5.6 % Normal 2.0-11.0 The [facility] Comment on above: Performed By: #### Beth BCDSAT #### [facility] [address] [place] [address] [place], Neutrophils (Bld) [#/Vol] 7.17 10*3/uL Normal 1.50-8.00 The [facility] Comment on above: Performed By: #### C BCDSAT #### S [facility] [address], [place], Neutrophils/100 WBC (Bld) 82.1 % High 31.0-76.0 The [facility] Comment on above: Performed By: #### C MINADSAT #### S [facility] [address], [place], Platelet mean volume (Bld) [Entitic vol] 7.1 fL Low 7.5-11.2 The [facility] Comment on above: Performed By: #### C BCDSAT #### S [facility] [address], [place], Platelets (Bld) [#/Vol] 362 10*3/uL Normal 150-400 The [facility] Comment on above: Performed By: #### C BCDSAT #### [facility] [address], [place], RBC (Bld) [#/Vol] 2.35 10*6/uL Low 4.50-5.90 The [facility] Comment on above: Performed By: #### C BCDSAT #### [facility] [address], [place], WBC (Bld) [#/Vol] 8.7 10*3/uL Normal 4.5-11.5 [facility] Comment on above: Performed By: #### C BCDSAT #### [facility] [address], [place], Care Plan Noteon 01-24-2021 Cashier Greeter Authentication Interface Message Text Problem: Discharge Planning: Goal: Discharge needs of the adult patient will be met Outcome: Not Progressing Patient not ready for discharge, will continue to monitor. Problem: Routine Care: Goal: Patient care will be managed and maintained throughout hospital stay per unit specific routine care procedure Outcome: Progressing Vitals and assessments per stepdown protocol, routine care provided. Problem: Fluid and Electrolyte Imbalance: Goal: Adequate fluid and electrolyte balance will be achieved and maintained Outcome: Progressing Goal: Will show no signs and symptoms of excessive bleeding Outcome: Progressing Goal: Will remain free of signs and symptoms of fluid loss/inadequate intake Outcome: Progressing Labs are obtained and monitored Q12 per order, fluids and electrolyte replaced per order. Problem: Hemodynamic Instability: Goal: Hemodynamic stability will be achieved and maintained Outcome: Progressing Problem: Acute Pain: Goal: Ability to identify pain intensity on a pain scale and rate it consistently will be achieved and maintained Outcome: Progressing Goal: Understanding of proper administration and use of medicines will be achieved Outcome: Progressing Goal: Ability to identify factors that manage or decrease pain will be achieved Outcome: Progressing Assessed and documented. PRN meds given as needed Problem: Altered Nutrition: Goal: Achieve developmentally appropriate nutritional intake as clinically indicated Outcome: Progressing Goal: Demonstrates progression toward an optimal weight Outcome: Progressing Problem: Alteration in Tissue Perfusion: Cardiac: Goal: Promote adequate perfusion and limit complications resulting from myocardial oxygen supply, demand and imbalance Outcome: Progressing Problem: VTE Prophylaxis: Goal: Will be free of DVT Outcome: Progressing Problem: Safety: Goal: Patient will remain free of falls during hospital stay Outcome: Progressing Goal: Free from injury during hospitalization Outcome: Progressing Call light in reach. Bed low and locked. Frequent rounds Normal The [facility] Cashier Greeter Authentication Interface Message Text Problem: Routine Care: Goal: Patient care will be managed and maintained throughout hospital stay per unit specific routine care procedure Outcome: Progressing Note: Routine care being provided by hospital staff Problem: Fluid and Electrolyte Imbalance: Goal: Adequate fluid and electrolyte balance will be achieved and maintained Outcome: Progressing Goal: Will show no signs and symptoms of excessive bleeding Outcome: Progressing Goal: Will remain free of signs and symptoms of fluid loss/inadequate intake Outcome: Progressing Problem: Hemodynamic Instability: Goal: Hemodynamic stability will be achieved and maintained Outcome: Progressing Problem: Acute Pain: Goal: Ability to identify pain intensity on a pain scale and rate it consistently will be achieved and maintained Outcome: Progressing Goal: Understanding of proper administration and use of medicines will be achieved Outcome: Progressing Goal: Ability to identify factors that manage or decrease pain will be achieved Outcome: Progressing Problem: Altered Nutrition: Goal: Achieve developmentally appropriate nutritional intake as clinically indicated Outcome: Progressing Note: Pt is progressing with PO intake volume Goal: Demonstrates progression toward an optimal weight Outcome: Progressing Problem: Alteration in Tissue Perfusion: Cardiac: Goal: Promote adequate perfusion and limit complications resulting from myocardial oxygen supply, demand and imbalance Outcome: Progressing Problem: VTE Prophylaxis: Goal: Will be free of DVT Outcome: Progressing Problem: Safety: Goal: Patient will remain free of falls during hospital stay Outcome: Progressing Note: Safety is being monitored by hospital staff Goal: Free from injury during hospitalization Outcome: Progressing Problem: Discharge Planning: Goal: Discharge needs of the adult patient will be met Outcome: Not Progressing Note: Pt not medically cleared for discharge at this time Normal The [facility] MANUAL DIFF AND MORPHon 10-1 BANDS % BY MANUAL COUNT 0 % Normal <=10 [facility] Comment on above: Performed By: #### C BCDSAT #### S [facility] [address] [place] [address], BANDS ABS BY MANUAL COUNT 0.00 K/uL Normal <0.01 [facility] Comment on above: Performed By: #### C BCDSAT #### [facility] [address] [place] [address], CELLS COUNTED TOTAL # IN BLOOD 100 Normal [facility] Comment on above: Performed By: #### C BCDSAT #### [facility] [address] [place] [address], LYMPHOCYTES % BY MANUAL COUNT 8.0 % Low 24.0-44.0 [facility] Comment on above: Performed By: #### C BCDSAT #### [facility] [address] [place] [address], LYMPHOCYTES ABS BY MANUAL COUNT 1.02 K/uL Normal 1.00-4.80 [facility] Comment on above: Performed By: #### C BCDSAT #### [facility] [address] [place] [address], MONOCYTES % BY MANUAL COUNT 5.0 % Normal 2.0-11.0 [facility] Comment on above: Performed By: #### C BCDSAT #### [facility] [address] [place] [address], MONOCYTES ABS BY MANUAL COUNT 0.64 K/uL Normal 0.20-1.00 [facility] Comment on above: Performed By: #### C BCDSAT #### [facility] [address], [place], NEUTROPHILS % BY MANUAL COUNT 87.0 % High 31.0-76.0 [facility] Comment on above: Performed By: #### C BCDSAT #### [facility] [address], [place], NEUTROPHILS ABS BY MANUAL COUNT 11.05 K/uL High 1.50-8.00 [facility] Comment on above: Performed By: #### C BCDSAT #### [facility] [address] [place] [address], RBC MORPHOLOGY Normal Normal [facility] Comment on above: Performed By: #### C MINADSAT #### S [facility] [address] [place] [address], PROTHROMBIN TIME AND INRon 1 INR Coag (PPP) [Relative time] 1.26 {INR} High 0.90-1.10 [facility] Comment on above: Performed By: #### C MINADSAT #### S PATHOLOGY LABORATORY [address] [place], [place], PT Coag (PPP) [Time] 14.0 s High 9.7-12.9 [facility] Comment on above: Performed By: #### C BCDSAT #### [facility] [address] [place], [place], Progress Noteson 01-24-2021 Cashier Greeter Authentication Interface Message Text ATTENDING NOTE (Critical Care): Karl Odom ([id number]) is a 70 year old male admitted on 01/21/2021 for acute blood loss anemia - Perinephric and retroperitoneal hemorrhage due to a combination of DOAC use for atrial fibrillation, prior fall and injury in addition to recent lithotripsy. Hb responded to PRBC transfusion and is in plateau. Pain controlled with narcotics. Urinary outlet obstruction overcome with Newman catheter. Cr now slightly decreased. Started Lovenox while monitoring for bleeding. Care/Support limits: Full Code Allison Rivera MD Pulmonary, Critical Care, and Sleep Medicine Critical Care Time: 35 minutes. The patient has high probability of sudden and significant deterioration, which requires urgent interventions. I managed/supervised life supporting interventions that required frequent physician assessment. Critical care time in minutes (indicated above) of my full attention was spent on direct care for this patient. Time I spent with surrogates is included if the patient was incapable of providing information or participating in medical decision making. Teaching time and time performing procedures that I billed separately is not included. Teaching Supervision Satement: I personally saw and evaluated the patient, and obtained the chambers and critical portions of the history and physical examination. I reviewed the resident's documentation and discussed the plan with them. I agree with the medical decision making as documented in the resident's note. BP 129/72 (BP Location: left arm) Pulse 84 Temp 98 ???F (36.7 ???C) (Axillary) Resp 14 Ht 5' 6 (1.676 m) Wt 172 lb 6.4 oz (78.2 kg) SpO2 100% BMI 27.83 kg/m??? Intake/Output Summary (Last 24 hours) at 01/24/2021 1740 Last data filed at 01/24/2021 1600 Gross per 24 hour Intake 3080 ml Output 2000 ml Net 1080 ml Tmax (24 hours): 99.9 ???F (37.7 ???C) CBC/PT/INR WBC RBC Hgb Hct MCV RDW Plt PT aPTT INR 01/24/21 1635 12.7 2.60 8.4 24.7 95 13.9 376 01/24/21 0436 1.26 01/24/21 0436 8.7 2.35 7.6 21.6 92 14.1 362 01/23/21 1652 11.4 2.65 8.5 24.5 92 14.2 362 01/23/21 0821 10.5 2.23 7.2 20.6 93 14.2 322 01/23/21 0821 1.32 01/22/21 0931 1.41 01/22/21 0931 11.3 2.68 8.4 24.5 92 14.0 315 01/22/21 0649 12.3 2.54 8.2 23.3 92 13.9 319 01/21/21 1908 12.7 1.98 6.4 18.4 93 13.8 347 WBC/Diff Neutro% Segs% Bands% Lymphs% Monos% Eos% Basos% 01/24/21 1635 87.0 0 8.0 5.0 01/24/21 0436 82.1 8.8 5.6 3.0 0.6 01/23/21 1652 84.4 7.7 5.3 2.2 0.5 01/23/21 08 83.1 8.7 6.0 1.8 0.5 01/22/21 0931 83.9 6.8 9.0 0.1 0.2 01/21/21 1908 86.6 5.1 8.1 0.0 0.2 Basic Metabolic Panel Na K Cl CO2 Gap Glu BUN Cr Ca Mg PO4 01/24/21 0436 135 4.2 104 21 14 104 36 1.48 8.5 01/23/21 08 135 4.2 103 22 14 116 40 1.66 8.4 01/22/21 0649 2.0 01/22/21 0649 136 4.8 107 20 14 142 38 1.56 8.4 Hepatic/Biliary/Pancr eas None Arterial Blood Gases None Current Facility-Administered Medications Medication Dose Route Frequency Last Rate Last Admin * polyethylene glycol (MIRALAX) 17 g packet 17 g Oral Daily 17 g at 01/24/21 1527 * enoxaparin (LOVENOX) 80 MG/0.8ML injection 80 mg 1 mg/kg Subcutaneous 2x Daily 80 mg at 01/24/21 1527 * senna (SENOKOT) tablet 8.6 mg Oral At Bedtime * ondansetron (ZOFRAN-ODT) 4 MG disintegrating tablet 4 mg Oral Q6H PRN 4 mg at 01/24/21 1532 * Normal consistency supplement Oral 3x Daily with Meals Given at 01/24/21 1700 * lactated ringers iv infusion Intravenous Continuous 75 mL/hr at 01/24/21 1228 New Bag at 01/24/21 1228 * [MAR Hold] albuterol (PROVENTIL) (2.5 MG/3ML) 0.083% nebulizer solution 2.5 mg Nebulization Q4H RT * albuterol (PROVENTIL) (2.5 MG/3ML) 0.083% nebulizer solution 2.5 mg Nebulization Q4H PRN * aspirin 81 MG chewable tablet 81 mg Oral Daily 81 mg at 01/24/21 0808 * oxyCODONE-acetaminoph en (PERCOCET) 5-325 mg per tablet 1 Tablet Oral Q6H PRN 1 Tablet at 01/23/212011 * atorvastatin (LIPITOR) tablet 20 mg Oral Daily 20 mg at 01/24/21 08 * ferrous sulfate tablet TABS 325 mg Oral Daily 325 mg at 01/24/21 0808 * flecainide (TAMBOCOR) tablet 100 mg Oral 2x Daily 100 mg at 01/24/21 0808 * levothyroxine (SYNTHROID) tablet 137 mcg 137 mcg Oral Before Breakfast 137 mcg at 01/24/21 0710 * esomeprazole (NEXIUM) 20 MG capsule 20 mg Oral Daily 30 min before breakfast 20 mg at 01/24/21 0808 * docusate sodium (COLACE) capsule 100 mg Oral 2x Daily 100 mg at 01/24/21 0808 * polyethylene glycol 17 g Daily * [...] before breakfast * docusate sodium 100 mg (more content not included)... Normal [facility] BASIC METABOLIC PANELon 01-07 Anion gap [Moles/Vol] 14 mmol/L Normal - [facility] Comment on above: Performed By: #### R AMY #### [facility] [address] [place] [address], [id number] Calcium [Mass/Vol] 8.4 mg/dL Normal 8.4-10.4 The [facility] Comment on above: Performed By: #### R AMY #### [facility] [address] [place] [address], Chloride [Moles/Vol] 103 mmol/L Normal 97-111 The [facility] Comment on above: Performed By: #### R AMY #### [facility] [address] [place] [address], CO2 [Moles/Vol] 22 mmol/L Normal 21-30 [facility] Comment on above: Performed By: #### R AMY #### [facility] [address] [place] [address], Creatinine [Mass/Vol] 1.66 mg/dL High 0.80-1.30 The [facility] Comment on above: Performed By: #### R AMY #### [facility] [address] [place] [address], ESTIMATED GFR (CKD-EPI) 41 mL/min/1.73sqm Low >=60 The [facility] Comment on above: Performed By: #### R AMY #### S [facility] [address] [place] [address], Glucose [Mass/Vol] 116 mg/dL Normal 80-116 The [facility] Comment on above: Performed By: #### R AMY #### [facility] [address] [place] [address], Potassium [Moles/Vol] 4.2 mmol/L Normal 3.3-5.3 The [facility] Comment on above: Performed By: #### R AMY #### [facility] [address] [place] [address], Sodium [Moles/Vol] 135 mmol/L Normal 135-148 The [facility] Comment on above: Performed By: #### R AMY #### [facility] [address] [place] [address], Urea nitrogen [Mass/Vol] 40 mg/dL High 8-22 The [facility] Comment on above: Performed By: #### R AMY #### [facility] [address] [place] [address], CBC WITH DIFFERENTIALon 01-07 Basophils (Bld) [#/Vol] 0.06 10*3/uL Normal 0.00-0.20 [facility] Comment on above: Performed By: #### C BCDSAT #### [facility] [address] [place], [place], Basophils/100 WBC (Bld) 0.5 % Normal <=1.9 [facility] Comment on above: Performed By: #### C BCDSAT #### [facility] [address] [place], [place], Eosinophils (Bld) [#/Vol] 0.25 10*3/uL Normal 0.00-0.70 [facility] Comment on above: Performed By: #### C BCDSAT #### [facility] [address] [place], [place], Eosinophils/100 WBC (Bld) 2.2 % Normal 0.1-4.0 [facility] Comment on above: Performed By: #### C BCDSAT #### [facility] [address] [place] [address], Erythrocyte distribution width (RBC) [Ratio] 14.2 % Normal 11.5-14.5 [facility] Comment on above: Performed By: #### C BCDSAT #### [facility] [address] [place], [place], Hematocrit (Bld) [Volume fraction] 24.5 % Low 41.0-53.0 [facility] Comment on above: Performed By: #### C BCDSAT #### [facility] [address] [place], [place], Hemoglobin (Bld) [Mass/Vol] 8.5 g/dL Low 13.9-16.3 [facility] Comment on above: Performed By: #### C BCDSAT #### [facility] [address] [place], [place], Lymphocytes (Bld) [#/Vol] 0.88 10*3/uL Low 1.00-4.80 [facility] Comment on above: Performed By: #### C BCDSAT #### [facility] [address], [place], Lymphocytes/100 WBC (Bld) 7.7 % Low 24.0-44.0 The [facility] Comment on above: Performed By: #### C BCDSAT #### [facility] [address] [place] [address], MCH (RBC) [Entitic mass] 32.1 pg Normal 26.0-34.0 The [facility] Comment on above: Performed By: #### C BCDSAT #### [facility] [address] [place] [address], MCHC (RBC) [Mass/Vol] 34.8 g/dL Normal 32.0-35.9 The [facility] Comment on above: Performed By: #### C BCDSAT #### [facility] [address] [place] [address], MCV (RBC) [Entitic vol] 92 fL Normal 80-100 The [facility] Comment on above: Performed By: #### C BCDSAT #### [facility] [address] [place] [address], MONOCYTE DISTRIBUTION WIDTH Normal The [facility] Comment on above: Performed By: #### C BCDSAT #### [facility] [address], [place], Monocytes (Bld) [#/Vol] 0.60 10*3/uL Normal 0.20-1.00 The [facility] Comment on above: Performed By: #### C BCDSAT #### [facility] [address], [place], Monocytes/100 WBC (Bld) 5.3 % Normal 2.0-11.0 The [facility] Comment on above: Performed By: #### C BCDSAT #### [facility] [address] [place], [place], Neutrophils (Bld) [#/Vol] 9.65 10*3/uL High 1.50-8.00 The [facility] Comment on above: Performed By: #### C MITESHAT #### S PATH[facility] LAB[facility]ORY [address], [place], Neutrophils/100 WBC (Bld) 84.4 % High 31.0-76.0 [facility] Comment on above: Performed By: #### C BCDSAT #### S [facility] [address], [place], Platelet mean volume (Bld) [Entitic vol] 7.2 fL Low 7.5-11.2 [facility] Comment on above: Performed By: #### C BCDSAT #### [facility] [address] [place], [place], Platelets (Bld) [#/Vol] 362 10*3/uL Normal 150-400 [facility] Comment on above: Performed By: #### C BCDSAT #### [facility] [address], [place], RBC (Bld) [#/Vol] 2.65 10*6/uL Low 4.50-5.90 [facility] Comment on above: Performed By: #### C BCDSAT #### [facility] [address], [place], WBC (Bld) [#/Vol] 11.4 10*3/uL Normal 4.5-11.5 The [facility] Comment on above: Performed By: #### C BCDSAT #### [facility] [address] [place], [place], Basophils (Bld) [#/Vol] 0.05 10*3/uL Normal 0.00-0.20 The [facility] Comment on above: Performed By: #### C BCDSAT #### [facility] [address] [place], [place], Basophils/100 WBC (Bld) 0.5 % Normal <=1.9 [facility] Comment on above: Performed By: #### C BCDSAT #### [facility] [address] [place], [place], Eosinophils (Bld) [#/Vol] 0.19 10*3/uL Normal 0.00-0.70 [facility] Comment on above: Performed By: #### C BCDSAT #### [facility] [address] [place] [address], Eosinophils/100 WBC (Bld) 1.8 % Normal 0.1-4.0 [facility] Comment on above: Performed By: #### C BCDSAT #### [facility] [address] [place] [address], Erythrocyte distribution width (RBC) [Ratio] 14.2 % Normal 11.5-14.5 [facility] Comment on above: Performed By: #### C BCDSAT #### [facility] [address] [place] [address], Hematocrit (Bld) [Volume fraction] 20.6 % Low 41.0-53.0 The [facility] Comment on above: Performed By: #### C BCDSAT #### [facility] [address] [place] [address], Hemoglobin (Bld) [Mass/Vol] 7.2 g/dL Low 13.9-16.3 [facility] Comment on above: Performed By: #### C BCDSAT #### [facility] [address] [place] [address], Lymphocytes (Bld) [#/Vol] 0.90 10*3/uL Low 1.00-4.80 [facility] Comment on above: Performed By: #### C BCDSAT #### [facility] [address] [place] [address], Lymphocytes/100 WBC (Bld) 8.7 % Low 24.0-44.0 The [facility] Comment on above: Performed By: #### C BCDSAT #### [facility] [address] [place] [address], MCH (RBC) [Entitic mass] 32.5 pg Normal 26.0-34.0 [facility] Comment on above: Performed By: #### C BCDSAT #### [facility] [address] [place] [address], MCHC (RBC) [Mass/Vol] 35.1 g/dL Normal 32.0-35.9 The [facility] Comment on above: Performed By: #### C BCDSAT #### [facility] [address] [place] [address], MCV (RBC) [Entitic vol] 93 fL Normal 80-100 The [facility] Comment on above: Performed By: #### C BCDSAT #### [facility] [address] [place] [address], MONOCYTE DISTRIBUTION WIDTH Normal The [facility] Comment on above: Performed By: #### C BCDSAT #### [facility] [address] [place] [address], Monocytes (Bld) [#/Vol] 0.63 10*3/uL Normal 0.20-1.00 The [facility] Comment on above: Performed By: #### C MINADSAT #### [facility] [address] [place] [address], Monocytes/100 WBC (Bld) 6.0 % Normal 2.0-11.0 The [facility] Comment on above: Performed By: #### C BCDSAT #### [facility] [address] [place] [address], Neutrophils (Bld) [#/Vol] 8.69 10*3/uL High 1.50-8.00 The [facility] Comment on above: Performed By: #### C BCDSAT #### [facility] [address] [place] [address], Neutrophils/100 WBC (Bld) 83.1 % High 31.0-76.0 The [facility] Comment on above: Performed By: #### C BCDSAT #### S [facility] [address] [place] [address], Platelet mean volume (Bld) [Entitic vol] 7.3 fL Low 7.5-11.2 The [facility] Comment on above: Performed By: #### C BCDSAT #### [facility] [address] [place] [address], Platelets (Bld) [#/Vol] 322 10*3/uL Normal 150-400 [facility] Comment on above: Performed By: #### C BCDSAT #### [facility] [address], [place], RBC (Bld) [#/Vol] 2.23 10*6/uL Low 4.50-5.90 [facility] Comment on above: Performed By: #### C BCDSAT #### [facility] [address], [place], WBC (Bld) [#/Vol] 10.5 10*3/uL Normal 4.5-11.5 [facility] Comment on above: Performed By: #### C BCDSAT #### [facility] [address], [place], Care Plan Noteon 01-23-2021 Cashier Greeter Authentication Interface Message Text Problem: Discharge Planning: Goal: Discharge needs of the adult patient will be met Outcome: Not Progressing Patient not ready for discharge, will continue to monitor. Problem: Routine Care: Goal: Patient care will be managed and maintained throughout hospital stay per unit specific routine care procedure Outcome: Progressing Vitals and assessments per stepdown protocol, routine care provided. Problem: Fluid and Electrolyte Imbalance: Goal: Adequate fluid and electrolyte balance will be achieved and maintained Outcome: Progressing Goal: Will show no signs and symptoms of excessive bleeding Outcome: Progressing Goal: Will remain free of signs and symptoms of fluid loss/inadequate intake Outcome: Progressing Labs are obtained and monitored, fluids and electrolyte replaced per order, IV fluids per order. Problem: Hemodynamic Instability: Goal: Hemodynamic stability will be achieved and maintained Outcome: Progressing Problem: Acute Pain: Goal: Ability to identify pain intensity on a pain scale and rate it consistently will be achieved and maintained Outcome: Progressing Goal: Understanding of proper administration and use of medicines will be achieved Outcome: Progressing Goal: Ability to identify factors that manage or decrease pain will be achieved Outcome: Progressing Assessed and documented. PRN meds given as needed Problem: Altered Nutrition: Goal: Achieve developmentally appropriate nutritional intake as clinically indicated Outcome: Progressing Goal: Demonstrates progression toward an optimal weight Outcome: Progressing Problem: Alteration in Tissue Perfusion: Cardiac: Goal: Promote adequate perfusion and limit complications resulting from myocardial oxygen supply, demand and imbalance Outcome: Progressing Problem: VTE Prophylaxis: Goal: Will be free of DVT Outcome: Progressing Problem: Safety: Goal: Patient will remain free of falls during hospital stay Outcome: Progressing Goal: Free from injury during hospitalization Outcome: Progressing Call light in reach. Bed low and locked. Frequent rounds Normal [facility] PROTHROMBIN TIME AND INRon 1 INR Coag (PPP) [Relative time] 1.32 {INR} High 0.90-1.10 [facility] Comment on above: Performed By: #### R AMY #### [facility] [address], [place], PT Coag (PPP) [Time] 14.9 s High 9.7-12.9 [facility] Comment on above: Performed By: #### R AMY #### [facility] [address], [place], Progress Noteson 01-23-2021 Cashier Greeter Authentication Interface Message Text ATTENDING NOTE (Critical Care): Karl Odom ([id number]) is a 70 year old male admitted on 01/21/2021 for acute blood loss anemia - Perinephric and retroperitoneal hemorrhage due to a combination of DOAC use for atrial fibrillation, prior fall and injury in addition to recent lithotripsy. Hb responded to PRBC transfusion but now decreased, pain controlled with narcotics. Urinary outlet obstruction overcome with Newman catheter. Cr slightly increased. If worsening may consider further/repeat renal imaging. Monitoring. Care/Support limits: Full Code Allison Rivera MD Pulmonary, Critical Care, and Sleep Medicine Critical Care Time: 39 minutes. The patient has high probability of sudden and significant deterioration, which requires urgent interventions. I managed/supervised life supporting interventions that required frequent physician assessment. Critical care time in minutes (indicated above) of my full attention was spent on direct care for this patient. Time I spent with surrogates is included if the patient was incapable of providing information or participating in medical decision making. Teaching time and time performing procedures that I billed separately is not included. Teaching Supervision Satement: I personally saw and evaluated the patient, and obtained the chambers and critical portions of the history and physical examination. I reviewed the resident's documentation and discussed the plan with them. I agree with the medical decision making as documented in the resident's note. BP 147/62 (BP Location: left arm) Pulse 82 Temp 99 ???F (37.2 ???C) (Oral) Resp 17 Ht 5' 6 (1.676 m) Wt 172 lb 6.4 oz (78.2 kg) SpO2 93% BMI 27.83 kg/m??? Intake/Output Summary (Last 24 hours) at 01/23/2021 1547 Last data filed at 01/23/2021 1400 Gross per 24 hour Intake 1165 ml Output 6250 ml Net -5085 ml Tmax (24 hours): 99.4 ???F (37.4 ???C) CBC/PT/INR WBC RBC Hgb Hct MCV RDW Plt PT aPTT INR 01/23/21 0821 10.5 2.23 7.2 20.6 93 14.2 322 [...] 01/22/21 0931 83.9 6.8 9.0 0.1 0.2 10/15/21 1908 86.6 5.1 8.1 0.0 0.2 01/21/21 [...] 103 19 17 185 42 1.74 8.0 Hepatic/Biliary/Pancr eas T Prot Albumin D Bili T Bili Alk Phos ALT AST Amylase Lipase 01/21/21 1502 5.3 2.8 0.50 2.5 74 35 27 01/21/21 1502 26 Arterial Blood Gases None Current Facility-Administered Medications Medication Dose Route Frequency Last Rate Last Admin * Normal consistency supplement Oral 3x Daily with Meals * lactated ringers iv infusion Intravenous Continuous 75 mL/hr at 01/23/21 1044 New Bag at 01/23/21 1044 * [MAR Hold] albuterol (PROVENTIL) (2.5 MG/3ML) 0.083% nebulizer solution 2.5 mg Nebulization Q4H RT * albuterol (PROVENTIL) (2.5 MG/3ML) 0.083% nebulizer solution 2.5 mg Nebulization Q4H PRN * aspirin 81 MG chewable tablet 81 mg Oral Daily 81 mg at 01/23/21 0823 * oxyCODONE-acetaminoph en (PERCOCET) 5-325 mg per tablet 1 Tablet Oral Q6H PRN 1 Tablet at 01/22/21 2350 * atorvastatin (LIPITOR) tablet 20 mg Oral Daily 20 mg at 01/23/21 0823 * ferrous sulfate tablet TABS 325 mg Oral Daily 325 mg at 01/23/21 0823 * flecainide (TAMBOCOR) tablet 100 mg Oral 2x Daily 100 mg at 01/23/21 0823 * levothyroxine (SYNTHROID) tablet 137 mcg 137 mcg Oral Before Breakfast 137 mcg at 01/23/21 1020 * esomeprazole (NEXIUM) 20 MG capsule 20 mg Oral Daily 30 min before breakfast 20 mg at 01/23/21 0823 * docusate sodium (COLACE) capsule 100 mg Oral 2x Daily 100 mg at 01/23/21 0823 * Normal consistency 3x Daily with Meals * [MAR Hold] albuterol 2.5 mg Q4H RT * aspirin 81 mg Daily * atorvastatin 20 mg Daily * ferrous sulfate 325 mg Daily * flecainide 100 mg 2x Daily * levothyroxine 137 mcg Before Breakfast * esomeprazole 20 mg Daily 30 min before breakfast * docusate sodium 100 mg 2x Daily * lactated ringers 75 mL/hr at 01/23/21 1044 * albuterol 2.5 mg Q4H PRN * oxyCODONE-acetaminoph en 1 Tablet Q6H PRN Normal [facility] Cashier Greeter Authentication Interface Message Text 9:[address]White-Cotsmire Echols notified of critical Hematocrit and Hemoglobin value of 7.2/20.6. Dr. Eduardo Echols viewed critical result via secure chat. No new orders at this time. Normal [facility] BASIC METABOLIC PANELon 10-1 Anion gap [Moles/Vol] 14 mmol/L Normal 10-20 [facility] Comment on above: Performed By: #### R AMY #### [facility] [address] [place] [address], Calcium [Mass/Vol] 8.4 mg/dL Normal 8.4-10.4 The [facility] Comment on above: Performed By: #### R AMY #### [facility] [address] [place] [address], Chloride [Moles/Vol] 107 mmol/L Normal 97-111 The [facility] Comment on above: Performed By: #### R AMY #### [facility] [address] [place] [address], CO2 [Moles/Vol] 20 mmol/L Low 21-30 [facility] Comment on above: Performed By: #### R AYM #### [facility] [address] [place] [address], Creatinine [Mass/Vol] 1.56 mg/dL High 0.80-1.30 [facility] [facility] Comment on above: Performed By: #### R AMY #### [facility] [address] [place] [address], ESTIMATED GFR (CKD-EPI) 44 mL/min/1.73sqm Low >=60 [facility] Comment on above: Performed By: #### R AMY #### [facility] [address] [place] [address], Glucose [Mass/Vol] 142 mg/dL High 80-116 [facility] Comment on above: Performed By: #### R AMY #### [facility] [address] [place] [address], Potassium [Moles/Vol] 4.8 mmol/L Normal 3.3-5.3 [facility] Comment on above: Performed By: #### R AMY #### [facility] [address] [place] [address], Sodium [Moles/Vol] 136 mmol/L Normal 135-148 [facility] Comment on above: Performed By: #### R AMY #### [facility] [address] [place] [address], Urea nitrogen [Mass/Vol] 38 mg/dL High 8-22 The [facility] Comment on above: Performed By: #### R AMY #### [facility] [address] [place] [address], Blood Attestationon 01-23-20 Cashier Greeter Authentication Interface Message Text Blood Attestation ATTESTATION OF INFORMED CONSENT FOR BLOOD The transfusion of blood and/or blood components were discussed with the patient and/or legal auto service representative. The risks, benefits and alternatives were reviewed. Questions regarding blood transfusions were answered. The patient /or the patient's legal auto service representative agree with the plan for transfusion of blood and/or blood components. Normal The [facility] CBC WITH DIFFERENTIALon 01-07 Basophils (Bld) [#/Vol] 0.02 10*3/uL Normal 0.00-0.20 [facility] Comment on above: Performed By: #### C BCDSAT #### [facility] [address] [place] [address], Basophils/100 WBC (Bld) 0.2 % Normal <=1.9 [facility] Comment on above: Performed By: #### C BCDSAT #### [facility] [address] [place] [address], Eosinophils (Bld) [#/Vol] 0.01 10*3/uL Normal 0.00-0.70 [facility] Comment on above: Performed By: #### C BCDSAT #### [facility] [address] [place] [address], Eosinophils/100 WBC (Bld) 0.1 % Normal 0.1-4.0 [facility] Comment on above: Performed By: #### C BCDSAT #### [facility] [address] [place] [address], Erythrocyte distribution width (RBC) [Ratio] 14.0 % Normal 11.5-14.5 [facility] Comment on above: Performed By: #### C BCDSAT #### [facility] [address] [place] [address], Hematocrit (Bld) [Volume fraction] 24.5 % Low 41.0-53.0 [facility] Comment on above: Performed By: #### C BCDSAT #### [facility] [address] [place] [address], Hemoglobin (Bld) [Mass/Vol] 8.4 g/dL Low 13.9-16.3 [facility] Comment on above: Performed By: #### C BCDSAT #### [facility] [address] [place] [address], Lymphocytes (Bld) [#/Vol] 0.77 10*3/uL Low 1.00-4.80 [facility] Comment on above: Performed By: #### C BCDSAT #### [facility] [address] [place] [address], Lymphocytes/100 WBC (Bld) 6.8 % Low 24.0-44.0 [facility] Comment on above: Performed By: #### C BCDSAT #### [facility] [address] [place] [address], MCH (RBC) [Entitic mass] 31.5 pg Normal 26.0-34.0 [facility] Comment on above: Performed By: #### Beth SAGASTUMEAT #### [facility] [address] [place] [address], MCHC (RBC) [Mass/Vol] 34.4 g/dL Normal 32.0-35.9 [facility] Comment on above: Performed By: #### Beth ENRIQUEZDSAT #### [facility] [address] [place] [address], MCV (RBC) [Entitic vol] 92 fL Normal 80-100 [facility] Comment on above: Performed By: #### Beth SAGASTUMEAT #### [facility] [address] [place] [address], MONOCYTE DISTRIBUTION WIDTH Normal The [facility] Comment on above: Performed By: #### Beth SAGASTUMEAT #### [facility] [address] [place] [address], Monocytes (Bld) [#/Vol] 1.02 10*3/uL High 0.20-1.00 The [facility] Comment on above: Performed By: #### Beth SAGASTUMEAT #### [facility] [address] [place] [address], Monocytes/100 WBC (Bld) 9.0 % Normal 2.0-11.0 The [facility] Comment on above: Performed By: #### Beth SAGASTUMEAT #### [facility] [address] [place] [address], Neutrophils (Bld) [#/Vol] 9.49 10*3/uL High 1.50-8.00 [facility] Comment on above: Performed By: #### Beth SAGASTUMEAT #### [facility] [address] [place] [address], Neutrophils/100 WBC (Bld) 83.9 % High 31.0-76.0 [facility] Comment on above: Performed By: #### Beth SAGASTUMEAT #### [facility] [address] [place] [address], Platelet mean volume (Bld) [Entitic vol] 7.4 fL Low 7.5-11.2 The [facility] Comment on above: Performed By: #### C BCDSAT #### [facility] [address] [place] [address], Platelets (Bld) [#/Vol] 315 10*3/uL Normal 150-400 [facility] Comment on above: Performed By: #### C BCDSAT #### [facility] [address] [place] [address], RBC (Bld) [#/Vol] 2.68 10*6/uL Low 4.50-5.90 [facility] Comment on above: Performed By: #### C BCDSAT #### [facility] [address] [place] [address], WBC (Bld) [#/Vol] 11.3 10*3/uL Normal 4.5-11.5 [facility] Comment on above: Performed By: #### C BCDSAT #### [facility] [address] [place] [address], COMPLETE BLOOD COUNTon 01-22 Erythrocyte distribution width (RBC) [Ratio] 13.9 % Normal 11.5-14.5 [facility] Comment on above: Performed By: #### R AMY #### [facility] [address] [place] [address], Hematocrit (Bld) [Volume fraction] 23.3 % Low 41.0-53.0 [facility] Comment on above: Performed By: #### R AMY #### [facility] [address] [place] [address], Hemoglobin (Bld) [Mass/Vol] 8.2 g/dL Low 13.9-16.3 The [facility] Comment on above: Performed By: #### R AMY #### [facility] [address] [place] [address], MCH (RBC) [Entitic mass] 32.1 pg Normal 26.0-34.0 [facility] Comment on above: Performed By: #### R AMY #### [facility] [address], [place], MCHC (RBC) [Mass/Vol] 35.0 g/dL Normal 32.0-35.9 [facility] Comment on above: Performed By: #### R AMY #### [facility] [address], [place], MCV (RBC) [Entitic vol] 92 fL Normal 80-100 [facility] Comment on above: Performed By: #### R AMY #### [facility] [address], [place], Platelet mean volume (Bld) [Entitic vol] 7.3 fL Low 7.5-11.2 [facility] Comment on above: Performed By: #### R AMY #### [facility] [address], [place], Platelets (Bld) [#/Vol] 319 10*3/uL Normal 150-400 [facility] Comment on above: Performed By: #### R AMY #### [facility] [address], [place], RBC (Bld) [#/Vol] 2.54 10*6/uL Low 4.50-5.90 [facility] Comment on above: Performed By: #### R AMY #### [facility] [address], [place], WBC (Bld) [#/Vol] 12.3 10*3/uL High 4.5-11.5 [facility] Comment on above: Performed By: #### R AMY #### [facility] [address], [place], Care Plan Noteon 01-22-2021 Cashier Greeter Authentication Interface Message Text Problem: Routine Care: Goal: Patient care will be managed and maintained throughout hospital stay per unit specific routine care procedure 01/22/2021 1032 by Tammy Bobo, OLIVIA Outcome: Progressing Routine care provided per step-down protocol. Problem: Fluid and Electrolyte Imbalance: Goal: Adequate fluid and electrolyte balance will be achieved and maintained 01/22/2021 1032 by Tammy Bobo RN Outcome: Progressing Goal: Will show no signs and symptoms of excessive bleeding 01/22/2021 1032 by Tammy Bobo RN Outcome: Progressing 01/22/2021 103 by Tammy Bobo RN Outcome: Progressing Goal: Will remain free of signs and symptoms of fluid loss/inadequate intake 01/22/2021 1032 by Tammy Bobo RN Outcome: Progressing Labs drawn and monitored per orders. Blood replaced. Will continue to monitor for s/s of bleeding. Problem: Hemodynamic Instability: Goal: Hemodynamic stability will be achieved and maintained 01/22/2021 103 by Tammy Bobo RN Outcome: Progressing Continuous monitoring of vital signs per step-down protocol. Labs being monitored. Pt is stable at this time. Problem: Acute Pain: Goal: Ability to identify pain intensity on a pain scale and rate it consistently will be achieved and maintained 01/22/2021 103 by Tammy Bobo RN Outcome: Progressing Goal: Understanding of proper administration and use of medicines will be achieved 01/22/2021 103 by Tammy Bobo RN Outcome: Progressing Goal: Ability to identify factors that manage or decrease pain will be achieved 01/22/2021 103 by Tammy Bobo RN Outcome: Progressing Patient only reports mild pain. Percocet is available PRN if pain becomes more severe. Will continue to monitor. Problem: Altered Nutrition: Goal: Achieve developmentally appropriate nutritional intake as clinically indicated 01/22/2021 103 by Tammy Bobo RN Outcome: Progressing Goal: Demonstrates progression toward an optimal weight 01/22/2021 103 by Tammy Bobo RN Outcome: Progressing Patient has progressed to diet. Problem: Alteration in Tissue Perfusion: Cardiac: Goal: Promote adequate perfusion and limit complications resulting from myocardial oxygen supply, demand and imbalance 01/22/2021 103 by Tammy Bobo RN Outcome: Progressing Problem: VTE Prophylaxis: Goal: Will be free of DVT Outcome: Progressing SCD's ordered. Problem: Safety: Goal: Patient will remain free of falls during hospital stay Outcome: Progressing Goal: Free from injury during hospitalization Outcome: Progressing Problem: Discharge Planning: Goal: Discharge needs of the adult patient will be met Outcome: Progressing Patient is progressing toward discharge. Normal The [facility] LACTIC ACIDon 01-22-2021 CR LACT 1.1 mmol/L Normal 0.5-2.0 [facility] Comment on above: Performed By: #### R AMY #### [facility] [address] [place] [address], MAGNESIUMon 01-22-2021 Magnesium [Mass/Vol] 2.0 mg/dL Normal 1.6-2.8 The [facility] Comment on above: Performed By: #### R AMY #### [facility] [address] [place] [address], PROTHROMBIN TIME AND INRon 1 INR Coag (PPP) [Relative time] 1.41 {INR} High 0.90-1.10 The [facility] Comment on above: Performed By: #### R AMY #### [facility] [address] [place] [address], PT Coag (PPP) [Time] 15.9 s High 9.7-12.9 [facility] Comment on above: Performed By: #### R AMY #### [facility] [address] [place] [address], Progress Noteson 01-22-2021 Cashier Greeter Authentication Interface Message Text ATTENDING NOTE (Critical Care): Kalr Odom ([id number]) is a 70 year old male admitted on 01/21/2021 for acute blood loss anemia - Perinephric and retroperitoneal hemorrhage due to a combination of DOAC use for atrial fibrillation, prior fall and injury in addition to recent lithotripsy. Hb responded to PRBC transfusion, pain controlled with narcotics. Urinary outlet obstruction overcome with Newman catheter. Monitoring. Care/Support limits: Full Code Allison Rivera MD Pulmonary, Critical Care, and Sleep Medicine Critical Care Time: 34 minutes. The patient has high probability of sudden and significant deterioration, which requires urgent interventions. I managed/supervised life supporting interventions that required frequent physician assessment. Critical care time in minutes (indicated above) of my full attention was spent on direct care for this patient. Time I spent with surrogates is included if the patient was incapable of providing information or participating in medical decision making. Teaching time and time performing procedures that I billed separately is not included. Teaching Supervision Satement: I personally saw and evaluated the patient, and obtained the chambers and critical portions of the history and physical examination. I reviewed the resident's documentation and discussed the plan with them. I agree with the medical decision making as documented in the resident's note. BP 149/61 (BP Location: left arm) Pulse 108 Temp 98.2 ???F (36.8 ???C) (Oral) Resp 22 Ht 5' 6 (1.676 m) Wt 167 lb 15.9 oz (76.2 kg) SpO2 95% BMI 27.11 kg/m??? Intake/Output Summary (Last 24 hours) at 01/22/2021 1806 Last data filed at 01/22/2021 1744 Gross per 24 hour Intake 860 ml Output 5075 ml Net -4215 ml Tmax (24 hours): 99.9 ???F (37.7 ???C) CBC/PT/INR WBC RBC Hgb Hct MCV RDW [...] Neutro% Segs% Bands% Lymphs% Monos% Eos% Basos% 01/22/2131 83.9 6.8 9.0 0.1 0.2 01/21/21 1908 86.6 5.1 8.1 0.0 0.2 01/21/21 1452 90.1 3.4 6.3 0.0 0.1 Basic Metabolic Panel Na K Cl CO2 Gap Glu BUN Cr Ca Mg PO4 01/22/21 0649 2.0 01/22/21 0649 136 4.8 107 20 14 142 38 1.56 8.4 01/21/21 1452 134 5.1 103 19 17 185 42 1.74 8.0 Hepatic/Biliary/Pancr eas T Prot Albumin D Bili T Bili Alk Phos ALT AST Amylase Lipase 01/21/21 1502 5.3 2.8 0.50 2.5 74 35 27 01/21/21 1502 26 Arterial Blood Gases None Current Facility-Administered Medications Medication Dose Route Frequency Last Rate Last Admin * [MAR Hold] albuterol (PROVENTIL) (2.5 MG/3ML) 0.083% nebulizer solution 2.5 mg Nebulization Q4H RT * albuterol (PROVENTIL) (2.5 MG/3ML) 0.083% nebulizer solution 2.5 mg Nebulization Q4H PRN * aspirin 81 MG chewable tablet 81 mg Oral Daily 81 mg at 01/22/21920 * oxyCODONE-acetaminoph en (PERCOCET) 5-325 mg per tablet 1 Tablet Oral Q6H PRN * atorvastatin (LIPITOR) tablet 20 mg Oral Daily 20 mg at 01/22/21823 * ferrous sulfate tablet TABS 325 mg Oral Daily 325 mg at 01/22/21910 * flecainide (TAMBOCOR) tablet 100 mg Oral 2x Daily 100 mg at 01/22/21823 * levothyroxine (SYNTHROID) tablet 137 mcg 137 mcg Oral Before Breakfast 137 mcg at 01/22/21910 * esomeprazole (NEXIUM) 20 MG capsule 20 mg Oral Daily 30 min before breakfast 20 mg at 01/22/21823 * docusate sodium (COLACE) capsule 100 mg Oral 2x Daily 100 mg at 01/22/21823 * [MAR Hold] albuterol 2.5 mg Q4H RT * aspirin 81 mg Daily * atorvastatin 20 mg Daily * ferrous sulfate 325 mg Daily * flecainide 100 mg 2x Daily * levothyroxine 137 mcg Before Breakfast * esomeprazole 20 mg Daily 30 min before breakfast * docusate sodium 100 mg 2x Daily * albuterol 2.5 mg Q4H PRN * oxyCODONE-acetaminoph en 1 Tablet Q6H PRN Normal The [facility] Cashier Greeter Authentication Interface Message Text GROUP HOME PLAN NOTE S: Karl Odom is a 70 year old male with a past medical history of Hypothyroidism, HLD, CKD, Afib (On Eliquis), nephrolithiasis status-post lithotripsy 01/22 who presented to the emergency department from outside hospital for dizziness, lightheaded, nausea, and left sided abdominal pain. He endorses having multiples episodes of bilious vomiting and hematuria. He states that he started taking Eliquis 3 days ago, as it was held after the procedure. CT Abdomen/Pelvis performed and notable for Left sided perinephric hematoma and retroperitoneal hematoma. Hemoglobin 6.9. He received one unit of pRBC, and (vitamin K?). Patient transferred to [facility] for IR and Urological consultation. Urology evaluated the patient and assessed and diagnosed urinary retention and placed Newman catheter with continuous irrigation. They did not appreciate any significant extravagation as per chart. Urology re-consulted due to not improvement of hemoglobin after one unit of blood. They recommended SDU admission for H AND H monitoring. O: VS: Afebrile, HR:104, BP:167/80, on room air Hgb: 6.7 --> 6.4 INR: 1.44 CT Abd and Pelvis: 1. Findings compatible with a large mixed acute and subacute left perirenal and retroperitoneal hematoma associated with hyperattenuating extraparenchymal foci on arterial and delayed phases, suspicious for small areas of active hemorrhage. 2. The large left perirenal and retroperitoneal hematoma slightly increased in size compared to the previous study of 01/21/2021 at 0310 hours. Focus Physical Exam: AAOx3 Tachycardic,Regular Rhythm ABD: Soft, NT/ND : Left CVA, suprapubic tenderness, newman catheter in placed draining blood tinged urine Extremities: Warm, pulses +2 B/L AP: Karl Odom is a 70 year old male with a past medical history of Hypothyroidism, HLD, CKD, Afib (On Eliquis), nephrolithiasis status-post lithotripsy 01/22 who presented to the emergency department from outside hospital for dizziness, lightheaded, nausea, and left sided abdominal pain. Admitted for symptomatic anemia in the setting of retroperitoneal hematoma. 1. Acute blood loss anemia in the setting of Eliquis and recent shockwave lithotripsy Patient admitted to the SDU for monitoring H AND H He received 1U pRBC with no significant improvement on hemoglobin 2 U of pRBC ordered Patient on Sinus tachycardia and Hypertensive as he is on severe pain Morphine 1 mg IV ordered Follow CBC q8 hrs Urology did not rec exploratory surgery Imaging reviewed with IR (If patient clinical status deteriorates would defer to angio-embolization) Continue holding Eliquis 2. Afib On Sinus Tachycardia No chest pain Continue Flexainide 100 mg BID 3. Acute Kidney Injury over CKD As per chart patient Creatinine 1.14 (2019) Now Creatinine: 1.74 Most likely pre-renal in the setting of poor oral intake Follow UA, Urine Osmolality, Urine Sodium, Urine Creatinine Rest of care per health information internship note Manfred May Internal Medicine PGY-2 Pager: [phone] Normal [facility] RED BLOOD CELL COMPONENTon 1 BB ORDER ITEM Product status info to follow Normal [facility] Comment on above: Performed By: #### R AMY #### [facility] [address] [place] [address], RED BLOOD CELL UNIT STATUSon 01-22-2021 BLOOD PRODUCT CODE [id number] Normal [facility] Comment on above: Performed By: #### R AMY #### [facility] [address] [place] [address], BLOOD PRODUCT CODE [id number] Normal [facility] Comment on above: Performed By: #### R AMY #### [facility] [address] [place] [address], BLOOD PRODUCT DESCRIPTION Red Blood Cells Normal [facility] Comment on above: Performed By: #### R AMY #### [facility] [address] [place] [address], BLOOD PRODUCT STATUS Released to avail Normal [facility] Comment on above: Performed By: #### R AMY #### [facility] [address] [place] [address], BLOOD PRODUCT STATUS Transfused Normal [facility] Comment on above: Performed By: #### R AMY #### [facility] [address] [place] [address], BLOOD PRODUCT UNIT INFO [id number] Normal [facility] Comment on above: Performed By: #### R AMY #### [facility] [address] [place] [address], BLOOD PRODUCT UNIT INFO [id number] Normal [facility] Comment on above: Performed By: #### R AMY #### [facility] [address] [place] [address], BLOOD PRODUCT UNIT TYPE 5100 Normal [facility] Comment on above: Result Comment: O Po s Performed By: #### R AMY #### [facility] [address] [place] [address], CROSSMATCH INTERPRETATION Compatible (E) Normal [facility] Comment on above: Performed By: #### R AMY #### [facility] [address] [place] [address], TSHon 01-22-2021 TSH 0.554 uIU/mL Normal 0.450-5.330 The [facility] Comment on above: Performed By: #### R AMY #### [facility] [address] [place] [address], ABO RH TYPEon 01-21-2021 ABO and Rh group Nom (Bld) Blood group O Rh(D) positive Normal [facility] Comment on above: Performed By: #### R AMY #### [facility] [address] [place] [address], BASIC METABOLIC PANELon 01-07 Anion gap [Moles/Vol] 21 mmol/L High 10-20 [facility] Comment on above: Performed By: #### C H8 #### [facility] [address] [place] [address], Calcium [Mass/Vol] 8.0 mg/dL Low 8.4-10.4 The [facility] Comment on above: Performed By: #### C H8 #### [facility] [address] [place] [address], Chloride [Moles/Vol] 105 mmol/L Normal 97-111 [facility] Comment on above: Performed By: #### C H8 #### [facility] [address] [place] [address], CO2 [Moles/Vol] 15 mmol/L Low 21-30 [facility] Comment on above: Performed By: #### C H8 #### [facility] [address] [place] [address], Creatinine [Mass/Vol] 1.75 mg/dL High 0.80-1.30 [facility] Comment on above: Performed By: #### C H8 #### [facility] [address] [place] [address], ESTIMATED GFR (CKD-EPI) 38 mL/min/1.73sqm Low >=60 [facility] Comment on above: Performed By: #### Beth H8 #### [facility] [address] [place] [address], Glucose [Mass/Vol] 182 mg/dL High 80-116 The [facility] Comment on above: Performed By: #### C H8 #### [facility] [address] [place] [address], Potassium [Moles/Vol] 5.1 mmol/L Normal 3.3-5.3 [facility] Comment on above: Performed By: #### C H8 #### [facility] [address] [place] [address], Sodium [Moles/Vol] 136 mmol/L Normal 135-148 [facility] Comment on above: Performed By: #### C H8 #### [facility] [address] [place] [address], Urea nitrogen [Mass/Vol] 42 mg/dL High 8-22 [facility] Comment on above: Performed By: #### C H8 #### [facility] [address] [place] [address], Anion gap [Moles/Vol] 17 mmol/L Normal 10-20 [facility] Comment on above: Performed By: #### C H8 #### [facility] [address] [place] [address], Calcium [Mass/Vol] 8.0 mg/dL Low 8.4-10.4 [facility] Comment on above: Performed By: #### C H8 #### [facility] [address] [place] [address], Chloride [Moles/Vol] 103 mmol/L Normal 97-111 The [facility] Comment on above: Performed By: #### C H8 #### [facility] [address] [place] [address], CO2 [Moles/Vol] 19 mmol/L Low 21-30 [facility] Comment on above: Performed By: #### C H8 #### [facility] [address] [place] [address], Creatinine [Mass/Vol] 1.74 mg/dL High 0.80-1.30 The [facility] Comment on above: Performed By: #### C H8 #### [facility] [address] [place] [address], ESTIMATED GFR (CKD-EPI) 38 mL/min/1.73sqm Low >=60 [facility] Comment on above: Performed By: #### C H8 #### [facility] [address] [place] [address], Glucose [Mass/Vol] 185 mg/dL High 80-116 [facility] Comment on above: Performed By: #### C H8 #### [facility] [address] [place] [address], Potassium [Moles/Vol] 5.1 mmol/L Normal 3.3-5.3 The [facility] Comment on above: Performed By: #### C H8 #### [facility] [address] [place] [address], Sodium [Moles/Vol] 134 mmol/L Low 135-148 [facility] Comment on above: Performed By: #### C H8 #### [facility] [address] [place] [address], Urea nitrogen [Mass/Vol] 42 mg/dL High 8-22 The [facility] Comment on above: Performed By: #### C H8 #### [facility] [address] [place] [address], CBC WITH DIFFERENTIALon 01-07 Basophils (Bld) [#/Vol] 0.02 10*3/uL Normal 0.00-0.20 The [facility] Comment on above: Performed By: #### R AMY #### [facility] [address] [place] [address], Basophils/100 WBC (Bld) 0.2 % Normal <=1.9 The [facility] Comment on above: Performed By: #### R AMY #### [facility] [address] [place] [address], Eosinophils (Bld) [#/Vol] 0.00 10*3/uL Normal 0.00-0.70 The [facility] Comment on above: Performed By: #### R AMY #### [facility] [address] [place] [address], Eosinophils/100 WBC (Bld) 0.0 % Low 0.1-4.0 The [facility] Comment on above: Performed By: #### R AMY #### [facility] [address] [place] [address], Erythrocyte distribution width (RBC) [Ratio] 13.8 % Normal 11.5-14.5 The [facility] Comment on above: Performed By: #### R AMY #### [facility] [address] [place], [place], Hematocrit (Bld) [Volume fraction] 18.4 % Critically low 41.0-53.0 [facility] Comment on above: Performed By: #### R AMY #### [facility] [address], [place], Hemoglobin (Bld) [Mass/Vol] 6.4 g/dL Critically low 13.9-16.3 The [facility] Comment on above: Performed By: #### R AMY #### [facility] [address] [place] [address], Lymphocytes (Bld) [#/Vol] 0.65 10*3/uL Low 1.00-4.80 The [facility] Comment on above: Performed By: #### R AMY #### [facility] [address] [place], [place], Lymphocytes/100 WBC (Bld) 5.1 % Low 24.0-44.0 The [facility] Comment on above: Performed By: #### R AMY #### [facility] [address] [place] [address], MCH (RBC) [Entitic mass] 32.3 pg Normal 26.0-34.0 The [facility] Comment on above: Performed By: #### R AMY #### [facility] [address] [place] [address], MCHC (RBC) [Mass/Vol] 34.8 g/dL Normal 32.0-35.9 The [facility] Comment on above: Performed By: #### R AMY #### [facility] [address] [place] [address], MCV (RBC) [Entitic vol] 93 fL Normal 80-100 The [facility] Comment on above: Performed By: #### R AMY #### [facility] [address] [place] [address], MONOCYTE DISTRIBUTION WIDTH 18 Normal <=20 The [facility] Comment on above: Performed By: #### R AMY #### [facility] [address] [place], [place], Monocytes (Bld) [#/Vol] 1.03 10*3/uL High 0.20-1.00 The [facility] Comment on above: Performed By: #### R AMY #### [facility] [address] [place], [place], Monocytes/100 WBC (Bld) 8.1 % Normal 2.0-11.0 The [facility] Comment on above: Performed By: #### R AMY #### [facility] [address], [place], Neutrophils (Bld) [#/Vol] 10.98 10*3/uL High 1.50-8.00 [facility] Comment on above: Performed By: #### R AMY #### [facility] [address], [place], Neutrophils/100 WBC (Bld) 86.6 % High 31.0-76.0 [facility] Comment on above: Performed By: #### R AMY #### [facility] [address], [place], Platelet mean volume (Bld) [Entitic vol] 7.2 fL Low 7.5-11.2 [facility] Comment on above: Performed By: #### R AMY #### [facility] [address] [place], Platelets (Bld) [#/Vol] 347 10*3/uL Normal 150-400 [facility] Comment on above: Performed By: #### R AMY #### [facility] [address] [place], RBC (Bld) [#/Vol] 1.98 10*6/uL Low 4.50-5.90 [facility] Comment on above: Performed By: #### R AMY #### [facility] [address], WBC (Bld) [#/Vol] 12.7 10*3/uL High 4.5-11.5 [facility] Comment on above: Performed By: #### R AMY #### [facility] [address], Basophils (Bld) [#/Vol] 0.02 10*3/uL Normal 0.00-0.20 [facility] Comment on above: Performed By: #### R AMY #### [facility] [address], Basophils/100 WBC (Bld) 0.1 % Normal <=1.9 [facility] Comment on above: Performed By: #### R AMY #### [facility] [address], Eosinophils (Bld) [#/Vol] 0.00 10*3/uL Normal 0.00-0.70 [facility] Comment on above: Performed By: #### R AMY #### [facility] [address], Eosinophils/100 WBC (Bld) 0.0 % Low 0.1-4.0 [facility] Comment on above: Performed By: #### R AMY #### [facility] [address] [place], Erythrocyte distribution width (RBC) [Ratio] 13.4 % Normal 11.5-14.5 [facility] Comment on above: Performed By: #### R AMY #### [facility] [address], [place], Hematocrit (Bld) [Volume fraction] 19.3 % Critically low 41.0-53.0 [facility] Comment on above: Performed By: #### R AMY #### [facility] [address], [place], Hemoglobin (Bld) [Mass/Vol] 6.7 g/dL Critically low 13.9-16.3 [facility] Comment on above: Performed By: #### R AMY #### [facility] [address], Lymphocytes (Bld) [#/Vol] 0.49 10*3/uL Low 1.00-4.80 [facility] Comment on above: Performed By: #### R AMY #### [facility] [address], Lymphocytes/100 WBC (Bld) 3.4 % Low 24.0-44.0 [facility] Comment on above: Performed By: #### R AMY #### [facility] [address], [place], MCH (RBC) [Entitic mass] 32.4 pg Normal 26.0-34.0 [facility] Comment on above: Performed By: #### R AMY #### [facility] [address], MCHC (RBC) [Mass/Vol] 34.7 g/dL Normal 32.0-35.9 [facility] Comment on above: Performed By: #### R AMY #### [facility] [address], MCV (RBC) [Entitic vol] 94 fL Normal 80-100 The [facility] Comment on above: Performed By: #### R AMY #### [facility] [address] [place] [address], MONOCYTE DISTRIBUTION WIDTH 22 High <=20 [email or web address] Comment on above: Performed By: #### R AMY #### [facility] [address], [place], Monocytes (Bld) [#/Vol] 0.90 10*3/uL Normal 0.20-1.00 [facility] Comment on above: Performed By: #### R AMY #### [facility] [address], [place], Monocytes/100 WBC (Bld) 6.3 % Normal 2.0-11.0 [facility] Comment on above: Performed By: #### R AMY #### [facility] [address], Neutrophils (Bld) [#/Vol] 12.82 10*3/uL High 1.50-8.00 The [facility] Comment on above: Performed By: #### R AMY #### [facility] [address], Neutrophils/100 WBC (Bld) 90.1 % High 31.0-76.0 [facility] Comment on above: Performed By: #### R AMY #### [facility] [address], [place], Platelet mean volume (Bld) [Entitic vol] 7.7 fL Normal 7.5-11.2 [facility] Comment on above: Performed By: #### R AMY #### [facility] [address], [place], Platelets (Bld) [#/Vol] 339 10*3/uL Normal 150-400 [facility] Comment on above: Performed By: #### R AMY #### [facility] [address], [place], RBC (Bld) [#/Vol] 2.07 10*6/uL Low 4.50-5.90 The [facility] Comment on above: Performed By: #### R AMY #### [facility] [address], [place], WBC (Bld) [#/Vol] 14.2 10*3/uL High 4.5-11.5 The [facility] Comment on above: Performed By: #### R AMY #### [facility] [address], [place], CTA ABDOMEN + PELVIS W/on CTA ABDOMEN + PELVIS W/ EXAMINATION: CTA ABDOMEN + PELVIS W/ CLINICAL HISTORY: Reason for Exam: Perinephric hematoma, low hgb, recent lithotripsy, active extra? ASSOCIATED DIAGNOSIS: Perinephric hematoma, low hgb, recent lithotripsy, active extra? TECHNOLOGISTS NOTE: COMPARISON: Outside hospital CT abdomen/pelvis 01/21/2021 TECHNIQUE: Contiguous axial collimated imaging was performed of the abdomen and pelvis from the xyphoid process through the pubic symphysis following bolus administration of intravenous contrast. Coronal and sagittal multiplanar reconstructions and sagittal and coronal 3D maximum intensity projections were reconstructed from the axial data. Before infusion of intravenous contrast, radiology personnel investigated the possibility of an allergic history and of any history of reaction to iodinated contrast material. Contrast Protocol: Omnipaque 350 [>or =100lb] 100 ml [<100 lb] 1 ml per 1 lb. INTRA-PROCEDURE MEDS: iohexol (OMNIPAQUE) 350 MG/ML injection 100 mL INTRAVENOUS FINDINGS: CTA ABDOMEN AORTA AND BRANCHES Celiac axis: No significant stenosis. SMA: No significant stenosis. JEREMY: No significant stenosis. Right renal vessels: No significant stenosis. Left renal vessels: No significant stenosis. Infrarenal aorta: Atherosclerotic changes predominantly related to intimal calcifications without stenosis, aneurysm or dissection. CTA PELVIC VESSELS R. Common iliac artery: Atherosclerotic change without significant stenosis. R. External iliac artery: No significant stenosis. R. Internal iliac artery: No significant stenosis. L. Common iliac artery: Atherosclerotic change without significant stenosis. L. External iliac artery: No significant stenosis. L. Internal iliac artery: No significant stenosis. NON-VASCULAR FINDINGS Included images of the lower thorax: Small to moderate left pleural effusion with associated compressive atelectasis of the left lower lobe. Hepatobiliary: Unremarkable liver without biliary dilation evident Pancreas: Unremarkable Spleen: Unremarkable Adrenal Glands: Unremarkable Kidneys, ureters, and bladder: There is a large left perinephric hematoma that displaces the left kidney anteriorly and measures approximately 11.5 x 9.0 x 11.6 cm (greatest orthogonal dimensions), which extends into the left perirenal space. On the noncontrast phase, there is slightly heterogeneous attenuation of the perinephric and perirenal hematoma, likely reflecting mixed acute and subacute blood products. On the arterial phase, there are small foci of hyperattenuation along the posterior left upper pole region on image 65 of series 6 as well as the posterior interpolar region on image 74 of series 6. These areas of hyperattenuation persists and appears slightly larger on delayed imaging suggesting small areas of active hemorrhage. A venous source should be considered. There are a few nonobstructing calculi left kidney. No contrast is identified in the collecting system on the delayed phase in the left kidney. No hydronephrosis. Symmetric renal function. Normal enhancement of the renal veins. GI tract: No evidence of obstruction. The appendix is within normal limits. Colonic diverticuli without acute diverticulitis. Peritoneum and retroperitoneum: No free air. There is a small amount of perisplenic fluid, which measures approximately water attenuation. There is ill-defined retroperitoneal stranding and fluid, likely related to the aforementioned large left perirenal retroperitoneal hematoma. The overall size of the large left retroperitoneal hematoma is slightly increased in size compared to the previous exam. This hematoma appears to be subcapsular involving the pararenal space along with a large component involving the posterior and inferior pararenal space of the left retroperitoneum. Lymph Nodes: No abdominal or pelvic lymphadenopathy is evident Prostate and seminal vesicles: Unremarkable Visualized musculoskeletal structures: No definite acute or destructive osseous process. Remote appearing moderate compression deformity involving the superior endplate of the L1 vertebral body IMPRESSION: 1. Findings compatible with a large [...] 6. Small to moderate left pleural effusion. MACRO: Notification of the critical finding of possible active arterial bleeding was initiated at 6:57 PM EDT on 01/21/2021. Danish Riggins successfully contacted FRANCIS NOONAN at 6:45 PM EDT on 01/21/2021, via telephone, who acknowledged the critical finding with read back verification. (-CF-) (more content not included)... Normal [facility] 01-21-2021 Cashier Greeter Authentication Interface Message Text UROLOGY CONSULT NOTE CONSULT QUESTION: Left perinephric hematoma HPI: Karl Odom is a 70 year old White male. [...] 6.9. The patient was then transferred to [facility] for evaluation. CTA obtained in the ED demonstrates large left perinephric hematoma 11 x 9 cm. Questionable left upper pole area of small extrav. Imaging was reviewed with IR which feels this is an area of cortical enhancement. Repeat CBC in the ED demonstrates hgb 6.4. Patient type and crossed for 3 units. PMH: No past medical history on file. PSH: There is no previous surgical history on file. FAMILY HX: No family history on file. SOCIAL HX: Social History Socioeconomic History * Marital status: Spouse name: Not on file * Number of children: Not on file * Years of education: Not on file * Highest education level: Not on file Occupational History * Not on file Tobacco Use * Smoking status: Not on file Substance and Sexual Activity * Alcohol use: Not on file * Drug use: Not on file * Sexual activity: Not on file Other Topics Concern * Not on file Social History Narrative * Not on file Social Determinants of Health Financial Resource Strain: * Difficulty of Paying Living Expenses: Food Insecurity: * Worried About Running Out of Food in the Last Year: * Ran Out of Food in the Last Year: Transportation Needs: * Lack of Transportation (Medical): * Lack of Transportation (Non-Medical): Physical Activity: * Days of Exercise per Week: * Minutes of Exercise per Session: Stress: * Feeling of Stress : Social Connections: * Frequency of Communication with Friends and Family: * Frequency of Social Gatherings with Friends and Family: * Attends [employer] Services: * Active Member of Clubs or Organizations: * Attends Club or Organization Meetings: * Marital Status: Intimate Partner Violence: * Fear of Current or Ex-Partner: * Emotionally Abused: * Physically Abused: * Sexually Abused: HOME MEDS: No current facility-administered medications on file prior to encounter. No current outpatient medications on file prior to encounter. ALLERGIES: Not on File ROS: 12 point review of systems is negative except as indicated in HPI OBJECTIVE: Vital sign ranges over the past 24 hours (retrieved 01/21/2021 at 8:41 PM): Tmax (24 hours): 99.1 ???F (37.3 ???C) Pulse Av.5 Min: 66 Max: 104 Systolic (24hrs), Av , Min:163 , Max:173 Diastolic (24hrs), Av, Min:66, Max:80 MAP (mmHg) Av mmHg Min: 91 mmHg Max: 91 mmHg Resp Av.8 Min: 12 Max: 18 SpO2 Av.3 % Min: 97 % Max: 100 % Patient Vitals for the past 24 hrs: BP Temp Temp src Pulse Resp SpO2 O2 Device 01/21/21 1830 168/66 -- -- (!) 103 18 97 % Room air 01/21/21 1700 173/70 -- -- (!) 101 18 100 % Room air 01/21/21 1515 167/80 99.1 ???F (37.3 ???C) Oral (!) 104 12 99 % Room air PHYSICAL EXAM: GEN: NAD, A AND Ox3 HEENT: EOMI CV: Tachycardic but regular on tele PULM: Non-labored breathing on RA ABD: Soft, ND : Left cva TTP. Suprapubic TTP, [address]man catheter placed with return of blood tinged urine. SP ttp improved following indwelling newman placement. EXTR: ONEILL IN/OUT: No intake/output data recorded. LABS: CBC/PT/INR WBC RBC Hgb Hct MCV RDW Plt PT aPTT INR 01/21/21 1908 12.7 1.98 6.4 18.4 93 13.8 347 01/21/21 1452 14.2 2.07 6.7 19.3 94 13.4 339 01/21/21 1452 39 01/21/21 1452 1.44 WBC/Diff Neutro% Segs% Bands% Lymphs% Monos% Eos% Basos% 01/21/21 1908 86.6 5.1 8.1 0.0 0.2 01/21/21 1452 90.1 3.4 6.3 0.0 0.1 Basic Metabolic Panel Na K Cl CO2 Gap Glu BUN Cr Ca Mg PO4 01/21/21 1452 134 5.1 103 19 17 185 42 1.74 8.0 Hepatic/Biliary/Pancr eas T Prot Albumin D Bili T Bili Alk Phos ALT AST Amylase Lipase 01/21/21 1502 5.3 2.8 0.50 2.5 74 35 27 01/21/21 1502 26 Fingerstick Glucose (last 72 hours) None Cardiac None CULTURES: Blood Culture None Urine Culture None MEDS: No current facility-administered medications for this encounter. No current outpatient medications on file. Scheduled Medications PRN Medications IV Medications: IMAGING: CTA A/P as described above ? ASSESSMENT/PLAN: Karl Odom is a 70 year old White male s/p left extracoporeal shockwave lithotripsy at [facility] presenting with left perinephric hematoma and blood loss anemia with concern for active retroperitoneal bleed. -Transfuse 2 units - Follow CBC q8 hrs - Do not recommend exploratory surgery - Imaging reviewed with IR, if patient clinical status declining would defer to angio-embolization - Urology will continue to follow, please page with any (more content not included)... Normal [facility] ED Noteson 01-21-2021 Cashier Greeter Authentication Interface Message Text notified of critical HEMOGLOBIN value of 6.4,HEMATOCRIT value of 18.4. Hard copy of results given to . Normal [facility] Cashier Greeter Authentication Interface Message Text notified of critical Hemoglobin value of 6.7 AND HEMATOCRIT 19.3. Hard copy of results given to /PEDRO. Normal [facility] ED Provider Noteson 01-22-20 Cashier Greeter Authentication Interface Message Text AM for RY 70 yo M hx of Afib on , CKD s/p lithotripsy on Sunday. Patient syncopized today, went to [place] ED for evaluation. CT revealed large perinephric hematoma. Hb was 6.9. s/p vitamin K, FFP, 1 units PRBCs. [place] ED Called ACS and urology here--neither accepted patient. Patient accepted by Dr. Mccrary in ED here. Patient is HDS here. Now Worsening anemia despite 1 unit PRBCs. Initially no abdominal tenderness. Patient is tachycardic but normotensive. CTA shows active extrav to left superior renal pole. Patient later developed abdominal pain, abdominal exam concerning for peritonitis. Urology called and evaluated patient in ED Urology placed scoude newman catheter. Now improved abdominal pain following newman placement IR resident and attending does not feel there is active extrav Repeat CBC now shows Hb of 6.4 from 6.7. bp ok. INR 1.4 Urology recommending admit to SDU for trending CBC [x] call report to SDU [x] 2 units PRBCs ordered Under my care Report called to SDU by Dr. Noonan No acute events Blood transfusion started in department under my care; bp remained stable, sent to SDU For further care Blossom Aguiar MD PGY3 Normal [facility] Cashier Greeter Authentication Interface Message Text EMERGENCY DEPARTMENT - VISIT NOTE --------- HISTORY OF PRESENT ILLNESS ----- The history is provided by the Patient. Karl Odom is a 70 year old male with history of HLD, CKD, afib (Eliqu) presenting to the ED for perinephric hematoma as a transfer from [place]. Patient had lithotripsy on Sunday at [place]. Had a syncopal episode today and went outside hospital for evaluation. At this hospital patient received CT abdomen without contrast which showed a perinephric hematoma. Hemoglobin found to be 6.9. 1 unit of blood, FFP, vitamin K given. Patient transferred to [facility] for further evaluation as urologist there felt pt required higher level of care. On , patient complains nausea. States he has occasional abdominal pain but not currently. Denies fever cough, chest pain, shortness of breath, leg swelling, vomiting, diarrhea, blood in stool. Reports compliance w/Eliquis REVIEW OF SYSTEMS Review of Systems Constitutional: Negative for fever. HENT: Negative for ear pain. Eyes: Negative for pain. Respiratory: Negative for cough, shortness of breath and wheezing. Cardiovascular: Negative for chest pain and palpitations. Gastrointestinal: Positive for nausea. Negative for abdominal pain, diarrhea and vomiting. Genitourinary: Positive for urgency. Negative for flank pain. +hematuria Musculoskeletal: No acute swelling Skin: Negative for rash. Neurological: Negative for headaches. Hematological: Bruises/bleeds easily. PAST HISTORY Pertinent Past History: See HPI PHYSICAL EXAM - There were no vitals taken for this visit. Physical Exam Vitals and nursing note reviewed. Constitutional: General: He is not in acute distress. Appearance: He is not diaphoretic. HENT: Head: Normocephalic. Eyes: General: No scleral icterus. Right eye: No discharge. Left eye: No discharge. Cardiovascular: Rate and Rhythm: Tachycardia present. Heart sounds: No murmur heard. No friction rub. No gallop. Comments: +2/4 radial and PT pulses bilaterally Pulmonary: Effort: Pulmonary effort is normal. No respiratory distress. Breath sounds: No wheezing, rhonchi or rales. Abdominal: Palpations: Abdomen is soft. Tenderness: There is no abdominal tenderness. There is left CVA tenderness. There is no right CVA tenderness, guarding or rebound. Musculoskeletal: Cervical back: Neck supple. Right lower leg: No edema. Left lower leg: No edema. Skin: General: Skin is warm and dry. Neurological: General: No focal deficit present. Mental Status: He is alert. MEDICAL DECISION MAKING and ED COURSE Nursing triage and assessment notes reviewed and incorporated Blood Attestation: Attestation of Informed Consent for Blood and/or Blood Components The transfusion of blood and/or blood components were discussed with the patient and/or legal auto service representative at 16:00. The risks, benefits and alternatives were reviewed. Questions regarding blood transfusions were answered. The patient / or the patient's legal auto service representative agree with the plan for transfusion of blood and/or blood components. Evaluated by EM attending George Castaneda Course: ED Course as of Jan 22 2208SunJan 21, 2021 1644 INR(!): 1.44 [RY] 1644 Protime(!): 16.2 [RY] 1644 aPTT(!): 39 [RY] 1752 Pt w/ worsening exam-- peritonitis on my exam. Dr. Noonan spoke to Dr. Mar who reports they will see pt next [JS] [address] Mar, after her view of the CTA, pt should primarily been seen by urology. Requests a call back if urology needs assistance [JS] 182 Urology re-paged [RY] 182 Urology paged third time [RY] 184 Urology paged again [JS] 1840 Urology resident reports they are on their [...] User Index [JS] George Castaneda MD [RY] Francis Noonan, Medical Decision Making: Patient presents from outside hospital with perinephric hematoma following recent lithotripsy in the setting of Eliquis use Afebrile, tachycardia but stable BP Abdomen is soft, nontender. There is left CVAT. No signs of flank ec (more content not included)... Normal [facility] HEPATIC FUNCTION PANELon Albumin [Mass/Vol] 2.8 g/dL Low 3.4-5.1 [facility] Comment on above: Performed By: #### C H8 #### [facility] [address] [place] [address], ALK 74 IU/L Normal 40-200 [facility] Comment on above: Performed By: #### C H8 #### [facility] [address] [place] [address], ALT [Catalytic activity/Vol] 35 U/L Normal 7-40 [facility] Comment on above: Performed By: #### C H8 #### [facility] [address] [place] [address], AST [Catalytic activity/Vol] 27 U/L Normal 7-40 [facility] Comment on above: Performed By: #### C H8 #### [facility] [address] [place] [address], Bilirubin [Mass/Vol] 2.5 mg/dL High 0.1-1.5 [facility] Comment on above: Performed By: #### C H8 #### [facility] [address] [place] [address], Bilirubin.direct [Mass/Vol] 0.50 mg/dL High 0.10-0.30 [facility] Comment on above: Performed By: #### C H8 #### [facility] [address] [place] [address], Protein [Mass/Vol] 5.3 g/dL Low 5.7-8.1 [facility] Comment on above: Performed By: #### C H8 #### [facility] [address] [place] [address], LIPASEon 01-21-2021 LIP 26 IU/L Normal <128 [facility] Comment on above: Performed By: #### R AMY #### [facility] [address] [place] [address], PARTIAL THROMBOPLASTIN TIMEo n 01-21-2021 aPTT Coag (Bld) [Time] 39 s High 25-37 [facility] Comment on above: Performed By: #### R AMY #### [facility] [address] [place] [address], PROTHROMBIN TIME AND INRon 1 INR Coag (PPP) [Relative time] 1.44 {INR} High 0.90-1.10 [facility] Comment on above: Performed By: #### R AMY #### [facility] [address] [place] [address], PT Coag (PPP) [Time] 16.2 s High 9.7-12.9 [facility] Comment on above: Performed By: #### R AMY #### [facility] [address] [place] [address], RED BLOOD CELL COMPONENTon 1 BB ORDER ITEM Product status info to follow Normal [facility] Comment on above: Performed By: #### R AMY #### [facility] [address] [place] [address], RED BLOOD CELL UNIT STATUSon 01-21-2021 BLOOD PRODUCT CODE [id number] Normal [facility] Comment on above: Performed By: #### R AMY #### [facility] [address] [place] [address], BLOOD PRODUCT DESCRIPTION Red Blood Cells Normal [facility] Comment on above: Performed By: #### R AMY #### [facility] [address] [place] [address], BLOOD PRODUCT STATUS Transfused Normal [facility] Comment on above: Performed By: #### R AMY #### [facility] [address] [place] [address], BLOOD PRODUCT STATUS Released to avail Normal [facility] Comment on above: Performed By: #### R AMY #### [facility] [address] [place] [address], BLOOD PRODUCT UNIT INFO [id number] Normal [facility] Comment on above: Performed By: #### R AMY #### [facility] [address] [place] [address], BLOOD PRODUCT UNIT INFO [id number] Normal [facility] Comment on above: Performed By: #### R AMY #### [facility] [address] [place] [address], BLOOD PRODUCT UNIT TYPE 5100 Normal [facility] Comment on above: Result Comment: O Po s Performed By: #### R AMY #### [facility] [address] [place] [address], CROSSMATCH INTERPRETATION Compatible (E) Normal [facility] Comment on above: Performed By: #### R AMY #### [facility] [address] [place] [address], TYPE AND SCREENon 01-21-2021 ABO and Rh group Nom (Bld) Blood group O Rh(D) positive Normal [facility] Comment on above: Performed By: #### R AMY #### [facility] [address] [place] [address], ABO and Rh group Nom (Bld) No Previous Results Normal The [facility] Comment on above: Performed By: #### R AMY #### [facility] [address], [place], ABSC INT Negative Normal [email or web address] Comment on above: Performed By: #### R AMY #### [facility] [address], [place], Encounters Encounter Date Encounter Type Care Provider Facility Start: 11-03-2021 Telephone encounter Frankie peñaloza DO Work Phone: Hematology/Oncology Comment on above: Results Start: 10-31-2021 End: 10-31-2021 ambulatory FRANKIE BEDOYA Facility:[facility] Start: 10-28-2021 Orders Only Frankie Bedoya D O Work Phone: Hematology/Oncology Comment on above: Anemia, unspecified type (Primary Dx) Start: 09-12-2021 Telephone encounter Frankie peñaloza DO Work Phone: Hematology/Oncology Comment on above: Patient Question Start: 06-22-2021 Telephone encounter Frankie peñaloza DO Work Phone: Hematology/Oncology Comment on above: Patient Update Start: 01-22-2021 End: 01-27-2021 Evaluation and management of inpatient MARIFER DAWN Facility:[facility] Start: 01-21-2021 End: 01-21-2021 ambulatory UNKNOWN PROVIDER Facility:[facility] Start: 01-21-2021 ambulatory UNKNOWN PROVIDER Facili ty:[facility] Procedures Date Procedure Procedure Detail Performing Clinician Start: 04-16-2020 Colonoscopy Frankie Bedoya DO Work Phone: Plan of Treatment Date Care Activity Detail Author Start: 10-31-2024 DIABETES SCREEN DIABETES SCREEN [facility] Start: 01-28-2024 DIABETES SCREEN DIABETES SCREEN [facility] Start: 04-09-2022 ADVANCE DIRECTIVE DISCUSSION ADVANCE DIRECTIVE DISCUSSION [facility] Start: 04-09-2022 DEPRESSION ASSESSMENT DEPRESSION ASS ESSMENT [facility] Start: 12-08-2021 Influenza vaccination INFLUENZA (#1) [facility] Start: 10-31-2021 End: 12-31-2021 Basic metabolic 2000 panel - Serum or Plasma BASIC METABOLIC PNL Lab Routine Anemia, unspecified type Expected: 10/31/2021, Expires: 12/31/2021 [facility] Work Phone: Comment on above: Expected: 10/31/2021 , Expires: 12/31/2021 Start: 10-31-2021 End: 12-31-2021 CBC W Auto Differential panel - Blood CBC + DIFF Lab STAT Anemia, unspecified type Expected: 10/31/2021, Expires: 12/31/2021 [facility] Work Phone: Comment on above: Expected: 10/31/2021 , Expires: 12/31/2021 Start: 10-31-2021 End: 12-31-2021 Ferritin [Mass/volume] in Serum or Plasma FERRITIN BLD Lab Routine Anemia, unspecified type Expected: 10/31/2021, Expires: 12/31/2021 [facility] Work Phone: Comment on above: Expected: 10/31/2021 , Expires: 12/31/2021 Start: 10-31-2021 End: 12-31-2021 Iron and Iron binding capacity panel - Serum or Plasma IRON + TIBC Lab Routine Anemia, unspecified type Expected: 10/31/2021, Expires: 12/31/2021 [facility] Work Phone: Comment on above: Expected: 10/31/2021 , Expires: 12/31/2021 Start: 04-16-2021 Colonoscopy COLONOSCOPY [facility] Start: 04-16-2021 COLORECTAL CANCER SCREENING COLORECTAL CANCER SCREENING [facility] Start: 04-09-2021 ADVANCE DIRECTIVE DISCUSSION ADVANCE DIRECTIVE DISCUSSION [facility] Start: 12-08-2020 Influenza vaccination INFLUENZA (#1) [facility] Start: 2013 PNEUMOCOCCAL: 65+ (1 - PCV) PNEUMOCOCCAL: 65+ (1 - PCV) [facility] Start: 2013 PNEUMOVAX AGE 65 AND OVER WITH 5YR LOOKBACK (#1) PNEUMOVAX AGE 65 AND OVER WITH 5YR LOOKBACK (#1) [facility] Start: 1998 SHINGRIX VACCINE (1 of 2) SHINGRIX VACCINE (1 of 2) [facility] Start: 1993 COLOGUARD (FIT-DNA) COLOGUARD (FIT-D NA) [facility] Start: [address] [facility] Start: 1993 FECAL OCCULT BLOOD FECAL OCCULT BLOO D [facility] Start: 1993 SIGMOIDOSCOPY SIGMOIDOSCOPY Christina red [facility] Start: 1983 LIPID SCREEN LIPID SCREEN [facility] Start: 1967 Urine microalbumin profile DTAP,TDAP,TD (1 - Tdap) [facility] Start: 1966 HEPATITIS C SCREENING HEPATITIS C SC REENING [facility] Start: 1960 Adult depression screening assessment DEPRESSION SCREENING [facility] Start: 1953 COVID-19 VACCINE (1) COVID-19 VACCIN E (1) [facility] Start: 1950 COVID-19 VACCINE (#1) COVID-19 VACCI NE (#1) [facility] Payers Date Payer Category Payer Unknown [id number] 2013 Medicare HUMANA MEDICARE HUMANA MEDICARE PPO [id number] 2013-Present [phone] [address] [place] [address] PPO [id number] 2013 Medicare HUMANA MEDICARE HUMANA MEDICARE PPO [id number] 2013-Present [phone] [place] [address] PPO [id number] 2013 Private Health Insurance [id number] 1950 Unknown [id number] 1950 Unknown [id number] 1950 Unknown [id number] 1950 Unknown [id number] Social History Date Type Detail Facility Start: 05-06-2015 Tobacco smoking stat us NHIS Never smoked tobacco [facility] Work Phone: Start: 05-06-2015 Tobacco use and exposure Smokeless tobacco non-user [facility] Work Phone: Start: 02-09-2021 End: 10-31-2021 Alcohol intake Current non-drinker of alcohol (finding) [facility] Start: 1950 Sex Assigned At Not on file [facility] Start: 10-21-2021 End: 10-31-2021 Exposure to SARS-CoV-2 (event) Not sure [facility] Clinical Notes 01-22-2021 to 11-03-2021 Telephone Encounter - Emily Rausch LPN - 11/03/2021 8:33 AM EDTTelephone Encounter - Frankie Bedoya DO - 11/03/2021 8:20 AM EDTTelephone Encounter - Peyton Taylor LPN - 11/03/2021 8:04 AM EDT Note [...] Pt. Requesting results for iron studies. Peyton Taylor LPN documented in this encounter [facility] 10-31-2021 Note HNO ID: [id number] Author: Frankie Bedoya, DO Service: ? Author Type: Physician Type: [...] from April 2015 reviewed. Fell from ladder 11/1719/. Developed gross hematuria. Went to ED. CT scan abdomen pelvis identified L1 compression fracture of uncertain chronicity. Nonobstructing left renal calculus was noted. Saw Dr. Garcia. Had Covid, so lithotripsy delayed until 01/12. Was inpatient 4 days. Received 2 unit RBC transfusion. When home, had onset recurrent gross hematuria. Went to ED at [facility]. Received transfusion. Life loxedk94/14 to [facility]. Hgb 6.7 g/dL. No further gross hematuria. He was advised to restart apixaban when discharged from [facility]. He is on oral iron supplementation and [...] edema. SKIN: No jaundice or rash. NEUROLOGIC: vice president of news II-XII are grossly intact. No focal motor [...] Abs Lymph 1.00 - 4.00 k/uL 1.28 [place]% % 8.4 Abs [place] <0.87 k/uL 0.60 [place]% % 1.8 Abs [...] today's iron leve (more content not included)... [facility] 09-12-2021 Miscellaneous Notes Patient is rescheduled, aware of time and date. Nicol Luong Patient's misunderstood and cancelled appointment for 09/14/2021. Please call to reschedule CBC/BMP/IRON STUDIES/6MO OV. Allyssa Barone LPN Message left for to contact office. Allyssa Barone LPN Patient's Jennifer called requesting to speak to a nurse, has question about labs, can be reached at [phone]. Thank you Veronica Lopez Pss documented in this encounter [facility] 06-27-2021 Miscellaneous Notes Spoke with pts. , informed that Dr. Bedoya looked at all pts. Lab results, and stated His blood counts have improved. will pass info on to pt. Peyton Taylor LPN Blood counts have improved. Frankie Bedoya DO Lab results received and placed in Dr. Bedoya's mailbox for review. Allyssa Barone LPN Recent lab results requested from PCP. Allyssa Barone LPN Pt had labs done through PCP. Wanted to let you know his hemoglobin was 11.9 today. documented in this encounter [facility] 01-27-2021 Note DISCHARGE SUMMARY [address] [address] Karl Odom Date of : 1950 70 year old male Attending Abdulkadir Villalba MD Date of Admission 01/21/2021 Date of Discharge 01/27/2021 [Principal Hospital Problem (Final Diagnosis)] Perinephric hematoma [Secondary Hospital Problems] Hematuria Discharge Procedure Orders UROLOGY SERVICE REQUEST Future Appointments Date Time Provider Department Center 02/15/2021 3:15 PM Ann Penaloza MD [facility] Condition at Discharge Improved Activity No restrictions [...] for changes in Hgb. Patient transferred to [facility].??? Patient is being discharged with tamsulosin [...] Take by mouth.Historical Med Cholecalciferol 50 MCG (1999) CAPS Take by mouth.Historical Med diltiazem (CARDIZEM [...] Alfredo Ventura MD Internal Medicine, PGY-1 Pager: [phone] [facility] 01-27-2021 Note INTERNAL MEDICINE TEAM 2 DAILY PROGRESS NOTE Patient: Karl Odom : 1950 Sex: male Room: [place] [address] Admit Date: 01/21/2021 Today's Date: 01/27/2021 Length [...] for changes in Hgb. Patient transferred to [facility]. EVENTS IN PAST 24H: No acute events overnight SUBJECTIVE: Patient feeling fatigued and nauseous after walking around [place]. Also complaining of chronic constipation with straining. [...] Number of days: 5 Indwelling Urinary Catheter 01/21/210 18 FR (Active) Site Assessment WNL 01/25/212235 [...] * oxyCODONE (more content not included)... [facility] 01-26-2021 Note Physical Therapy Referral received. [...] steps to enter and laundry in basement. Pat[place] has rails on the stairs. Patient declined [...] in mobility. Continue to encourage OOB. Erin Tyson [facility] B#: [phone] [facility] 01-26-2021 Note OCCUPATIONAL THERAPY INITIAL EVALUATION [...] 6.9. The patient was then transferred to [facility] for evaluation. Diagnosis: acute blood loss anemia [...] Dep Max Mod Min CG CS DS RI I Set-Up Comment Feeding X Grooming/Hygiene X [...] Dep Max Mod Min CG CS DS RI I Set-Up Comment Toilet Transfers X To/from [...] Guard Assist/Supervision 4 - Non = Modified [place]/Independent ASSESSMENT: Patient performing self care and mobility [...] NA = Not Assessed, I = Independent, RI = Modified Independent, Sup = Supervised, Set up = Physical Assistance for Set-up Only, Min = Minimal Assistance, Mod = Moderate Assistance, Max = Max assistance; Dep = Dependent; AROM = Active Range of Motion;PROM=Passive Range of Motion; MMT = Manual Muscle Test; UB = Upper Body; LB = Lower Body [facility] 01-25-2021 Note INTERNAL MEDICINE TEAM 2 DAILY PROGRESS NOTE Patient: Karl Odom : 1950 Sex: male Room: [place] [address] Admit Date: 01/21/2021 Today's Date: 01/25/2021 Length [...] for changes in Hbg. Patient transferred to [facility]. EVENTS IN PAST 24H: Patient transferred to [facility]. SUBJECTIVE: Patient seen this evening laying in [...] / Inserted by EMS (Active) Site Assessment WNL 01/25/21 1600 Infusion Status Port #1 Infusing [...] RT * aspirin 81 mg Daily * [MAR Hold] atorvastatin 20 mg Daily * ferrous sulfate 325 mg (more content not included)... [facility] 01-25-2021 Note STEPDOWN UNIT DAILY PROGRESS NOTE Patient: Karl Odom : 1950 Sex: male Room: [place] [address] Admit Date: 01/21/2021 Today's Date: 01/25/2021 Length [...] blood, FFP, and vitamin K. Transferred to [facility]. ??? In ED CBC showing Hbg 6.7 despite blood at outside hospital, additional 2 units PRBCs ordered. CTA at [facility] showing perinephric hematoma, possible active extravasation and [...] gynecological surgeries/procedures (more content not included)... [facility] 01-24-2021 Note 01/24/21 1000 Assessment and [...] needs. Patient stated his Jennifer Odom at [phone] is his primary contact. Patient also stated a close friend of his, whom he will call, will transport him home after discharge. CM will remain available to assist with discharge planning and or needs as warranted. Faraz ARROYON, RN Inpatient Director Of Student AidAssociate Professor Of Engineering: [phone] ([phone]) [facility] 01-24-2021 Note UROLOGY PROGRESS NOT E [...] 2.65 8.5 24.5 92 14.2 362 01/23/21 0821 10.5 2.23 7.2 20.6 93 14.2 322 [...] Halle Wolf MD Urologic Surgery PGY5 Pager: [phone] [facility] 01-24-2021 Note STEPDOWN UNIT DAILY PROGRESS NOTE Patient: Karl Odom : 1950 Sex: male Room: [place] [address] Admit Date: 01/21/2021 Today's Date: 01/24/2021 Length [...] blood, FFP, and vitamin K. Transferred to [facility]. ??? In ED CBC showing Hbg 6.7 despite blood at outside hospital, additional 2 units PRBCs ordered. CTA at [facility] showing perinephric hematoma, possible active extravasation and [...] * eso (more content not included)... [facility] 01-23-2021 Note UROLOGY PROGRESS NOT E [...] MCV RDW Plt PT aPTT INR 01/23/21 0821 10.5 2.23 7.2 20.6 93 14.2 322 [...] Segs% Bands% Lymphs% Monos% Eos% Basos% 01/23/21 08 83.1 8.7 6.0 1.8 0.5 01/22/21 0931 [...] Halle Wolf MD Urologic Surgery PGY5 Pager: [phone] [facility] 01-23-2021 Note INTERNAL MEDICINE STEPDOWN UNIT DAILY PROGRESS NOTE Patient: Karl Odom : 1950 Sex: male Room: [place] [address] Admit Date: 01/21/2021 Today's Date: 01/23/2021 Length [...] blood, FFP, and vitamin K. Transferred to [facility]. In ED CBC showing Hbg 6.7 despite blood at outside hospital, additional 2 units PRBCs ordered. CTA at [facility] showing perinephric hematoma, possible active extravasation and [...] days: 2 CURRENT MEDICATIONS: Scheduled Meds * [JUN Hold] albuterol 2.5 mg Q4H RT * aspirin 81 mg Daily * atorvastatin 20 mg Daily * ferrous sulfate 325 mg Daily * flecainide 100 mg 2x Daily * levothyroxine 137 mcg Before Breakfast * esomeprazole 20 mg Daily 30 min before danny (more content not included)... [facility] 01-22-2021 Note UROLOGY PROGRESS NOT E [...] Halle Wolf MD Urologic Surgery PGY5 Pager: [phone] [facility] 01-22-2021 Note INTERNAL MEDICINE STEPDOWN UNIT HISTORY AND PHYSICAL Patient: Karl Odom : 1950 Sex: male Room: [place] [address] Admit Date: 01/21/2021 Today's Date: 01/22/2021 Length [...] blood, FFP, and vitamin K. Transferred to [facility]. Poor historian. Had fall couple months ago. [...] Rate Respiratory Rate Temperature Temperature Source 01/21/21 15101/21/21 15101/21/21 1515 01/21/21 1515 01/21/21 151 167/80 (!) 104 12 99.1 ???F (37.3 ???C) Oral SpO2 Weight Height Head Circumference Peak Flow 01/21/21 1515 01/22/21 0242 01/22/21241 -- -- 99 % 167 lb 15.9 oz (76.2 kg) 5' 6 (1.676 m) Pain Score Pain Loc Pain Edu? Excl. in GC? 01/21/211514 -- -- -- 5 ED Course as of Jan 22 255SunJan 21, 2021 1644 INR(!): 1.44 [RY] 1644 Protime(!): 16.2 [RY] 1644 aPTT(!): 39 [RY] 1752 Pt w/ worsening exam-- peritonitis on my exam. Dr. Noonna spoke to Dr. Mar who reports they will see pt next [JS] [address] Mar, after her view of the CTA, pt should primarily been seen by urology. Requests a call back if urology needs assistance [JS] 1819 Urology re-paged [RY] 182 Urology paged third time [RY] 1840 Urology paged again [JS] 1840 Urology resident reports they are on their [...] User Index [JS] George Castaneda MD [RY] Francis Noonan, Past Medical History: No past medical history [...] pain Genito (more content not included)... [facility] Evaluation note Diagnosis Anemia, unspecified type- Primary documented in this encounter [facility] Summary Purpose Family History No Family History Records FoundNo Family History Records Found Advance Directives No Advanced Directives Records FoundNo Advanced Directives Records Found Additional Source Comments (unrecognized sect ion and content) No Status Records FoundNo Status Records Found INFORMATION SOURCE (unrecogn ized section and content) DATE CREATED AUTHOR 05/17/2021 [facility] DATE CREATED AUTHOR 'S ORGANIZ ATION 06/03/2022 [facility] Source Comments (unrecognize d section and content) In the event this informatio n is protected by the Federal Confidentiality of Alcohol and Drug Abuse Patient Records regulations: The Federal rules restrict any use of the information to criminally investigate or prosecute any alcohol or drug abuse patient.[facility] Hospital[facility] the event this information is protected by the Federal Confidentiality of Alcohol and Drug Abuse Patient Records regulations: The Federal rules restrict any use of the information to criminally investigate or prosecute any alcohol or drug abuse patient.[facility] Hospital[facility] the event this information is protected by the Federal Confidentiality of Alcohol and Drug Abuse Patient Records regulations: The Federal rules restrict any use of the information to criminally investigate or prosecute any alcohol or drug abuse patient.[facility] HospitalIn the event this information is protected by the Federal Confidentiality of Alcohol and Drug Abuse Patient Records regulations: The Federal rules restrict any use of the information to criminally investigate or prosecute any alcohol or drug abuse patient.[facility] Reason for Visit (unrecogniz ed section and content) Reason Comments Patient Update Reason Comments Results Reason Comments Patient Question Care Teams (unrecognized sec tion and content) Filler Mixer Relationship Specialty Start Date End Date Manuel Hardy Denysrocky [address] [facility] [address] [place] [address] PCP - General Family Practice 02/12/19 Filler Mixer Relationship Specialty Start Date End Date LioManuel Edrocky [address] [facility] [address] [place] [address] PCP - General Family Practice 02/12/19 Filler Mixer Relationship Specialty Start Date End Date Lio Manuel Denysrocky [address] [facility] [address] [place] [address] PCP - General Family Practice 02/12/19 Filler Mixer Relationship Specialty Start Date End Date LioManuel Edrocky [address] [facility] [address] [place] [address] PCP - General Family Medicine 02/12/19 FOR [...] BE BASED ON THE PRIMARY CLINICAL RECORDS. [facility]. provides no warranty or guarantee of the accuracy or completeness of information in this document.
--- NOTE | 2024-01-29 12:33 | STRESSREP ---
Stress Test Report Exercise myocardial perfusion stress test. 73-year-old man with a history of atrial fibrillation on flecainide therapy Stress protocol: Resting EKG demonstrates sinus bradycardia with a rate of 51 bpm resting blood pressure is 130/62 mmHg. The patient exercised according to the regular Branden protocol for a total duration of 6 minutes and 38 seconds attaining a maximum heart rate of 130 bpm which was 89% of maximum predicted heart rate; the maximum workload was 8.7 metabolic equivalents. At rest there were no ST or T wave changes noted to suggest ischemia and at peak exercise upsloping ST changes only were noted which did not meet the criteria for ischemia. No clinical angina was noted the test was terminated due to the target heart rate being achieved/fatigue. The peak blood pressure was 130/62 mmHg. Rate-pressure product was 12,600. Myocardial perfusion protocol. 9.7 mCi of technetium 99m sestamibi was injected at rest. The patient exercised according to regular Branden protocol for total duration of 6 minutes and 38 seconds and at peak exercise 30.4 mCi of technetium 99m sestamibi was injected stress images were obtained stress and rest images were reconstructed in comparing the short axis vertical long and horizontal long axis. Gated images were also obtained. Perfusion SPECT analysis: Review of the stress images demonstrate normal uptake of tracer noted in all areas of the myocardium. The resting images similarly demonstrate normal uptake of tracer noted in all areas of the myocardium. No areas of reversibility are noted to suggest ischemia no previous infarct was noted. Gated SPECT analysis: The gated ejection fraction is 70%. Conclusion: Normal exercise myocardial perfusion stress test at a moderate workload Preserved ejection fraction.
== END | disposition home or self-care (01) ==
LOC: CVS 07:16
PROVIDERS: PCP Family Medicine; Referring Provider Nurse Practitioner Gerontology; Visit Provider Nurse Practitioner Gerontology
DX: R42 Dizziness and giddiness (principal); I48.0 Paroxysmal atrial fibrillation; Z51.81 Encounter for therapeutic drug level monitoring; Z79.899 Other long term (current) drug therapy; R94.31 Abnormal electrocardiogram [ECG] [EKG]
CPT/HCPCS: 78452; 93017; 93880; A9500

== ENCOUNTER → 2024-02-11 | Outpatient (CLI) | payer MEDICARE, SELFPAY ==
--- OUTSIDE RECORDS SUMMARY | 2024-02-11 06:00 | XMS RPT_ITS | CCD ---
Author Organization [facility] Care Team Providers Care Industrial Economist Name Role Phone PROVIDER, UNKNOWN Admitting Unavailable PROVIDER, UNKNOWN Attending Unavailable PROVIDER, UNKNOWN Admitting Unavailable PROVIDER, UNKNOWN Attending Unavailable MARIFER DAWN Admitting Unavailable REQUEST, IP PHYSICAL THERAPY SERVICE Consulting Unavailable ABDULKADIR VILLALBA Attending Unavailable REQUEST, IP OCCUPATIONAL THERAPY SERVICE Consult ing Unavailable CONSULT, IP SURGERY UROLOGY Consulting Unav ailable PROVIDER, UNKNOWN Admitting Unavailable PROVIDER, UNKNOWN Attending Unavailable Manuel Hardy Primary Care Provider [phone] Manuel Hardy Primary Care Provider [phone] FRANKIE BEDOYA Referring Unavailable MANUEL HARDY Primary [...] Comment on above: Take 1 capsule by [facility] once each week. Take two tablets by mouth once daily. 24 hr dilTIAZem hydrochloride 120 mg extended release oral capsule (4 sources) Calcium Channel Pk Start: 06-07-2017 take 1 capsule by mouth once daily diltiazem CD (CARDIZEM CD, CARTIA XT) 120 mg 24 hr capsule Take 1 capsule by mouth once daily. 0 06/07/2017 Active Comment on above: Take 1 capsule by [facility] once daily. ferrous sulfate 324 mg delayed [...] Comment on above: Take 1 tablet by mleissa th once daily. Problems Active Problems Problem [...] Test Name Value Interpretation Reference Range Facility [facility] 11-17-2021 [facility] Telephone (ZHANG) KARL ODOM ([id number]) 1950 M Date Time Provider Department 11/17/21 FRANKIE BEDOYA During your visit today, we recorded the following information about you: Veronica Sharma 11/17/2021 8:25 AM Signed Patient's called requesting patients lab work to be faxed to Dr Manuel Gray's office at [facility] on Dec 07 Thank you Veronica Barone LPN 11/17/2021 8:46 AM Signed Patient last OV note and lab results from 10/31/2021, faxed to Dr. Hardy's office for patient's appointment later this month. Allyssa Lizabeth TOBIAS Allergies As of Date: 11/17/2021 (No Known [...] Status:Closed by ALLYSSA BARONE LPN on 11/17/21 [facility] CNPNon 11-03-2021 CNPN Telephone (HEMAWS) KRAL ODOM ([id number]) 1950 M Date Time Provider Department 11/03/21 [...] by EMILY RAUSCH LPN on 11/03/21 Normal [facility] Basic metabolic 2000 panelon 10-31-2021 Anion gap [Moles/Vol] 9 mmol/L Normal 9-18 [facility] Comment on above: Order Comment: Speci men Type: BLOOD SPECIMEN Ordering Facility: [facility] Address: [address] Performed By: #### 2 4321-2 #### [facility] CLIA [id number] [address] [place] [address] [place] Calcium [Mass/Vol] 9.2 mg/dL Normal 8.5-10.2 [facility] Comment on above: Order Comment: Speci men Type: BLOOD SPECIMEN Ordering Facility: [facility] Address: [address] [address] Performed By: #### 2 4321-2 #### [facility] CLIA [id number] [address] [place] [address] [place] Chloride [Moles/Vol] 103 mmol/L Normal 97-105 [facility] Comment on above: Order Comment: Speci men Type: BLOOD SPECIMEN Ordering Facility: [facility] Address: [address] [address] Performed By: #### 2 4321-2 #### [facility] CLIA [id number] [address] [place] [address] [place] CO2 [Moles/Vol] 23 mmol/L Normal 22-30 [facility] Comment on above: Order Comment: Speci men Type: BLOOD SPECIMEN Ordering Facility: [facility] Address: [address] Performed By: #### 2 4321-2 #### [facility] CLIA [id number] [address] [place] [address] [place] Creatinine [Mass/Vol] 1.58 mg/dL High 0.73-1.22 [facility] Comment on above: Order Comment: Speci men Type: BLOOD SPECIMEN Ordering Facility: [facility] Address: [address] Performed By: #### 2 4321-2 #### [facility] CLIA [id number] [address] [place] [address] [place] ESTIMATED GLOMERULAR FILTRATION RATE 46 mL/min/1.73m??? Low >=60 [facility] Comment on above: Order Comment: Andrew be Type: BLOOD SPECIMEN Ordering Facility: [facility] Address: [address] [place] [address] Result Comment: Catherine mated Glomerular Filtration Rate [...] GFR. Performed By: #### 2 4321-2 #### [facility] [id number] [address] [place] [address] [place] Glucose [Mass/Vol] 104 mg/dL High 74-99 [facility] Comment on above: Order Comment: Andrew be Type: BLOOD SPECIMEN Ordering Facility: [facility] Address: [address] [place] [address] Result Comment: The [place] [employer] (ADA) provides guidance for cutoff [...] Standards of Medical Care in Diabetes 2016, [place] [employer]. Diabetes Care. 2016.39(Suppl 1). Performed By: #### 2 4321-2 #### [facility] [id number] [address] [place] [address] [place] Potassium [Moles/Vol] 4.7 mmol/L Normal 3.7-5.1 [facility] Comment on above: Order Comment: Speci men Type: BLOOD SPECIMEN Ordering Facility: [facility] Address: [address] [place] [address] Performed By: #### 2 4321-2 #### [facility] CLIA [id number] [address] [place] [address] [place] Sodium [Moles/Vol] 135 mmol/L Low 136-144 [facility] Comment on above: Order Comment: Speci men Type: BLOOD SPECIMEN Ordering Facility: [facility] Address: [address] [place] [address] Performed By: #### 2 4321-2 #### [id number] [address] [place] [address] [place] Urea nitrogen [Mass/Vol] 35 mg/dL High 9-24 [facility] Comment on above: Order Comment: Speci men Type: BLOOD SPECIMEN Ordering Facility: [facility] Address: [address] [place] [address] Performed By: #### 2 4321-2 #### [facility] [id number] [address] [place] [address] [place] CBC W Auto Differential pane l (Bld)on 10-31-2021 Basophils (Bld) [#/Vol] 0.03 10*3/uL Normal <0.11 [facility] Comment on above: Order Comment: Speci men Type: BLOOD SPECIMEN Ordering Facility: [facility] Address: [address] [place] [address] Performed By: #### 5 7021-8 #### [facility] CLIA [id number] [address] [place] [address] [place] Basophils/100 WBC (Bld) 0.4 % Normal [facility] Comment on above: Order Comment: Speci men Type: BLOOD SPECIMEN Ordering Facility: [facility] Address: [address] Performed By: #### 5 7021-8 #### [facility] CLIA [id number] [address] [place] [address] [place] Differential cell count method Nom (Bld) Auto Normal [facility] Comment on above: Order Comment: Speci men Type: BLOOD SPECIMEN Ordering Facility: [facility] Address: [address] [place] [address] Performed By: #### 5 7021-8 #### [facility] CLIA [id number] [address] [place] [address] [place] Eosinophils (Bld) [#/Vol] 0.13 10*3/uL Normal <0.46 [facility] Comment on above: Order Comment: Speci men Type: BLOOD SPECIMEN Ordering Facility: [facility] Address: [address] [place] [address] Performed By: #### 5 7021-8 #### [facility] CLIA [id number] [address] [place] [address] [place] Eosinophils/100 WBC (Bld) 1.8 % Normal [facility] Comment on above: Order Comment: Speci men Type: BLOOD SPECIMEN Ordering Facility: [facility] Address: [address] [place], [place] [address] Performed By: #### 5 7021-8 #### [facility] CLIA [id number] [address] [place] [address] [place] Erythrocyte distribution width (RBC) [Ratio] 12.0 % Normal 11.5-15.0 [facility] Comment on above: Order Comment: Speci men Type: BLOOD SPECIMEN Ordering Facility: [facility] Address: [address] [place], [place] [address] Performed By: #### 5 7021-8 #### [facility] CLIA [id number] [address] [place] [address] [place] Hematocrit (Bld) [Volume fraction] 33.8 % Low 39.0-51.0 [facility] Comment on above: Order Comment: Speci men Type: BLOOD SPECIMEN Ordering Facility: [facility] Address: [address] [place] [address] Performed By: #### 5 7021-8 #### [facility] CLIA [id number] [address] [place] [address] [place] Hemoglobin (Bld) [Mass/Vol] 11.4 g/dL Low 13.0-17.0 [facility] Comment on above: Order Comment: Speci men Type: BLOOD SPECIMEN Ordering Facility: [facility] Address: [address] [place] [address] Performed By: #### 5 7021-8 #### [facility] [id number] [address] [place] [address] [facility] IMMATURE GRAN % 0.6 % Normal [facility] Comment on above: Order Comment: Speci men Type: BLOOD SPECIMEN Ordering Facility: [facility] Address: [address] [place] [address] Performed By: #### 5 7021-8 #### [facility] [id number] [address] [place] [address] [place] IMMATURE GRAN ABS 0.04 k/uL Normal <0.10 [facility] Comment on above: Order Comment: Speci men Type: BLOOD SPECIMEN Ordering Facility: [facility] Address: [address] [place] [address] Performed By: #### 5 7021-8 #### [facility] CLIA [id number] [address] [place] [address] [place] Lymphocytes (Bld) [#/Vol] 1.28 10*3/uL Normal 1.00-4.00 [facility] Comment on above: Order Comment: Speci men Type: BLOOD SPECIMEN Ordering Facility: [facility] Address: [address] [place], [place] [address] Performed By: #### 5 7021-8 #### [facility] CLIA [id number] [address] [place] [address] Lymphocytes/100 WBC (Bld) 18.0 % Normal [facility] Comment on above: Order Comment: Speci men Type: BLOOD SPECIMEN Ordering Facility: [facility] Address: [address] [place], [place] [address] Performed By: #### 5 7021-8 #### [facility] CLIA [id number] [address] [place] [address] [place] MCH (RBC) [Entitic mass] 32.2 pg Normal 26.0-34.0 [facility] Comment on above: Order Comment: Speci men Type: BLOOD SPECIMEN Ordering Facility: [facility] Address: [address] [place], [place] [address] Performed By: #### 5 7021-8 #### [facility] CLIA [id number] [address] [place] [address] [place] MCHC (RBC) [Mass/Vol] 33.7 g/dL Normal 30.5-36.0 [facility] Comment on above: Order Comment: Speci men Type: BLOOD SPECIMEN Ordering Facility: [facility] Address: [address] [place], [place] [address] Performed By: #### 5 7021-8 #### [facility] CLIA [id number] [address] [place] [address] [place] [facility] [place] MCV (RBC) [Entitic vol] 95.5 fL Normal 80.0-100.0 [facility] Comment on above: Order Comment: Speci men Type: BLOOD SPECIMEN Ordering Facility: [facility] Address: [address] [place], [place] [address] Performed By: #### 5 7021-8 #### [facility] CLIA [id number] [address] [place] [address] [place] Monocytes (Bld) [#/Vol] 0.60 10*3/uL Normal <0.87 [facility] Comment on above: Order Comment: Speci men Type: BLOOD SPECIMEN Ordering Facility: [facility] Address: [address] [place] [address] Performed By: #### 5 7021-8 #### [facility] CLIA [id number] [address] [place] [address] [place] Monocytes/100 WBC (Bld) 8.4 % Normal [facility] Comment on above: Order Comment: Speci men Type: BLOOD SPECIMEN Ordering Facility: [facility] Address: [address] [place] [address] Performed By: #### 5 7021-8 #### [facility] CLIA [id number] [address] [place] [address] [place] Neutrophils (Bld) [#/Vol] 5.05 10*3/uL Normal 1.45-7.50 [facility] Comment on above: Order Comment: Speci men Type: BLOOD SPECIMEN Ordering Facility: [facility] Address: [address] [place] [address] Performed By: #### 5 7021-8 #### [facility] CLIA [id number] [address] [place] [address] [place] Neutrophils/100 WBC (Bld) 70.8 % Normal [facility] Comment on above: Order Comment: Speci men Type: BLOOD SPECIMEN Ordering Facility: [facility] Address: [address] [place] [address] Performed By: #### 5 7021-8 #### [facility] CLIA [id number] [address] [place] [address] [place] Nucleated RBC (Bld) [#/Vol] 10*3/uL Normal <0.01 [facility] Comment on above: Order Comment: Speci men Type: BLOOD SPECIMEN Ordering Facility: [facility] Address: [address] [place], [place] [address] Performed By: #### 5 7021-8 #### [facility] CLIA [id number] [address] [place] [address] [place] Nucleated RBC/100 WBC (Bld) [Ratio] 0.0 /100 WBC Normal [facility] Comment on above: Order Comment: Speci men Type: BLOOD SPECIMEN Ordering Facility: [facility] Address: [address] [place], [place] [address] Performed By: #### 5 7021-8 #### [facility] CLIA [id number] [address] [place] [address] [place] Platelet mean volume (Bld) [Entitic vol] 9.4 fL Normal 9.0-12.7 [facility] Comment on above: Order Comment: Speci men Type: BLOOD SPECIMEN Ordering Facility: [facility] Address: [address] [place], [place] [address] Performed By: #### 5 7021-8 #### [facility] CLIA [id number] [address] [place] [address] [place] Platelets (Bld) [#/Vol] 246 10*3/uL Normal 150-400 [facility] Comment on above: Order Comment: Speci men Type: BLOOD SPECIMEN Ordering Facility: [facility] Address: [address] [place] [id number] Performed By: #### 5 7021-8 #### [facility] CLIA [id number] [address] [place] [address] [place] RBC (Bld) [#/Vol] 3.54 10*6/uL Low 4.20-6.00 [facility] Comment on above: Order Comment: Speci men Type: BLOOD SPECIMEN Ordering Facility: [facility] Address: [address] [place], [place] [address] Performed By: #### 5 7021-8 #### [facility] CLIA [id number] [address] [place] [address] [place] [facility] [place] WBC (Bld) [#/Vol] 7.13 10*3/uL Normal 3.70-11.00 [facility] Comment on above: Order Comment: Speci men Type: BLOOD SPECIMEN Ordering Facility[facility] Address: [address] [place], [place] [address] Performed By: #### 5 7021-8 #### [facility] CLIA [id number] [address] [place] [address] [facility] CNOVSPon 10-31-2021 CNOVSP Visit (SP) Office (HEMMARY) KARL ODOM ([id number]) 1950 M Date Time Provider Department 10/31/21 [...] recurrent gross hematuria. Went to ED at [facility]. Received transfusion. Life ujrltx24/14 to [facility]. Hgb 6.7 g/dL. No further gross hematuria. He was advised to restart apixaban when discharged from [facility]. He is on oral iron supplementation [...] edema. SKIN: No jaundice or rash. NEUROLOGIC: human resources assistant manager II-XII are grossly intact. No focal motor [...] Abs Lymph 1.00 - 4.00 k/uL 1.28 [place]% % 8.4 Abs [place] <0.87 k/uL 0.60 Eosin% % 1.8 Abs [...] retroperitoneal hemorrhage. (more content not included)... Normal [facility] Ferritin SerPl-ncon 2021 Ferritin [Mass/Vol] 363.0 ng/mL Normal 30.3-565.7 [facility] Comment on above: Order Comment: Speci men Type: BLOOD SPECIMEN Order[facility] Address: [address] [place] [address] Performed By: #### 5 0190-8, 6-4 #### [facility] CLIA [id number] [address] [place] [address] [place] Iron and Iron binding capaci panel 10-31-2021 Iron [Mass/Vol] 66 ug/dL Normal 41-186 [facility] Comment on above: Order Comment: Speci men Type: BLOOD SPECIMEN Order[facility] Address: [address] [place] [address] Performed By: #### 5 0190-8, 6-4 #### [facility] CLIA [id number] [address] [place] [address] [place] Iron binding capacity [Mass/Vol] 244 ug/dL Normal 232-386 [facility] Comment on above: Order Comment: Speci men Type: BLOOD SPECIMEN Order[facility] Address: [address] [place] [address] Performed By: #### 5 0190-8, 6-4 #### [facility] CLIA [id number] [address] [place] [address] [place] Iron/TIBC [Molar ratio] 27.0 % Normal 15.0-57.0 [facility] Comment on above: Order Comment: Andrew be Type: BLOOD SPECIMEN Ordering Facility[facility] Address: [address] [place], [place] [address] Performed By: #### 5 0190-8, 2276-4 #### [facility] CLIA [id number] [address] [place] [address] [place] CNPNon 09-12-2021 CNPN Telephone (HEMAWS) KARL ODOM ([id number]) 1950 M Date Time Provider Department 09/12/21 FRANKIE BEDOYA During your visit today, we recorded the following information about you: Veronica Sharma 09/12/2021 9:10 AM Signed Patient's Jennifer called requesting to speak to a nurse, has question about labs, can be reached at [phone]. Thank you Veronica Barone LPN 09/12/2021 9:27 AM Signed Message left [...] Fully Assessed Reason for Visit: Patient Question [0717] Prescriptions as of 06/02/2022 - levothyroxine (SYNTHROID) [...] Status:Closed by VERONICA CABRALES on 06/02/22 Normal [facility] 06-22-2021 CNPN Telephone (HEMAWS) KARL ODOM ([id number]) 1950 M Date Time Provider Department 06/22/21 [...] Status:Closed by PEYTON TAYLOR on 06/27/21 Normal [facility] BASIC METABOLIC PANELon 10-2 Anion gap [Moles/Vol] 15 mmol/L Normal 10-20 [facility] Comment on above: Performed By: #### C H8 #### [facility] [address] [place] [address], Calcium [Mass/Vol] 8.5 mg/dL Normal 8.4-10.4 [facility] Comment on above: Performed By: #### C H8 #### [facility] [address] [place] [address], Chloride [Moles/Vol] 106 mmol/L Normal 97-111 [facility] Comment on above: Performed By: #### C H8 #### [facility] [address] [place] [address], CO2 [Moles/Vol] 19 mmol/L Low 21-30 [facility] Comment on above: Performed By: #### C H8 #### [facility] [address] [place] [address], Creatinine [Mass/Vol] 1.36 mg/dL High 0.80-1.30 [facility] Comment on above: Performed By: #### C H8 #### [facility] [address] [place] [address], ESTIMATED GFR (CKD-EPI) 52 mL/min/1.73sqm Low >=60 [facility] Comment on above: Performed By: #### C H8 #### [facility] [address] [place] [address], Glucose [Mass/Vol] 97 mg/dL Normal 80-116 [facility] Comment on above: Performed By: #### C H8 #### [facility] [address] [place] [address], Potassium [Moles/Vol] 4.6 mmol/L Normal 3.3-5.3 [facility] Comment on above: Performed By: #### C H8 #### [facility] [address] [place] [address], Sodium [Moles/Vol] 135 mmol/L Normal 135-148 [facility] Comment on above: Performed By: #### C H8 #### [facility] [address] [place] [address], Urea nitrogen [Mass/Vol] 22 mg/dL Normal 8-22 [facility] Comment on above: Performed By: #### C H8 #### [facility] [address] [place] [address], CBC WITH DIFFERENTIALon 01-08 Erythrocyte distribution width (RBC) [Ratio] 13.8 % Normal 11.5-14.5 [facility] Comment on above: Performed By: #### C BCDSAT #### [facility] [address] [place] [address], Hematocrit (Bld) [Volume fraction] 21.4 % Low 41.0-53.0 [facility] Comment on above: Performed By: #### C BCDSAT #### [facility] [address] [place] [address], Hemoglobin (Bld) [Mass/Vol] 7.3 g/dL Low 13.9-16.3 [facility] Comment on above: Performed By: #### C BCDSAT #### [facility] [address] [place] [address], MCH (RBC) [Entitic mass] 32.0 pg Normal 26.0-34.0 [facility] Comment on above: Performed By: #### C BCDSAT #### [facility] [address] [place] [address], MCHC (RBC) [Mass/Vol] 34.2 g/dL Normal 32.0-35.9 [facility] Comment on above: Performed By: #### C BCDSAT #### [facility] [address] [place] [address], MCV (RBC) [Entitic vol] 93 fL Normal 80-100 [facility] Comment on above: Performed By: #### C BCDSAT #### [facility] [address] [place] [address], MONOCYTE DISTRIBUTION WIDTH Normal [facility] Comment on above: Performed By: #### C BCDSAT #### [facility] [address] [place], [place], Platelet mean volume (Bld) [Entitic vol] 6.9 fL Low 7.5-11.2 [facility] Comment on above: Performed By: #### C BCDSAT #### [facility] [address] [place], [place], Platelets (Bld) [#/Vol] 454 10*3/uL High 150-400 [facility] Comment on above: Performed By: #### C BCDSAT #### [facility] [address] [place], [place], RBC (Bld) [#/Vol] 2.30 10*6/uL Low 4.50-5.90 [facility] Comment on above: Performed By: #### C BCDSAT #### [facility] [address] [place], [place], WBC (Bld) [#/Vol] 7.5 10*3/uL Normal 4.5-11.5 [facility] Comment on above: Performed By: #### C BCDSAT #### [facility] [address], [place], Care Plan Noteon 01-27-2021 Range Technician Authentication Interface Message Text Problem: Routine Care: [...] medicines will be achieved 01/27/2021 1504 by Iiss Patel RN Outcome: Completed 01/27/2021 1209 by [...] by Isis Patel RN Outcome: Progressing Problem: VTE Prophylaxis: Goal: Will be free of DVT 01/27/2021 1504 by Isis Patel RN Outcome: Completed 01/27/2021 1209 by Isis Patel RN Outcome: Progressing Problem: Safety: Goal: Patient will remain free of falls during hospital stay 01/27/2021 1504 by Isis aPtel RN Outcome: Completed 01/27/2021 1209 by Isis [...] Isis Patel RN Outcome: Progressing Normal [facility] Range Technician Authentication Interface Message Text Problem: Routine Care: [...] will be met Outcome: Progressing Normal [facility] MANUAL DIFF AND MORPHon 01-08 CELLS COUNTED TOTAL # IN BLOOD 100 Normal [facility] Comment on above: Performed By: #### C BCDSAT #### [facility] [address] [place] [address], [id number] EOSINOPHILS % BY MANUAL COUNT 1.0 % Normal 0.1-4.0 [facility] Comment on above: Performed By: #### C BCDSAT #### [facility] [address] [place], [place], EOSINOPHILS ABS BY MANUAL COUNT 0.08 K/uL Normal 0.00-0.70 [facility] Comment on above: Performed By: #### C BCDSAT #### [facility] [address] [place], [place], LYMPHOCYTES % BY MANUAL COUNT 16.0 % Low 24.0-44.0 [facility] Comment on above: Performed By: #### C BCDSAT #### [facility] [address], [place], LYMPHOCYTES ABS BY MANUAL COUNT 1.20 K/uL Normal 1.00-4.80 [facility] Comment on above: Performed By: #### C BCDSAT #### [facility] [address] [place] [address], MONOCYTES % BY MANUAL COUNT 3.0 % Normal 2.0-11.0 [facility] Comment on above: Performed By: #### C BCDSAT #### [facility] [address] [place] [address], MONOCYTES ABS BY MANUAL COUNT 0.23 K/uL Normal 0.20-1.00 [facility] Comment on above: Performed By: #### C BCDSAT #### [facility] [address] [place] [address], MYELOCYTES % BY MANUAL COUNT 1 % High <0 [facility] Comment on above: Performed By: #### C BCDSAT #### [facility] [address] [place] [address], MYELOCYTES ABS BY MANUAL COUNT 0.08 K/uL High <0.01 [facility] Comment on above: Performed By: #### C BCDSAT #### [facility] [address] [place] [address], NEUTROPHILS % BY MANUAL COUNT 79.0 % High 31.0-76.0 [facility] Comment on above: Performed By: #### C BCDSAT #### [facility] [address] [place] [address], NEUTROPHILS ABS BY MANUAL COUNT 5.93 K/uL Normal 1.50-8.00 [facility] Comment on above: Performed By: #### C BCDSAT #### [facility] [address] [place] [address], OVALOCYTES Few Normal The [facility] Comment on above: Performed By: #### C BCDSAT #### [facility] [address] [place] [address], Progress Noteson 01-27-2021 Range Technician Authentication Interface Message Text 01/27/21 1640 Discharge Note Discharged to: Home Mode of Transport Wheelchair Normal [facility] BASIC METABOLIC PANELon 01-08 Anion gap [Moles/Vol] 14 mmol/L Normal - The [facility] Comment on above: Performed By: #### Beth H8 #### [facility] [address] [place] [address], Calcium [Mass/Vol] 8.3 mg/dL Low 8.4-10.4 The [facility] Comment on above: Performed By: #### Beth H8 #### [facility] [address] [place] [address], Chloride [Moles/Vol] 104 mmol/L Normal 97-111 [facility] Comment on above: Performed By: #### Beth H8 #### [facility] [address] [place] [address], CO2 [Moles/Vol] 22 mmol/L Normal 21-30 The [facility] Comment on above: Performed By: #### Beth H8 #### [facility] [address] [place] [address], Creatinine [Mass/Vol] 1.35 mg/dL High 0.80-1.30 The [facility] Comment on above: Performed By: #### Beth H8 #### [facility] [address] [place] [address], ESTIMATED GFR (CKD-EPI) 52 mL/min/1.73sqm Low >=60 The [facility] Comment on above: Performed By: #### Beth H8 #### [facility] [address] [place] [address], Glucose [Mass/Vol] 97 mg/dL Normal 80-116 The [facility] Comment on above: Performed By: #### C H8 #### [facility] [address] [place] [address], Potassium [Moles/Vol] 4.3 mmol/L Normal 3.3-5.3 [facility] Comment on above: Performed By: #### C H8 #### [facility] [address] [place] [address], Sodium [Moles/Vol] 136 mmol/L Normal 135-148 The [facility] Comment on above: Performed By: #### C H8 #### [facility] [address] [place] [address], Urea nitrogen [Mass/Vol] 22 mg/dL Normal 8-22 [facility] Comment on above: Performed By: #### Beth H8 #### [facility] [address] [place] [address], CBC WITH DIFFERENTIALon 01-08-2020 Basophils (Bld) [#/Vol] 0.04 10*3/uL Normal 0.00-0.20 [facility] Comment on above: Performed By: #### Beth BCDSAT #### [facility] [address] [place] [address], Basophils/100 WBC (Bld) 0.5 % Normal <=1.9 [facility] Comment on above: Performed By: #### Beth BCDSAT #### [facility] [address] [place] [address], Eosinophils (Bld) [#/Vol] 0.26 10*3/uL Normal 0.00-0.70 [facility] Comment on above: Performed By: #### Beth BCDSAT #### [facility] [address] [place] [address], Eosinophils/100 WBC (Bld) 3.7 % Normal 0.1-4.0 [facility] Comment on above: Performed By: #### Beth BCDSAT #### [facility] [address] [place] [address], Erythrocyte distribution width (RBC) [Ratio] 13.7 % Normal 11.5-14.5 [facility] Comment on above: Performed By: #### C BCDSAT #### [facility] [address] [place] [address], Hematocrit (Bld) [Volume fraction] 21.2 % Low 41.0-53.0 [facility] Comment on above: Performed By: #### C BCDSAT #### [facility] [address] [place] [address], Hemoglobin (Bld) [Mass/Vol] 7.3 g/dL Low 13.9-16.3 [facility] Comment on above: Performed By: #### C BCDSAT #### [facility] [address] [place] [address], Lymphocytes (Bld) [#/Vol] 0.96 10*3/uL Low 1.00-4.80 [facility] Comment on above: Performed By: #### C BCDSAT #### [facility] [address] [place] [address], Lymphocytes/100 WBC (Bld) 13.4 % Low 24.0-44.0 [facility] Comment on above: Performed By: #### C BCDSAT #### [facility] [address] [place] [address], MCH (RBC) [Entitic mass] 31.9 pg Normal 26.0-34.0 [facility] Comment on above: Performed By: #### C BCDSAT #### [facility] [address] [place] [address], MCHC (RBC) [Mass/Vol] 34.7 g/dL Normal 32.0-35.9 [facility] Comment on above: Performed By: #### C BCDSAT #### [facility] [address] [place] [address], MCV (RBC) [Entitic vol] 92 fL Normal 80-100 [facility] Comment on above: Performed By: #### C BCDSAT #### [facility] [address], [place], MONOCYTE DISTRIBUTION WIDTH Normal The [facility] Comment on above: Performed By: #### C BCDSAT #### [facility] [address], [place], Monocytes (Bld) [#/Vol] 0.56 10*3/uL Normal 0.20-1.00 [facility] Comment on above: Performed By: #### C BCDSAT #### [facility] [address], [place], Monocytes/100 WBC (Bld) 7.8 % Normal 2.0-11.0 [facility] Comment on above: Performed By: #### C BCDSAT #### [facility] [address] [place] [address], Neutrophils (Bld) [#/Vol] 5.32 10*3/uL Normal 1.50-8.00 [facility] Comment on above: Performed By: #### C BCDSAT #### [facility] [address], [place], Neutrophils/100 WBC (Bld) 74.6 % Normal 31.0-76.0 [facility] Comment on above: Performed By: #### Beth BCDSAT #### [facility] [address], [place], Platelet mean volume (Bld) [Entitic vol] 7.0 fL Low 7.5-11.2 [facility] Comment on above: Performed By: #### C BCDSAT #### [facility] [address], [place], Platelets (Bld) [#/Vol] 420 10*3/uL High 150-400 [facility] Comment on above: Performed By: #### C BCDSAT #### [facility] [address] [place] [address], RBC (Bld) [#/Vol] 2.30 10*6/uL Low 4.50-5.90 The [facility] Comment on above: Performed By: #### C BCDSAT #### [facility] [address], [place], WBC (Bld) [#/Vol] 7.1 10*3/uL Normal 4.5-11.5 The [facility] Comment on above: Performed By: #### C BCDSAT #### [facility] [address], [place], Care Plan Noteon 01-26-2021 Range Technician Authentication Interface Message Text Problem: Routine Care: [...] will be met Outcome: Progressing Normal [facility] Range Technician Authentication Interface Message Text Problem: Routine Care: [...] will be met Outcome: Progressing Normal The [facility] 01-26-2021 Range Technician Authentication Interface Message Text Diet Quality Eng Nutrition Screening Reason for visit: LOS 5 [...] - 0 points Per pt 5' 6 [phone] lbs UBW: no wt h/o BMI: 28.18 [...] Will continue to follow, Maria Teresa Burnham, Legal Collector Pager#[phone] Normal The [facility] Progress Noteson 01-26-2021 Range Technician Authentication Interface Message Text Attestation signed by Abdulkadir Villalba MD at 01/26/2021 7:03 PM Teaching Physician Note: I saw and evaluated the patient. I personally obtained the chambers and critical portions of [...] and perirenal hemorrhage . Patient transferred to [facility] for further w/u and eval. Hgb [...] on SDU. Restarted on AC. Transferred to [facility] on 01/25. Acute blood loss anemia Perirenal hematoma Postobstructive TABATHA Urinary retention Atrial fibrillation - Transition to DOAC - Monitor hgb and UOP - Defer to urology regarding timing of newman removal Mario Villalba MD Internal Medicine, Chief Resident Pager: [phone] INTERNAL MEDICINE TEAM 2 DAILY PROGRESS NOTE Patient: Karl Odom : 1950 Sex: male Room: [place] [address] Admit Date: 01/21/2021 Today's Date: 01/26/2021 Length [...] for changes in Hbg. Patient transferred to [facility]. EVENTS IN PAST 24H: No acute [...] mL/kg/hr)] (more content not included)... Normal The [facility] BASIC METABOLIC PANELon 10-1 9-2021 Anion gap [Moles/Vol] 17 mmol/L Normal 10-20 The [facility] Comment on above: Performed By: #### C H8 #### [facility] [address] [place] [address], Calcium [Mass/Vol] 8.6 mg/dL Normal 8.4-10.4 The [facility] Comment on above: Performed By: #### C H8 #### [facility] [address] [place] [address], Chloride [Moles/Vol] 102 mmol/L Normal 97-111 The [facility] Comment on above: Performed By: #### Beth H8 #### [facility] [address] [place] [address], CO2 [Moles/Vol] 20 mmol/L Low 21-30 The [facility] Comment on above: Performed By: #### Beth H8 #### [facility] [address] [place] [address], Creatinine [Mass/Vol] 1.42 mg/dL High 0.80-1.30 [facility] Comment on above: Performed By: #### Beth H8 #### [facility] [address] [place] [address], ESTIMATED GFR (CKD-EPI) 49 mL/min/1.73sqm Low >=60 The [facility] Comment on above: Performed By: #### Beth H8 #### [facility] [address] [place] [address], Glucose [Mass/Vol] 92 mg/dL Normal 80-116 The [facility] Comment on above: Performed By: #### C H8 #### [facility] [address] [place] [address], Potassium [Moles/Vol] 4.2 mmol/L Normal 3.3-5.3 [facility] Comment on above: Performed By: #### C H8 #### [facility] [address] [place] [address], Sodium [Moles/Vol] 135 mmol/L Normal 135-148 [facility] Comment on above: Performed By: #### C H8 #### [facility] [address] [place] [address], Urea nitrogen [Mass/Vol] 31 mg/dL High 8-22 The [facility] Comment on above: Performed By: #### C H8 #### [facility] [address] [place] [address], CBC WITH DIFFERENTIALon 01-07 Erythrocyte distribution width (RBC) [Ratio] 14.3 % Normal 11.5-14.5 The [facility] Comment on above: Performed By: #### C BCDSAT #### [facility] [address] [place] [address], Hematocrit (Bld) [Volume fraction] 21.6 % Low 41.0-53.0 The [facility] Comment on above: Performed By: #### C BCDSAT #### [facility] [address] [place] [address], Hemoglobin (Bld) [Mass/Vol] 7.6 g/dL Low 13.9-16.3 The [facility] Comment on above: Performed By: #### C BCDSAT #### [facility] [address] [place] [address], MCH (RBC) [Entitic mass] 32.5 pg Normal 26.0-34.0 The [facility] Comment on above: Performed By: #### C BCDSAT #### [facility] [address] [place] [address], MCHC (RBC) [Mass/Vol] 35.1 g/dL Normal 32.0-35.9 The [facility] Comment on above: Performed By: #### C BCDSAT #### [facility] [address] [place] [address], MCV (RBC) [Entitic vol] 93 fL Normal 80-100 The [facility] Comment on above: Performed By: #### C BCDSAT #### [facility] [address] [place] [address], MONOCYTE DISTRIBUTION WIDTH Normal The [facility] Comment on above: Performed By: #### C BCDSAT #### [facility] [address], [place], Platelet mean volume (Bld) [Entitic vol] 6.9 fL Low 7.5-11.2 [facility] Comment on above: Performed By: #### C BCDSAT #### [facility] [address], [place], Platelets (Bld) [#/Vol] 376 10*3/uL Normal 150-400 [facility] Comment on above: Performed By: #### C BCDSAT #### [facility] [address], [place], RBC (Bld) [#/Vol] 2.33 10*6/uL Low 4.50-5.90 The [facility] Comment on above: Performed By: #### C BCDSAT #### [facility] [address], [place], WBC (Bld) [#/Vol] 7.8 10*3/uL Normal 4.5-11.5 The [facility] Comment on above: Performed By: #### C BCDSAT #### [facility] [address], [place], Care Plan Noteon 01-25-2021 Range Technician Authentication Interface Message Text Problem: Routine Care: [...] Note: Anticipate discharge needs and communicate to lining caser/medical team Normal The [facility] Range Technician Authentication Interface Message Text Problem: Routine Care: [...] for discharge at this time Normal [facility] MANUAL DIFF AND MORPHon 10-1 BANDS % BY MANUAL COUNT 1 % Normal <=10 [facility] Comment on above: Performed By: #### C BCDSAT #### [facility] [address] [place] [address], BANDS ABS BY MANUAL COUNT 0.08 K/uL High <0.01 [facility] Comment on above: Performed By: #### C BCDSAT #### [facility] [address] [place] [address], CELLS COUNTED TOTAL # IN BLOOD 100 Normal The [facility] Comment on above: Performed By: #### C BCDSAT #### [facility] [address] [place] [address], EOSINOPHILS % BY MANUAL COUNT 2.0 % Normal 0.1-4.0 [facility] Comment on above: Performed By: #### C BCDSAT #### [facility] [address] [place] [address], EOSINOPHILS ABS BY MANUAL COUNT 0.16 K/uL Normal 0.00-0.70 [facility] Comment on above: Performed By: #### C BCDSAT #### [facility] [address] [place] [address], FRAGMENTED RBC Few Normal The [facility] Comment on above: Performed By: #### C BCDSAT #### [facility] [address] [place] [address], LYMPHOCYTES % BY MANUAL COUNT 10.0 % Low 24.0-44.0 [facility] Comment on above: Performed By: #### C BCDSAT #### [facility] [address], [place], LYMPHOCYTES ABS BY MANUAL COUNT 0.78 K/uL Low 1.00-4.80 [facility] Comment on above: Performed By: #### C BCDSAT #### [facility] [address] [place] [address], MONOCYTES % BY MANUAL COUNT 3.0 % Normal 2.0-11.0 [facility] Comment on above: Performed By: #### C BCDSAT #### [facility] [address], [place], MONOCYTES ABS BY MANUAL COUNT 0.23 K/uL Normal 0.20-1.00 [facility] Comment on above: Performed By: #### C BCDSAT #### [facility] [address], MYELOCYTES % BY MANUAL COUNT 2 % High <0 [facility] Comment on above: Performed By: #### C BCDSAT #### [facility] [address], MYELOCYTES ABS BY MANUAL COUNT 0.16 K/uL High <0.01 [facility] Comment on above: Performed By: #### C BCDSAT #### [facility] [address], NEUTROPHILS % BY MANUAL COUNT 82.0 % High 31.0-76.0 [facility] Comment on above: Performed By: #### C BCDSAT #### [facility] [address], NEUTROPHILS ABS BY MANUAL COUNT 6.40 K/uL Normal 1.50-8.00 [facility] Comment on above: Performed By: #### C BCDSAT #### [facility] [address], [place], POLYCHROMASIA Slight Normal The [facility] Comment on above: Performed By: #### C BCDSAT #### [facility] [address], [place], Progress Noteson 01-25-2021 Range Technician Authentication Interface Message Text ATTENDING NOTE (Critical Care): Karl Odom ([id number]) is a 70 year old male admitted [...] en 1 Tablet Q6H PRN Normal [facility] Transfer Noteon 01-25-2021 Range Technician Authentication Interface Message Text TRANSFER NOTE: Hospital Course: 70 year old male with a history of HLD, CKD, and Afib (on Eliquis) who presented to ED???following possible syncopal episode in context of recent lithotripsy (01/19/21) and fall. Went to OSH where CT abdomen showed perinephric hematoma and Hbg was 6.9. There he received 1 unit blood, FFP, and vitamin K. Transferred to [facility]. In ED here, CBC showing Hbg 6.7 despite blood at outside hospital, additional 2 units PRBCs ordered. CTA abdomen ordered, as being transported to [place] did have worsening abdominal pain with exam showing diffuse abdominal tenderness, peritonitic. Urology consulted, assessed and diagnosed urinary retention. Placed newman with continuous irrigation, abdominal pain resolved. CTA???at [facility]???showing perinephric hematoma, possible active extravasation and perisplenic [...] DOAC tomorrow. Deemed safe for transfer to [facility]. To Do: [ ] Follow up q24hr CBC to see if Hbg remains stable [ ] Watch for signs of bleeding [ ] If no bleeding and Hbg remains stable, plan to switch from lovenox to DOAC (eliquis) tomorrow Normal The [facility] BASIC METABOLIC PANELon 10- Anion gap [Moles/Vol] 14 mmol/L Normal 10-20 [facility] Comment on above: Performed By: #### R AMY #### [facility] [address] [place] [address], Calcium [Mass/Vol] 8.5 mg/dL Normal 8.4-10.4 The [facility] Comment on above: Performed By: #### R AMY #### [facility] [address], [place], Chloride [Moles/Vol] 104 mmol/L Normal 97-111 The [facility] Comment on above: Performed By: #### R AMY #### [facility] [address] [place] [address], CO2 [Moles/Vol] 21 mmol/L Normal 21-30 The [facility] Comment on above: Performed By: #### R AMY #### [facility] [address] [place] [address], Creatinine [Mass/Vol] 1.48 mg/dL High 0.80-1.30 [facility] Comment on above: Performed By: #### R AMY #### [facility] [address] [place] [address], ESTIMATED GFR (CKD-EPI) 47 mL/min/1.73sqm Low >=60 The [facility] Comment on above: Performed By: #### R AMY #### [facility] [address] [place] [address], Glucose [Mass/Vol] 104 mg/dL Normal 80-116 [facility] Comment on above: Performed By: #### R AMY #### [facility] [address] [place] [address], Potassium [Moles/Vol] 4.2 mmol/L Normal 3.3-5.3 [facility] Comment on above: Performed By: #### R AMY #### [facility] [address] [place] [address], Sodium [Moles/Vol] 135 mmol/L Normal 135-148 The [facility] Comment on above: Performed By: #### R AMY #### [facility] [address] [place] [address], Urea nitrogen [Mass/Vol] 36 mg/dL High 8-22 [facility] Comment on above: Performed By: #### R AMY #### [facility] [address] [place] [address], CBC WITH DIFFERENTIALon 01-07 Erythrocyte distribution width (RBC) [Ratio] 13.9 % Normal 11.5-14.5 [facility] Comment on above: Performed By: #### C BCDSAT #### [facility] [address] [place] [address], Hematocrit (Bld) [Volume fraction] 24.7 % Low 41.0-53.0 The [facility] Comment on above: Performed By: #### C BCDSAT #### [facility] [address] [place] [address], Hemoglobin (Bld) [Mass/Vol] 8.4 g/dL Low 13.9-16.3 [facility] Comment on above: Performed By: #### C BCDSAT #### [facility] [address] [place] [address], MCH (RBC) [Entitic mass] 32.4 pg Normal 26.0-34.0 [facility] Comment on above: Performed By: #### C BCDSAT #### [facility] [address] [place] [address], MCHC (RBC) [Mass/Vol] 34.1 g/dL Normal 32.0-35.9 [facility] Comment on above: Performed By: #### C MINADSAT #### [facility] [address] [place] [address], MCV (RBC) [Entitic vol] 95 fL Normal 80-100 [facility] Comment on above: Performed By: #### Beth BCDSAT #### [facility] [address] [place] [address], MONOCYTE DISTRIBUTION WIDTH Normal The [facility] Comment on above: Performed By: #### C BCDSAT #### [facility] [address] [place] [address], Platelet mean volume (Bld) [Entitic vol] 8.1 fL Normal 7.5-11.2 [facility] Comment on above: Performed By: #### Beth BCDSAT #### [facility] [address] [place] [address], Platelets (Bld) [#/Vol] 376 10*3/uL Normal 150-400 [facility] Comment on above: Performed By: #### C BCDSAT #### [facility] [address] [place] [address], RBC (Bld) [#/Vol] 2.60 10*6/uL Low 4.50-5.90 The [facility] Comment on above: Performed By: #### Beth BCDSAT #### [facility] [address] [place] [address], WBC (Bld) [#/Vol] 12.7 10*3/uL High 4.5-11.5 [facility] Comment on above: Performed By: #### C BCDSAT #### [facility] [address] [place] [address], Basophils (Bld) [#/Vol] 0.05 10*3/uL Normal 0.00-0.20 [facility] Comment on above: Performed By: #### C MINADSAT #### [facility] [address] [place] [address], Basophils/100 WBC (Bld) 0.6 % Normal <=1.9 [facility] Comment on above: Performed By: #### C MITESHAT #### [facility] [address] [place] [address], Eosinophils (Bld) [#/Vol] 0.26 10*3/uL Normal 0.00-0.70 [facility] Comment on above: Performed By: #### C MITESHAT #### [facility] [address] [place] [address], Eosinophils/100 WBC (Bld) 3.0 % Normal 0.1-4.0 [facility] Comment on above: Performed By: #### C MITESHAT #### [facility] [address] [place] [address], Erythrocyte distribution width (RBC) [Ratio] 14.1 % Normal 11.5-14.5 [facility] [facility] Comment on above: Performed By: #### C MITESHAT #### [facility] [address] [place] [address], Hematocrit (Bld) [Volume fraction] 21.6 % Low 41.0-53.0 [facility] Comment on above: Performed By: #### C MITESHAT #### S [facility]AT[facility] [address] [place] [address], Hemoglobin (Bld) [Mass/Vol] 7.6 g/dL Low 13.9-16.3 [facility] Comment on above: Performed By: #### C MITESHAT #### [facility] [address] [place] [address], Lymphocytes (Bld) [#/Vol] 0.77 10*3/uL Low 1.00-4.80 The [facility] Comment on above: Performed By: #### Beth BCDSAT #### [facility] [address] [place] [address], Lymphocytes/100 WBC (Bld) 8.8 % Low 24.0-44.0 The [facility] Comment on above: Performed By: #### C BCDSAT #### [facility] [address] [place] [address], MCH (RBC) [Entitic mass] 32.4 pg Normal 26.0-34.0 The [facility] Comment on above: Performed By: #### C BCDSAT #### [facility] [address] [place] [address], MCHC (RBC) [Mass/Vol] 35.1 g/dL Normal 32.0-35.9 The [facility] Comment on above: Performed By: #### C BCDSAT #### [facility] [address] [place] [address], MCV (RBC) [Entitic vol] 92 fL Normal 80-100 The [facility] Comment on above: Performed By: #### Beth BCDSAT #### [facility] [address] [place] [address], MONOCYTE DISTRIBUTION WIDTH Normal The [facility] Comment on above: Performed By: #### Beth BCDSAT #### [facility] [address] [place] [address], Monocytes (Bld) [#/Vol] 0.49 10*3/uL Normal 0.20-1.00 The [facility] Comment on above: Performed By: #### C BCDSAT #### [facility] [address] [place] [address], Monocytes/100 WBC (Bld) 5.6 % Normal 2.0-11.0 The [facility] Comment on above: Performed By: #### Beth BCDSAT #### [facility] [address] [place] [address] [place], Neutrophils (Bld) [#/Vol] 7.17 10*3/uL Normal 1.50-8.00 The [facility] Comment on above: Performed By: #### C BCDSAT #### [facility] [address], [place], Neutrophils/100 WBC (Bld) 82.1 % High 31.0-76.0 The [facility] Comment on above: Performed By: #### C MINADSAT #### [facility] [address], [place], Platelet mean volume (Bld) [Entitic vol] 7.1 fL Low 7.5-11.2 The [facility] Comment on above: Performed By: #### C BCDSAT #### [facility] [address], [place], Platelets (Bld) [#/Vol] 362 10*3/uL Normal 150-400 The [facility] Comment on above: Performed By: #### C BCDSAT #### [facility] [address], [place], RBC (Bld) [#/Vol] 2.35 10*6/uL Low 4.50-5.90 The [facility] Comment on above: Performed By: #### C BCDSAT #### [facility] [address], [place], WBC (Bld) [#/Vol] 8.7 10*3/uL Normal 4.5-11.5 The [facility] Comment on above: Performed By: #### C BCDSAT #### [facility] [address], [place], Care Plan Noteon 01-24-2021 Range Technician Authentication Interface Message Text Problem: Discharge Planning: [...] low and locked. Frequent rounds Normal The [employer] [facility] Range Technician Authentication Interface Message Text Problem: Routine Care: [...] MANUAL COUNT 0 % Normal <=10 [facility] Comment on above: Performed By: #### C BCDSAT #### [facility] [address] [place] [address], BANDS ABS BY MANUAL COUNT 0.00 K/uL Normal <0.01 [facility] Comment on above: Performed By: #### C BCDSAT #### [facility] [address] [place] [address], CELLS COUNTED TOTAL # IN BLOOD 100 Normal [facility] Comment on above: Performed By: #### C BCDSAT #### [facility] [address] [place] [address], LYMPHOCYTES % BY MANUAL COUNT 8.0 % Low 24.0-44.0 [facility] Comment on above: Performed By: #### C BCDSAT #### [facility] [address] [place] [address], LYMPHOCYTES ABS BY MANUAL COUNT 1.02 K/uL Normal 1.00-4.80 [facility] Comment on above: Performed By: #### C BCDSAT #### [facility] [address] [place] [address], MONOCYTES % BY MANUAL COUNT 5.0 % Normal 2.0-11.0 [facility] Comment on above: Performed By: #### C BCDSAT #### [facility] [address] [place] [address], MONOCYTES ABS BY MANUAL COUNT 0.64 K/uL Normal 0.20-1.00 [facility] Comment on above: Performed By: #### C BCDSAT #### [facility] [address], [place], NEUTROPHILS % BY MANUAL COUNT 87.0 % High 31.0-76.0 [facility] Comment on above: Performed By: #### C BCDSAT #### [facility] [address], [place], NEUTROPHILS ABS BY MANUAL COUNT 11.05 K/uL High 1.50-8.00 [facility] Comment on above: Performed By: #### C BCDSAT #### [facility] [address] [place] [address], RBC MORPHOLOGY Normal Normal [facility] HospitalMedGRCGrav[facility] Comment on above: Performed By: #### C MINADSAT #### S [facility] [address] [place] [address], PROTHROMBIN TIME AND INRon 1 INR Coag (PPP) [Relative time] 1.26 {INR} High 0.90-1.10 [facility] Comment on above: Performed By: #### C MINADSAT #### [facility] [address], [place], PT Coag (PPP) [Time] 14.0 s High 9.7-12.9 [facility] Comment on above: Performed By: #### C BCDSAT #### [facility] [address], [place], Progress Noteson 01-24-2021 Range Technician Authentication Interface Message Text ATTENDING NOTE (Critical Care): Karl Odom ([id number]) is a 70 year old male admitted [...] mg (more content not included)... Normal [facility] [facility] BASIC METABOLIC PANELon 01-07 Anion gap [Moles/Vol] 14 mmol/L Normal - The [employer] [facility] Comment on above: Performed By: #### R AMY #### [facility] [address] [place] [address], [id number] Calcium [Mass/Vol] 8.4 mg/dL Normal 8.4-10.4 The [facility] Comment on above: Performed By: #### R AMY #### [facility] [address] [place] [address], Chloride [Moles/Vol] 103 mmol/L Normal 97-111 The [facility] Comment on above: Performed By: #### R AMY #### [facility] [address] [place] [address], CO2 [Moles/Vol] 22 mmol/L Normal 21-30 The [facility] Comment on above: Performed By: #### R AMY #### [facility] [address] [place] [address], Creatinine [Mass/Vol] 1.66 mg/dL High 0.80-1.30 The [facility] Comment on above: Performed By: #### R AMY #### [facility] [address] [place] [address], ESTIMATED GFR (CKD-EPI) 41 mL/min/1.73sqm Low >=60 The [facility] Comment on above: Performed By: #### R AMY #### [facility] [address] [place] [address], Glucose [Mass/Vol] 116 mg/dL Normal 80-116 The [facility] Comment on above: Performed By: #### R AMY #### [facility] [address] [place] [address], Potassium [Moles/Vol] 4.2 mmol/L Normal 3.3-5.3 The [facility] Comment on above: Performed By: #### R AMY #### [facility] [address] [place] [address], Sodium [Moles/Vol] 135 mmol/L Normal 135-148 The [facility] Comment on above: Performed By: #### R AMY #### [facility] [address] [place] [address], Urea nitrogen [Mass/Vol] 40 mg/dL High 8-22 The [facility] Comment on above: Performed By: #### R AMY #### [facility] [address] [place] [address], CBC WITH DIFFERENTIALon 01-07 Basophils (Bld) [#/Vol] 0.06 10*3/uL Normal 0.00-0.20 [facility] Comment on above: Performed By: #### C BCDSAT #### [facility] [address], [place], Basophils/100 WBC (Bld) 0.5 % Normal <=1.9 [facility] Comment on above: Performed By: #### C BCDSAT #### [facility] [address], [place], Eosinophils (Bld) [#/Vol] 0.25 10*3/uL Normal 0.00-0.70 [facility] Comment on above: Performed By: #### C BCDSAT #### [facility] [address], [place], Eosinophils/100 WBC (Bld) 2.2 % Normal 0.1-4.0 [facility] Comment on above: Performed By: #### C BCDSAT #### [facility] [address] [place] [address], Erythrocyte distribution width (RBC) [Ratio] 14.2 % Normal 11.5-14.5 [facility] Comment on above: Performed By: #### C BCDSAT #### [facility] [address], [place], Hematocrit (Bld) [Volume fraction] 24.5 % Low 41.0-53.0 [facility] [employer] [facility] Comment on above: Performed By: #### C BCDSAT #### [facility] [address], [place], Hemoglobin (Bld) [Mass/Vol] 8.5 g/dL Low 13.9-16.3 [facility] Comment on above: Performed By: #### C BCDSAT #### [facility] [address], [place], Lymphocytes (Bld) [#/Vol] 0.88 10*3/uL Low 1.00-4.80 [facility] Comment on above: Performed By: #### C BCDSAT #### [facility] [address], [place], Lymphocytes/100 WBC (Bld) 7.7 % Low 24.0-44.0 The [facility] Comment on above: Performed By: #### C BCDSAT #### [facility] [address] [place] [address], MCH (RBC) [Entitic mass] 32.1 pg Normal 26.0-34.0 The [facility] Comment on above: Performed By: #### C BCDSAT #### [facility] [address] [place] [address], MCHC (RBC) [Mass/Vol] 34.8 g/dL Normal 32.0-35.9 The [facility] Comment on above: Performed By: #### C BCDSAT #### [facility] [address] [place] [address], MCV (RBC) [Entitic vol] 92 fL Normal 80-100 The [facility] Comment on above: Performed By: #### C BCDSAT #### [facility] [address] [place] [address], MONOCYTE DISTRIBUTION WIDTH Normal The [facility] Comment on above: Performed By: #### C BCDSAT #### [facility] [address], [place], Monocytes (Bld) [#/Vol] 0.60 10*3/uL Normal 0.20-1.00 The [facility] Comment on above: Performed By: #### C BCDSAT #### [facility] [address], [place], Monocytes/100 WBC (Bld) 5.3 % Normal 2.0-11.0 The [facility] Comment on above: Performed By: #### C BCDSAT #### [facility] [address], [place], Neutrophils (Bld) [#/Vol] 9.65 10*3/uL High 1.50-8.00 The [facility] Comment on above: Performed By: #### C MITESHAT #### [facility] [address], [place], Neutrophils/100 WBC (Bld) 84.4 % High 31.0-76.0 [facility] Comment on above: Performed By: #### C BCDSAT #### [facility] [address], [place], Platelet mean volume (Bld) [Entitic vol] 7.2 fL Low 7.5-11.2 [facility] Comment on above: Performed By: #### C BCDSAT #### [facility] [address], [place], Platelets (Bld) [#/Vol] 362 10*3/uL Normal 150-400 [facility] Comment on above: Performed By: #### C BCDSAT #### [facility] [address], [place], RBC (Bld) [#/Vol] 2.65 10*6/uL Low 4.50-5.90 [facility] Comment on above: Performed By: #### C BCDSAT #### [facility] [address], [place], WBC (Bld) [#/Vol] 11.4 10*3/uL Normal 4.5-11.5 The [facility] Comment on above: Performed By: #### C BCDSAT #### [facility] [address], [place], Basophils (Bld) [#/Vol] 0.05 10*3/uL Normal 0.00-0.20 The [facility] Comment on above: Performed By: #### C BCDSAT #### [facility] [address], [place], Basophils/100 WBC (Bld) 0.5 % Normal <=1.9 [facility] Comment on above: Performed By: #### C BCDSAT #### [facility] [address], [place], Eosinophils (Bld) [#/Vol] 0.19 10*3/uL Normal 0.00-0.70 [facility] Comment on above: Performed By: #### C BCDSAT #### [facility] [address] [place] [address], Eosinophils/100 WBC (Bld) 1.8 % Normal 0.1-4.0 [facility] Comment on above: Performed By: #### C BCDSAT #### [facility] [address] [place] [address], Erythrocyte distribution width (RBC) [Ratio] 14.2 % Normal 11.5-14.5 [facility] Comment on above: Performed By: #### C BCDSAT #### [facility] [address] [place] [address], Hematocrit (Bld) [Volume fraction] 20.6 % Low 41.0-53.0 The [facility] Comment on above: Performed By: #### C BCDSAT #### [facility] [address] [place] [address], Hemoglobin (Bld) [Mass/Vol] 7.2 g/dL Low 13.9-16.3 [facility] Comment on above: Performed By: #### C BCDSAT #### [facility] [address] [place] [address], Lymphocytes (Bld) [#/Vol] 0.90 10*3/uL Low 1.00-4.80 [facility] Comment on above: Performed By: #### C BCDSAT #### [facility] [address] [place] [address], Lymphocytes/100 WBC (Bld) 8.7 % Low 24.0-44.0 The [facility] Comment on above: Performed By: #### C BCDSAT #### [facility] [address] [place] [address], MCH (RBC) [Entitic mass] 32.5 pg Normal 26.0-34.0 [facility] Comment on above: Performed By: #### C BCDSAT #### [facility] [address] [place] [address], MCHC (RBC) [Mass/Vol] 35.1 g/dL Normal 32.0-35.9 The [facility] Comment on above: Performed By: #### C BCDSAT #### [facility] [address] [place] [address], MCV (RBC) [Entitic vol] 93 fL Normal 80-100 The [facility] Comment on above: Performed By: #### C BCDSAT #### [facility] [address] [place] [address], MONOCYTE DISTRIBUTION WIDTH Normal The [facility] Comment on above: Performed By: #### C BCDSAT #### [facility] [address] [place] [address], Monocytes (Bld) [#/Vol] 0.63 10*3/uL Normal 0.20-1.00 The [facility] Comment on above: Performed By: #### C MINADSAT #### [facility] [address] [place] [address], Monocytes/100 WBC (Bld) 6.0 % Normal 2.0-11.0 The [facility] Comment on above: Performed By: #### C BCDSAT #### [facility] [address] [place] [address], Neutrophils (Bld) [#/Vol] 8.69 10*3/uL High 1.50-8.00 The [facility] Comment on above: Performed By: #### C BCDSAT #### [facility] [address] [place] [address], Neutrophils/100 WBC (Bld) 83.1 % High 31.0-76.0 The [facility] Comment on above: Performed By: #### C BCDSAT #### S [facility] [address] [place] [address], Platelet mean volume (Bld) [Entitic vol] 7.3 fL Low 7.5-11.2 [facility] Comment on above: Performed By: #### C BCDSAT #### S [facility] [address] [place] [address], Platelets (Bld) [#/Vol] 322 10*3/uL Normal 150-400 [facility] Comment on above: Performed By: #### C BCDSAT #### [facility] [address], [place], RBC (Bld) [#/Vol] 2.23 10*6/uL Low 4.50-5.90 The [facility] Comment on above: Performed By: #### C BCDSAT #### [facility] [address], [place], WBC (Bld) [#/Vol] 10.5 10*3/uL Normal 4.5-11.5 The [employer] [facility] Comment on above: Performed By: #### C BCDSAT #### S [facility] [address], [place], Care Plan Noteon 01-23-2021 Range Technician Authentication Interface Message Text Problem: Discharge Planning: [...] low and locked. Frequent rounds Normal The [employer] [facility] PROTHROMBIN TIME AND INRon 1 INR Coag (PPP) [Relative time] 1.32 {INR} High 0.90-1.10 The [employer] [facility] Comment on above: Performed By: #### R AMY #### [facility] [address], [place], PT Coag (PPP) [Time] 14.9 s High 9.7-12.9 The [employer] [facility] Comment on above: Performed By: #### R AMY #### [facility] [address], [place], Progress Noteson 01-23-2021 Range Technician Authentication Interface Message Text ATTENDING NOTE (Critical Care): Karl Odom ([id number]) is a 70 year old male admitted [...] en 1 Tablet Q6H PRN Normal [facility] Range Technician Authentication Interface Message Text 9:[address]White-Cotsmire Echols notified of critical Hematocrit and Hemoglobin value of 7.2/20.6. Dr. Eduardo Echols viewed critical result via secure chat. No new orders at this time. Normal [facility] BASIC METABOLIC PANELon 10-1 Anion gap [Moles/Vol] 14 mmol/L Normal 10-20 [facility] Comment on above: Performed By: #### R AMY #### S [facility] [address] [place] [address], Calcium [Mass/Vol] 8.4 mg/dL Normal 8.4-10.4 The [facility] Comment on above: Performed By: #### R AMY #### [facility] [address] [place] [address], Chloride [Moles/Vol] 107 mmol/L Normal 97-111 The [facility] Comment on above: Performed By: #### R AMY #### [facility] [address] [place] [address], CO2 [Moles/Vol] 20 mmol/L Low 21-30 The [facility] Comment on above: Performed By: #### R AMY #### [facility] [address] [place] [address], Creatinine [Mass/Vol] 1.56 mg/dL High 0.80-1.30 The [facility] Comment on above: Performed By: #### R AMY #### [facility] [address] [place] [address], ESTIMATED GFR (CKD-EPI) 44 mL/min/1.73sqm Low >=60 The [facility] Comment on above: Performed By: #### R AMY #### [facility] [address] [place] [address], Glucose [Mass/Vol] 142 mg/dL High 80-116 The [facility] Comment on above: Performed By: #### R AMY #### [facility] [address] [place] [address], Potassium [Moles/Vol] 4.8 mmol/L Normal 3.3-5.3 The [facility] Comment on above: Performed By: #### R AMY #### [facility] [address] [place] [address], Sodium [Moles/Vol] 136 mmol/L Normal 135-148 The [facility] Comment on above: Performed By: #### R AMY #### [facility] [address] [place] [address], Urea nitrogen [Mass/Vol] 38 mg/dL High 8-22 [facility] Comment on above: Performed By: #### R AMY #### S [facility] [address] [place] [address], Blood Attestationon 01-23-20 Range Technician Authentication Interface Message Text Blood Attestation ATTESTATION OF INFORMED CONSENT FOR BLOOD The transfusion of blood and/or blood components were discussed with the patient and/or legal customer service representative teller. The risks, benefits and alternatives were reviewed. Questions regarding blood transfusions were answered. The patient /or the patient's legal customer service representative teller agree with the plan for transfusion of blood and/or blood components. Normal The [facility] CBC WITH DIFFERENTIALon 01-07 Basophils (Bld) [#/Vol] 0.02 10*3/uL Normal 0.00-0.20 The [facility] Comment on above: Performed By: #### C BCDSAT #### [facility] [address] [place] [address], Basophils/100 WBC (Bld) 0.2 % Normal <=1.9 The [facility] Comment on above: Performed By: #### C BCDSAT #### [facility] [address] [place] [address], Eosinophils (Bld) [#/Vol] 0.01 10*3/uL Normal 0.00-0.70 [facility] Comment on above: Performed By: #### C BCDSAT #### [facility] [address] [place] [address], Eosinophils/100 WBC (Bld) 0.1 % Normal 0.1-4.0 [facility] Comment on above: Performed By: #### C BCDSAT #### [facility] [address] [place] [address], Erythrocyte distribution width (RBC) [Ratio] 14.0 % Normal 11.5-14.5 [facility] Comment on above: Performed By: #### C BCDSAT #### [facility] [address] [place] [address], Hematocrit (Bld) [Volume fraction] 24.5 % Low 41.0-53.0 The [facility] Comment on above: Performed By: #### C BCDSAT #### [facility] [address] [place] [address], Hemoglobin (Bld) [Mass/Vol] 8.4 g/dL Low 13.9-16.3 [facility] Comment on above: Performed By: #### C BCDSAT #### [facility] [address] [place] [address], Lymphocytes (Bld) [#/Vol] 0.77 10*3/uL Low 1.00-4.80 [facility] Comment on above: Performed By: #### C BCDSAT #### [facility] [address] [place] [address], Lymphocytes/100 WBC (Bld) 6.8 % Low 24.0-44.0 [facility] Comment on above: Performed By: #### C BCDSAT #### [facility] [address] [place] [address], MCH (RBC) [Entitic mass] 31.5 pg Normal 26.0-34.0 [facility] Comment on above: Performed By: #### Beth SAGASTUMEAT #### [facility] [address] [place] [address], MCHC (RBC) [Mass/Vol] 34.4 g/dL Normal 32.0-35.9 [facility] Comment on above: Performed By: #### Beth ENRIQUEZDSAT #### [facility] [address] [place] [address], MCV (RBC) [Entitic vol] 92 fL Normal 80-100 [facility] Comment on above: Performed By: #### Beth SAGASTUMEAT #### [facility] [address] [place] [address], MONOCYTE DISTRIBUTION WIDTH Normal The [facility] Comment on above: Performed By: #### Beth SAGASTUMEAT #### [facility] [address] [place] [address], Monocytes (Bld) [#/Vol] 1.02 10*3/uL High 0.20-1.00 [facility] Comment on above: Performed By: #### Beth SAGASTUMEAT #### [facility] [address] [place] [address], Monocytes/100 WBC (Bld) 9.0 % Normal 2.0-11.0 [facility] Comment on above: Performed By: #### Beth SAGASTUMEAT #### [facility] [address] [place] [address], Neutrophils (Bld) [#/Vol] 9.49 10*3/uL High 1.50-8.00 [facility] System Comment on above: Performed By: #### Beth SAGASTUMEAT #### [facility] [address] [place] [address], Neutrophils/100 WBC (Bld) 83.9 % High 31.0-76.0 [facility] Comment on above: Performed By: #### Beth SAGASTUMEAT #### [facility] [address] [place] [address], Platelet mean volume (Bld) [Entitic vol] 7.4 fL Low 7.5-11.2 [facility] Comment on above: Performed By: #### C BCDSAT #### S [facility] [address] [place] [address], Platelets (Bld) [#/Vol] 315 10*3/uL Normal 150-400 [facility] Comment on above: Performed By: #### C BCDSAT #### [facility] [address] [place] [address], RBC (Bld) [#/Vol] 2.68 10*6/uL Low 4.50-5.90 The [facility] Comment on above: Performed By: #### C BCDSAT #### [facility] [address] [place] [address], WBC (Bld) [#/Vol] 11.3 10*3/uL Normal 4.5-11.5 The [facility] Comment on above: Performed By: #### C BCDSAT #### [facility] [address] [place] [address], COMPLETE BLOOD COUNTon 01-22 Erythrocyte distribution width (RBC) [Ratio] 13.9 % Normal 11.5-14.5 [facility] Comment on above: Performed By: #### R AMY #### [facility] [address] [place] [address], Hematocrit (Bld) [Volume fraction] 23.3 % Low 41.0-53.0 The [facility] Comment on above: Performed By: #### R AMY #### [facility] [address] [place] [address], Hemoglobin (Bld) [Mass/Vol] 8.2 g/dL Low 13.9-16.3 [facility] Comment on above: Performed By: #### R AMY #### [facility] [address] [place] [address], MCH (RBC) [Entitic mass] 32.1 pg Normal 26.0-34.0 The [facility] Comment on above: Performed By: #### R AMY #### [facility] [address], [place], MCHC (RBC) [Mass/Vol] 35.0 g/dL Normal 32.0-35.9 [facility] Comment on above: Performed By: #### R AMY #### [facility] [address], [place], MCV (RBC) [Entitic vol] 92 fL Normal 80-100 [facility] Comment on above: Performed By: #### R AMY #### [facility] [address], [place], Platelet mean volume (Bld) [Entitic vol] 7.3 fL Low 7.5-11.2 [facility] Comment on above: Performed By: #### R AMY #### [facility] [address], [place], Platelets (Bld) [#/Vol] 319 10*3/uL Normal 150-400 [facility] Comment on above: Performed By: #### R AMY #### [facility] [address], [place], RBC (Bld) [#/Vol] 2.54 10*6/uL Low 4.50-5.90 The [employer] [facility] Comment on above: Performed By: #### R AMY #### [facility] [address], [place], WBC (Bld) [#/Vol] 12.3 10*3/uL High 4.5-11.5 The [employer] [facility] Comment on above: Performed By: #### R AMY #### [facility] [address], [place], Care Plan Noteon 01-22-2021 Range Technician Authentication Interface Message Text Problem: Routine Care: [...] Patient is progressing toward discharge. Normal The [facility] LACTIC ACIDon 01-22-2021 CR LACT 1.1 mmol/L Normal 0.5-2.0 The [facility] System Comment on above: Performed By: #### R AMY #### [facility] [address] [place] [address], MAGNESIUMon 01-22-2021 Magnesium [Mass/Vol] 2.0 mg/dL Normal 1.6-2.8 The [facility] Comment on above: Performed By: #### R AMY #### [facility] [address] [place] [address], PROTHROMBIN TIME AND INRon 1 INR Coag (PPP) [Relative time] 1.41 {INR} High 0.90-1.10 The [facility] Comment on above: Performed By: #### R AMY #### [facility] [address] [place] [address], PT Coag (PPP) [Time] 15.9 s High 9.7-12.9 The [facility] Comment on above: Performed By: #### R AMY #### [facility] [address] [place] [address], Progress Noteson 01-22-2021 Range Technician Authentication Interface Message Text ATTENDING NOTE (Critical Care): Karl Odom ([id number]) is a 70 year old male admitted [...] en 1 Tablet Q6H PRN Normal [facility] Range Technician Authentication Interface Message Text HALF-WAY PLAN NOTE S: Karl Odom is a [...] pRBC, and (vitamin K?). Patient transferred to [facility] for IR and Urological consultation. Urology evaluated [...] Sodium, Urine Creatinine Rest of care per international trade teacher note Manfred May Internal Medicine PGY-2 Pager: [phone] Normal [facility] RED BLOOD CELL COMPONENTon 1 BB ORDER ITEM Product status info to follow Normal [facility] Comment on above: Performed By: #### R AMY #### [facility] [address] [place] [address], RED BLOOD CELL UNIT STATUSon 01-22-2021 BLOOD PRODUCT CODE [id number] Normal The [facility] Comment on above: Performed By: #### R AMY #### [facility] [address] [place] [address], BLOOD PRODUCT CODE [id number] Normal The [facility] Comment on above: Performed By: #### R AMY #### [facility] [address] [place] [address], BLOOD PRODUCT DESCRIPTION Red Blood Cells Normal The [facility] Comment on above: Performed By: #### R AMY #### [facility] [address] [place] [address], BLOOD PRODUCT STATUS Released to avail Normal [facility] Comment on above: Performed By: #### R AMY #### [facility] [address] [place] [address], BLOOD PRODUCT STATUS Transfused Normal [facility] Comment on above: Performed By: #### R AMY #### [facility] [address] [place] [address], BLOOD PRODUCT UNIT INFO [id number] Normal [facility] Comment on above: Performed By: #### R AMY #### [facility] [address] [place] [address], BLOOD PRODUCT UNIT INFO [id number] Normal [facility] Comment on above: Performed By: #### R AMY #### [facility] [address] [place] [address], BLOOD PRODUCT UNIT TYPE 5100 Normal [facility] Comment on above: Result Comment: O Po s Performed By: #### R AMY #### [facility] [address] [place] [address], CROSSMATCH INTERPRETATION Compatible (E) Normal [facility] Comment on above: Performed By: #### R AMY #### [facility] [address] [place] [address], TSHon 01-22-2021 TSH 0.554 uIU/mL Normal 0.450-5.330 The [facility] Comment on above: Performed By: #### R AMY #### [facility] [address] [place] [address], ABO RH TYPEon 01-21-2021 ABO and Rh group Nom (Bld) Blood group O Rh(D) positive Normal The [facility] Comment on above: Performed By: #### R AMY #### [facility] [address] [place] [address], BASIC METABOLIC PANELon 01-07 Anion gap [Moles/Vol] 21 mmol/L High 10-20 The [facility] Comment on above: Performed By: #### C H8 #### [facility] [address] [place] [address], Calcium [Mass/Vol] 8.0 mg/dL Low 8.4-10.4 The [facility] Comment on above: Performed By: #### C H8 #### [facility] [address] [place] [address], Chloride [Moles/Vol] 105 mmol/L Normal 97-111 [facility] Comment on above: Performed By: #### C H8 #### [facility] [address] [place] [address], CO2 [Moles/Vol] 15 mmol/L Low 21-30 The [facility] Comment on above: Performed By: #### C H8 #### [facility] [address] [place] [address], Creatinine [Mass/Vol] 1.75 mg/dL High 0.80-1.30 The [facility] Comment on above: Performed By: #### C H8 #### [facility] [address] [place] [address], ESTIMATED GFR (CKD-EPI) 38 mL/min/1.73sqm Low >=60 The [facility] Comment on above: Performed By: #### Beth H8 #### [facility] [address] [place] [address], Glucose [Mass/Vol] 182 mg/dL High 80-116 The [facility] Comment on above: Performed By: #### C H8 #### [facility] [address] [place] [address], Potassium [Moles/Vol] 5.1 mmol/L Normal 3.3-5.3 [facility] Comment on above: Performed By: #### C H8 #### [facility] [address] [place] [address], Sodium [Moles/Vol] 136 mmol/L Normal 135-148 The [facility] Comment on above: Performed By: #### C H8 #### [facility] [address] [place] [address], Urea nitrogen [Mass/Vol] 42 mg/dL High 8-22 The [facility] Comment on above: Performed By: #### C H8 #### [facility] [address] [place] [address], Anion gap [Moles/Vol] 17 mmol/L Normal 10-20 [facility] Comment on above: Performed By: #### C H8 #### [facility] [address] [place] [address], Calcium [Mass/Vol] 8.0 mg/dL Low 8.4-10.4 The [facility] Comment on above: Performed By: #### C H8 #### [facility] [address] [place] [address], Chloride [Moles/Vol] 103 mmol/L Normal 97-111 [facility] Comment on above: Performed By: #### C H8 #### [facility] [address] [place] [address], CO2 [Moles/Vol] 19 mmol/L Low 21-30 The [facility] Comment on above: Performed By: #### C H8 #### [facility] [address] [place] [address], Creatinine [Mass/Vol] 1.74 mg/dL High 0.80-1.30 [facility] Comment on above: Performed By: #### C H8 #### [facility] [address] [place] [address], ESTIMATED GFR (CKD-EPI) 38 mL/min/1.73sqm Low >=60 The [facility] Comment on above: Performed By: #### C H8 #### [facility] [address] [place] [address], Glucose [Mass/Vol] 185 mg/dL High 80-116 The [facility] Comment on above: Performed By: #### C H8 #### [facility] [address] [place] [address], Potassium [Moles/Vol] 5.1 mmol/L Normal 3.3-5.3 [facility] Comment on above: Performed By: #### C H8 #### [facility] [address] [place] [address], Sodium [Moles/Vol] 134 mmol/L Low 135-148 The [facility] Comment on above: Performed By: #### C H8 #### [facility] [address] [place] [address], Urea nitrogen [Mass/Vol] 42 mg/dL High 8-22 [facility] Comment on above: Performed By: #### C H8 #### [facility] [address] [place] [address], CBC WITH DIFFERENTIALon 01-07 Basophils (Bld) [#/Vol] 0.02 10*3/uL Normal 0.00-0.20 The [facility] Comment on above: Performed By: #### R AMY #### [facility] [address] [place] [address], Basophils/100 WBC (Bld) 0.2 % Normal <=1.9 The [facility] Comment on above: Performed By: #### R AMY #### [facility] [address] [place] [address], Eosinophils (Bld) [#/Vol] 0.00 10*3/uL Normal 0.00-0.70 [facility] Comment on above: Performed By: #### R AMY #### [facility] [address] [place] [address], Eosinophils/100 WBC (Bld) 0.0 % Low 0.1-4.0 [facility] Comment on above: Performed By: #### R AMY #### [facility] [address] [place] [address], Erythrocyte distribution width (RBC) [Ratio] 13.8 % Normal 11.5-14.5 The [facility] Comment on above: Performed By: #### R AMY #### [facility] [address], [place], Hematocrit (Bld) [Volume fraction] 18.4 % Critically low 41.0-53.0 The [facility] Comment on above: Performed By: #### R AMY #### [facility] [address], [place], Hemoglobin (Bld) [Mass/Vol] 6.4 g/dL Critically low 13.9-16.3 The [facility] Comment on above: Performed By: #### R AMY #### [facility] [address] [place] [address], Lymphocytes (Bld) [#/Vol] 0.65 10*3/uL Low 1.00-4.80 The [facility] Comment on above: Performed By: #### R AMY #### [facility] [address], [place], Lymphocytes/100 WBC (Bld) 5.1 % Low 24.0-44.0 [facility] Comment on above: Performed By: #### R AMY #### [facility] [address] [place] [address], MCH (RBC) [Entitic mass] 32.3 pg Normal 26.0-34.0 The [facility] Comment on above: Performed By: #### R AMY #### [facility] [address] [place] [address], MCHC (RBC) [Mass/Vol] 34.8 g/dL Normal 32.0-35.9 [facility] Comment on above: Performed By: #### R AMY #### [facility] [address] [place] [address], MCV (RBC) [Entitic vol] 93 fL Normal 80-100 The [facility] Comment on above: Performed By: #### R AMY #### [facility] [address] [place] [address], MONOCYTE DISTRIBUTION WIDTH 18 Normal <=20 The [facility] Comment on above: Performed By: #### R AMY #### [facility] [address], [place], Monocytes (Bld) [#/Vol] 1.03 10*3/uL High 0.20-1.00 The [facility] Comment on above: Performed By: #### R AMY #### [facility] [address], [place], Monocytes/100 WBC (Bld) 8.1 % Normal 2.0-11.0 [facility] Comment on above: Performed By: #### R AMY #### [facility] [address], [place], Neutrophils (Bld) [#/Vol] 10.98 10*3/uL High 1.50-8.00 [facility] Comment on above: Performed By: #### R AMY #### [facility] [address], [place], Neutrophils/100 WBC (Bld) 86.6 % High 31.0-76.0 [facility] Comment on above: Performed By: #### R AMY #### [facility] [address], [place], Platelet mean volume (Bld) [Entitic vol] 7.2 fL Low 7.5-11.2 [facility] Comment on above: Performed By: #### R AMY #### [facility] [address], [place], Platelets (Bld) [#/Vol] 347 10*3/uL Normal 150-400 [facility] Comment on above: Performed By: #### R AMY #### [facility] [address], RBC (Bld) [#/Vol] 1.98 10*6/uL Low 4.50-5.90 The [employer] [facility] Comment on above: Performed By: #### R AMY #### [facility] [address], WBC (Bld) [#/Vol] 12.7 10*3/uL High 4.5-11.5 The [facility] [employer] Comment on above: Performed By: #### R AMY #### [facility] [address], [place], Basophils (Bld) [#/Vol] 0.02 10*3/uL Normal 0.00-0.20 The [facility] Comment on above: Performed By: #### R AMY #### [facility] [address], Basophils/100 WBC (Bld) 0.1 % Normal <=1.9 The [facility] Comment on above: Performed By: #### R AMY #### [facility] [address], [place], Eosinophils (Bld) [#/Vol] 0.00 10*3/uL Normal 0.00-0.70 [facility] Comment on above: Performed By: #### R AMY #### [facility] [address], Eosinophils/100 WBC (Bld) 0.0 % Low 0.1-4.0 [facility] Comment on above: Performed By: #### R AMY #### [facility] [address], [place], Erythrocyte distribution width (RBC) [Ratio] 13.4 % Normal 11.5-14.5 [facility] Comment on above: Performed By: #### R AMY #### [facility] [address], Hematocrit (Bld) [Volume fraction] 19.3 % Critically low 41.0-53.0 The [facility] [employer] [facility] Comment on above: Performed By: #### R AMY #### [facility] [address], Hemoglobin (Bld) [Mass/Vol] 6.7 g/dL Critically low 13.9-16.3 [facility] Comment on above: Performed By: #### R AMY #### [facility] [address], Lymphocytes (Bld) [#/Vol] 0.49 10*3/uL Low 1.00-4.80 [facility] Comment on above: Performed By: #### R AMY #### [facility] [address], Lymphocytes/100 WBC (Bld) 3.4 % Low 24.0-44.0 [facility] Comment on above: Performed By: #### R AMY #### [facility] [address], [place], MCH (RBC) [Entitic mass] 32.4 pg Normal 26.0-34.0 The [facility] Comment on above: Performed By: #### R AMY #### [facility] [address], MCHC (RBC) [Mass/Vol] 34.7 g/dL Normal 32.0-35.9 [facility] Comment on above: Performed By: #### R AMY #### [facility] [address], MCV (RBC) [Entitic vol] 94 fL Normal 80-100 The [facility] Comment on above: Performed By: #### R AMY #### [facility] [address] [place] [address], MONOCYTE DISTRIBUTION WIDTH 22 High <=20 [facility] Comment on above: Performed By: #### R AMY #### [facility] [address], [place], Monocytes (Bld) [#/Vol] 0.90 10*3/uL Normal 0.20-1.00 [facility] Comment on above: Performed By: #### R AMY #### [facility] [address], Monocytes/100 WBC (Bld) 6.3 % Normal 2.0-11.0 [facility] Comment on above: Performed By: #### R AMY #### [facility] [address], Neutrophils (Bld) [#/Vol] 12.82 10*3/uL High 1.50-8.00 The [facility] Comment on above: Performed By: #### R AMY #### [facility] [address], Neutrophils/100 WBC (Bld) 90.1 % High 31.0-76.0 [facility] Comment on above: Performed By: #### R AMY #### [facility] [address], [place], Platelet mean volume (Bld) [Entitic vol] 7.7 fL Normal 7.5-11.2 [facility] Comment on above: Performed By: #### R AMY #### [facility] [address], [place], Platelets (Bld) [#/Vol] 339 10*3/uL Normal 150-400 [facility] Comment on above: Performed By: #### R AMY #### [facility] [address], [place], RBC (Bld) [#/Vol] 2.07 10*6/uL Low 4.50-5.90 The [employer] [facility] Comment on above: Performed By: #### R AMY #### [facility] [address], WBC (Bld) [#/Vol] 14.2 10*3/uL High 4.5-11.5 The [employer] Comment on above: Performed By: #### R AMY #### [facility] [address], [place], CTA ABDOMEN + PELVIS W/on CTA [...] (-CF-) (more content not included)... Normal [facility] Consultson 01-21-2021 Range Technician Authentication Interface Message Text UROLOGY CONSULT NOTE [...] 6.9. The patient was then transferred to [facility] for evaluation. CTA obtained in the ED [...] Gatherings with Friends and Family: * Attends [employer] Services: * Active Member of Clubs or [...] any (more content not included)... Normal The [facility] ED Noteson 01-21-2021 Range Technician Authentication Interface Message Text notified of critical HEMOGLOBIN value of 6.4,HEMATOCRIT value of 18.4. Hard copy of results given to . Normal The [facility] Range Technician Authentication Interface Message Text notified of critical Hemoglobin value of 6.7 AND HEMATOCRIT 19.3. Hard copy of results given to /PEDRO. Normal The [facility] ED Provider Noteson 01-22-20 Range Technician Authentication Interface Message Text AM for RY 70 yo M hx of Afib on , CKD s/p lithotripsy on Sunday. Patient syncopized today, went to [facility] ED for evaluation. CT revealed large perinephric hematoma. Hb was 6.9. s/p vitamin K, FFP, 1 units PRBCs. [facility] ED Called ACS and urology here--neither accepted [...] care Blossom Aguiar MD PGY3 Normal [facility] Range Technician Authentication Interface Message Text EMERGENCY DEPARTMENT - VISIT NOTE --------- HISTORY OF PRESENT ILLNESS ----- The history is provided by the Patient. Karl Odom is a 70 year old male with history of HLD, CKD, afib (Eliqu) presenting to the ED for perinephric hematoma as a transfer from [facility]. Patient had lithotripsy on Sunday at [facility]. Had a syncopal episode today and went outside hospital for evaluation. At this hospital patient received CT abdomen without contrast which showed a perinephric hematoma. Hemoglobin found to be 6.9. 1 unit of blood, FFP, vitamin K given. Patient transferred to [facility] for further evaluation as urologist there [...] were discussed with the patient and/or legal customer service representative teller at 16:00. The risks, benefits and alternatives were reviewed. Questions regarding blood transfusions were answered. The patient / or the patient's legal customer service representative teller agree with the plan for transfusion of [...] ec (more content not included)... Normal The [facility] HEPATIC FUNCTION PANELon Albumin [Mass/Vol] 2.8 g/dL Low 3.4-5.1 The [facility] Comment on above: Performed By: #### C H8 #### S [facility]ORAT[facility] [address] [place] [address], ALK 74 IU/L Normal 40-200 The [facility] Comment on above: Performed By: #### C H8 #### [facility] [address] [place] [address], ALT [Catalytic activity/Vol] 35 U/L Normal 7-40 The [facility] Comment on above: Performed By: #### C H8 #### [facility] [address] [place] [address], AST [Catalytic activity/Vol] 27 U/L Normal 7-40 The [facility] Comment on above: Performed By: #### C H8 #### S [facility] [address] [place] [address], Bilirubin [Mass/Vol] 2.5 mg/dL High 0.1-1.5 The [facility] Comment on above: Performed By: #### C H8 #### S [facility] [address] [place] [address], Bilirubin.direct [Mass/Vol] 0.50 mg/dL High 0.10-0.30 The [facility] Comment on above: Performed By: #### C H8 #### S [facility] [address] [place] [address], Protein [Mass/Vol] 5.3 g/dL Low 5.7-8.1 The [facility] Comment on above: Performed By: #### C H8 #### [facility] [address] [place] [address], LIPASEon 01-21-2021 LIP 26 IU/L Normal <128 The [facility] Comment on above: Performed By: #### R AMY #### [facility] [address] [place] [address], PARTIAL THROMBOPLASTIN TIMEo n 01-21-2021 aPTT Coag (Bld) [Time] 39 s High 25-37 [facility] Comment on above: Performed By: #### R AMY #### [facility] [address] [place] [address], PROTHROMBIN TIME AND INRon 1 INR Coag (PPP) [Relative time] 1.44 {INR} High 0.90-1.10 [facility] Comment on above: Performed By: #### R AMY #### S [facility] [address] [place] [address], PT Coag (PPP) [Time] 16.2 s High 9.7-12.9 [facility] Comment on above: Performed By: #### R AMY #### S [facility] [address] [place] [address], RED BLOOD CELL COMPONENTon 1 BB ORDER ITEM Product status info to follow Normal [facility] [facility] Comment on above: Performed By: #### R AMY #### [facility] [address] [place] [address], RED BLOOD CELL UNIT STATUSon 01-21-2021 BLOOD PRODUCT CODE [id number] Normal The [facility] Comment on above: Performed By: #### R AMY #### [facility] [address] [place] [address], BLOOD PRODUCT DESCRIPTION Red Blood Cells Normal [facility] Comment on above: Performed By: #### R AMY #### [facility] [address] [place] [address], BLOOD PRODUCT STATUS Transfused Normal [facility] Comment on above: Performed By: #### R AMY #### [facility] [address] [place] [address], BLOOD PRODUCT STATUS Released to avail Normal The [facility] Comment on above: Performed By: #### R AMY #### [facility] [address] [place] [address], BLOOD PRODUCT UNIT INFO [id number] Normal [facility] Comment on above: Performed By: #### R AMY #### [facility] [address] [place] [address], BLOOD PRODUCT UNIT INFO [id number] Normal [facility] Comment on above: Performed By: #### R AMY #### [facility] [address] [place] [address], BLOOD PRODUCT UNIT TYPE 5100 Normal [facility] Comment on above: Result Comment: O Po s Performed By: #### R AMY #### [facility] [address] [place] [address], CROSSMATCH INTERPRETATION Compatible (E) Normal [facility] Comment on above: Performed By: #### R AMY #### [facility] [address] [place] [address], TYPE AND SCREENon 01-21-2021 ABO and Rh group Nom (Bld) Blood group O Rh(D) positive Normal [facility] Comment on above: Performed By: #### R AMY #### [facility] [address] [place] [address], ABO and Rh group Nom (Bld) No Previous Results Normal The [facility] Comment on above: Performed By: #### R AMY #### [facility] [address], [place], ABSC INT Negative Normal [facility] Comment on above: Performed By: #### R AMY #### [facility] [address], [place], Encounters Encounter Date Encounter Type Care Provider Facility Start: 11-03-2021 Telephone encounter Frankie peñaloza DO Work Phone: Hematology/Oncology Comment on above: Results Start: 10-31-2021 End: 10-31-2021 ambulatory FRANKIE BEDOYA Facility:[facility] Start: 10-28-2021 Orders Only Frankie Bedoya D O Work Phone: Hematology/Oncology Comment on above: Anemia, unspecified type (Primary Dx) Start: 09-12-2021 Telephone encounter Frankie peñaloza DO Work Phone: Hematology/Oncology Comment on above: Patient Question Start: 06-22-2021 Telephone encounter Frankie peñaloza DO Work Phone: Hematology/Oncology Comment on above: Patient Update Start: 01-22-2021 End: 01-27-2021 Evaluation and management of inpatient MARIFER DAWN Facility:[facility] Start: 01-21-2021 End: 01-21-2021 ambulatory UNKNOWN PROVIDER Facility:[facility] Start: 01-21-2021 ambulatory UNKNOWN PROVIDER Facili ty:[facility] Procedures Date Procedure Procedure Detail Performing Clinician Start: 04-16-2020 Colonoscopy Frankie Bedoya DO Work Phone: Plan of Treatment Date Care Activity Detail Author Start: 10-31-2024 DIABETES SCREEN DIABETES SCREEN [facility] Start: 01-28-2024 DIABETES SCREEN DIABETES SCREEN [facility] Start: 04-09-2022 ADVANCE DIRECTIVE DISCUSSION ADVANCE DIRECTIVE DISCUSSION [facility] Start: 04-09-2022 DEPRESSION ASSESSMENT DEPRESSION ASS ESSMENT [facility] Start: 12-08-2021 Influenza vaccination INFLUENZA (#1) [facility] Start: 10-31-2021 End: 12-31-2021 Basic metabolic 2000 panel - Serum or Plasma BASIC METABOLIC PNL Lab Routine Anemia, unspecified type Expected: 10/31/2021, Expires: 12/31/2021 [facility] Work Phone: Comment on above: Expected: 10/31/2021 , Expires: 12/31/2021 Start: 10-31-2021 End: 12-31-2021 CBC W Auto Differential panel - Blood CBC + DIFF Lab STAT Anemia, unspecified type Expected: 10/31/2021, Expires: 12/31/2021 [facility] Work Phone: Comment on above: Expected: 10/31/2021 , Expires: 12/31/2021 Start: 10-31-2021 End: 12-31-2021 Ferritin [Mass/volume] in Serum or Plasma FERRITIN BLD Lab Routine Anemia, unspecified type Expected: 10/31/2021, Expires: 12/31/2021 [facility] Work Phone: Comment on above: Expected: 10/31/2021 , Expires: 12/31/2021 Start: 10-31-2021 End: 12-31-2021 Iron and Iron binding capacity panel - Serum or Plasma IRON + TIBC Lab Routine Anemia, unspecified type Expected: 10/31/2021, Expires: 12/31/2021 [facility] Work Phone: Comment on above: Expected: 10/31/2021 , Expires: 12/31/2021 Start: 04-16-2021 Colonoscopy COLONOSCOPY [facility] Start: 04-16-2021 COLORECTAL CANCER SCREENING COLORECTAL CANCER SCREENING [facility] Start: 04-09-2021 ADVANCE DIRECTIVE DISCUSSION ADVANCE DIRECTIVE DISCUSSION [facility] Start: 12-08-2020 Influenza vaccination INFLUENZA (#1) [facility] Start: 2013 PNEUMOCOCCAL: 65+ (1 - PCV) PNEUMOCOCCAL: 65+ (1 - PCV) [facility] Start: 2013 PNEUMOVAX AGE 65 AND OVER WITH 5YR LOOKBACK (#1) PNEUMOVAX AGE 65 AND OVER WITH 5YR LOOKBACK (#1) [facility] Start: 1998 SHINGRIX VACCINE (1 of 2) SHINGRIX VACCINE (1 of 2) [facility] Start: 1993 COLOGUARD (FIT-DNA) COLOGUARD (FIT-D NA) [facility] Start: [address] [facility] Start: 1993 FECAL OCCULT BLOOD FECAL OCCULT BLOO D [facility] Start: 1993 SIGMOIDOSCOPY SIGMOIDOSCOPY Christina red [facility] Start: 1983 LIPID SCREEN LIPID SCREEN [facility] Start: 1967 Urine microalbumin profile DTAP,TDAP,TD (1 - Tdap) [facility] Start: 1966 HEPATITIS C SCREENING HEPATITIS C SC REENING [facility] Start: 1960 Adult depression screening assessment DEPRESSION SCREENING [facility] Start: 1953 COVID-19 VACCINE (1) COVID-19 VACCIN E (1) [facility] Start: 1948 COVID-19 VACCINE (#1) COVID-19 VACCI NE (#1) [facility] [place] Payers Date Payer Category Payer Unknown [id number] 2013 Medicare HU[employer]NA MEDICARE HU[employer]NA MEDICARE PPO [id number] 2013-Present [phone] [address] [place] [address] PPO [id number] 2013 Medicare HUMANA MEDICARE HU[employer]NA MEDICARE PPO [id number] 2013-Present [phone] [address] [place] [address] PPO [id number] 2013 Private Health Insurance [id number] 1950 Unknown [id number] 1950 Unknown [id number] 1950 Unknown [id number] 1950 Unknown [id number] Social History Date Type Detail Facility Start: 05-06-2015 Tobacco smoking stat us NHIS Never smoked tobacco [facility] Work Phone: Start: 05-06-2015 Tobacco use and exposure Smokeless tobacco non-user [facility] Work Phone: Start: 02-09-2021 End: 10-31-2021 Alcohol intake Current non-drinker of alcohol (finding) [facility] Start: 1950 Sex Assigned At Not on file [facility] Start: 10-21-2021 End: 10-31-2021 Exposure to SARS-CoV-2 (event) Not sure [facility] Clinical Notes 01-22-2021 to 11-03-2021 Telephone Encounter [...] Peyton Taylor LPN documented in this encounter [facility] 10-31-2021 Note HNO ID: [id number] Author: Frankie Bedoya, DO Service: ? Author [...] recurrent gross hematuria. Went to ED at [facility]. Received transfusion. Life pxdurp85/14 to [facility]. Hgb 6.7 g/dL. No further gross hematuria. He was advised to restart apixaban when discharged from [facility]. He is on oral iron supplementation [...] edema. SKIN: No jaundice or rash. NEUROLOGIC: human resources assistant manager II-XII are grossly intact. No focal motor [...] Abs Lymph 1.00 - 4.00 k/uL 1.28 [place]% % 8.4 Abs [place] <0.87 k/uL 0.60 Eosin% % 1.8 Abs [...] today's iron leve (more content not included)... [facility] 09-12-2021 Miscellaneous Notes Patient is rescheduled, aware of time and date. Nicol Luong Patient's misunderstood and cancelled appointment for 09/14/2021. Please call to reschedule CBC/BMP/IRON STUDIES/6MO OV. Allyssa Barone LPN Message left for to contact office. Allyssa Barone LPN Patient's Jennifer called requesting to speak to a nurse, has question about labs, can be reached at [phone]. Thank you Veronica Lopez Pss documented in this encounter [facility] 06-27-2021 Miscellaneous Notes Spoke with pts. , [...] was 11.9 today. documented in this encounter [facility] 01-27-2021 Note DISCHARGE SUMMARY [address] [address] Karl Odom Date of : 1950 70 year old male Attending Abdulkadir Villalba MD Date of Admission 01/21/2021 Date of Discharge 01/27/2021 [Principal Hospital Problem (Final Diagnosis)] Perinephric hematoma [Secondary Hospital Problems] Hematuria Discharge Procedure Orders UROLOGY SERVICE REQUEST Future Appointments Date Time Provider Department Center 02/15/2021 3:15 PM Ann Penaloza MD [facility] Condition at Discharge Improved Activity No restrictions [...] for changes in Hgb. Patient transferred to [facility].??? Patient is being discharged with tamsulosin [...] Alfredo Ventura MD Internal Medicine, PGY-1 Pager: [phone] [facility] 01-27-2021 Note INTERNAL MEDICINE TEAM 2 DAILY PROGRESS NOTE Patient: Karl Odom : 1950 Sex: male Room: [place] [address] Admit Date: 01/21/2021 Today's Date: 01/27/2021 Length [...] for changes in Hgb. Patient transferred to [facility]. EVENTS IN PAST 24H: No acute events overnight SUBJECTIVE: Patient feeling fatigued and nauseous after walking around [place]. Also complaining of chronic constipation with straining. [...] * oxyCODONE (more content not included)... [facility] 01-26-2021 Note Physical Therapy Referral received. [...] mobility. Continue to encourage OOB. Erin Tyson [facility] B#: [phone] [facility] 01-26-2021 Note OCCUPATIONAL THERAPY INITIAL EVALUATION [...] 6.9. The patient was then transferred to [facility] for evaluation. Diagnosis: acute blood loss [...] Dep Max Mod Min CG CS DS WY I Set-Up Comment Feeding X Grooming/Hygiene X [...] Dep Max Mod Min CG CS DS WY I Set-Up Comment Toilet Transfers X To/from [...] Guard Assist/Supervision 4 - Non = Modified Jacob/Independent ASSESSMENT: Patient performing self care and mobility [...] NA = Not Assessed, I = Independent, WY = Modified Independent, Sup = Supervised, Set up = Physical Assistance for Set-up Only, Min = Minimal Assistance, Mod = Moderate Assistance, Max = Max assistance; Dep = Dependent; AROM = Active Range of Motion;PROM=Passive Range of Motion; MMT = Manual Muscle Test; UB = Upper Body; LB = Lower Body [facility] 01-25-2021 Note INTERNAL MEDICINE TEAM 2 DAILY PROGRESS NOTE Patient: Karl Odom : 1950 Sex: male Room: [place] [address] Admit Date: 01/21/2021 Today's Date: 01/25/2021 Length [...] 325 mg (more content not included)... [facility] 01-25-2021 Note STEPDOWN UNIT DAILY PROGRESS NOTE Patient: Karl Odom : 1950 Sex: male Room: [place] [address] Admit Date: 01/21/2021 Today's Date: 01/25/2021 Length [...] blood, FFP, and vitamin K. Transferred to [facility]. ??? In ED CBC showing Hbg 6.7 despite blood at outside hospital, additional 2 units PRBCs ordered. CTA at [facility] showing perinephric hematoma, possible active extravasation [...] gynecological surgeries/procedures (more content not included)... [facility] 01-24-2021 Note 01/24/21 1000 Assessment and [...] needs. Patient stated his Jennifer Odom at [phone] is his primary contact. Patient also stated a close friend of his, whom he will call, will transport him home after discharge. CM will remain available to assist with discharge planning and or needs as warranted. Faraz ARROYON, RN Inpatient Purchasing SupervisorAssistant Reading Teacher: [phone] ([phone]) [facility] 01-24-2021 Note UROLOGY PROGRESS NOT E [...] Halle Wolf MD Urologic Surgery PGY5 Pager: [phone] [facility] 01-24-2021 Note STEPDOWN UNIT DAILY PROGRESS NOTE Patient: Karl Odom : 1950 Sex: male Room: [place] [address] Admit Date: 01/21/2021 Today's Date: 01/24/2021 Length [...] blood, FFP, and vitamin K. Transferred to [facility]. ??? In ED CBC showing Hbg 6.7 despite blood at outside hospital, additional 2 units PRBCs ordered. CTA at [facility] showing perinephric hematoma, possible active extravasation [...] * eso (more content not included)... [facility] 01-23-2021 Note UROLOGY PROGRESS NOT E [...] Halle Wolf MD Urologic Surgery PGY5 Pager: [phone] [facility] 01-23-2021 Note INTERNAL MEDICINE STEPDOWN UNIT DAILY PROGRESS NOTE Patient: Karl Odom : 1950 Sex: male Room: [place] [address] Admit Date: 01/21/2021 Today's Date: 01/23/2021 Length [...] blood, FFP, and vitamin K. Transferred to [facility]. In ED CBC showing Hbg 6.7 despite blood at outside hospital, additional 2 units PRBCs ordered. CTA at [facility] showing perinephric hematoma, possible active extravasation [...] before danny (more content not included)... [facility] 01-22-2021 Note UROLOGY PROGRESS NOT E [...] Halle Wolf MD Urologic Surgery PGY5 Pager: [phone] [facility] 01-22-2021 Note INTERNAL MEDICINE STEPDOWN UNIT HISTORY AND PHYSICAL Patient: Karl Odom : 1950 Sex: male Room: [place] [address] Admit Date: 01/21/2021 Today's Date: 01/22/2021 Length [...] blood, FFP, and vitamin K. Transferred to [facility]. Poor historian. Had fall couple months ago. [...] pain Genito (more content not included)... [facility] Evaluation note Diagnosis Anemia, unspecified type- Primary documented in this encounter [facility] Summary Purpose Family History No Family History Records FoundNo Family History Records Found Advance Directives No Advanced Directives Records FoundNo Advanced Directives Records Found Additional Source Comments (unrecognized sect ion and content) No Status Records FoundNo Status Records Found INFORMATION SOURCE (unrecogn ized section and content) DATE CREATED AUTHOR 05/17/2021 [facility] DATE CREATED AUTHOR 'S ORGANIZ ATION 06/03/2022 [facility] Source Comments (unrecognize d section and content) In the event this informatio n is protected by the Federal Confidentiality of Alcohol and Drug Abuse Patient Records regulations: The Federal rules restrict any use of the information to criminally investigate or prosecute any alcohol or drug abuse patient.[facility] the event this information is protected by the Federal Confidentiality of Alcohol and Drug Abuse Patient Records regulations: The Federal rules restrict any use of the information to criminally investigate or prosecute any alcohol or drug abuse patient.[facility] the event this information is protected by the Federal Confidentiality of Alcohol and Drug Abuse Patient Records regulations: The Federal rules restrict any use of the information to criminally investigate or prosecute any alcohol or drug abuse patient.[facility] the event this information is protected by the Federal Confidentiality of Alcohol and Drug Abuse Patient Records regulations: The Federal rules restrict any use of the information to criminally investigate or prosecute any alcohol or drug abuse patient.[facility] Reason for Visit (unrecogniz ed section and content) Reason Comments Patient Update Reason Comments Results Reason Comments Patient Question Care Teams (unrecognized sec tion and content) Industrial Economist Relationship Specialty Start Date End Date Manuel Hardy Denysrocky [address] [facility] [address] [place] [address] PCP - General Family Practice 02/12/19 Industrial Economist Relationship Specialty Start Date End Date LioManuel Edrocky [address] [facility] [address] [place] [address] PCP - General Family Practice 02/12/19 Industrial Economist Relationship Specialty Start Date End Date Lio Manuel Denysrocky [address] [facility] [address] [place] [address] PCP - General Family Practice 02/12/19 Industrial Economist Relationship Specialty Start Date End Date LioManuel Edrocky [address] [facility] [address] [place] [address] PCP - General Family Medicine 02/12/19 FOR [...] BE BASED ON THE PRIMARY CLINICAL RECORDS. [facility] [employer] [facility]. provides no warranty or guarantee of the accuracy or completeness of information in this document.
[2024-02-11 06:07] LABS: Mucous, Urine 0 SEEN /hpf (<or=2+)
[2024-02-11 06:42] LABS: Absolute Lymphocyte Count 1.38 X10^3/uL (0.83-4.51); Absolute Neutrophil Count 3.4 X10^3/uL (2.0-7.7); Basophil# 0.03 X10^3/uL; Basophil% 0.5 % (0-1); Eosinophil# 0.18 X10^3/uL; Eosinophils% 3.2 % (0-5); Hemoglobin 11.4 g/dL (13.0-16.5); Lymphocyte # 1.38 X10^3/ul (0.83-4.51); Lymphocyte % 24.7 % (19-41); Mean Corp Hgb Conc 33.5 g/dL (32-36); Mean Corpuscular Volume 95.5 fL (80-94); Mean Platelet Vol. 9.8 fl (6.2-12.0); Monocyte# 0.57 X10^3/uL; Monocyte% 10.2 % (0-10); NRBC Flagged by Analyzer 0 % (0-5); Neutrophil # 3.42 X10^3/uL (2.7-7.7); Neutrophil % 61.2 % (47-70); Platelet Count 252 K/mm3 (150-450); RBC Distribution Width CV 12.3 % (11.6-14.6); RBC Distribution Width SD 42.8 fl (35.1-43.9); Red Blood Count 3.56 M/mm3 (4.6-6.2); White Blood Count 5.6 K/mm3 (4.4-11.0)
[2024-02-11 07:11] LABS: Protein, Urine (Random) 14.9 mg/dL (<11.9); Protein:Creat Ratio 151 mg/g CRE (0-200)
[2024-02-11 07:51] LABS: Color, Urine Yellow (Yellow); Glucose, Dipstick Normal (Normal); Ketone-Dipstick Negative (Negative); Leukocyte Esterase-Dipstick 25 /ul (Negative); Nitrite-Dipstick Negative (Negative); Occult Blood-Urine 10 /ul (Negative); Protein-Dipstick 15 mg/dl (Negative); Urine Bilirubin Dipstick Negative (Negative); Urine Clarity Clear (Clear); Urine Urobilinogen Normal (Normal)
[2024-02-11 07:54] LABS: PTHIN 53.3 pg/mL (18.4-80.1)
[2024-02-11 07:59] LABS: Vitamin B12 537 pg/mL (211-911); Vitamin D,25 Hydroxy 70.6 ng/mL
[2024-02-11 08:04] LABS: Bacteria 1+ /hpf (None Seen); Red Blood Cells-Urine 0-5 SEEN /hpf (0-5); Squamous Epithelial Cells - UA 0-5 SEEN /hpf (0-5); White Blood Cells 0-5 SEEN /hpf (0-5)
[2024-02-11 08:21] LABS: AST(SGOT) 16 U/L (15-37); Alanine Aminotransfer ALT/SGPT 21 U/L (16-61); Albumin, Serum 3.5 g/dL (3.2-5.0); Alkaline Phosphatase 120 U/L (45-117); Anion Gap 5 (5-15); BUN 36 mg/dL (7-18); BUN/Creat Ratio 25.9 RATIO (10-20); Chloride 108 mmol/L (98-107); Creatinine, Serum 1.39 mg/dL (0.70-1.30); EST Glomerular Filtration Rate 53 mL/min (>60); Est Glom Filt Rate - Afr Amer 64 mL/min (>60); Ferritin 229 ng/mL (26-388); Globulin 3.5 g/dL (2.2-4.2); Glucose 111 mg/dL (74-106); Iron 68 ug/dL (65-175); Iron Binding Capacity,Total 243 ug/dL (250-450); Magnesium 2.6 mg/dL (1.6-2.6); Phosphorus 2.7 mg/dL (2.5-4.9); Potassium 4.4 mmol/L (3.5-5.1); Sodium Level 140 mmol/L (136-145); T4 Free Direct 1.18 ng/dL (0.76-1.46); Thyroid Stim Hormone (TSH) 0.563 uIU/mL (0.358-3.740)
== END | disposition home or self-care (01) ==
LOC: LAB 05:57
PROVIDERS: PCP Family Medicine; Referring Provider Family Medicine; Visit Provider Family Medicine
DX: N18.30 Chronic kidney disease, stage 3 unspecified (principal); I48.91 Unspecified atrial fibrillation; D63.8 Anemia in other chronic diseases classified elsewhere; E03.9 Hypothyroidism, unspecified; E55.9 Vitamin D deficiency, unspecified
CPT/HCPCS: 80053; 81001; 82306; 82570; 82607; 82728; 82746; 83540; 83550; 83735; 83970; 84100; 84156; 84439; 84443; 85025

== ENCOUNTER 2024-06-04 12:20 | Emergency (ER) | payer OTHER, MEDICARE, SELFPAY ==
[2024-06-04 12:21] VITALS: BP 135/75; PULSE 69; RESP 16; TEMP 36.6; O2SAT 98; BMI 26.6
--- NOTE | 2024-06-04 12:25 | RAD_ITS ---
PROCEDURE: HAND MIN 3 VIEWS REASON FOR EXAM: Laceration to multiple digits. TECHNIQUE: 4 view(s) of the right hand COMPARISON: None. FINDINGS: Nondisplaced fracture of the tuft of the distal phalanx of the index finger and 3rd digit with overlying soft tissue swelling. Normal alignment. Soft tissue swelling. Degenerative changes at the radiocarpal joint. RAD/Hand Min 3 Views IMPRESSION: Nondisplaced fractures of the hope of the distal phalanges of the 2nd and 3rd digits. Soft tissue swelling. Degenerative changes of the radiocarpal joint. Reading Location: [facility]
[2024-06-04] MEDS: Diphth,Pertuss(Acell),Tet Vac 0.5 ML Vial IM (14:35)
[2024-06-04] MEDS: Lidocaine 1% (20 ml mdv) 20 ML Vial INFILT (14:35)
--- NOTE | 2024-06-04 14:36 | EX.ED.GENINJ ---
HPI History of Present Illness Chief Complaint: Laceration Narrative Narrative: Chief complaint and HPI: Right hand injury/laceration. 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 He states the piece of metal slipped. Unknown last tetanus. Denies any numbness or tingling. Laceration is present to the right index, middle, and pinky finger. Review of systems: See HPI Medications: As listed on the chart Allergies: As listed on the chart PFSH: Per chart Vital signs: As listed on the chart. Reviewed. Physical exam: Gen: A&O x3, NAD Head: Normocephalic, atraumatic Eyes: No sclera icterus, conjunctiva clear ENT: Moist mucous membranes CV: Regular rate Resp: Nonlabored respiration Musc: Right hand with full range of motion. Wrist, hand, fingers are nontender to palpation except for where the lacerations are located, no deformity, good capillary refill, compartments soft, patient has a laceration to the distal right index finger on the volar aspect as well as the right middle, abrasion to the pinky finger, minimal active bleed, radial and ulnar pulse +2, sensation intact Neuro: Alert, oriented, grossly intact Psych: Cooperative, appropriate mood and affect [facility] Medical History Bilateral carpal tunnel syndrome Left hand paresthesia Left wrist sprain GERD (gastroesophageal reflux disease) History of kidney stones Wears glasses Thyroid disease Kidney stones Gastric reflux Non-smoker CPAP (continuous positive airway pressure) dependence Sleep apnea Hx of transesophageal echocardiography (KUMAR) for monitoring History of echocardiogram History of stress test Cardiology follow-up encounter History of atrial fibrillation Iron deficiency anemia Hypothyroidism Laceration of right eyebrow without complication JOSE on CPAP Valvular heart disease Peripheral vascular disease Cardiac murmur Paroxysmal atrial fibrillation Personal history of colonic polyps BPH (benign prostatic hyperplasia) Vitamin D deficiency Encounter for monitoring anti-arrhythmic therapy Home Medications ?Medication ?Instructions ?Recorded ?Last Taken ?Type aspirin 81 mg chewable tablet 81 mg PO DAILY@0800 04/21/15 12/29/20 History multivitamin 1 tab PO DAILY 04/21/15 08/12/20 History calcium carbonate (Calcium 500) 1,000 mg PO DAILY 04/12/20 08/12/20 History levothyroxine 137 mcg tablet 137 mcg PO DAILY thyroid 08/13/20 01/12/21 07:30 History ascorbate calcium (vitamin C) 500 1 g PO DAILY 03/11/21 Unknown History mg tablet tamsulosin 0.4 mg capsule 0.4 mg PO DAILY 03/11/21 Unknown History zinc sulfate 25 mg zinc (110 mg) 25 mg PO DAILY 03/11/21 Unknown History tablet (Orazinc) cholecalciferol (vitamin D3) 50 50 mcg PO DAILY 09/19/21 Unknown History mcg (2,000 unit) capsule omeprazole 40 mg capsule,delayed See Rx Instructions .Route 04/19/22 Unknown Rx release .COMPLEX #90 CAPSULES apixaban 5 mg tablet 5 mg PO BID #180 tabs 09/06/23 Unknown Rx diltiazem HCl 120 mg 120 mg PO DAILY #90 caps 02/18/24 Unknown Rx capsule,extended release 24 hr flecainide 100 mg tablet 100 mg PO Q12H #180 TABLETS 03/10/24 Unknown Rx cephalexin 500 mg capsule 500 mg PO Q6H 7 days #28 caps 06/04/24 Unknown Rx oxycodone 5 mg tablet 5 mg PO TID PRN pain 2 days #9 tabs 06/04/24 Unknown Rx Allergy/AdvReac Type Severity Reaction Status Date / Time No Known Allergies Allergy Verified 06/05/24 11:29 Family History Mother Thyroid disorder Father Thyroid disorder Surgical History History of lithotripsy Hx of cystoscopy History of colonoscopy (~09/2017) History of cardiac cath History of carpal tunnel release Social History Smoking Status: Never smoker alcohol intake: never substance use type: does not use caffeine: No what type of physical activity do you participate in: weight training frequency: 3-4 times per week EXAM Physical Exam Const Vital Signs: 06/04/24 12:21 Temperature 97.8 F Temperature Source Temporal Pulse Rate 69 Respiratory Rate 16 Blood Pressure 135/75 H Blood Pressure Mean 95 Pulse Ox 98 Oxygen Delivery Method Room Air MDM MDM MDM Narrative Medical decision making narrative: 74-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 Injury occurred at work. Per triage protocol, x-ray of the right hand was obtained. See physical exam findings. Tetanus updated. Differential diagnosis includes but is not limited to laceration, fracture. Lacerations will need repaired. X-ray of the right hand was personally reviewed and interpreted by me, ED physician. Patient has nondisplaced tuft fractures of the distal second and third fingers. Considering the patient's lacerations overlie these fractures, patient has open fractures. Will be given his first dose of antibiotics, Keflex here. Will be discharged home on a 7-day course. Tetanus updated. Angora given for pain. Patient's lacerations were repaired and fingers were splinted. Patient was educated on splint care. Nonweightbearing to the fingers. Patient is right-hand dominant. Follow-up with Worker's Compensation. Narcotics ordered for pain control. Sutures need to be removed in 7 to 10 days. He confirmed understanding. Return precautions explained. Patient discharged home. Laceration Repair Indication: 2 cm laceration to the distal right second finger on the volar aspect, 1 cm laceration to the distal right third finger on the volar aspect Consent:Risks, benefits, and alternatives discussed with patient and consent obtained Procedure: A time out was performed. The area was prepped and draped in the usual sterile fashion. Local anesthesia was achieved using 1% Lidocaine without epinephrine. The wound was copiously irrigated and cleaned. 8 sutures sutures were placed in the second finger and 4 sutures were placed in the third finger using 4-0 Ethilon in an interrupted fashion. The estimated blood loss was minimal. Iodoform gauze, dry gauze, splints, and a bandage were applied to the fingers. Foreign Material: None Debridement: None Follow-up: Anticipatory guidance, as well as standard post-procedure care, was explained. Return precautions are given. Follow-up visit set for suture removal and evaluation of the laceration. Impression: 1. Open nondisplaced tuft fractures of the distal second and third fingers on the right, splinted 2. Laceration to the right second and third fingers, repaired 3. Injury at work 4. Abrasion to the fifth right finger Radiography Diagnostic Testing: Clinical Impression(s) from Imaging Studies Hand X-Ray 06/04/24 12:25 IMPRESSION: Nondisplaced fractures of the hope of the distal phalanges of the 2nd and 3rd digits. Soft tissue swelling. Degenerative changes of the radiocarpal joint. Reading Location: [id number] Discharge Plan Triage Chief Complaint: Laceration ED Provider: Higinio Mendieta Dx/Rx/DC Orders Clinical Impression: Open fracture of tuft of distal phalanx of finger, Laceration of finger Instructions: ED Fracture, Finger, Open, ED Laceration, Hand: All Closures Prescriptions: New oxycodone 5 mg tablet 5 mg PO TID PRN (Reason: pain) 2 Days Qty: 9 0RF cephalexin 500 mg capsule 500 mg PO Q6H 7 Days Qty: 28 0RF No Action calcium carbonate [Calcium 500] 500 mg calcium (1,250 mg) tablet 1,000 mg PO DAILY ascorbate calcium (vitamin C) 500 mg tablet 1 g PO DAILY cholecalciferol (vitamin D3) 50 mcg (2,000 unit) capsule 50 mcg PO DAILY tamsulosin 0.4 mg capsule 0.4 mg PO DAILY Orazinc 25 mg zinc (110 mg) tablet 25 mg PO DAILY multivitamin 1 EACH tablet 1 tab PO DAILY aspirin 81 MG tablet,chewable 81 mg PO DAILY@0800 levothyroxine 137 mcg tablet 137 mcg PO DAILY omeprazole 40 mg capsule,delayed release(DR/EC) See Rx Instructions .ROUTE .COMPLEX Qty: 90 0RF Dose Instruction: TAKE 1 CAPSULE EVERY DAY Rx Instructions: TAKE 1 CAPSULE EVERY DAY apixaban 5 mg tablet 5 mg PO BID Qty: 180 4RF diltiazem HCl 120 mg capsule,extended release 24hr 120 mg PO DAILY Qty: 90 3RF flecainide 100 mg tablet 100 mg PO Q12H Qty: 180 3RF Primary Care Provider: Raffi Vaca Referrals: [facility] [Group of Physicians] - 3-5 Days Raffi Vaca MD [Primary Care Provider] - Activity Restrictions/Additional Instructions: Nonweightbearing to the right hand. Splints need to remain on at all times. Splint cannot get wet. Take all of your antibiotics. Follow-up with Worker's Comp. Narcotics can increase falls as well as dizziness and confusion. Do not drive or operate heavy machinery while taking narcotics. Take Tylenol, narcotics only for severe pain. Sutures need to be removed in7 to 10 days. Print Language: Pashto Disposition Disposition: Home, Self Care Discharge Date/Time: 06/04/24 16:45
[2024-06-04] MEDS: Cephalexin 250 MG Capsule 500 MG PO (15:41)
[2024-06-04] MEDS: HYDROcodone Bitartrate/Apap 5/325 Tablet PO (16:04)
== END 2024-06-04 16:45 | disposition home or self-care (01) ==
PROVIDERS: Emergency Provider Surgery; PCP Family Medicine; Visit Provider Surgery
DX: S62.639B Displaced fracture of distal phalanx of unspecified finger, initial encounter for open fracture (principal); Z23 Encounter for immunization; G47.33 Obstructive sleep apnea (adult) (pediatric); Z99.89 Dependence on other enabling machines and devices; S60.416A Abrasion of right little finger, initial encounter; W31.1XXA Contact with metalworking machines, initial encounter; Y99.0 Civilian activity done for income or pay; Y92.89 Other specified places as the place of occurrence of the external cause; S62.660B Nondisplaced fracture of distal phalanx of right index finger, initial encounter for open fracture; S62.662B Nondisplaced fracture of distal phalanx of right middle finger, initial encounter for open fracture
CPT/HCPCS: 12001; 73130; 90715; 99284

== ENCOUNTER → 2024-07-25 | Outpatient (CLI) | payer MEDICARE, SELFPAY ==
[2024-07-25 10:04] LABS: Absolute Lymphocyte Count 1.36 X10^3/uL (0.83-4.51); Absolute Neutrophil Count 3.2 X10^3/uL (2.0-7.7); Basophil# 0.03 X10^3/uL; Basophil% 0.5 % (0-1); Eosinophil# 0.37 X10^3/uL; Eosinophils% 6.6 % (0-5); Hematocrit 31.7 % (40-54); Hemoglobin 10.6 g/dL (13.0-16.5); Lymphocyte # 1.36 X10^3/ul (0.83-4.51); Lymphocyte % 24.2 % (19-41); Mean Corp Hgb Conc 33.4 g/dL (32-36); Mean Corpuscular Hgb 31.7 pg (27.0-32.0); Mean Corpuscular Volume 94.9 fL (80-94); Mean Platelet Vol. 9.7 fl (6.2-12.0); Monocyte% 10.7 % (0-10); NRBC Flagged by Analyzer 0 % (0-5); Neutrophil # 3.23 X10^3/uL (2.7-7.7); Neutrophil % 57.5 % (47-70); Platelet Count 304 K/mm3 (150-450); RBC Distribution Width CV 12.7 % (11.6-14.6); RBC Distribution Width SD 44.3 fl (35.1-43.9); Red Blood Count 3.34 M/mm3 (4.6-6.2); White Blood Count 5.6 K/mm3 (4.4-11.0)
[2024-07-25 10:27] LABS: ALB/GLOB Ratio 1.4 RATIO (0.9-2.4); AST(SGOT) 24 U/L (<=37); Alanine Aminotransfer ALT/SGPT 31 U/L (<=46); Albumin, Serum 3.9 g/dL (3.4-4.8); Alkaline Phosphatase 122 U/L (40-129); Anion Gap 8 (5-15); BUN 26 mg/dL (4-19); Calcium,Total 9.3 mg/dL (7.6-11.0); Carbon Dioxide 24.6 mmol/L (21.0-32.0); Chloride 104 mmol/L (98-108); Creatinine, Serum 1.14 mg/dL (0.70-1.20); EST Glomerular Filtration Rate 67 (>60); Globulin 2.8 g/dL (2.2-4.2); Glucose 111 mg/dL (70-99); Magnesium 2.2 mg/dL (1.5-2.2); Potassium 4.7 mmol/L (3.3-5.1); Protein, Total 6.7 g/dL (5.9-8.4); Sodium Level 137 mmol/L (133-145)
[2024-07-25 15:01] LABS: Ferritin 312 ng/mL (37-417); Iron 38 ug/dL (65-175); Iron Binding Capacity,Unsat 174 ug/dL (228-428); Vitamin B12 655 pg/mL (180-914)
[2024-07-25 15:40] LABS: Iron Binding Capacity,Total 212 ug/dL (250-450); PERCENT IRON SATURATION 17.9 % (9-55)
== END | disposition home or self-care (01) ==
LOC: MFPLAB 09:06
PROVIDERS: PCP Family Medicine; Referring Provider Family Medicine; Visit Provider Family Medicine
DX: R19.7 Diarrhea, unspecified (principal); D63.8 Anemia in other chronic diseases classified elsewhere
CPT/HCPCS: 36415; 80053; 82607; 82728; 83540; 83550; 83735; 85025

== ENCOUNTER → 2024-08-15 | Outpatient (CLI) | payer MEDICARE, SELFPAY ==
[2024-08-15 16:54] LABS: PSA,Total - Annual Screen 9.28 ng/mL (0.02-4.00)
== END | disposition home or self-care (01) ==
PROVIDERS: PCP Family Medicine
DX: Z12.5 Encounter for screening for malignant neoplasm of prostate (principal)
CPT/HCPCS: 36415; 84153; G0103

== ENCOUNTER → 2025-01-12 | Outpatient (CLI) | payer MEDICARE, SELFPAY ==
[2025-01-12 13:15] LABS: AST(SGOT) 18 U/L (<=37); Alanine Aminotransfer ALT/SGPT 15 U/L (<=46); Albumin, Serum 3.9 g/dL (3.4-4.8); Alkaline Phosphatase 96 U/L (40-129); Anion Gap 10 (5-15); BUN 33 mg/dL (4-19); BUN/Creat Ratio 26.1 RATIO (10-20); Calcium,Total 9.1 mg/dL (7.6-11.0); Carbon Dioxide 22.6 mmol/L (21.0-32.0); Chloride 104 mmol/L (98-108); Globulin 2.7 g/dL (2.2-4.2); Glucose 116 mg/dL (70-99); Potassium 4.3 mmol/L (3.3-5.1)
== END | disposition home or self-care (01) ==
LOC: LAB 12:04
PROVIDERS: PCP Family Medicine; Referring Provider Internal Medicine Cardiovascular Disease; Visit Provider Internal Medicine Cardiovascular Disease
DX: I48.0 Paroxysmal atrial fibrillation (principal); E03.9 Hypothyroidism, unspecified; Z51.81 Encounter for therapeutic drug level monitoring; Z79.899 Other long term (current) drug therapy
CPT/HCPCS: 36415; 80053

== ENCOUNTER → 2025-02-11 | Outpatient (CLI) | payer MEDICARE, SELFPAY ==
[2025-02-11 15:48] LABS: Hematocrit 31.8 % (40-54); Hemoglobin 10.9 g/dL (13.0-16.5); Immature Granulocytes Count 0.030 X10^3/uL (0.0-0.0); Mean Corp Hgb Conc 34.3 g/dL (32-36); Mean Corpuscular Volume 93.5 fL (80-94); Mean Platelet Vol. 9.7 fl (6.2-12.0); NRBC Flagged by Analyzer 0 % (0-5); Platelet Count 252 K/mm3 (150-450); RBC Distribution Width CV 12.6 % (11.6-14.6); RBC Distribution Width SD 43.5 fl (35.1-43.9); Red Blood Count 3.40 M/mm3 (4.6-6.2); White Blood Count 6.3 K/mm3 (4.4-11.0)
[2025-02-11 16:21] LABS: PTHIN 61 pg/mL (11-61)
[2025-02-11 16:22] LABS: Creatinine, Urine (random) 172.00 mg/dL (39.00-259.00); Protein, Urine (Random) 31.0 mg/dL (0.0-12.0); Protein:Creat Ratio 180 mg/g CRE (0-200)
[2025-02-11 16:30] LABS: AST(SGOT) 19 U/L (<=37); Alanine Aminotransfer ALT/SGPT 15 U/L (<=46); Albumin, Serum 4.1 g/dL (3.4-4.8); Alkaline Phosphatase 96 U/L (40-129); Anion Gap 10 (5-15); BUN 31 mg/dL (4-19); BUN/Creat Ratio 23.1 RATIO (10-20); Calcium,Total 9.2 mg/dL (7.6-11.0); Carbon Dioxide 23.8 mmol/L (21.0-32.0); Chloride 105 mmol/L (98-108); Ferritin 282 ng/mL (37-417); Globulin 2.8 g/dL (2.2-4.2); Glucose 89 mg/dL (70-99); Iron 52 ug/dL (65-175); Iron Binding Capacity,Unsat 180 ug/dL (228-428); Magnesium 2.4 mg/dL (1.5-2.2); Potassium 4.7 mmol/L (3.3-5.1); Vitamin B12 644 pg/mL (180-914); Vitamin D,25 Hydroxy 50.1 ng/mL (30-100)
[2025-02-11 16:59] LABS: FOLATES,SERUM (FOLIC ACID) 33.30 ng/mL (4.60-34.80)
[2025-02-11 17:09] LABS: Iron Binding Capacity,Total 232 ug/dL (250-450)
== END | disposition home or self-care (01) ==
LOC: LAB 15:01
PROVIDERS: PCP Family Medicine; Referring Provider Family Medicine; Visit Provider Family Medicine
DX: I48.91 Unspecified atrial fibrillation (principal); D63.8 Anemia in other chronic diseases classified elsewhere; N18.30 Chronic kidney disease, stage 3 unspecified; E03.9 Hypothyroidism, unspecified
CPT/HCPCS: 36415; 80053; 82306; 82570; 82607; 82728; 82746; 83540; 83550; 83735; 83970; 84156; 84439; 84443; 85025

== ENCOUNTER → 2025-02-13 | Outpatient (CLI) | payer MEDICARE, SELFPAY ==
--- NOTE | 2025-02-13 13:46 | ECHOD_ITS ---
Reason For Study Reason For Study: [facility]– [place] 2] Procedure This was a 2D Doppler, Color Flow transthoracic echocardiogram. Exam performed in department. Left Ventricle Normal size and thickness. The left ventricular ejection fraction is 65 %. Normal diastology for age. Right Ventricle Normal right ventricle. Atria There is mild biatrial dilatation. Mitral Valve Moderate (2+) mitral valve insufficiency. Tricuspid Valve Moderate (2+) tricuspid valve insufficiency. Normal pulmonary artery pressure. Aortic Valve Moderately calcified right aortic valve cusp. Mild aortic valve stenosis with mean peak gradient 11 mmHg. Trivial aortic valve regurgitation. Pulmonic Valve Mild (1+) pulmonic valve insufficiency. Great Vessels Normal sized aortic root. Pericardium/Pleural No pericardial effusion. MMode/2D Measurements & Calculations LVIDd: 4.5 cm IVSd: 1.1 cm LVOT diam: 2.2 cm LVIDs: 2.5 cm LVPWd: 1.1 cm LVOT area: 4.0 cm2 RVDd: 4.9 cm FS: 44.4 % Ao root diam: 3.2 cm LAV(MOD-bp): 63.5 ml LVAd ap4: 32.6 cm2 LAV(MOD-bp) Indexed: 35.8 ml/m2 LVLd ap4: 9.1 cm LAV(MOD-sp2): 62.5 ml EDV(MOD-sp4): 94.2 ml LAV(MOD-sp4): 56.6 ml EDV(sp4-el): 99.2 ml LVAs ap4: 15.1 cm2 LVLs ap4: 7.2 cm ESV(MOD-sp4): 27.8 ml ESV(sp4-el): 26.8 ml EF(MOD-sp4): 70.5 % EF(sp4-el): 73.0 % LVAd ap2: 26.2 cm2 SV(MOD-sp4): 66.5 ml SV(MOD-sp2): 46.2 ml LVLd ap2: 8.8 cm SI(MOD-sp4): 37.4 ml/m2 SI(MOD-sp2): 26.0 ml/m2 EDV(MOD-sp2): 67.8 ml EDV(sp2-el): 66.6 ml LVAs ap2: 12.7 cm2 LVLs ap2: 7.6 cm ESV(MOD-sp2): 21.5 ml ESV(sp2-el): 18.1 ml EF(MOD-sp2): 68.2 % SV(sp4-el): 72.4 ml LA dimension(2D): 4.4 cm LA A4 area: 20.1 cm2 RA A4 area: 21.4 cm2 TAPSE: 2.3 cm Time Measurements MV dec time: 0.20 sec Doppler Measurements & Calculations MV E max arley: 68.4 cm/sec Lat Peak E' Arley: 12.2 cm/sec Med Peak E' Arley: 7.6 cm/sec MV A max arley: 73.5 cm/sec E/E' lat: 5.6 E/E' med: 9.0 MV E/A: 0.93 MV V2 max: 84.1 cm/sec MV P1/2t max arley: 66.0 cm/sec Ao V2 max: 241.7 cm/sec MV max P.8 mmHg MV P1/2t: 79.4 msec Ao max P.4 mmHg MV V2 mean: 32.6 cm/sec Ao V2 mean: 158.8 cm/sec MV mean P.60 mmHg MV dec slope: 243.6 cm/sec2 Ao mean P.6 mmHg MV V2 VTI: 26.1 cm MVA(P1/2t): 2.8 cm2 Ao V2 VTI: 56.1 cm AV (velocity ratio): 0.49 MVA(VTI): 4.2 cm2 KELVIN(I,D): 1.9 cm2 KELVIN(V,D): 1.7 cm2 AI max arley: 406.0 cm/sec LV V1 max: 106.0 cm/sec SV(LVOT): 109.1 ml AI max P.1 mmHg LV V1 max P.5 mmHg AI dec slope: 176.7 cm/sec2 LV V1 mean P.6 mmHg AI P1/2t: 672.8 msec LV V1 mean: 76.0 cm/sec LV V1 VTI: 27.5 cm PA V2 max: 108.0 cm/sec PI dec slope: 147.2 cm/sec2 TR max arley: 262.9 cm/sec TR max P.6 mmHg ECHO/Echo Complete Interpretation Summary The left ventricular ejection fraction is 65 %. Moderate (2+) mitral valve insufficiency. Moderate (2+) tricuspid valve insufficiency. Moderately calcified right aortic valve cusp. Mild aortic valve stenosis with m kem peak gradient 11 mmHg. Trivial aortic valve regurgitation. Mild (1+) pulmonic valve insufficiency. There is mild biatrial dilatation. Ordering Physician: Cruzito^Dory^^^ Referring Physician: Raffi Vaca Performed By: Katy Robles, TIFFANIE, RVT
== END | disposition home or self-care (01) ==
LOC: CVS 13:43
PROVIDERS: PCP Family Medicine; Referring Provider Internal Medicine Cardiovascular Disease; Visit Provider Internal Medicine Cardiovascular Disease
DX: I48.0 Paroxysmal atrial fibrillation (principal); Z51.81 Encounter for therapeutic drug level monitoring; Z79.899 Other long term (current) drug therapy; E03.9 Hypothyroidism, unspecified
CPT/HCPCS: 93306